=== PATIENT | male | born 1965 | race Two or more races ===

== ENCOUNTER 2024-04-15 21:01 | Inpatient (IN) | payer MEDICARE, MEDICAID ==
[~2024-04-15] VITALS: Ht 172.7 cm; Wt 85.5 kg
[2024-04-15 22:05] LABS: Basophils # (auto) 0 10 ^3/uL (0-0.2); Basophils % (auto) 0.5 % (0.0-2.0); Eosinophils # (auto) 0 10 ^3/uL (0-0.8); Eosinophils % (auto) 0.5 % (0.0-7.0); Hematocrit 28.9 % (41.0-53.0); Hemoglobin 9.9 g/dL (13.5-17.5); Lymphocytes # (auto) 1.1 10 ^3/uL (0.4-5.4); Lymphocytes % (auto) 12.4 % (10.0-50.0); Mean Corpuscular Hemoglobin 33.2 pg (28.0-32.0); Mean Corpuscular Hgb Conc. 34.2 g/dL (32.0-36.0); Monocytes # (auto) 0.6 10 ^3/uL (0-1.3); Monocytes % (auto) 7.1 % (0.0-12.0); Neutrophils # (auto) 7.2 10 ^3/uL (1.6-8.6); Neutrophils % (auto) 79.5 % (37.0-80.0); Platelet Count (auto) 222 10^3/uL (140-450); Red Blood Cells 2.98 10^6/uL (4.5-5.90)
[2024-04-15 22:23] LABS: Albumin 4.4 g/dL (3.2-4.8); Alkaline Phosphatase 84 U/L (46-116); Anion Gap 16 (5-15); Aspartate Aminotransferase 14 U/L (13-40); BUN/Creatinine Ratio 9.5 (10.0-20.0); Calcium 10.2 mg/dL (8.7-10.4); Carbon Dioxide 23 mmol/L (20-31); Lipase 32 U/L (12-53); Total Protein 8.2 g/dL (5.7-8.2)
[2024-04-15 22:24] LABS: Alanine Aminotransferase < 9 U/L (7-40); Bilirubin, Total 0.3 mg/dL (0.2-1.0); Chloride 93 mmol/L (98-107); Glucose 111 mg/dL (74-106); Sodium 132 mmol/L (136-145)
[2024-04-15 22:33] LABS: Blood Urea Nitrogen 95 mg/dL (9-23); Potassium 6.5 mmol/L (3.5-5.1)
[2024-04-15 22:34] LABS: Lactic Acid w/Reflex 2.9 mmol/L (0.4-2.0)
[2024-04-15] MEDS: ALBUTEROL SULF 2.5 MG/0.5ML(0.5%) NEB SOLN NEB ONE (22:59)
[2024-04-15 23:30] VITALS: PULSE 94; RESP 15; O2SAT 100
--- NOTE | 2024-04-15 23:42 | DVH ---
INDICATION: Rule out osteomyelitis COMPARISON: None TECHNIQUE: CT of the left foot was performed without contrast. Volume transverse images were obtain ed and reconstructed in multiple planes using bone and soft tissue algorithms. CONTRAST: None Radiation Dose Information: CT Dose: CTDI volume is 25 mGy. Dose-length product is 250 mGy*cm FINDINGS: Sequelae of prior postsurgical changes from amputation of the fourth and fifth digits with chronic appearing deformities in the remaining first through third digits as well as involving the mi dfoot and hindfoot. There is a wound/ulceration at the lateral plantar aspect of the midfoot extendin g up to 8.2 cm in greatest dimension. This ossific density, appears to be residual bony fragment from the fourth metatarsal base, extends into the soft tissue defect. The soft tissue defect also extends in close proximity to the cuboid and third metatarsal base. Cortical irregularity at the cuboid with adjacent sclerosis. Osteomyelitis not excluded. There is also some sclerosis and cortical indistinct ness in the third metatarsal base and in the adjacent bony fragments, for which osteomyelitis is not excluded. There is moderate subcutaneous edema adjacent to the wound and also seen throughout the mid foot and forefoot. IMPRESSION: Large wound/ulceration at the lateral plantar aspect of the midfoot as described above. O steomyelitis involving the cuboid, third metatarsal base, and adjacent osseous fragment, for which os teomyelitis cannot be excluded. Correlate with clinical findings. If clinically indicated, follow-up MRI could be obtained. All CT scans at this medical facility are performed using dose modulation techniques as appropriate t o a performed exam including the following: Automated exposure control was utilized; adjustment of th e MA and/or KV according to patient size; and use of iterative reconstruction technique.
[2024-04-16] MEDS: CALCIUM GLUC 1,000mg/50ml-NS 50 ML IV ONE ×2 (00:18→19:27)
[2024-04-16] MEDS: SODIUM ZIRCONIUM CYCL 10 GM PAK PO ONE ×2 (00:27→12:28)
[2024-04-16] MEDS: SODIUM CHLORIDE 0.9% 1,000 ML IV ONE ×2 (01:03→10:15)
[2024-04-16] MEDS ORDERED: VANCOMYCIN PER PHARMACY 0 MG IV SCH (01:15)
--- NOTE | 2024-04-16 01:26 | ED.PDOC ---
History of Present Illness(SKN HPI Comments This patient is a morbidly obese 58-year-old male who arrives the ED today for evaluation of bilateral foot wound concerns and general overall health issues for several weeks. Patient displays multiple eschars to bilateral feet with prior digit amputation noted throughout. Patient appears to be in poor overall health. Patient is an end-stage renal disease patient on dialysis. Patient receives dialysis Tuesday. Patient denies any fever nausea or vomiting. Patient mildly hypotensive on arrival. Chief Complaint: Wound Check Time Seen by MD: 21:29 Primary Care Provider: UNKNOWN History of Present Illness: Nurses Notes Allergies: Coded Allergies: NO KNOWN ALLERGIES (Unverified , 04/15/24) Information Source: Patient, Spouse Mode of Arrival: Ambulatory Severity: Moderate Timing: Weeks Duration: Since onset Prehospital treatment: Treatment Location: Foot Mechanism: Preceding Wound Object: None Condition of Object: None Wound Type: Other (Eschar to bilateral feet) History of: Diabetes Associated Signs and Symptoms: Redness, Swelling, Pus Past Medical History PAST MEDICAL HISTORY: DM, ESRD, HTN Past Medical History (Other): on dialysis Surgical History: Denies all surgeries Family History Family History: Reviewed,noncontributory to illness, No family hx of Cancer, No family hx of DM, No family hx of Heart nelda, No family hx of HTN, No family hx ofKidney nelda, No family hx of Liver nelda, No family hx of Lung nelda, No family hx of Stroke Social History Smoker: Non-Smoker Alcohol: Denies ETOH Use Drugs: Denies Drug Use Lives In: Home Constitutional: reports: fatigue; denies: chills, diaphoresis, fever, malaise, sweats, weakness, others EENTM: denies: blurred vision, double vision, ear bleeding, ear discharge, ear drainage, ear pain, ear ringing, eye pain, eye redness, hearing loss, mouth pain, mouth swelling, nasal discharge, nose bleeding, nose congestion, nose pain, photophobia, tearing, throat pain, throat swelling, voice changes, others Respiratory: denies: cough, hemoptysis, orthopnea, SOB at rest, shortness of breath, SOB with excertion, stridor, wheezing, others Cardiovascular: denies: chest pain, dizzy spells, diaphoresis, Dyspnea on exertion, edema, irregular heart beat, left arm pain, lightheadedness, palpitations, PND, syncope, others Gastrointestinal: denies: abdomen distended, abdominal pain, blood streaked bowels, constipated, diarrhea, dysphagia, difficulty swallowing, hematemesis, melena, nausea, poor appetite, poor fluid intake, rectal bleeding, rectal pain, vomiting, others Genitourinary: denies: burning, dysuria, flank pain, frequency, hematuria, incontinence, penile discharge, penile sore, pain, testicle pain, testicle swelling, urgency, others Neurological: denies: dizziness, fainting, headache, left sided numbness, left sided weakness, numbness, paresthesia, pre-existing deficit, right sided numbness, right sided weakness, seizure, speech problems, tingling, tremors, weakness, others Musculoskeletal: reports: others ( bilateral foot wounds); denies: back pain, gout, joint pain, joint swelling, muscle pain, muscle stiffness, neck pain Integumetry: denies: bruises, change in color, change in hair/nails, dryness, laceration, lesions, lumps, rash, wounds, others Allergic/Immunocompromised: denies: Difficulty Healing, Frequent Infections, Hives, Itching, others Hematologic/Lymphatic: denies: anemia, blood clots, easy bleeding, easy bruising, swollen glands, others Endocrine: denies: excessive hunger, excessive sweating, excessive thirst, excessive urination, flushing, intolerance to cold, intolerance to heat, unexplained weight gain, unexplained weight loss, others Psychiatric: denies: anxiety, bipolar disorder, depression, hopeless, panic disorder, schizophrenia, sleepless, suicidal, others Physical Exam General Appearance: Moderate Distress ( [id number] distress due to bilateral foot wound concerns.), Normal HEENT: Normal ENT Inspection, Pharynx Normal, TMs Normal Neck: Full Range of Motion, Non-Tender, Normal, Normal Inspection Respiratory: Chest Non-Tender, Lungs Clear, No Accessory Muscle Use, No Respiratory Distress, Normal Breath Sounds Cardiovascular: No Edema, No JVD, No Murmur, No Gallop, Normal Peripheral Pulses, Regular Rate/Rhythm Breast Exam: Deferred Gastrointestinal: No Organomegaly, Non Tender, No Pulsatile Mass, Normal Bowel Sounds, Soft Genitalia: Deferred Pelvic: Deferred Rectal: Deferred Extremities: Other ( Patient displays multiple large eschar to bilateral feet as well as prior amputations to aspects of both feet. Localized erythema and edema. Wounds are wet. Possible osteomyelitis.) Neurologic: Alert, No Motor Deficits, Normal Affect, Normal Mood, No Sensory Deficits Cerebellar Function: NOT DONE Reflexes: NOT DONE Skin: Dry, Normal Color, Warm Lymphatic: No Adenopathy Was a procedure done? Was a procedure done?: No Differential Diagnosis (INTG) Differential Diagnosis: Cellulitis, Fracture, Other ( Osteomyelitis, sepsis, electrolyte abnormality, end-stage renal disease) X-Ray, Labs, Meds, VS Vital Signs Date Time Temp Pulse Resp B/P (MAP) Pulse Ox O2 Delivery O2 Flow Rate FiO2 04/15/24 23:06 97.4 81 24 114/46 (68) 100 97.4 04/15/24 22:55 18 98 Room Air* 0 21 04/15/24 21:30 97.7 80 16 108/45 (66) 93 Lab Test 04/15/24 23:50 04/15/24 23:01 04/15/24 21:53 04/15/24 21:26 Range/Units Lactic Acid Level 3.0 *H 2.9 *H 0.4-2.0 mmol/L Troponin I High Sensitivity 41 41 </=54 ng/L White Blood Count 9.0 4.4-10.8 10^3/uL Red Blood Count 2.98 L 4.5-5.90 10^6/uL Hemoglobin 9.9 L 13.5-17.5 g/dL Hematocrit 28.9 L 41.0-53.0 % Mean Corpuscular Volume 97.0 80.0-100.0 fL Mean Corpuscular Hemoglobin 33.2 H 28.0-32.0 pg Mean Corpuscular Hemoglobin Concent 34.2 32.0-36.0 g/dL Red Cell Distribution Width 15.0 H 11.8-14.3 % Platelet Count 222 140-450 10^3/uL Mean Platelet Volume 7.2 6.9-10.8 fL Neutrophils (%) (Auto) 79.5 37.0-80.0 % Lymphocytes (%) (Auto) 12.4 10.0-50.0 % Monocytes (%) (Auto) 7.1 0.0-12.0 % Eosinophils (%) (Auto) 0.5 0.0-7.0 % Basophils (%) (Auto) 0.5 0.0-2.0 % Neutrophils # (Auto) 7.2 1.6-8.6 10 ^3/uL Lymphocytes # (Auto) 1.1 0.4-5.4 10 ^3/uL Monocytes # (Auto) 0.6 0-1.3 10 ^3/uL Eosinophils # (Auto) 0 0-0.8 10 ^3/uL Basophils # (Auto) 0 0-0.2 10 ^3/uL Nucleated Red Blood Cells 0.0 % Sodium Level 132 L 136-145 mmol/L Potassium Level 6.5 *H 3.5-5.1 mmol/L Chloride Level 93 L 98-107 mmol/L Carbon Dioxide Level 23 20-31 mmol/L Anion Gap 16 H 5-15 Blood Urea Nitrogen 95 *H 9-23 mg/dL Creatinine 10.04 *H 0.700-1.30 mg/dL Glomerular Filtration Rate Calc 5 >90 mL/min BUN/Creatinine Ratio 9.5 L 10.0-20.0 Serum Glucose 111 H 74-106 mg/dL Calcium Level 10.2 8.7-10.4 mg/dL Total Bilirubin 0.3 0.2-1.0 mg/dL Aspartate Amino Transferase (AST) 14 13-40 U/L Alanine Aminotransferase (ALT) < 9 7-40 U/L Alkaline Phosphatase 84 46-116 U/L B-Type Natriuretic Peptide 399.05 0-100 pg/mL Total Protein 8.2 5.7-8.2 g/dL Albumin 4.4 3.2-4.8 g/dL Lipase 32 12-53 U/L POC Glucose 122 H 70-106 mg/dl Current Medications Medications (Trade) Dose Ordered Sig/Samuel Route Start Time Stop Time Status Last Admin Zirconium Oxide (Lokelma) 10 gm ONCE ONCE PO 04/15/24 22:45 04/15/24 22:46 DC 04/16/24 00:27 Calcium Gluconate/ Sodium Chloride 50 ml @ 100 mls/hr ONCE ONCE IV 04/15/24 22:45 04/15/24 23:14 DC 04/16/24 00:18 Albuterol (Ventolin Medneb) 20 mg ONCE ONCE NEB 04/15/24 22:45 04/15/24 22:46 DC 04/15/24 22:59 Sodium Chloride 1,000 ml @ 200 mls/hr Q5H ONCE IV 04/15/24 22:45 04/16/24 03:44 04/16/24 01:03 X-Ray, Labs, Meds, VS Comment All studies performed the ED were evaluated by me personally. Laboratories revealed a mild anemia, hyponatremia, hyperkalemia, elevated lactic acid as well as evidence of end-stage renal disease. CT of right foot was pending at time of this note. CT of the left foot revealed a large ulceration of the lateral plantar aspect of the midfoot with osteomyelitis involving the cuboid 3rd metatarsal base and adjacent osseous fragments. Patient will be admitted for management of his multiple comorbidities as well as surgical evaluation of his bilateral foot concerns. Time of 1ST Reevaluation: :22 Reevaluation 1ST: Improved Consultation: PCP, Other ( podiatry) Patient Education/Counseling: Diagnosis, Treatment Family Education/Counseling: Diagnosis, Treatment Departure 1 Departure Time of Disposition: 01:24 Impression: Primary Impression: Osteomyelitis Additional Impressions: Anemia Hyponatremia Hyperkalemia End stage renal disease on dialysis Elevated lactic acid level Disposition: ADMITTED INPATIENT Condition: Fair Discharged With: Self Critical Care Note Critical Care Time?: Yes (45 min-critical care time only) Critical care comment: Due to the high probability of a clinically significant and possibly life- threatening deterioration, the patient required my highest level of preparedness to intervene emergently and therefore, I personally provider 45 minutes of critical care time exclusive of time spent on separate billable procedures. T his critical care time includes, but is not limited to, obtaining additional history, re-examination of the patient as well as re-examination of pulse oximetry, ordering and reviewing of new studies, arranging urgent treatment with the development of a management plan as well as evaluation of the patient's response to treatment and frequent reassessments with discussions with other providers and specialist. Stability Stability form required: No Heart Score Heart Score: Heart Score Response (Comments) Value History Slightly Suspicious 0 EKG Repolarization Disturb 1 Age 45-64 1 Risk Factors 1 or 2 risk factors 1 Troponin 1-2 x's Normal limit 1 Total [address] [facility] Apr 16, 2024 01:26
--- NOTE | 2024-04-16 01:27 | DVH ---
EXAMINATION: CT CT R FOOT WO CONTRAST INDICATION: Rule out osteomyelitis COMPARISON: CT CT L FOOT WO CONTRAST on DOS: 04/15/24 TECHNIQUE: CT of the right foot was performed without contrast. Volume transverse images were obtaine d reconstructed in multiple planes using bone and soft tissue algorithms. CONTRAST: None CTDI volume: 7.75 DLP: 266.66 FINDINGS: There is chronic displaced fracture deformity of the lateral malleolus. The patient has undergone br acket and screw fixation of the distal fibula which does not include the lateral malleolus which is d isplaced posteriorly. A surgical screw is noted within the sinus tarsi. The bones are generally osteo penic. There is notable arthritic change about the foot and ankle including at the level of the ankl e mortise which is deformed including medial displacement of the distal tibia with respect to the sandeep ar dome with small heterotopic ossification. There is also talonavicular arthritic change. Achilles c alcaneal enthesopathy is noted. There is mild soft tissue swelling about the ankle. IMPRESSION: 1. Postsurgical change with chronic posttraumatic deformity at the level of the ankle and foot.Underl paul 2. Osteopenia, calcaneal enthesopathy. 3. oft tissue swelling.
[2024-04-16] MEDS: PIPERACILLIN-TAZOB 3.375GM 100 ML IV ONE (02:36)
[2024-04-16] MEDS ORDERED: PIPERACILLIN-TAZOB 2.25GM 0.75 GM in D5W 5% 50 ML IV SCH (03:00)
[2024-04-16] MEDS ORDERED: DEXTROSE (50%) 50ML SYRG IV PRN (03:00)
--- NOTE | 2024-04-16 03:08 | DVHHP2 ---
History of Present Illness Reason for Visit: Foot wound History of Present Illness 58-year-old male presents for evaluation of bilateral foot wound. Patient reports worsening bilateral foot wounds with associated generalized weakness and occasional chills. Patient receives dialysis Tuesday, Tuesday and Tuesday. N oted to have high potassium level on arrival. Denies chest pain or palpitations. No other acute complaints. Past Medical History Hypertension, AFib, end-stage renal disease, diabetes mellitus Past Surgical History Dialysis access Family History Noncontributory Smoke: No ALCOHOL: none Drugs: None Lives: with Family Review of Systems Review of Systems Review of systems are currently negative otherwise addressed in HPI. Allergies: Coded Allergies: NO KNOWN ALLERGIES (Unverified , 04/15/24) Medications Current Medications Medications Dose Ordered Sig/Samuel Route Start Time Stop Time Status Last Admin Dose Admin Vancomycin HCl 0 ml @ 0 mls/hr UD IV 04/16/24 01:15 UNV Vancomycin HCl 250 ml @ 166.667 mls/hr Q2H IV 04/16/24 03:00 04/16/24 06:29 Exam Vital Signs Vital Signs Date Time Temp Pulse Resp B/P (MAP) Pulse Ox O2 Delivery O2 Flow Rate FiO2 04/16/24 01:31 101 04/15/24 23:06 97.4 24 114/46 (68) 100 97.4 04/15/24 22:55 Room Air* 0 21 Exam Gen: 58-year-old male in mild distress Skin: Warm, dry, normal color and texture, no rash. HEENT: Normocephalic atraumatic, mucous membranes moist and pink. Neck: Cervical and supraclavicular nodes normal without enlargement, trachea is midline, thyroid gland is normal without masses. Pulmonary: Clear to auscultation and percussion bilaterally. Cardiac: Regular rate and rhythm. No murmur Abdomen: Soft, nontender, nondistended, bowel sounds present all 4 quadrants, no guarding, no rigidity, no organomegaly. Extremities: No cyanosis, clubbing, left foot medial plantar ulcer, right foot medial ankle Neuro: Cranial nerves II through XII grossly intact, normal affect and speech, no focal motor deficits. Labs/Xrays ORDERING PHYSICIAN: SHARRI YOUNG PAC PROCEDURE(s): LFTCT - CT L FOOT WO CONTRAST REASON: Rule out osteomyelitis ORDER NUMBER(s): [id number], ACCESSION NUMBER(s): [id number] INDICATION: Rule out osteomyelitis COMPARISON: None TECHNIQUE: CT of the left foot was performed without contrast. Volume transverse images were obtained and reconstructed in multiple planes using bone and soft tissue algorithms. CONTRAST: None Radiation Dose Information: CT Dose: CTDI volume is 25 mGy. Dose-length product is 250 mGy*cm FINDINGS: Sequelae of prior postsurgical changes from amputation of the fourth and fifth digits with chronic appearing deformities in the remaining first through third digits as well as involving the midfoot and hindfoot. There is a wound/ulceration at the lateral plantar aspect of the midfoot extending up to 8.2 cm in greatest dimension. This ossific density, appears to be residual bony fragment from the fourth metatarsal base, extends into the soft tissue defect. The soft tissue defect also extends in close proximity to the cuboid and third metatarsal base. Cortical irregularity at the cuboid with adjacent sclerosis. Osteomyelitis not excluded. There is also some sclerosis and cortical indistinctness in the third metatarsal base and in the adjacent bony fragments, for which osteomyelitis is not excluded. There is moderate subcutaneous edema adjacent to the wound and also seen throughout the midfoot and forefoot. IMPRESSION: Large wound/ulceration at the lateral plantar aspect of the midfoot as described above. Osteomyelitis involving the cuboid, third metatarsal base, and adjacent osseous fragment, for which osteomyelitis cannot be excluded. Correlate with clinical findings. If clinically indicated, follow-up MRI could be obtained. All CT scans at this medical facility are performed using dose modulation techniques as appropriate to a performed exam including the following: Automated exposure control was utilized; adjustment of the MA and/or KV according to patient size; and use of iterative reconstruction technique. RING PHYSICIAN: SHARRI YOUNG [facility] PROCEDURE(s): RFTCT - CT R FOOT WO CONTRAST REASON: Rule out osteomyelitis ORDER NUMBER(s): [id number], ACCESSION NUMBER(s): [id number] EXAMINATION: CT CT R FOOT WO CONTRAST INDICATION: Rule out osteomyelitis COMPARISON: CT CT L FOOT WO CONTRAST on DOS: 04/15/24 TECHNIQUE: CT of the right foot was performed without contrast. Volume transverse images were obtained reconstructed in multiple planes using bone and soft tissue algorithms. CONTRAST: None CTDI volume: 7.75 DLP: 266.66 FINDINGS: There is chronic displaced fracture deformity of the lateral malleolus. The patient has undergone bracket and screw fixation of the distal fibula which does not include the lateral malleolus which is displaced posteriorly. A surgical screw is noted within the sinus tarsi. The bones are generally osteopenic. There is notable arthritic change about the foot and ankle including at the level of the ankle mortise which is deformed including medial displacement of the distal tibia with respect to the talar dome with small heterotopic ossification. There is also talonavicular arthritic change. Achilles calcaneal enthesopathy is noted. There is mild soft tissue swelling about the ankle. IMPRESSION: 1. Postsurgical change with chronic posttraumatic deformity at the level of the ankle and foot.Underlying 2. Osteopenia, calcaneal enthesopathy. 3. oft tissue swelling. Labs Test 04/16/24 01:42 04/15/24 23:50 04/15/24 21:53 04/15/24 21:26 Range/Units Troponin I High Sensitivity 34 </=54 ng/L Lactic Acid Level 3.0 *H 0.4-2.0 mmol/L White Blood Count 9.0 4.4-10.8 10^3/uL Red Blood Count 2.98 L 4.5-5.90 10^6/uL Hemoglobin 9.9 L 13.5-17.5 g/dL Hematocrit 28.9 L 41.0-53.0 % Mean Corpuscular Volume 97.0 80.0-100.0 fL Mean Corpuscular Hemoglobin 33.2 H 28.0-32.0 pg Mean Corpuscular Hemoglobin Concent 34.2 32.0-36.0 g/dL Red Cell Distribution Width 15.0 H 11.8-14.3 % Platelet Count 222 140-450 10^3/uL Mean Platelet Volume 7.2 6.9-10.8 fL Neutrophils (%) (Auto) 79.5 37.0-80.0 % Lymphocytes (%) (Auto) 12.4 10.0-50.0 % Monocytes (%) (Auto) 7.1 0.0-12.0 % Eosinophils (%) (Auto) 0.5 0.0-7.0 % Basophils (%) (Auto) 0.5 0.0-2.0 % Neutrophils # (Auto) 7.2 1.6-8.6 10 ^3/uL Lymphocytes # (Auto) 1.1 0.4-5.4 10 ^3/uL Monocytes # (Auto) 0.6 0-1.3 10 ^3/uL Eosinophils # (Auto) 0 0-0.8 10 ^3/uL Basophils # (Auto) 0 0-0.2 10 ^3/uL Nucleated Red Blood Cells 0.0 % Sodium Level 132 L 136-145 mmol/L Potassium Level 6.5 *H 3.5-5.1 mmol/L Chloride Level 93 L 98-107 mmol/L Carbon Dioxide Level 23 20-31 mmol/L Anion Gap 16 H 5-15 Blood Urea Nitrogen 95 *H 9-23 mg/dL Creatinine 10.04 *H 0.700-1.30 mg/dL Glomerular Filtration Rate Calc 5 >90 mL/min BUN/Creatinine Ratio 9.5 L 10.0-20.0 Serum Glucose 111 H 74-106 mg/dL Calcium Level 10.2 8.7-10.4 mg/dL Total Bilirubin 0.3 0.2-1.0 mg/dL Aspartate Amino Transferase (AST) 14 13-40 U/L Alanine Aminotransferase (ALT) < 9 7-40 U/L Alkaline Phosphatase 84 46-116 U/L B-Type Natriuretic Peptide 399.05 0-100 pg/mL Total Protein 8.2 5.7-8.2 g/dL Albumin 4.4 3.2-4.8 g/dL Lipase 32 12-53 U/L POC Glucose 122 H 70-106 mg/dl Assessment/Plan Assessment/Plan Assessment Bilateral foot wounds End-stage renal disease, dialysis dependent Chronic anemia Hypertension Diabetes mellitus Plan Admit the patient to [facility] to the hospitalist Podiatry consult Zosyn/vancomycin Wound culture pending Resume home medications Continue treatment per orders. Plan discussed with: Patient My Orders Orders - ZURI WORRELL AGACNP Procedure Category Date Status Time Potassium LAB 04/16/24 Verified 02:58 Zosyn Extended PHA 04/16/24 Verified Infusion 10:00 Zosyn Extended PHA 04/16/24 Verified Infusion 03:00 *[facility] CONS 04/16/24 Verified -[place] 02:58 Amlodipine Tablet PHA 04/16/24 Verified (Norvasc Tablet) 10:00 Furosemide Tablet PHA 04/16/24 Verified (Lasix Tablet) 10:00 Amiodarone Tablet PHA 04/16/24 Verified (Cordarone Tablet) 10:00 Atorvastatin (Lipitor) PHA 04/16/24 Verified 22:00 Podiatry Consult CONS 04/16/24 Verified 02:58 Basic Metabolic Panel LAB 04/17/24 Verified 04:00 Glucose Blood PHA 04/16/24 Verified (Accu-Chek Comfort 06:00 Mild Sliding Scale PHA 04/16/24 Verified Npo - Q6hr 06:00 Dextrose 50% Syringe PHA 04/16/24 Verified 03:00 Admit ADMIT 04/16/24 Verified 02:58 Renal DIET 04/16/24 Verified Standard(2gna,3gk,Lopho) Breakfast Hydrocodone-Acet PHA 04/16/24 Verified 5/325mg Tab ([place] 03:00 Ondansetron Hcl PHA 04/16/24 Verified (Zofran) 03:00 Complete Blood Count LAB 04/17/24 Verified 04:00 Condition: Stable FABRICIO 04/16/24 Verified 02:58 Acetaminophen Tablet PHA 04/16/24 Verified (Tylenol Tablet) 03:00 Bedrest With Bathroom FABRICIO 04/16/24 Verified Privileg 02:58 Heparin Sodium PHA 04/16/24 Verified (Porcine) 10:00 Date of Service: Apr 16, 2024 Billing Provider: ZURI WORRELL Common Visit Codes: [id number] INP/OBS CARE (MOD) ZRUI WORRELL Apr 16, 2024 03:08
[2024-04-16] MEDS: VANCOMYCIN 1GM/250ML KIT 250 ML IV SCH (04:11)
[2024-04-16] MEDS: ACCU-CHEK COMFORT CURVE STRIP VI SCH (06:15)
[2024-04-16] MEDS: InsuLIN REG 1unit/0.01ml Soln (100units/ml) SC SCH (06:19)
[2024-04-16] MEDS: ALBUTEROL SULF 2.5 MG/0.5ML(0.5%) NEB SOLN ONE (07:21)
[2024-04-16 07:35] VITALS: PULSE 80; RESP 18; O2SAT 98
[2024-04-16] MEDS: ALBUTEROL SULF 2.5 MG/0.5ML(0.5%) NEB SOLN NEB ONE ×2 (08:25→17:27)
[2024-04-16 09:14] LABS: Basophils # (auto) 0 10 ^3/uL (0-0.2); Basophils % (auto) 0.3 % (0.0-2.0); Eosinophils # (auto) 0 10 ^3/uL (0-0.8); Lymphocytes # (auto) 0.7 10 ^3/uL (0.4-5.4); Mean Corpuscular Hemoglobin 31.5 pg (28.0-32.0)
[2024-04-16 09:17] LABS: Hematocrit 24.9 % (41.0-53.0); Hemoglobin 7.9 g/dL (13.5-17.5); Mean Corpuscular Hgb Conc. 31.8 g/dL (32.0-36.0); Mean Corpuscular Volume 99.1 fL (80.0-100.0); Monocytes # (auto) 0.5 10 ^3/uL (0-1.3); Monocytes % (auto) 7.5 % (0.0-12.0); Neutrophils % (auto) 82.2 % (37.0-80.0); Platelet Count (auto) 195 10^3/uL (140-450); Red Blood Cells 2.51 10^6/uL (4.5-5.90); Red Cell Distribution Width 15.8 % (11.8-14.3); White Blood Cell 7.3 10^3/uL (4.4-10.8)
[2024-04-16] MEDS: DEXTROSE (50%) 50ML SYRG IV ONE ×2 (09:26→19:28)
[2024-04-16] MEDS: InsuLIN REG 1unit/0.01ml Soln (100units/ml) IV ONE ×2 (09:27→19:32)
[2024-04-16 09:37] LABS: Albumin 3.8 g/dL (3.2-4.8); Alkaline Phosphatase 77 U/L (46-116); Anion Gap 14 (5-15); BUN/Creatinine Ratio 9.3 (10.0-20.0); Calcium 9.2 mg/dL (8.7-10.4); Carbon Dioxide 22 mmol/L (20-31); Total Protein 6.9 g/dL (5.7-8.2)
[2024-04-16] MEDS: AMIODARONE HCL 200 MG TAB PO SCH (10:21)
--- NOTE | 2024-04-16 10:21 | DVH ---
CHEST RADIOGRAPH Indication: SOB Technique: Single frontal view of the chest was obtained Comparison: None FINDINGS: Lines and Tubes: None Lungs: No focal consolidation. Pleura: No effusion. No pneumothorax. Cardiomediastinal contours: Cardiomegaly. Bones: No acute osseous abnormality. IMPRESSION: Cardiomegaly with mild CHF.
[2024-04-16] MEDS: FUROSEMIDE 40 MG TAB PO SCH (10:24)
[2024-04-16] MEDS: amLODIPine BESYLATE 5 MG TAB PO SCH (10:25)
[2024-04-16] MEDS: HEPARIN SODIUM (PORCINE) 5000 UNITS/ML 1ML VIAL SC SCH (10:27)
[2024-04-16 10:29] LABS: Alanine Aminotransferase < 9 U/L (7-40); Aspartate Aminotransferase 9 U/L (13-40); Bilirubin, Total 0.3 mg/dL (0.2-1.0); Chloride 96 mmol/L (98-107); Glucose 259 mg/dL (74-106); Sodium 132 mmol/L (136-145)
[2024-04-16 10:31] LABS: Blood Urea Nitrogen 96 mg/dL (9-23); Potassium 5.7 mmol/L (3.5-5.1)
[2024-04-16] MEDS: CEFEPIME 1GM/ 50ML 50 ML IV ONE (12:22)
--- NOTE | 2024-04-16 12:25 | DVHINCON2 ---
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 On admission Nephrology is consulted to manage his hemodialysis Past Medical History Hypertension, AFib, end-stage renal disease, diabetes mellitus, peripheral arterial disease, bilateral foot cellulitis, Past Surgical History Right IJ tunneled hemodialysis catheter Amputation of left 4th and 5th toe Allergies: Coded Allergies: NO KNOWN ALLERGIES (Unverified , 04/15/24) Current Medications Current Medications Medications (Trade) Dose Ordered Sig/Samuel Route PRN Reason Start Time Stop Time Status Last Admin Vancomycin HCl 0 ml @ 0 mls/hr UD IV 04/16/24 01:15 Vancomycin HCl 250 ml @ 166.667 mls/hr Q2H IV 04/16/24 03:00 04/16/24 06:29 DC 04/16/24 06:00 Piperacillin Sod/ Tazobactam Sod 50 ml @ 12.5 mls/hr Q12HR IV 04/16/24 22:00 04/16/24 11:02 DC Piperacillin Sod/ Tazobactam Sod 0.75 gm/Dextrose 50 ml @ 12.5 mls/hr UD IV 04/16/24 03:00 04/16/24 03:18 DC Amlodipine Besylate (Norvasc Tablet) 10 mg DAILY PO 04/16/24 10:00 04/16/24 10:25 Furosemide (Lasix Tablet) 80 mg DAILY PO 04/16/24 10:00 04/16/24 10:24 Amiodarone HCl (Cordarone Tablet) 200 mg Q12HR PO 04/16/24 10:00 04/16/24 10:21 Atorvastatin Calcium (Lipitor) 40 mg HS PO 04/16/24 22:00 Diagnostic Test (Pha) (Accu-Chek Comfort Curve T) 1 strip Q6HR 04/16/24 06:00 04/16/24 06:15 Insulin Human Regular (InsuLIN R) Q6HR SC 04/16/24 06:00 04/16/24 06:19 Dextrose 50 ml UD PRN IV Blood Sugar LESS THAN 60 04/16/24 03:00 Acetaminophen/ Hydrocodone Bitart ([place] 5/325MG Tab) 1 tab Q4HP PRN PO MODERATE PAIN (4-6 PAIN SCALE) 04/16/24 03:00 Ondansetron HCl (Zofran) 4 mg Q4HP PRN IV NAUSEA / VOMITING 04/16/24 03:00 Acetaminophen (Tylenol Tablet) 650 mg Q6HP PRN PO PAIN SCALE 1-3 OR TEMP>100.4 04/16/24 03:00 Heparin Sodium (Porcine) 5,000 units Q12HR SC 04/16/24 10:00 04/16/24 10:27 Review of Systems Can not be obtained secondary to altered level of consciousness H&P Exam Vital Signs/I&O Vital Sign Date Time Temp Pulse Resp B/P (MAP) Pulse Ox O2 Delivery O2 Flow Rate FiO2 04/16/24 10:25 118/42 04/16/24 10:00 91 12 94 04/16/24 08:25 Nasal Cannula* 2 28 04/16/24 07:35 98.3 98.3 Intake and Output 04/15/24 04/16/24 19:00 07:00 Intake Total 1566.67 ml Balance 1566.67 ml Intake IV Total 1566.67 ml Physical Exam Obese male arousable but is confused Lungs clear to auscultation Cardiac exam regular rate and rhythm GI obese nontender was normal Extremity bilateral ischemic changes and ulcers Neuro patient is arousable but confused Labs/Diagnostic Data Labs/Diagnostic Data Laboratory Tests Test 04/16/24 08:56 04/16/24 08:30 04/16/24 06:13 04/16/24 03:24 Range/Units White Blood Count 7.3 4.4-10.8 10^3/uL Red Blood Count 2.51 L 4.5-5.90 10^6/uL Hemoglobin 7.9 #L 13.5-17.5 g/dL Hematocrit 24.9 #L 41.0-53.0 % Mean Corpuscular Volume 99.1 80.0-100.0 fL Mean Corpuscular Hemoglobin 31.5 28.0-32.0 pg Mean Corpuscular Hemoglobin Concent 31.8 L 32.0-36.0 g/dL Red Cell Distribution Width 15.8 H 11.8-14.3 % Platelet Count 195 140-450 10^3/uL Mean Platelet Volume 7.4 6.9-10.8 fL Neutrophils (%) (Auto) 82.2 H 37.0-80.0 % Lymphocytes (%) (Auto) 10.0 10.0-50.0 % Monocytes (%) (Auto) 7.5 0.0-12.0 % Eosinophils (%) (Auto) 0.0 0.0-7.0 % Basophils (%) (Auto) 0.3 0.0-2.0 % Neutrophils # (Auto) 6.0 1.6-8.6 10 ^3/uL Lymphocytes # (Auto) 0.7 0.4-5.4 10 ^3/uL Monocytes # (Auto) 0.5 0-1.3 10 ^3/uL Eosinophils # (Auto) 0 0-0.8 10 ^3/uL Basophils # (Auto) 0 0-0.2 10 ^3/uL Nucleated Red Blood Cells 0.0 % Sodium Level 132 L 136-145 mmol/L Potassium Level 5.7 *H 5.3 H 3.5-5.1 mmol/L Chloride Level 96 L 98-107 mmol/L Carbon Dioxide Level 22 20-31 mmol/L Anion Gap 14 5-15 Blood Urea Nitrogen 96 *H 9-23 mg/dL Creatinine 10.37 *H 0.700-1.30 mg/dL Glomerular Filtration Rate Calc 5 >90 mL/min BUN/Creatinine Ratio 9.3 L 10.0-20.0 Serum Glucose 259 #H 74-106 mg/dL Hemoglobin A1c 6.1 H <5.7 % A1C Lactic Acid Level 4.0 *H 0.4-2.0 mmol/L Calcium Level 9.2 8.7-10.4 mg/dL Total Bilirubin 0.3 0.2-1.0 mg/dL Aspartate Amino Transferase (AST) 9 L 13-40 U/L Alanine Aminotransferase (ALT) < 9 7-40 U/L Alkaline Phosphatase 77 46-116 U/L Total Protein 6.9 5.7-8.2 g/dL Albumin 3.8 3.2-4.8 g/dL Parathyroid Hormone (Intact) 221.4 H 18.4-80.1 pg/mL POC Glucose 199 H 70-106 mg/dl Test 04/16/24:42 04/15/24 23:50 04/15/24 23:01 04/15/24 21:53 Range/Units Troponin I High Sensitivity 34 41 41 </=54 ng/L Lactic Acid Level 3.0 *H 2.9 *H 0.4-2.0 mmol/L White Blood Count 9.0 4.4-10.8 10^3/uL Red Blood Count 2.98 L 4.5-5.90 10^6/uL Hemoglobin 9.9 L 13.5-17.5 g/dL Hematocrit 28.9 L 41.0-53.0 % Mean Corpuscular Volume 97.0 80.0-100.0 fL Mean Corpuscular Hemoglobin 33.2 H 28.0-32.0 pg Mean Corpuscular Hemoglobin Concent 34.2 32.0-36.0 g/dL Red Cell Distribution Width 15.0 H 11.8-14.3 % Platelet Count 222 140-450 10^3/uL Mean Platelet Volume 7.2 6.9-10.8 fL Neutrophils (%) (Auto) 79.5 37.0-80.0 % Lymphocytes (%) (Auto) 12.4 10.0-50.0 % Monocytes (%) (Auto) 7.1 0.0-12.0 % Eosinophils (%) (Auto) 0.5 0.0-7.0 % Basophils (%) (Auto) 0.5 0.0-2.0 % Neutrophils # (Auto) 7.2 1.6-8.6 10 ^3/uL Lymphocytes # (Auto) 1.1 0.4-5.4 10 ^3/uL Monocytes # (Auto) 0.6 0-1.3 10 ^3/uL Eosinophils # (Auto) 0 0-0.8 10 ^3/uL Basophils # (Auto) 0 0-0.2 10 ^3/uL Nucleated Red Blood Cells 0.0 % Sodium Level 132 L 136-145 mmol/L Potassium Level 6.5 *H 3.5-5.1 mmol/L Chloride Level 93 L 98-107 mmol/L Carbon Dioxide Level 23 20-31 mmol/L Anion Gap 16 H 5-15 Blood Urea Nitrogen 95 *H 9-23 mg/dL Creatinine 10.04 *H 0.700-1.30 mg/dL Glomerular Filtration Rate Calc 5 >90 mL/min BUN/Creatinine Ratio 9.5 L 10.0-20.0 Serum Glucose 111 H 74-106 mg/dL Calcium Level 10.2 8.7-10.4 mg/dL Total Bilirubin 0.3 0.2-1.0 mg/dL Aspartate Amino Transferase (AST) 14 13-40 U/L Alanine Aminotransferase (ALT) < 9 7-40 U/L Alkaline Phosphatase 84 46-116 U/L B-Type Natriuretic Peptide 399.05 0-100 pg/mL Total Protein 8.2 5.7-8.2 g/dL Albumin 4.4 3.2-4.8 g/dL Lipase 32 12-53 U/L Test 04/15/24 21:26 Range/Units POC Glucose 122 H 70-106 mg/dl Assessment End-stage renal disease on hemodialysis Septic shock Bilateral foot cellulitis Peripheral arterial disease Hyperkalemia Encephalopathy Chronic kidney disease Recommendations Resume hemodialysis 3 times weekly Emergent medical treatment for hyperkalemia Epogen 43174 IV 3 times weekly IV antibiotics IV pressors for blood pressure support Lokelma 10 g Renal diet Podiatry consult We will continue to follow Patient seen and examined by myself in the ER bed 17. I discussed my plan of care with the primary nurse at the bedside I would like to thank Alberto for the consult, will follow up Plan discussed with: Other (Nurse) EVANGELINA GRAY MD Apr 16, 2024 12:25
[2024-04-16 13:34] LABS: Magnesium 2.1 mg/dL (1.6-2.6)
--- NOTE | 2024-04-16 13:49 | DVHINCON2 ---
Date Seen: Apr 16, 2024 Reason for Consultation Bilateral foot and ankle wound History of Present Illness 58-year-old male presents for evaluation of bilateral foot wound. Patient reports worsening bilateral foot wounds with associated generalized weakness and occasional chills. Patient receives dialysis Tuesday, Tuesday and Tuesday. Noted to have high potassium level on arrival. Denies chest pain or palpitations. No other acute complaints. Past Medical History See H&P Past Surgical History See H&P Allergies: Coded Allergies: NO KNOWN ALLERGIES (Unverified , 04/15/24) Current Medications Current Medications Medications (Trade) Dose Ordered Sig/Samuel Route PRN Reason Start Time Stop Time Status Last Admin Vancomycin HCl 0 ml @ 0 mls/hr UD IV 04/16/24 01:15 Vancomycin HCl 250 ml @ 166.667 mls/hr Q2H IV 04/16/24 03:00 04/16/24 06:29 DC 04/16/24 06:00 Piperacillin Sod/ Tazobactam Sod 50 ml @ 12.5 mls/hr Q12HR IV 04/16/24 22:00 04/16/24 11:02 DC Piperacillin Sod/ Tazobactam Sod 0.75 gm/Dextrose 50 ml @ 12.5 mls/hr UD IV 04/16/24 03:00 04/16/24 03:18 DC Amlodipine Besylate (Norvasc Tablet) 10 mg DAILY PO 04/16/24 10:00 04/16/24 12:32 DC 04/16/24 10:25 Furosemide (Lasix Tablet) 80 mg DAILY PO 04/16/24 10:00 04/16/24 10:24 Amiodarone HCl (Cordarone Tablet) 200 mg Q12HR PO 04/16/24 10:00 04/16/24 10:21 Atorvastatin Calcium (Lipitor) 40 mg HS PO 04/16/24 22:00 Diagnostic Test (Pha) (Accu-Chek Comfort Curve T) 1 strip Q6HR 04/16/24 06:00 04/16/24 12:17 Insulin Human Regular (InsuLIN R) Q6HR SC 04/16/24 06:00 04/16/24 12:19 Dextrose 50 ml UD PRN IV Blood Sugar LESS THAN 60 04/16/24 03:00 Acetaminophen/ Hydrocodone Bitart ([place] 5/325MG Tab) 1 tab Q4HP PRN PO MODERATE PAIN (4-6 PAIN SCALE) 04/16/24 03:00 Ondansetron HCl (Zofran) 4 mg Q4HP PRN IV NAUSEA / VOMITING 04/16/24 03:00 Acetaminophen (Tylenol Tablet) 650 mg Q6HP PRN PO PAIN SCALE 1-3 OR TEMP>100.4 04/16/24 03:00 Heparin Sodium (Porcine) 5,000 units Q12HR SC 04/16/24 10:00 04/16/24 10:27 Vital Signs Vital Signs Date Time Temp Pulse Resp B/P (MAP) Pulse Ox O2 Delivery O2 Flow Rate FiO2 04/16/24 12:00 81 04/16/24 10:25 118/42 04/16/24 10:00 12 94 04/16/24 08:25 Nasal Cannula* 2 28 04/16/24 07:35 98.3 98.3 Physical Exam DERMATOLOGIC EXAM: - Skin is dry and cool to the touch dry bilaterally. - Nails 1-5 of the bilateral foot are thickened, discolored, dystrophic, and tender to palpate with subungual debris - Hair loss noted to bilateral feet - right ankle wound and left foot wound with purulent drainage and erythema VASCULAR EXAM: - DP and PT pulses are palpable bilaterally. - CONSULTANT is brisk to all digits. - Feet are cool to touch compared to lower legs bilaterally. NEUROLOGIC EXAM: - Normal light touch sensation to the superficial peroneal, deep peroneal, sural, saphenous, and tibial nerve branches. - Protective sensation is diminished as tested with a 5.07 10g Raymond-Charisse bilaterally. MUSCULOSKELETAL EXAM: - No gross deformities - Muscle strength is 5/5 and active motion is pain-free and symmetrical bilaterally - No pain or crepitation with passive range of motion bilaterally to all major pedal joints Labs/Diagnostic Data Labs Test 04/16/24 08:56 04/16/24 08:30 04/16/24 06:13 04/16/24 01:42 Range/Units White Blood Count 7.3 4.4-10.8 10^3/uL Red Blood Count 2.51 L 4.5-5.90 10^6/uL Hemoglobin 7.9 #L 13.5-17.5 g/dL Hematocrit 24.9 #L 41.0-53.0 % Mean Corpuscular Volume 99.1 80.0-100.0 fL Mean Corpuscular Hemoglobin 31.5 28.0-32.0 pg Mean Corpuscular Hemoglobin Concent 31.8 L 32.0-36.0 g/dL Red Cell Distribution Width 15.8 H 11.8-14.3 % Platelet Count 195 140-450 10^3/uL Mean Platelet Volume 7.4 6.9-10.8 fL Neutrophils (%) (Auto) 82.2 H 37.0-80.0 % Lymphocytes (%) (Auto) 10.0 10.0-50.0 % Monocytes (%) (Auto) 7.5 0.0-12.0 % Eosinophils (%) (Auto) 0.0 0.0-7.0 % Basophils (%) (Auto) 0.3 0.0-2.0 % Neutrophils # (Auto) 6.0 1.6-8.6 10 ^3/uL Lymphocytes # (Auto) 0.7 0.4-5.4 10 ^3/uL Monocytes # (Auto) 0.5 0-1.3 10 ^3/uL Eosinophils # (Auto) 0 0-0.8 10 ^3/uL Basophils # (Auto) 0 0-0.2 10 ^3/uL Nucleated Red Blood Cells 0.0 % Sodium Level 132 L 136-145 mmol/L Potassium Level 5.7 *H 3.5-5.1 mmol/L Chloride Level 96 L 98-107 mmol/L Carbon Dioxide Level 22 20-31 mmol/L Anion Gap 14 5-15 Blood Urea Nitrogen 96 *H 9-23 mg/dL Creatinine 10.37 *H 0.700-1.30 mg/dL Glomerular Filtration Rate Calc 5 >90 mL/min BUN/Creatinine Ratio 9.3 L 10.0-20.0 Serum Glucose 259 #H 74-106 mg/dL Hemoglobin A1c 6.1 H <5.7 % A1C Lactic Acid Level 4.0 *H 0.4-2.0 mmol/L Calcium Level 9.2 8.7-10.4 mg/dL Phosphorus Level 4.0 2.4-5.1 mg/dL Magnesium Level 2.1 1.6-2.6 mg/dL Total Bilirubin 0.3 0.2-1.0 mg/dL Aspartate Amino Transferase (AST) 9 L 13-40 U/L Alanine Aminotransferase (ALT) < 9 7-40 U/L Alkaline Phosphatase 77 46-116 U/L C-Reactive Protein High Sensitivity > 20.00 H <1.0 mg/dL Total Protein 6.9 5.7-8.2 g/dL Albumin 3.8 3.2-4.8 g/dL Parathyroid Hormone (Intact) 221.4 H 18.4-80.1 pg/mL POC Glucose 199 H 70-106 mg/dl Troponin I High Sensitivity 34 </=54 ng/L Test 04/15/24 21:53 Range/Units B-Type Natriuretic Peptide 399.05 0-100 pg/mL Lipase 32 12-53 U/L Problems(with codes): (1) Hyperkalemia (2) Anemia (3) Hyponatremia (4) Osteomyelitis (5) End stage renal disease on dialysis (6) Elevated lactic acid level Plan/Recommendation ASSESSMENT: Patient is a 58 year old seen on the floor for a worsening ulcer PLAN: - The patients chart was reviewed, clinical findings were discussed with the patient, the etiologies of the conditions were discussed in detail, and a treatment plan was agreed to at this time, with both oral and written instructions provided. - reviewed advanced imaging - discussed plan is to perform an incision and drainage right ankle and left foot - patient will be NPO at midnight - take him to the OR tomorrow - we will get cultures in the OR - can weightbear as tolerated in postoperative shoe All questions were answered and concerns addressed to the patient's satisfaction. The patient was given the phone number to the clinic and was told how to make contact with the clinic should any concerns or questions arise. Patient understands that if any questions or concerns arise prior to the next appointment, we should be contacted immediately. FOLLOW-UP: Continue to follow while inpatient Plan discussed with: Patient Date of Service: Apr 16, 2024 Billing Provider: BABAR CAMEJO DPM Common Visit Codes: CONSULT ONLY Consultation Codes: [id number] CONSULT <80MIN BABAR CAMEJO DPM Apr 16, 2024 13:49
[2024-04-16 14:47] LABS: Erythrocyte Sedimentation Rate 123 mm/hr (0-20)
--- NOTE | 2024-04-16 16:27 | DVHPNRES ---
Progress Note Date Seen: Apr 16, 2024 Resident Creating Document: MANAS CRAFT RESIDENT Medical Necessity Reason Pt with a Central, PICC or Fol: No Subjective Review of Systems Patient is a 58-year-old male with a past medical history of type 2 diabetes mellitus, hypertension, end-stage renal disease on dialysis, atrial fibrillation was brought to the ED for evaluation of bilateral foot wound. Patient reported that he fell last year and had a fracture in the right foot following which he developed ulcer on the medial malleolus of the right foot and he has had ulcer on the plantar surface of the left foot for a long time due to an injury from a nail. Patient's sister was called to get a better history and she reported that last year in July he fell following which he had right fracture and he developed ulcer, left foot ulcer has been there for the last many years which is not healing. Patient has started dialysis in 2023 at [facility] with schedule on Tuesday and Tuesday, has a left arm AV fistula. Patient reports worsening foot pain bilaterally associated with weakness, occasional chills. Patient denied chest pain, difficulty breathing, palpitations, abdominal pain, nausea, vomiting, diarrhea. Past medical history: Hypertension, type 2 diabetes mellitus, atrial fibrillation, end-stage renal disease Past surgical history: Right foot surgery, left 4th and 5th toe amputation Social history: Patient denies smoking, alcohol, drug use and lives with Home medications: Amiodarone 200 mg, amlodipine 10 mg, atorvastatin 40 mg, furosemide 80 mg Review of systems Patient reported pain in both the feet. Denied abdominal pain, nausea, vomiting, diarrhea, chest pain, shortness of breath, dizziness Objective vital signs Vital Sign Date Time Temp Pulse Resp B/P (MAP) Pulse Ox O2 Delivery O2 Flow Rate FiO2 04/16/24 14:00 78 12 117/46 (69) 98 04/16/24 08:25 Nasal Cannula* 2 28 04/16/24 07:35 98.3 98.3 Total Intake and Output 04/15/24 04/15/24 04/16/24 15:00 23:00 07:00 Intake Total 1566.67 ml Balance 1566.67 ml medications Current Medications Medications Dose Ordered Sig/Samuel Route Start Time Stop Time Status Last Admin Dose Admin Vancomycin HCl 0 ml @ 0 mls/hr UD IV 04/16/24 01:15 Furosemide 80 mg DAILY PO 04/16/24 10:00 04/16/24 10:24 80 MG Amiodarone HCl 200 mg Q12HR PO 04/16/24 10:00 04/16/24 10:21 200 MG Atorvastatin Calcium 40 mg HS PO 04/16/24 22:00 Diagnostic Test (Pha) 1 strip Q6HR 04/16/24 06:00 04/16/24 12:17 1 STRIP Insulin Human Regular Q6HR SC 04/16/24 06:00 04/16/24 12:19 8 UNITS Dextrose 50 ml UD PRN IV 04/16/24 03:00 Acetaminophen/ Hydrocodone Bitart 1 tab Q4HP PRN PO 04/16/24 03:00 Ondansetron HCl 4 mg Q4HP PRN IV 04/16/24 03:00 Acetaminophen 650 mg Q6HP PRN PO 04/16/24 03:00 Heparin Sodium (Porcine) 5,000 units Q12HR SC 04/16/24 10:00 04/16/24 10:27 5,000 UNITS Examination Constitutional: Patient was alert and oriented X 3 and does not appear to be in any acute distress Gen - no pallor, no icterus, no cyanosis, no clubbing, no LAD, no edema . Skin - Patients skin is warm and dry.. HEENT - normocephalic, atraumatic, dry mucous membranes. Neck - full ROM, no LAD, no JVD. Pulmonary - B/L equal air entry, minimal basilar rhonchi, no wheezing, no stridor. cardiovascular - normal S1,S2 heard. no murmurs heard. GI - soft abdomen without tenderness to palpation. no hepatospleenomegaly. Bowel sounds normoactive Neurological - Bilateral upper extremity strength 5/5, bilateral lower extremity strength 5/5, no facial droop, normal speech, no tremor, bilateral lower extremity sensation to crude touch absent up to the level of mid cole laboratory and microbiology Laboratory Tests 04/16/24 08:56 Test 04/16/24 15:31 Range/Units Serum Glucose Pending Problem List/Assessment/Plan Problem List/Assessment/Plan # bilateral foot wound # left foot osteomyelitis # right foot status post surgery with the osteopenia - empiric antibiotic coverage with vancomycin and cefepime - podiatry consulted, patient was taken for I and D tomorrow - ESR and CRP elevated - blood cultures pending - wound cultures pending # end-stage renal disease on dialysis # hyperkalemia - hemodialysis to be done tomorrow - Epogen - emergent medical treatment for hyperkalemia given # uncontrolled type 2 diabetes mellitus with hyperglycemia - on insulin sliding scale # paroxysmal atrial fibrillation - on amiodarone Goals Of Care discussed with the patient and his sister Milagros for over 25 minutes. Full code Plan discussed with Dr. Garrison Plan discussed with: Patient My Orders My Orders Orders - MANAS CRAFT Procedure Category Date Status Time Blood Culture TOM 04/16/24 Uncollected 08:54 Chest Xray 1 View XY 04/16/24 Resulted 08:54 Basic Metabolic Panel LAB 04/16/24 In Process 15:00 Lactic Acid W/ Reflex LAB 04/16/24 Verified Order 16:26 Date of Service: Apr 16, 2024 Billing Provider: ONUR GARRISON MD Common Visit Codes: [id number] INP/OBS CARE(HIGH) MANAS CRAFT RESIDENT Apr 16, 2024 16:27 ONUR GARRISON MD Apr 23, 2024 14:51
[2024-04-16 16:43] LABS: Anion Gap 14 (5-15)
[2024-04-16 16:44] LABS: Calcium 9.3 mg/dL (8.7-10.4)
[2024-04-16 16:49] LABS: Carbon Dioxide 19 mmol/L (20-31); Chloride 94 mmol/L (98-107); Potassium 5.7 mmol/L (3.5-5.1); Sodium 127 mmol/L (136-145)
[2024-04-16 16:55] LABS: Blood Urea Nitrogen 69 mg/dL (9-23)
[2024-04-16 17:07] LABS: BUN/Creatinine Ratio 6.6 (10.0-20.0); Glucose 209 mg/dL (74-106)
[2024-04-16 17:28] VITALS: PULSE 77; RESP 20; O2SAT 97
[2024-04-16 17:55] VITALS: RESP 16; O2SAT 96
[2024-04-16] MEDS ORDERED: AMIO200T13 (18:18)
[2024-04-16] MEDS ORDERED: ATOR40TA52 (18:18)
[2024-04-16] MEDS ORDERED: ZOLP5TAB5 (18:18)
[2024-04-16] MEDS ORDERED: INSLANTI SC (18:18)
[2024-04-16] MEDS ORDERED: FURO80TA3 (18:18)
[2024-04-16] MEDS ORDERED: GAB100C (18:18)
[2024-04-16] MEDS ORDERED: HYDR50TA47 (18:20)
[2024-04-16] MEDS ORDERED: SODI5PAK (18:20)
[2024-04-16] MEDS ORDERED: AMLO1TAB23 (18:20)
[2024-04-16] MEDS ORDERED: OMEP1CAP70 (18:20)
--- NOTE | 2024-04-16 18:27 | ECG ---
[facility] Test Date: 2024-04-16 Test Time: 01:31:32 Pat Name: PEGGY CHAVEZ Department: ED Room: 0239T Gender: M Ready To Wear Department Manager: EDEL : 1965 Requested By: BROCK WILDE Order Number: [id number] Reading MD: Cecilio Mendoza Measurements Intervals [place] Rate: 101 P: 67 [place]: 193 QRS: -5 QRSD: 146 T: 148 QT: 367 QTc: 476 Interpretive Statements Sinus tachycardia Left bundle branch block Electronically Signed On 04-20-2024 23:03:06 PDT by Cecilio Mendoza Please click the below link to view image of tracing.
[2024-04-16] MEDS: SODIUM BICARB 8.4% 50Meq/50ml SYR INJ IV ONE (19:28)
[2024-04-16 21:00] VITALS: BP 112/54; PULSE 84; RESP 18; TEMP 98.2; O2SAT 94
[2024-04-16] MEDS ORDERED: PIPERACILLIN-TAZOB 2.25GM 50 ML IV SCH (22:00)
[2024-04-16] MEDS: HYDROcodone-ACET 5/325MG TAB PO PRN (22:40)
[2024-04-16] MEDS: ATORVASTATIN 20 MG TAB PO SCH (22:40)
[2024-04-17] VITALS (11 sets, daily range): BP systolic 105–130; BP diastolic 43–59; PULSE 71–78; RESP 14–19; TEMP 97.3–98.7; O2SAT 90–100
[2024-04-17] MEDS: ALBUTEROL SULF 2.5 MG/0.5ML(0.5%) NEB SOLN NEB ONE (00:48)
--- NOTE | 2024-04-17 02:17 | ECG ---
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
[2024-04-17 04:19] LABS: Eosinophils # (auto) 0 10 ^3/uL (0-0.8); Lymphocytes # (auto) 0.5 10 ^3/uL (0.4-5.4); Red Blood Cells 2.27 10^6/uL (4.5-5.90)
[2024-04-17 04:20] LABS: Basophils # (auto) 0.1 10 ^3/uL (0-0.2); Basophils % (auto) 1.4 % (0.0-2.0); Eosinophils % (auto) 0.6 % (0.0-7.0); Hemoglobin 7.4 g/dL (13.5-17.5); Lymphocytes % (auto) 7.2 % (10.0-50.0); Mean Corpuscular Hemoglobin 32.4 pg (28.0-32.0); Mean Corpuscular Hgb Conc. 33.5 g/dL (32.0-36.0); Mean Corpuscular Volume 96.9 fL (80.0-100.0); Monocytes # (auto) 0.6 10 ^3/uL (0-1.3); Monocytes % (auto) 7.6 % (0.0-12.0); Neutrophils # (auto) 6.1 10 ^3/uL (1.6-8.6); Neutrophils % (auto) 83.2 % (37.0-80.0); Platelet Count (auto) 193 10^3/uL (140-450); White Blood Cell 7.3 10^3/uL (4.4-10.8)
[2024-04-17 04:31] LABS: Anion Gap 15 (5-15); Calcium 9.7 mg/dL (8.7-10.4); Carbon Dioxide 25 mmol/L (20-31)
[2024-04-17 04:32] LABS: INR 0.97 (0.9-1.15); Partial Thromboplastin Time 29.7 SEC (24.5-34.5); Prothrombin Time 10.3 sec (9.3-11.8)
[2024-04-17 04:36] LABS: BUN/Creatinine Ratio 9.4 (10.0-20.0); Glucose 102 mg/dL (74-106)
[2024-04-17 04:39] LABS: Blood Urea Nitrogen 101 mg/dL (9-23); Chloride 94 mmol/L (98-107); Sodium 134 mmol/L (136-145)
[2024-04-17 04:40] LABS: Potassium 5.4 mmol/L (3.5-5.1)
[2024-04-17] MEDS: CALCIUM GLUC 1,000mg/50ml-NS 50 ML IV ONE (04:51)
[2024-04-17] MEDS: FUROSEMIDE 40 MG/4 ML VIAL IV ONE (05:01)
[2024-04-17] MEDS: SODIUM ZIRCONIUM CYCL 10 GM PAK PO ONE (05:01)
[2024-04-17] MEDS: SODIUM BICARB 8.4% 50Meq/50ml SYR INJ IV ONE (05:06)
[2024-04-17] MEDS: DEXTROSE (50%) 50ML SYRG IV ONE (05:06)
[2024-04-17] MEDS: InsuLIN REG 1unit/0.01ml Soln (100units/ml) IV ONE (05:16)
[2024-04-17] MEDS: SODIUM CHL 0.9% 1000 ML BAG XX ONE (07:00)
--- NOTE | 2024-04-17 13:08 | DVHPN2 ---
Subjective 58-year-old male presents for evaluation of bilateral foot wound. Patient reports worsening bilateral foot wounds with associated generalized weakness and occasional chills. Patient receives dialysis Tuesday, Tuesday and Tuesday. Noted to have high potassium level on arrival. Denies chest pain or palpitations. No other acute complaints. Changes from previous H/P or p: No Changes Objective Vitals Vital Signs Date Time Temp Pulse Resp B/P (MAP) Pulse Ox O2 Delivery O2 Flow Rate FiO2 04/17/24 10:25 76 14 121/48 (72) 95 04/17/24 10:00 Room Air 0.0 04/17/24 10:00 21 04/17/24 05:00 97.3 97.3 Intake/Output Intake and Output 04/17/24 07:00 Intake Total 1090.0 ml Balance 1090.0 ml Intake Oral 240 ml IV Total 850.0 ml Exam DERMATOLOGIC EXAM: - Skin is dry and cool to the touch dry bilaterally. - Nails 1-5 of the bilateral foot are thickened, discolored, dystrophic, and tender to palpate with subungual debris - Hair loss noted to bilateral feet - right ankle wound and left foot wound with purulent drainage and erythema VASCULAR EXAM: - DP and PT pulses are palpable bilaterally. - MANAGEMENT AND BUDGET ANALYST is brisk to all digits. - Feet are cool to touch compared to lower legs bilaterally. NEUROLOGIC EXAM: - Normal light touch sensation to the superficial peroneal, deep peroneal, sural, saphenous, and tibial nerve branches. - Protective sensation is diminished as tested with a 5.07 10g [place] bilaterally. MUSCULOSKELETAL EXAM: - No gross deformities - Muscle strength is 5/5 and active motion is pain-free and symmetrical bilaterally - No pain or crepitation with passive range of motion bilaterally to all major pedal joints Medications Current Medications Medications Dose Ordered Sig/Samuel Route Start Time Stop Time Status Last Admin Dose Admin Vancomycin HCl 0 ml @ 0 mls/hr UD IV 04/16/24 01:15 Furosemide 80 mg DAILY PO 04/16/24 10:00 04/16/24 10:24 80 MG Amiodarone HCl 200 mg Q12HR PO 04/16/24 10:00 04/16/24 22:41 200 MG Atorvastatin Calcium 40 mg HS PO 04/16/24 22:00 04/16/24 22:40 40 MG Diagnostic Test (Pha) 1 strip Q6HR 04/16/24 06:00 04/17/24 12:21 1 STRIP Insulin Human Regular Q6HR SC 04/16/24 06:00 04/16/24 22:36 2 UNITS Dextrose 50 ml UD PRN IV 04/16/24 03:00 Acetaminophen/ Hydrocodone Bitart 1 tab Q4HP PRN PO 04/16/24 03:00 04/17/24 02:43 1 TAB Ondansetron HCl 4 mg Q4HP PRN IV 04/16/24 03:00 Acetaminophen 650 mg Q6HP PRN PO 04/16/24 03:00 Heparin Sodium (Porcine) 5,000 units Q12HR SC 04/16/24 10:00 04/16/24 22:37 5,000 UNITS Ergocalciferol 50,000 unit Q7D PO 04/17/24 09:00 Laboratory Results Laboratory Tests 04/17/24 04:05 Chemistry Test 04/16/24 15:31 04/17/24 04:05 Calcium Level 9.3 mg/dL (8.7-10.4) 9.7 mg/dL (8.7-10.4) Coagulation Test 04/17/24 04:05 Prothrombin Time 10.3 sec (9.3-11.8) Prothrombin Time INR 0.97 (0.9-1.15) Activated Partial Thromboplast Time 29.7 SEC (24.5-34.5) Microbiology Microbiology Date/Time Source Procedure Growth Status 04/16/24 07:20 Foot Right Gram Stain - Final Resulted 04/16/24 07:20 Foot Right Wound Culture - Preliminary Resulted Assessment/Plan Assessment/Plan ASSESSMENT: Patient is a 58 year old seen on the floor for a worsening ulcer PLAN: - The patients chart was reviewed, clinical findings were discussed with the patient, the etiologies of the conditions were discussed in detail, and a treatment plan was agreed to at this time, with both oral and written instructions provided. - reviewed advanced imaging - discussed plan is to perform an incision and drainage right ankle and left foot - patient will be NPO at midnight - take him to the OR tomorrow - we will get cultures in the OR - can weightbear as tolerated in postoperative shoe All questions were answered and concerns addressed to the patient's satisfaction. The patient was given the phone number to the clinic and was told how to make contact with the clinic should any concerns or questions arise. Patient understands that if any questions or concerns arise prior to the next appointment, we should be contacted immediately. FOLLOW-UP: Continue to follow while inpatient Plan discussed with: Patient Problem List: (1) Hyperkalemia (2) Anemia (3) Hyponatremia (4) Osteomyelitis (5) End stage renal disease on dialysis (6) Elevated lactic acid level Date of Service: Apr 17, 2024 Billing Provider: BABAR CAMEJO DPM Common Visit Codes: [id number] INP/OBS CARE(HIGH) BABAR CAMEJO DPM Apr 17, 2024 13:08
[2024-04-17] MEDS: ERGOCALCIFEROL 50,000 UNIT(1.25MG) CAP PO SCH (14:31)
--- NOTE | 2024-04-17 16:13 | DVHPNRES ---
Progress Note Date Seen: Apr 17, 2024 Resident Creating Document: HERI POON RESIDENT Medical Necessity Reason Pt with a Central, PICC or Fol: No Subjective Patient reports: Feels better Other Systems: Patient seen and examined by myself today in rounds with the medicine resident I agree with his assessment and plan, Objective vital signs Vital Sign Date Time Temp Pulse Resp B/P (MAP) Pulse Ox O2 Delivery O2 Flow Rate FiO2 04/17/24 13:00 98.3 73 16 130/59 (82) 96 98.3 04/17/24 10:00 Room Air 0.0 04/17/24 10:00 21 Total Intake and Output 04/16/24 04/16/24 04/17/24 15:00 23:00 07:00 Intake Total 825.0 ml 25.0 ml 240 ml Balance 825.0 ml 25.0 ml 240 ml medications Current Medications Medications Dose Ordered Sig/Samuel Route Start Time Stop Time Status Last Admin Dose Admin Vancomycin HCl 0 ml @ 0 mls/hr UD IV 04/16/24 01:15 Furosemide 80 mg DAILY PO 04/16/24 10:00 04/16/24 10:24 80 MG Amiodarone HCl 200 mg Q12HR PO 04/16/24 10:00 04/16/24 22:41 200 MG Atorvastatin Calcium 40 mg HS PO 04/16/24 22:00 04/16/24 22:40 40 MG Diagnostic Test (Pha) 1 strip Q6HR 04/16/24 06:00 04/17/24 12:21 1 STRIP Insulin Human Regular Q6HR SC 04/16/24 06:00 04/16/24 22:36 2 UNITS Dextrose 50 ml UD PRN IV 04/16/24 03:00 Acetaminophen/ Hydrocodone Bitart 1 tab Q4HP PRN PO 04/16/24 03:00 04/17/24 02:43 1 TAB Ondansetron HCl 4 mg Q4HP PRN IV 04/16/24 03:00 Acetaminophen 650 mg Q6HP PRN PO 04/16/24 03:00 Heparin Sodium (Porcine) 5,000 units Q12HR SC 04/16/24 10:00 04/16/24 22:37 5,000 UNITS Ergocalciferol 50,000 unit Q7D PO 04/17/24 09:00 04/17/24 14:31 50,000 UNIT Examination Examination: GENERAL:Normal, HEENT:Normal, NECK:Normal, LUNGS:Normal, CVS:Normal, ABDOMEN:Normal, MSK:Normal, SKIN:Normal, NEURO:Normal Evaluated the patient during HD today at bedside laboratory and microbiology Laboratory Tests 04/17/24 04:05 Test 04/17/24 04:05 Range/Units Serum Glucose 102 # 74-106 mg/dL Microbiology Date/Time Source Procedure Growth Status 04/16/24 07:20 Foot Right Gram Stain - Final Resulted 04/16/24 07:20 Foot Right Wound Culture - Preliminary Resulted Labs and/or images reviewed: Labs reviewed by me, Image(s) reviewed by me Problem List/Assessment/Plan Problem List/Assessment/Plan A 58-year-old male with a history of hypertension, atrial fibrillation, end- stage renal disease, and diabetes mellitus presents with worsening bilateral foot wounds, generalized weakness, and occasional chills. He undergoes dialysis three times a week and was noted to have a high potassium level upon arrival. He denies chest pain or palpitations and has no other acute complaints. His past surgical history includes dialysis access and patient is getting HD today. 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 next dialysis 04/19 #Close follow up of bmp and K. #Epogen post HD. #IV antibiotics #IV pressors for blood pressure support as needed to keep MAP > 65 #Lokelma 10 g #Renal diet #Podiatry consult pending definitive I&D tomorrow. #Rest of the treatment as per primary team. Thank you for the opportunity to follow up on your patient. In case of any question feel free to reach out to the Nephrology team. Discussed with Nephrology attending Dr. Gray. Plan discussed with: Patient, Other (RN) Dietary Evaluation Review Recommendations by RD: Protein Supplementation Comments: 1) Renal standard and CCHO 75gm diet 2) Nephro-Beverly 1 tab daily 3) Josafat 1 pk daily and Pro-Stat 1 pk daily 4) Continue current plan of care Expected Outcomes/Goals: Pt will meet >75% estimated needs Fu 3-5 days HERI POON Apr 17, 2024 16:13 EVANGELINA GRAY MD Apr 17, 2024 16:33
[2024-04-17] MEDS ORDERED: FURO40TA4 PO (16:33)
[2024-04-17] MEDS ORDERED: ALLO100T PO (16:33)
[2024-04-17] MEDS ORDERED: FERR325T20 PO (16:33)
[2024-04-17] MEDS ORDERED: GLIP10TA9 PO (16:33)
[2024-04-17] MEDS ORDERED: FERR1TAB17 PO (16:33)
[2024-04-17] MEDS ORDERED: SODI5PAK PO (16:33)
[2024-04-17] MEDS ORDERED: GABA-339 PO (16:33)
[2024-04-17] MEDS ORDERED: METF-372 PO (16:33)
[2024-04-17] MEDS ORDERED: AMLO1TAB22 PO (16:33)
[2024-04-17] MEDS ORDERED: INSLANTI SC (16:33)
--- NOTE | 2024-04-17 20:34 | DVHPNRES ---
Progress Note Date Seen: Apr 17, 2024 Resident Creating Document: JHAJRealMANAS RESIDENT Medical Necessity Reason Pt with a Central, PICC or Fol: No Subjective Review of Systems Patient reported pain in both the feet. Denied abdominal pain, nausea, vomiting, diarrhea, chest pain, shortness of breath, dizziness Objective vital signs Vital Sign Date Time Temp Pulse Resp B/P (MAP) Pulse Ox O2 Delivery O2 Flow Rate FiO2 04/17/24 17:02 98.7 75 16 123/43 (69) 92 98.7 04/17/24 10:00 Room Air 0.0 04/17/24 10:00 21 Total Intake and Output 04/16/24 04/16/24 04/17/24 15:00 23:00 07:00 Intake Total 825.0 ml 25.0 ml 240 ml Balance 825.0 ml 25.0 ml 240 ml medications Current Medications Medications Dose Ordered Sig/Samuel Route Start Time Stop Time Status Last Admin Dose Admin Vancomycin HCl 0 ml @ 0 mls/hr UD IV 04/16/24 01:15 Furosemide 80 mg DAILY PO 04/16/24 10:00 04/16/24 10:24 80 MG Amiodarone HCl 200 mg Q12HR PO 04/16/24 10:00 04/16/24 22:41 200 MG Atorvastatin Calcium 40 mg HS PO 04/16/24 22:00 04/16/24 22:40 40 MG Diagnostic Test (Pha) 1 strip Q6HR 04/16/24 06:00 04/17/24 18:01 1 STRIP Insulin Human Regular Q6HR SC 04/16/24 06:00 04/17/24 18:03 3 UNITS Dextrose 50 ml UD PRN IV 04/16/24 03:00 Acetaminophen/ Hydrocodone Bitart 1 tab Q4HP PRN PO 04/16/24 03:00 04/17/24 02:43 1 TAB Ondansetron HCl 4 mg Q4HP PRN IV 04/16/24 03:00 Acetaminophen 650 mg Q6HP PRN PO 04/16/24 03:00 Heparin Sodium (Porcine) 5,000 units Q12HR SC 04/16/24 10:00 04/16/24 22:37 5,000 UNITS Ergocalciferol 50,000 unit Q7D PO 04/17/24 09:00 04/17/24 14:31 50,000 UNIT Examination Constitutional: Patient was alert and oriented X 3 and does not appear to be in any acute distress Gen - no pallor, no icterus, no cyanosis, no clubbing, no LAD, no edema . Skin - Patients skin is warm and dry.. HEENT - normocephalic, atraumatic, dry mucous membranes. Neck - full ROM, no LAD, no JVD. Pulmonary - B/L equal air entry, minimal basilar rhonchi, no wheezing, no stridor. cardiovascular - normal S1,S2 heard. no murmurs heard. GI - soft abdomen without tenderness to palpation. no hepatospleenomegaly. Bowel sounds normoactive Neurological - Bilateral upper extremity strength 5/5, bilateral lower extremity strength 5/5, no facial droop, normal speech, no tremor, bilateral lower extremity sensation to crude touch absent up to the level of mid cole Extremities: Ulcer on the lateral part of the plantar surface of left foot, on the medial malleolus of the right foot laboratory and microbiology Laboratory Tests 04/17/24 04:05 Test 04/17/24 04:05 Range/Units Serum Glucose 102 # 74-106 mg/dL Microbiology Date/Time Source Procedure Growth Status 04/16/24 07:20 Foot Right Gram Stain - Final Resulted 04/16/24 07:20 Foot Right Wound Culture - Preliminary Resulted Problem List/Assessment/Plan Problem List/Assessment/Plan # bilateral foot wound # left foot osteomyelitis # right foot status post surgery with the osteopenia - empiric antibiotic coverage with vancomycin and cefepime - podiatry consulted, patient was taken for I and D tomorrow - ESR and CRP elevated - blood cultures pending - wound cultures pending # end-stage renal disease on dialysis # hyperkalemia - hemodialysis done with 2-3 L of HD UF - Epogen - monitor for hyperkalemia - renal diet # uncontrolled type 2 diabetes mellitus with hyperglycemia - on insulin sliding scale # paroxysmal atrial fibrillation - on amiodarone Goals Of Care discussed with the patient and his sister Milagros for over 25 minutes. Full code Plan discussed with Dr. Bladimir Sanchez discussed with: Patient, Other (Sister Milagros) My Orders My Orders Orders - MANAS CRAFT RESIDENT Procedure Category Date Status Time Ergocalciferol PHA 04/17/24 In Process (Vitamin D 50,000 09:00 Notify Provider NOTICE 04/17/24 Transmitted Malnutrition 13:33 Nutritional NOURISH 04/17/24 Transmitted Supplements 13:33 Dietary NOTICE 04/17/24 Transmitted Recommendations 13:33 Basic Metabolic Panel LAB 04/17/24 Logged 18:18 Dietary Evaluation Review Recommendations by RD: Protein Supplementation Comments: 1) Renal standard and CCHO 75gm diet 2) Nephro-Beverly 1 tab daily 3) Josafat 1 pk daily and Pro-Stat 1 pk daily 4) Continue current plan of care Expected Outcomes/Goals: Pt will meet >75% estimated needs Fu 3-5 days Date of Service: Apr 17, 2024 Billing Provider: ONUR FRANCISCO MD Common Visit Codes: [id number] INP/OBS CARE(HIGH) MANAS CRAFT RESIDENT Apr 17, 2024 20:34 ONUR FRANCISCO MD Apr 23, 2024 15:23
[2024-04-17] MEDS: EPOETIN ALFA-EPBX 10,000 UNIT/1ML VIAL SC ONE (21:37)
[2024-04-17] MEDS: ONDANSETRON HCL 4 MG/2 ML VIAL IV PRN (23:43)
[2024-04-18] VITALS (11 sets, daily range): BP systolic 15–154; BP diastolic 36–79; PULSE 68–91; RESP 16–19; TEMP 98–98.6; O2SAT 90–98
[2024-04-18 09:11] LABS: Basophils # (auto) 0 10 ^3/uL (0-0.2); Basophils % (auto) 0.9 % (0.0-2.0); Eosinophils # (auto) 0.2 10 ^3/uL (0-0.8); Hemoglobin 7.4 g/dL (13.5-17.5); Lymphocytes # (auto) 0.9 10 ^3/uL (0.4-5.4); Monocytes # (auto) 0.3 10 ^3/uL (0-1.3); Neutrophils # (auto) 3.8 10 ^3/uL (1.6-8.6)
[2024-04-18 09:13] LABS: Eosinophils % (auto) 4.5 % (0.0-7.0); Hematocrit 23.5 % (41.0-53.0); Lymphocytes % (auto) 17.2 % (10.0-50.0); Mean Corpuscular Hemoglobin 31.2 pg (28.0-32.0); Mean Corpuscular Hgb Conc. 31.5 g/dL (32.0-36.0); Mean Corpuscular Volume 98.9 fL (80.0-100.0); Monocytes % (auto) 5.7 % (0.0-12.0); Neutrophils % (auto) 71.7 % (37.0-80.0); Platelet Count (auto) 201 10^3/uL (140-450); Red Blood Cells 2.38 10^6/uL (4.5-5.90); Red Cell Distribution Width 14.7 % (11.8-14.3); White Blood Cell 5.3 10^3/uL (4.4-10.8)
[2024-04-18 09:17] LABS: Anion Gap 12 (5-15); Carbon Dioxide 27 mmol/L (20-31)
[2024-04-18 09:18] LABS: Calcium 9.1 mg/dL (8.7-10.4)
[2024-04-18 09:19] LABS: Chloride 94 mmol/L (98-107); Potassium 5.5 mmol/L (3.5-5.1); Sodium 133 mmol/L (136-145)
[2024-04-18 09:23] LABS: BUN/Creatinine Ratio 7.5 (10.0-20.0); Blood Urea Nitrogen 64 mg/dL (9-23); Glucose 131 mg/dL (74-106)
[2024-04-18 09:25] LABS: Phosphorus 4.6 mg/dL (2.4-5.1)
[2024-04-18] MEDS: Juven Fruit Punch Powder PACKET 28.8gm PO SCH (10:00)
[2024-04-18] MEDS ORDERED: PROPOFOL 10 MG/ML 20 ML IV ONE (10:06)
[2024-04-18] MEDS ORDERED: LIDOCAINE 1% INJ PF 5ML AMP ONE (10:06)
[2024-04-18] MEDS ORDERED: DexAMETHasone SOD PHOS 10MG/1ML VIAL INJ ONE (10:06)
[2024-04-18] MEDS ORDERED: ONDANSETRON HCL 4 MG/2 ML VIAL ONE (10:06)
[2024-04-18] MEDS ORDERED: GLYCOPYRROLATE 0.2 MG/ML 1ML VIAL ONE (10:06)
[2024-04-18] MEDS: ceFAZolin 2 GM/D5W100ml 100 ML IV ONE (10:57)
--- NOTE | 2024-04-18 11:01 | DVHPNRES ---
Progress Note Date Seen: Apr 18, 2024 Resident Creating Document: HERI POON RESIDENT Medical Necessity Reason Pt with a Central, PICC or Fol: No Subjective Other Systems: Patient seen and examined today by myself with the medicine resident rounds. I agree with his assessment and plan as documented in this note Objective vital signs Vital Sign Date Time Temp Pulse Resp B/P (MAP) Pulse Ox O2 Delivery O2 Flow Rate FiO2 04/18/24 09:00 98.0 69 18 112/38 (62) 93 98.0 04/17/24 20:00 Room Air* 0 21 Total Intake and Output 04/17/24 04/17/24 04/18/24 15:00 23:00 07:00 Intake Total 320 ml 250 ml Output Total 0 ml 300 ml Balance 320 ml -50 ml medications Current Medications Medications Dose Ordered Sig/Samuel Route Start Time Stop Time Status Last Admin Dose Admin Vancomycin HCl 0 ml @ 0 mls/hr UD IV 04/16/24 01:15 Furosemide 80 mg DAILY PO 04/16/24 10:00 04/16/24 10:24 80 MG Amiodarone HCl 200 mg Q12HR PO 04/16/24 10:00 04/17/24 21:38 200 MG Atorvastatin Calcium 40 mg HS PO 04/16/24 22:00 04/17/24 21:38 40 MG Diagnostic Test (Pha) 1 strip Q6HR 04/16/24 06:00 04/18/24 06:08 1 STRIP Insulin Human Regular Q6HR SC 04/16/24 06:00 04/18/24 06:08 2 UNITS Dextrose 50 ml UD PRN IV 04/16/24 03:00 Acetaminophen/ Hydrocodone Bitart 1 tab Q4HP PRN PO 04/16/24 03:00 04/17/24 23:44 1 TAB Ondansetron HCl 4 mg Q4HP PRN IV 04/16/24 03:00 04/17/24 23:43 4 MG Acetaminophen 650 mg Q6HP PRN PO 04/16/24 03:00 Heparin Sodium (Porcine) 5,000 units Q12HR SC 04/16/24 10:00 04/17/24 21:37 5,000 UNITS Ergocalciferol 50,000 unit Q7D PO 04/17/24 09:00 04/17/24 14:31 50,000 UNIT Enteral Nutritional Formula 28.8 gm DAILY PO 04/18/24 10:00 Amino Acid Protein 30 ml DAILY PO 04/19/24 10:00 UNV Multivit/Ca Carb/ B Cmplx/FA/Prenat 1 tab DAILY PO 04/19/24 10:00 UNV Examination GENERAL:Normal, HEENT:Normal, NECK:Normal, LUNGS:Normal, CVS:Normal, ABDOMEN:Normal, MSK:Normal, SKIN:Normal, NEURO:Normal laboratory and microbiology Laboratory Tests 04/18/24 08:25 Test 04/18/24 08:25 Range/Units Serum Glucose 131 H 74-106 mg/dL Microbiology Date/Time Source Procedure Growth Status 04/16/24 07:20 Foot Right Gram Stain - Final Resulted 04/16/24 07:20 Foot Right Wound Culture - Preliminary Resulted Labs and/or images reviewed: Labs reviewed by me, Image(s) reviewed by me Problem List/Assessment/Plan Problem List/Assessment/Plan A 58-year-old male with a history of hypertension, atrial fibrillation, end- stage renal disease, and diabetes mellitus presents with worsening bilateral foot wounds, generalized weakness, and occasional chills. He undergoes dialysis three times a week and was noted to have a high potassium level upon arrival. He denies chest pain or palpitations and has no other acute complaints. His past surgical history includes dialysis access and patient is got HD yesterday. Pending I&D by Dr. Henriquez this AM. Nephrology Consult/ Progress Note: Assessment: #Hyperkalemia #Encephalopathy #Chronic kidney disease #ESRD on hemodialysis Right IJ tunneled hemodialysis catheter #H/o Hypertension #Diabetes mellitus #Peripheral vascular disease #bilateral foot cellulitis s/p Amputation of left 4th and 5th toe #Septic shock #Pending I&D by podiatry today. Findings: #GFR: 5>7 #Creatinine: 10.04>10.37>10.47>10.76>8.58 #K 5.7>5.4>5.5 #BUN 69>101>64 #I&O: aneuric Plan: #Resume hemodialysis 3 times weekly, 04/17 HD UF 2 L. next dialysis 04/19 tomorrow. #Lokelma 10 g after the procedure and please follow strictly renal diet. #Close follow up of bmp and K. s/p IV insulin and dextrose. #Epogen post HD. #IV antibiotics to continue #IV pressors for blood pressure support as needed to keep MAP > 65 #Renal diet #Podiatry consult pending definitive I&D tomorrow. #Rest of the treatment as per primary team. Thank you for the opportunity to follow up on your patient. In case of any question feel free to reach out to the Nephrology team. Discussed with Nephrology attending Dr. Gray. Plan discussed with: Patient, Other (RN) My Orders My Orders Orders - HERI POON Procedure Category Date Status Time Potassium LAB 04/18/24 Logged 13:28 Dietary Evaluation Review Recommendations by RD: Protein Supplementation Comments: 1) Renal standard and CCHO 75gm diet 2) Nephro-Beverly 1 tab daily 3) Josafat 1 pk daily and Pro-Stat 1 pk daily 4) Continue current plan of care Expected Outcomes/Goals: Pt will meet >75% estimated needs Fu 3-5 days HERI POON Apr 18, 2024 11:01 EVANGELINA GRAY MD Apr 18, 2024 12:53
[2024-04-18] MEDS ORDERED: KETAMINE 50mg/ML 1ml syringe ONE (11:08)
[2024-04-18] MEDS ORDERED: ePHEDrine SULFATE 50 MG/ML AMP ONE (11:16)
[2024-04-18] MEDS ORDERED: SODIUM CHLORIDE LOCK 10 ML ONE (11:22)
[2024-04-18] MEDS ORDERED: EPINEPHrine HCL 1 MG/1 ML AMP ONE (11:22)
[2024-04-18] MEDS: DEXTROSE (50%) 50ML SYRG IV ONE ×2 (11:34→18:57)
[2024-04-18] MEDS: InsuLIN REG 1unit/0.01ml Soln (100units/ml) IV ONE ×2 (11:35→18:58)
[2024-04-18] MEDS: BUPIVACAINE 0.5% P/F INJ 10 ML VIAL ONE (12:12)
[2024-04-18] MEDS ORDERED: fentaNYL CITRATE 100 MCG/2 ML VL IV PRN (12:45)
[2024-04-18] MEDS ORDERED: NALOXONE HCL 0.4 MG/ML VIAL IV PRN (12:45)
[2024-04-18] MEDS ORDERED: hydrALAZINE HCL 20 MG/ML VL IV PRN (12:45)
[2024-04-18] MEDS ORDERED: FLUMAZENIL 0.1 MG/ML INJ 10ML MDV IV PRN (12:45)
[2024-04-18] MEDS ORDERED: ONDANSETRON HCL 4 MG/2 ML VIAL IV PRN (12:45)
[2024-04-18] MEDS ORDERED: HYDROmorphone HCL 2 MG/ML VL/or syr IV PRN (12:45)
[2024-04-18] MEDS ORDERED: ePHEDrine SULFATE 50 MG/ML AMP IV PRN (12:45)
[2024-04-18] MEDS: SODIUM ZIRCONIUM CYCL 10 GM PAK PO ONE ×2 (13:00→14:07)
--- NOTE | 2024-04-18 13:57 | DVHOP2 ---
Operative Report - 2 Report Details Date: 04/18/24 Preop Diagnosis: 1. Right ankle abscess 2. Right ankle osteomyelitis 3. Left foot wound 4. Left foot abscess Postop Diagnosis: Same as preop Surgeon: Babar Camejo MD Anesthesiologist: See anesthesia Anesthesia: General Consent: The patient was informed of the risks and benefits of the procedure. These include but are not limited to complications of anesthesia, postoperative infection, incomplete relief of symptoms, recurrence of symptoms, damage to blood vessels, nerves and tendons, deep venous thrombosis, pulmonary embolism and possible need for repeat surgery in the future. Complications: None Estimated Blood Loss: Minimal Fluids: See anesthesia Findings: Consistent with the diagnosis Indications for Surgery: Worsening right ankle and left foot infection Name of Procedure Performed 1. Right ankle I&D to bone (73014) 2. Right foot bone biopsy () 2. Left foot I&D to bone () Procedure Details Procedure Details: PRE-PROCEDURE INFORMATION: In the pre-op holding area, the extremity to be operated on was clearly marked and the patient verified correct laterality of the marking. The patient was transferred to the OR table and placed in a supine position. A timeout was performed in which identification of the correct patient, procedure, location, and materials was done. The bilateral foot and leg were prepped and draped in normal sterile fashion. DESCRIPTION OF PROCEDURE: Attention was directed to the right medial ankle where area of fluctuance was noted. An incision was made over this area and was deepened through blunt dissection. The incision was deepened to the level of abscess and bone. Care was taken to the dissection to avoid any neurovascular and tendinous structures. The incision was deepened to the bone, and the absces s appeared to be purulent fluid consistent with pus. The cortices of the bone was then removed with Vamsi an all necrotic tissue. After the abscess was drained, the area was irrigated with 3 L normal saline using cysto tubing. Deep cultures were then obtained from the wound. A bone biopsy was then taken of the the medial malleolus which was deepened to the muscle belly and tendons. The bone was then sent to pathology to determine the extent of osteomyelitis. The area was then inspected and any areas of tracking, especially along the tendons were also drained. The wound was packed with Betadine-soaked gauze and we will need to be closed at a later date. Attention was directed to the left foot where area of fluctuance was noted. An incision was made over this area and was deepened through blunt dissection. The incision was deepened to the level of abscess and bone. Care was taken to the dissection to avoid any neurovascular and tendinous structures. The incision was deepened to the bone, and the abscess appeared to be purulent fluid consistent with pus. The cortices of the bone was then removed with Vamsi an all necrotic tissue. After the abscess was drained, the area was irrigated with 3 L normal saline using cysto tubing. Deep cultures were then obtained from the wound. The area was then inspected and any areas of tracking, especially along the tendons were also drained. The wound was packed with Betadine-soaked gauze and we will need to be closed at a later date. POSTOPERATIVE INFORMATION: The patient tolerated the above noted procedure and anesthesia well and was transferred to the PACU with vital signs stable, and vascular status intact with capillary refill intact to all digits. Postoperative instructions reviewed in detail with the patient with written instructions provided. Patient will return to clinic in approximately 10-14 days for first postoperative visit. Patient has the number of the clinic and was instructed to call prior to that time should any problems, questions, or concerns arise. Specimen: Right medial malleolus Condition Good Disposition Still a Patient BABAR CAMEJO DPM Apr 18, 2024 13:57
[2024-04-18] MEDS: SODIUM ZIRCONIUM CYCL 10 GM PAK PO SCH (18:54)
[2024-04-18] MEDS: SODIUM BICARB 8.4% 50Meq/50ml SYR INJ IV ONE (18:56)
[2024-04-18] MEDS: ALBUTEROL SULF 2.5 MG/0.5ML(0.5%) NEB SOLN NEB ONE (19:32)
--- NOTE | 2024-04-18 19:48 | DVHPNRES ---
Progress Note Date Seen: Apr 18, 2024 Resident Creating Document: JHMANAS VELEZ RESIDENT Medical Necessity Reason Pt with a Central, PICC or Fol: No Subjective Review of Systems Patient seen and examined at the bedside status post I and D of bilateral feet No acute complaints Patient is due for dialysis tomorrow Objective vital signs Vital Sign Date Time Temp Pulse Resp B/P (MAP) Pulse Ox O2 Delivery O2 Flow Rate FiO2 04/18/24 19:33 80 18 90 04/18/24 19:33 Room Air* 0 21 04/18/24 17:00 98.0 128/45 (72) 98.0 Total Intake and Output 04/17/24 04/17/24 04/18/24 15:00 23:00 07:00 Intake Total 320 ml 250 ml Output Total 0 ml 300 ml Balance 320 ml -50 ml medications Current Medications Medications Dose Ordered Sig/Samuel Route Start Time Stop Time Status Last Admin Dose Admin Vancomycin HCl 0 ml @ 0 mls/hr UD IV 04/16/24 01:15 Furosemide 80 mg DAILY PO 04/16/24 10:00 04/16/24 10:24 80 MG Amiodarone HCl 200 mg Q12HR PO 04/16/24 10:00 04/17/24 21:38 200 MG Atorvastatin Calcium 40 mg HS PO 04/16/24 22:00 04/17/24 21:38 40 MG Diagnostic Test (Pha) 1 strip Q6HR 04/16/24 06:00 04/18/24 17:41 1 STRIP Insulin Human Regular Q6HR SC 04/16/24 06:00 04/18/24 17:41 4 UNITS Dextrose 50 ml UD PRN IV 04/16/24 03:00 Acetaminophen/ Hydrocodone Bitart 1 tab Q4HP PRN PO 04/16/24 03:00 04/17/24 23:44 1 TAB Ondansetron HCl 4 mg Q4HP PRN IV 04/16/24 03:00 04/17/24 23:43 4 MG Acetaminophen 650 mg Q6HP PRN PO 04/16/24 03:00 Heparin Sodium (Porcine) 5,000 units Q12HR SC 04/16/24 10:00 04/17/24 21:37 5,000 UNITS Ergocalciferol 50,000 unit Q7D PO 04/17/24 09:00 04/17/24 14:31 50,000 UNIT Enteral Nutritional Formula 28.8 gm DAILY PO 04/18/24 10:00 Amino Acid Protein 30 ml DAILY PO 04/19/24 10:00 Multivit/Ca Carb/ B Cmplx/FA/Prenat 1 tab DAILY PO 04/19/24 10:00 Meropenem 50 ml @ 17 mls/hr DAILY IV 04/19/24 10:00 Zirconium Oxide 10 gm Q8HR PO 04/18/24 22:00 04/20/24 14:01 04/18/24 18:54 10 GM Examination Constitutional: Patient was alert and oriented X 3 and does not appear to be in any acute distress Gen - no pallor, no icterus, no cyanosis, no clubbing, no LAD, no edema . Skin - Patients skin is warm and dry.. HEENT - normocephalic, atraumatic, dry mucous membranes. Neck - full ROM, no LAD, no JVD. Pulmonary - B/L equal air entry, minimal basilar rhonchi, no wheezing, no stridor. cardiovascular - normal S1,S2 heard. no murmurs heard. GI - soft abdomen without tenderness to palpation. no hepatospleenomegaly. Bowel sounds normoactive Neurological - Bilateral upper extremity strength 5/5, bilateral lower extremity strength 5/5, no facial droop, normal speech, no tremor, bilateral lower extremity sensation to crude touch absent up to the level of mid cole Extremities: Both the feet covered in sterile dressings laboratory and microbiology Laboratory Tests 04/18/24 17:11 04/18/24 08:25 Test 04/18/24 08:25 Range/Units Serum Glucose 131 H 74-106 mg/dL Microbiology Date/Time Source Procedure Growth Status 04/17/24 10:21 Nose MRSA Screen - Final Complete Problem List/Assessment/Plan Problem List/Assessment/Plan # bilateral foot wound # left foot osteomyelitis # right foot status post surgery with the osteopenia - podiatry consulted, patient was taken for I and D tomorrow - ESR and CRP elevated - blood cultures pending - wound cultures showing MRSA sensitive to vancomycin and Pseudomonas sensitive to meropenem - patient continued on vancomycin and started on meropenem dialysis dosing - left and right foot I and D done today with financial aid advisor - PICC line to be placed # end-stage renal disease on dialysis # hyperkalemia - hemodialysis done yesterday with 2-3 L of HD UF - patient due for hemodialysis tomorrow - Epogen - monitor for hyperkalemia - renal diet - potassium day in the evening 6.8, emergent hyperkalemia management given # uncontrolled type 2 diabetes mellitus with hyperglycemia - on insulin sliding scale # paroxysmal atrial fibrillation - on amiodarone Goals Of Care discussed with the patient and his sister Milagros for over 25 minutes. Full code Plan discussed with Dr. Garrison Plan discussed with: Patient My Orders My Orders Orders - MANAS CRAFT RESIDENT Procedure Category Date Status Time Nutritional PHA 04/18/24 In Process Supplements (Josafat 10:00 Meropenem 500mg Ivpb PHA 04/19/24 In Process (Merrem 500mg/Ns) 10:00 * Picc Line Consult CONS 04/18/24 Transmitted 15:10 Dietary Evaluation Review Recommendations by RD: Protein Supplementation Comments: 1) Renal standard and CCHO 75gm diet 2) Nephro-Beverly 1 tab daily 3) Josafat 1 pk daily and Pro-Stat 1 pk daily 4) Continue current plan of care Expected Outcomes/Goals: Pt will meet >75% estimated needs Fu 3-5 days Date of Service: Apr 18, 2024 Billing Provider: ONUR GARRISON MD Common Visit Codes: [id number] INP/OBS CARE(HIGH) MANAS CRAFT RESIDENT Apr 18, 2024 19:48 ONUR GARRISON MD Apr 23, 2024 15:40
--- NOTE | 2024-04-18 20:32 | DVHINCON2 ---
Date of service: Apr 18, [address] Sethi- transfer of care for Nephrology services Reason for Consultation End-stage renal disease and dialysis management. History of Present Illness Hai Arredondo is a 58-year-old obese M with a Past Medical History pertinent for Hypertension, AFib, ESRD on HD, Diabetes mellitus, Peripheral arterial disease and Amputation of left 5th and 4th toe amputation who was admitted for further evaluation of bilateral foot infection and altered level of consciousness. Patient was found to have high potassium while in ED and was treated with medications. Also received dialysis 04/17/24. Patient denies any other complaints at this time. Planned for I&D today. Past Medical History Hypertension, AFib, end-stage renal disease, diabetes mellitus, peripheral arterial disease, bilateral foot cellulitis Past Surgical History Right IJ tunneled hemodialysis catheter Amputation of left 4th and 5th toe Allergies: Coded Allergies: NO KNOWN ALLERGIES (Unverified , 04/15/24) Home Meds Reported Medications Sodium Zirconium Cyclosilicate (Lokelma) 5 Gm Curly, 5 GM PO TIDWM, PACK 04/17/24 Insulin Glargine (Lantus) 100 Unit/Ml Inj, 20 UNIT SC BID, INJ 04/17/24 Allopurinol (Allopurinol) 100 Mg Tab, 100 MG PO DAILY, TAB 04/17/24 Glipizide (Glipizide) 10 Mg Tab, 10 MG PO DAILY for 30 Days, MG 04/17/24 Furosemide (Furosemide) 40 Mg Tab, 80 MG PO DAILY for 30 Days 04/17/24 Ferric Citrate (Auryxia) 210 Mg Tab, 210 MG PO DAILY, TAB 04/17/24 Ferrous Sulfate (Ferosul) 325 Mg Tab, 325 MG PO DAILY, TAB 04/17/24 Gabapentin (Gabapentin) 600 Mg Tab, 600 MG PO TID, TAB 04/17/24 Amlodipine Besylate (Amlodipine Besylate) 5 Mg Tab, 5 MG PO DAILY for 30 Days, MG 04/17/24 Metformin Hydrochloride (Metformin Hcl) 1,000 Mg Tab, 1 TAB PO BID, #180 TAB 3 Refills 04/17/24 Atorvastatin Calcium (ATORVASTATIN CALCIUM) 40 Mg Tab, 1 DAILY 04/16/24 Discontinued Reported Medications Sodium Zirconium Cyclosilicate (Lokelma) 5 Gm Curly 04/16/24 Omeprazole (Omeprazole Dr) 20 Mg Cap, 1 DAILY 04/16/24 Hydralazine Hcl (Hydralazine Hcl) 50 Mg Tab, 1 04/16/24 Amlodipine Besylate (Amlodipine Besylate) 10 Mg Tab, 1 DAILY 04/16/24 Zolpidem Tartrate (Zolpidem Tartrate) 5 Mg Tab, 1 04/16/24 Gabapentin (Gabapentin) 100 Mg Cap 04/16/24 Amiodarone HCl (Amiodarone HCl) 200 Mg Tab, 1 04/16/24 Furosemide (Furosemide) 80 Mg Tab, 1 04/16/24 Insulin Glargine (Lantus) 100 Unit/Ml Inj, SC 04/16/24 Current Medications Current Medications Medications (Trade) Dose Ordered Sig/Samuel Route PRN Reason Start Time Stop Time Status Last Admin Enteral Nutritional Formula (Josafat Fruit Punch Powder PACKET) 28.8 gm DAILY PO 04/18/24 10:00 Amino Acid Protein (Pro-Stat Sugar Free) 30 ml DAILY PO 04/19/24 10:00 Multivit/Ca Carb/ B Cmplx/FA/Prenat (Nephro-Beverly Tablet) 1 tab DAILY PO 04/19/24 10:00 Ondansetron HCl (Zofran) 4 mg ONCE PRN IV NAUSEA / VOMITING 04/18/24 12:45 04/18/24 13:03 DC Naloxone HCl (Narcan) 0.4 mg Q10M PRN IV NARCOTIC REVERSAL 04/18/24 12:45 04/18/24 13:06 DC Flumazenil (Romazicon Injection) 0.2 mg ONCE PRN IV BENZODIAZEPINE REVERSAL 04/18/24 12:45 04/18/24 13:02 DC Hydralazine HCl (Apresoline Injection) 5 mg Q10M PRN IV SBP>160 04/18/24 12:45 04/18/24 13:36 DC Ephedrine Sulfate (ePHEDrine SULFATE) 10 mg Q10M PRN IV SBP LESS THAN 90 04/18/24 12:45 04/18/24 13:26 DC Fentanyl Citrate 25 mcg Q1HP PRN IV BREAKTHROUGH PAIN (7-10) 04/18/24 12:45 04/18/24 13:03 DC Hydromorphone HCl (Dilaudid Injection) 0.5 mg Q10M PRN IV SEVERE PAIN (7-10 PAIN SCALE) 04/18/24 12:45 04/18/24 13:26 DC Meropenem 50 ml @ 17 mls/hr DAILY IV 04/19/24 10:00 Zirconium Oxide (Lokelma) 10 gm Q8HR PO 04/18/24 22:00 04/20/24 14:01 04/18/24 18:54 Family History: Diabetes mellitus G8 MOTHER, FH: thyroid disease G8 FATHER, Review of Systems Review of systems are currently negative otherwise addressed in HPI. H&P Exam Vital Signs/I&O Vital Sign Date Time Temp Pulse Resp B/P (MAP) Pulse Ox O2 Delivery O2 Flow Rate FiO2 04/18/24 20:41 98.3 85 18 117/44 (68) 98 98.3 04/18/24 19:33 Room Air* 0 21 Intake and Output 04/17/24 04/18/24 19:00 07:00 Intake Total 320 ml 250 ml Output Total 0 ml 300 ml Balance 320 ml -50 ml Intake Oral 320 ml 250 ml Output Urine Total 0 ml 300 ml Physical Exam Vitals and nursing notes reviewed. Gen: In no acute distress. HEENT: Normocephalic atraumatic. Mucous membranes moist and pink. Neck: Supple and nontender. Pulmonary: Clear to auscultation and percussion bilaterally. Cardiac: Regular rate and rhythm. No murmur Abdomen: Soft, nontender, nondistended, bowel sounds present all 4 quadrants, no guarding, no rigidity, no organomegaly. Extremities: No cyanosis, clubbing, left foot medial plantar ulcer, right foot medial ankle Neuro: Cranial nerves II through XII grossly intact, normal affect and speech, no focal motor deficits. Skin: Warm, dry, normal color and texture, no rash. Labs/Diagnostic Data Labs/Diagnostic Data Laboratory Tests Test 04/18/24 18:52 04/18/24 17:29 04/18/24 17:11 04/18/24 10:44 Range/Units POC Glucose 243 H 240 H 109 H 70-106 mg/dl Potassium Level 6.8 *H 3.5-5.1 mmol/L Test 04/18/24 08:25 04/18/24 05:54 04/17/24 12:15 04/17/24 04:51 Range/Units White Blood Count 5.3 # 4.4-10.8 10^3/uL Red Blood Count 2.38 L 4.5-5.90 10^6/uL Hemoglobin 7.4 L 13.5-17.5 g/dL Hematocrit 23.5 L 41.0-53.0 % Mean Corpuscular Volume 98.9 80.0-100.0 fL Mean Corpuscular Hemoglobin 31.2 28.0-32.0 pg Mean Corpuscular Hemoglobin Concent 31.5 L 32.0-36.0 g/dL Red Cell Distribution Width 14.7 H 11.8-14.3 % Platelet Count 201 140-450 10^3/uL Mean Platelet Volume 7.7 6.9-10.8 fL Neutrophils (%) (Auto) 71.7 37.0-80.0 % Lymphocytes (%) (Auto) 17.2 10.0-50.0 % Monocytes (%) (Auto) 5.7 0.0-12.0 % Eosinophils (%) (Auto) 4.5 0.0-7.0 % Basophils (%) (Auto) 0.9 0.0-2.0 % Neutrophils # (Auto) 3.8 1.6-8.6 10 ^3/uL Lymphocytes # (Auto) 0.9 0.4-5.4 10 ^3/uL Monocytes # (Auto) 0.3 0-1.3 10 ^3/uL Eosinophils # (Auto) 0.2 0-0.8 10 ^3/uL Basophils # (Auto) 0 0-0.2 10 ^3/uL Nucleated Red Blood Cells 0.0 % Sodium Level 133 L 136-145 mmol/L Potassium Level 5.5 H 3.5-5.1 mmol/L Chloride Level 94 L 98-107 mmol/L Carbon Dioxide Level 27 20-31 mmol/L Anion Gap 12 5-15 Blood Urea Nitrogen 64 #H 9-23 mg/dL Creatinine 8.58 #H 0.700-1.30 mg/dL Glomerular Filtration Rate Calc 7 >90 mL/min BUN/Creatinine Ratio 7.5 L 10.0-20.0 Serum Glucose 131 H 74-106 mg/dL Calcium Level 9.1 8.7-10.4 mg/dL Phosphorus Level 4.6 2.4-5.1 mg/dL POC Glucose 158 H 176 H 102 70-106 mg/dl Test 04/17/24 04:05 04/17/24 03:00 04/17/24 02:39 04/16/24 23:34 Range/Units White Blood Count 7.3 4.4-10.8 10^3/uL Red Blood Count 2.27 L 4.5-5.90 10^6/uL Hemoglobin 7.4 L 13.5-17.5 g/dL Hematocrit 22.0 #L 41.0-53.0 % Mean Corpuscular Volume 96.9 80.0-100.0 fL Mean Corpuscular Hemoglobin 32.4 H 28.0-32.0 pg Mean Corpuscular Hemoglobin Concent 33.5 32.0-36.0 g/dL Red Cell Distribution Width 15.0 H 11.8-14.3 % Platelet Count 193 140-450 10^3/uL Mean Platelet Volume 7.8 6.9-10.8 fL Neutrophils (%) (Auto) 83.2 H 37.0-80.0 % Lymphocytes (%) (Auto) 7.2 L 10.0-50.0 % Monocytes (%) (Auto) 7.6 0.0-12.0 % Eosinophils (%) (Auto) 0.6 0.0-7.0 % Basophils (%) (Auto) 1.4 0.0-2.0 % Neutrophils # (Auto) 6.1 1.6-8.6 10 ^3/uL Lymphocytes # (Auto) 0.5 0.4-5.4 10 ^3/uL Monocytes # (Auto) 0.6 0-1.3 10 ^3/uL Eosinophils # (Auto) 0 0-0.8 10 ^3/uL Basophils # (Auto) 0.1 0-0.2 10 ^3/uL Nucleated Red Blood Cells 0.0 % Prothrombin Time 10.3 9.3-11.8 sec Prothrombin Time INR 0.97 0.9-1.15 Activated Partial Thromboplast Time 29.7 24.5-34.5 SEC Sodium Level 134 #L 136-145 mmol/L Potassium Level 5.4 H 5.7 *H 3.5-5.1 mmol/L Chloride Level 94 L 98-107 mmol/L Carbon Dioxide Level 25 20-31 mmol/L Anion Gap 15 5-15 Blood Urea Nitrogen 101 #*H 9-23 mg/dL Creatinine 10.76 *H 0.700-1.30 mg/dL Glomerular Filtration Rate Calc 5 >90 mL/min BUN/Creatinine Ratio 9.4 L 10.0-20.0 Serum Glucose 102 # 74-106 mg/dL Calcium Level 9.7 8.7-10.4 mg/dL Random Vancomycin Level 32.5 H 5-10 ug/mL POC Glucose 74 32 *L 70-106 mg/dl Lactic Acid Level 1.3 0.4-2.0 mmol/L Test 04/16/24 21:31 04/16/24 19:21 04/16/24 15:31 04/16/24 13:47 Range/Units POC Glucose 157 H 115 H 70-106 mg/dl Sodium Level 127 #L 136-145 mmol/L Potassium Level 5.7 *H 3.5-5.1 mmol/L Chloride Level 94 L 98-107 mmol/L Carbon Dioxide Level 19 L 20-31 mmol/L Anion Gap 14 5-15 Blood Urea Nitrogen 69 #H 9-23 mg/dL Creatinine 10.47 *H 0.700-1.30 mg/dL Glomerular Filtration Rate Calc 5 >90 mL/min BUN/Creatinine Ratio 6.6 L 10.0-20.0 Serum Glucose 209 H 74-106 mg/dL Calcium Level 9.3 8.7-10.4 mg/dL Erythrocyte Sedimentation Rate 123 H 0-20 mm/hr Test 04/16/24 08:56 04/16/24 08:30 04/16/24 06:13 04/16/24 03:24 Range/Units White Blood Count 7.3 4.4-10.8 10^3/uL Red Blood Count 2.51 L 4.5-5.90 10^6/uL Hemoglobin 7.9 #L 13.5-17.5 g/dL Hematocrit 24.9 #L 41.0-53.0 % Mean Corpuscular Volume 99.1 80.0-100.0 fL Mean Corpuscular Hemoglobin 31.5 28.0-32.0 pg Mean Corpuscular Hemoglobin Concent 31.8 L 32.0-36.0 g/dL Red Cell Distribution Width 15.8 H 11.8-14.3 % Platelet Count 195 140-450 10^3/uL Mean Platelet Volume 7.4 6.9-10.8 fL Neutrophils (%) (Auto) 82.2 H 37.0-80.0 % Lymphocytes (%) (Auto) 10.0 10.0-50.0 % Monocytes (%) (Auto) 7.5 0.0-12.0 % Eosinophils (%) (Auto) 0.0 0.0-7.0 % Basophils (%) (Auto) 0.3 0.0-2.0 % Neutrophils # (Auto) 6.0 1.6-8.6 10 ^3/uL Lymphocytes # (Auto) 0.7 0.4-5.4 10 ^3/uL Monocytes # (Auto) 0.5 0-1.3 10 ^3/uL Eosinophils # (Auto) 0 0-0.8 10 ^3/uL Basophils # (Auto) 0 0-0.2 10 ^3/uL Nucleated Red Blood Cells 0.0 % Sodium Level 132 L 136-145 mmol/L Potassium Level 5.7 *H 5.3 H 3.5-5.1 mmol/L Chloride Level 96 L 98-107 mmol/L Carbon Dioxide Level 22 20-31 mmol/L Anion Gap 14 5-15 Blood Urea Nitrogen 96 *H 9-23 mg/dL Creatinine 10.37 *H 0.700-1.30 mg/dL Glomerular Filtration Rate Calc 5 >90 mL/min BUN/Creatinine Ratio 9.3 L 10.0-20.0 Serum Glucose 259 #H 74-106 mg/dL Hemoglobin A1c 6.1 H <5.7 % A1C Lactic Acid Level 4.0 *H 0.4-2.0 mmol/L Calcium Level 9.2 8.7-10.4 mg/dL Phosphorus Level 4.0 2.4-5.1 mg/dL Magnesium Level 2.1 1.6-2.6 mg/dL Total Bilirubin 0.3 0.2-1.0 mg/dL Aspartate Amino Transferase (AST) 9 L 13-40 U/L Alanine Aminotransferase (ALT) < 9 7-40 U/L Alkaline Phosphatase 77 46-116 U/L C-Reactive Protein High Sensitivity > 20.00 H <1.0 mg/dL Total Protein 6.9 5.7-8.2 g/dL Albumin 3.8 3.2-4.8 g/dL Vitamin D 25-Hydroxy 12.3 L 30.0-100 ng/mL Hepatitis B Surface Antigen Negative Negative Parathyroid Hormone (Intact) 221.4 H 18.4-80.1 pg/mL POC Glucose 199 H 70-106 mg/dl Test 04/16/24 01:42 04/15/24 23:50 04/15/24 23:01 04/15/24 21:53 Range/Units Troponin I High Sensitivity 34 41 41 </=54 ng/L Lactic Acid Level 3.0 *H 2.9 *H 0.4-2.0 mmol/L White Blood Count 9.0 4.4-10.8 10^3/uL Red Blood Count 2.98 L 4.5-5.90 10^6/uL Hemoglobin 9.9 L 13.5-17.5 g/dL Hematocrit 28.9 L 41.0-53.0 % Mean Corpuscular Volume 97.0 80.0-100.0 fL Mean Corpuscular Hemoglobin 33.2 H 28.0-32.0 pg Mean Corpuscular Hemoglobin Concent 34.2 32.0-36.0 g/dL Red Cell Distribution Width 15.0 H 11.8-14.3 % Platelet Count 222 140-450 10^3/uL Mean Platelet Volume 7.2 6.9-10.8 fL Neutrophils (%) (Auto) 79.5 37.0-80.0 % Lymphocytes (%) (Auto) 12.4 10.0-50.0 % Monocytes (%) (Auto) 7.1 0.0-12.0 % Eosinophils (%) (Auto) 0.5 0.0-7.0 % Basophils (%) (Auto) 0.5 0.0-2.0 % Neutrophils # (Auto) 7.2 1.6-8.6 10 ^3/uL Lymphocytes # (Auto) 1.1 0.4-5.4 10 ^3/uL Monocytes # (Auto) 0.6 0-1.3 10 ^3/uL Eosinophils # (Auto) 0 0-0.8 10 ^3/uL Basophils # (Auto) 0 0-0.2 10 ^3/uL Nucleated Red Blood Cells 0.0 % Sodium Level 132 L 136-145 mmol/L Potassium Level 6.5 *H 3.5-5.1 mmol/L Chloride Level 93 L 98-107 mmol/L Carbon Dioxide Level 23 20-31 mmol/L Anion Gap 16 H 5-15 Blood Urea Nitrogen 95 *H 9-23 mg/dL Creatinine 10.04 *H 0.700-1.30 mg/dL Glomerular Filtration Rate Calc 5 >90 mL/min BUN/Creatinine Ratio 9.5 L 10.0-20.0 Serum Glucose 111 H 74-106 mg/dL Calcium Level 10.2 8.7-10.4 mg/dL Total Bilirubin 0.3 0.2-1.0 mg/dL Aspartate Amino Transferase (AST) 14 13-40 U/L Alanine Aminotransferase (ALT) < 9 7-40 U/L Alkaline Phosphatase 84 46-116 U/L B-Type Natriuretic Peptide 399.05 0-100 pg/mL Total Protein 8.2 5.7-8.2 g/dL Albumin 4.4 3.2-4.8 g/dL Lipase 32 12-53 U/L Test 04/15/24 21:26 Range/Units POC Glucose 122 H 70-106 mg/dl Microbiology Date/Time Source Procedure Growth Status 04/17/24 10:21 Nose MRSA Screen - Final Complete Assessment Hyperkalemia End-stage renal disease on hemodialysis Septic shock Bilateral foot cellulitis Peripheral arterial disease Encephalopathy Plan/Recommendation Agreement with your ongoing assessment and plan of care. Podiatry consulted. Planned for I&D today. Dialyzed 04/17 with UF 2L. Next dialysis 04/19. Epogen 10,000 IV 3x/week post HD. IV antibiotics. S/p insulin and dextrose. Lokelma 10 g after the procedure. Renal diet. Additional plan as per the hospital course. Plan discussed with: Patient, Other (RN) OLEGARIO SNELL DO Apr 18, 2024 20:32
[2024-04-18] MEDS: CALCIUM GLUC 1,000mg/50ml-NS 50 ML IV ONE (20:53)
[2024-04-19] VITALS (7 sets, daily range): BP systolic 121–130; BP diastolic 24–51; PULSE 73–79; RESP 16–20; TEMP 97–97.9; O2SAT 86–100
[2024-04-19] MEDS: SODIUM CHL 0.9% 1000 ML BAG XX ONE (07:00)
[2024-04-19 08:15] LABS: Basophils # (auto) 0 10 ^3/uL (0-0.2); Basophils % (auto) 0.1 % (0.0-2.0); Eosinophils # (auto) 0 10 ^3/uL (0-0.8); Hematocrit 21.7 % (41.0-53.0); Hemoglobin 7.1 g/dL (13.5-17.5); Lymphocytes # (auto) 0.3 10 ^3/uL (0.4-5.4); Lymphocytes % (auto) 8.2 % (10.0-50.0); Mean Corpuscular Hemoglobin 31.8 pg (28.0-32.0); Mean Corpuscular Hgb Conc. 32.6 g/dL (32.0-36.0); Mean Corpuscular Volume 97.6 fL (80.0-100.0); Monocytes # (auto) 0.1 10 ^3/uL (0-1.3); Monocytes % (auto) 1.5 % (0.0-12.0); Neutrophils # (auto) 3.5 10 ^3/uL (1.6-8.6); Neutrophils % (auto) 90.2 % (37.0-80.0); Nucleated Red Blood Cells % 0.1 %; Platelet Count (auto) 197 10^3/uL (140-450); Red Blood Cells 2.22 10^6/uL (4.5-5.90); Red Cell Distribution Width 14.7 % (11.8-14.3); White Blood Cell 3.8 10^3/uL (4.4-10.8)
[2024-04-19 08:26] LABS: Chloride 88 mmol/L (98-107); Potassium 4.8 mmol/L (3.5-5.1); Sodium 128 mmol/L (136-145)
[2024-04-19 08:27] LABS: Anion Gap 13 (5-15); Calcium 8.8 mg/dL (8.7-10.4); Carbon Dioxide 27 mmol/L (20-31)
[2024-04-19 08:32] LABS: BUN/Creatinine Ratio 8.8 (10.0-20.0); Blood Urea Nitrogen 77 mg/dL (9-23)
[2024-04-19 08:34] LABS: Glucose 447 mg/dL (74-106)
[2024-04-19] MEDS: INSULIN LANTUS (GLARGINE) 1 /0.01ml (100units/ml) SC ONE (09:13)
[2024-04-19] MEDS: MEROPENEM 500MG IVPB 50 ML IV SCH (10:00)
[2024-04-19] MEDS: B-COMPLEX W/ C & FOLIC ACID(NEPHROVITE TAB) PO SCH (10:00)
[2024-04-19] MEDS: Pro-Stat SF 30ml Vanilla PO SCH (10:00)
--- NOTE | 2024-04-19 12:05 | DVHPNRES ---
Progress Note Date Seen: Apr 19, 2024 Resident Creating Document: HERI POON RESIDENT Medical Necessity Reason Pt with a Central, PICC or Fol: No Objective vital signs Vital Sign Date Time Temp Pulse Resp B/P (MAP) Pulse Ox O2 Delivery O2 Flow Rate FiO2 04/19/24 09:00 97.0 77 18 123/51 (75) 100 97.0 04/18/24 20:00 Nasal Cannula* 2 28 Total Intake and Output 04/18/24 04/18/24 04/19/24 15:00 23:00 07:00 Intake Total 10 ml 200 ml 120 ml Balance 10 ml 200 ml 120 ml medications Current Medications Medications Dose Ordered Sig/Samuel Route Start Time Stop Time Status Last Admin Dose Admin Vancomycin HCl 0 ml @ 0 mls/hr UD IV 04/16/24 01:15 Furosemide 80 mg DAILY PO 04/16/24 10:00 04/16/24 10:24 80 MG Amiodarone HCl 200 mg Q12HR PO 04/16/24 10:00 04/19/24 09:10 200 MG Atorvastatin Calcium 40 mg HS PO 04/16/24 22:00 04/18/24 22:38 40 MG Diagnostic Test (Pha) 1 strip Q6HR 04/16/24 06:00 04/19/24 06:00 1 STRIP Insulin Human Regular Q6HR SC 04/16/24 06:00 04/19/24 06:36 10 UNITS Dextrose 50 ml UD PRN IV 04/16/24 03:00 Acetaminophen/ Hydrocodone Bitart 1 tab Q4HP PRN PO 04/16/24 03:00 04/17/24 23:44 1 TAB Ondansetron HCl 4 mg Q4HP PRN IV 04/16/24 03:00 04/17/24 23:43 4 MG Acetaminophen 650 mg Q6HP PRN PO 04/16/24 03:00 Heparin Sodium (Porcine) 5,000 units Q12HR SC 04/16/24 10:00 04/18/24 22:30 5,000 UNITS Ergocalciferol 50,000 unit Q7D PO 04/17/24 09:00 04/17/24 14:31 50,000 UNIT Enteral Nutritional Formula 28.8 gm DAILY PO 04/18/24 10:00 Amino Acid Protein 30 ml DAILY PO 04/19/24 10:00 Multivit/Ca Carb/ B Cmplx/FA/Prenat 1 tab DAILY PO 04/19/24 10:00 Meropenem 50 ml @ 17 mls/hr DAILY IV 04/19/24 10:00 Zirconium Oxide 10 gm Q8HR PO 04/18/24 22:00 04/20/24 14:01 04/19/24 06:27 10 GM laboratory and microbiology Laboratory Tests 04/19/24 08:00 Test 04/19/24 08:00 Range/Units Serum Glucose 447 #*H 74-106 mg/dL Microbiology Date/Time Source Procedure Growth Status 04/18/24 12:20 Foot Left Gram Stain Pending Resulted 04/18/24 12:20 Foot Left Anaerobic Culture - Preliminary Resulted 04/18/24 12:20 Foot Left Aerobic Culture Pending Resulted 04/18/24 08:25 Blood Blood Culture - Preliminary NO GROWTH AFTER 24 HOURS OF INCUBATION. Resulted Problem List/Assessment/Plan Problem List/Assessment/Plan A 58-year-old male with a history of hypertension, atrial fibrillation, end- stage renal disease, and diabetes mellitus presents with worsening bilateral foot wounds, generalized weakness, and occasional chills. He undergoes dialysis three times a week and was noted to have a high potassium level upon arrival. He denies chest pain or palpitations and has no other acute complaints. His past surgical history includes dialysis access and patient is got HD yesterday. Pending I&D by Dr. Henriquez this AM. Nephrology Consult/ Progress Note: Assessment: #Hyperkalemia #Encephalopathy #Chronic kidney disease #ESRD on hemodialysis Right IJ tunneled hemodialysis catheter #H/o Hypertension #Diabetes mellitus #Peripheral vascular disease #bilateral foot cellulitis s/p Amputation of left 4th and 5th toe #Septic shock #Pending I&D by podiatry today. Findings: #GFR: 5>7 #Creatinine: 10.04>10.37>10.47>10.76>8.58 #K 5.7>5.4>5.5 #BUN 69>101>64 #I&O: aneuric Plan: #Resume hemodialysis 3 times weekly, 04/17 HD UF 2 L. next dialysis 04/19 tomorrow. #Lokelma 10 g after the procedure and please follow strictly renal diet. #Close follow up of bmp and K. s/p IV insulin and dextrose. #Epogen post HD. #IV antibiotics to continue #IV pressors for blood pressure support as needed to keep MAP > 65 #Renal diet #Podiatry consult pending definitive I&D tomorrow. #Rest of the treatment as per primary team. Thank you for the opportunity to follow up on your patient. In case of any question feel free to reach out to the Nephrology team. Discussed with Nephrology attending Dr. House. Dietary Evaluation Review Recommendations by RD: Protein Supplementation Comments: 1) Renal standard and CCHO 75gm diet 2) Nephro-Beverly 1 tab daily 3) Josafat 1 pk daily and Pro-Stat 1 pk daily 4) Continue current plan of care Expected Outcomes/Goals: Pt will meet >75% estimated needs Fu 3-5 days HERI POON RESIDENT Apr 19, 2024 12:05
--- NOTE | 2024-04-19 15:44 | DVHPN2 ---
Subjective 58-year-old male presents for evaluation of bilateral foot wound. Patient reports worsening bilateral foot wounds with associated generalized weakness and occasional chills. Patient receives dialysis Tuesday, Tuesday and Tuesday. Noted to have high potassium level on arrival. Denies chest pain or palpitations. No other acute complaints. Changes from previous H/P or p: No Changes Objective Vitals Vital Signs Date Time Temp Pulse Resp B/P (MAP) Pulse Ox O2 Delivery O2 Flow Rate FiO2 04/19/24 09:00 97.0 77 18 123/51 (75) 100 97.0 04/19/24 08:00 Nasal Cannula* 2 28 Intake/Output Intake and Output 04/19/24 07:00 Intake Total 330 ml Balance 330 ml Intake Oral 320 ml IV Total 10 ml Exam DERMATOLOGIC EXAM: - Skin is dry and cool to the touch dry bilaterally. - Nails 1-5 of the bilateral foot are thickened, discolored, dystrophic, and tender to palpate with subungual debris - Hair loss noted to bilateral feet - right ankle wound and left foot wound with purulent drainage and erythema VASCULAR EXAM: - DP and PT pulses are palpable bilaterally. - SYNTHETIC GEM PRESS OPERATOR is brisk to all digits. - Feet are cool to touch compared to lower legs bilaterally. NEUROLOGIC EXAM: - Normal light touch sensation to the superficial peroneal, deep peroneal, sural, saphenous, and tibial nerve branches. - Protective sensation is diminished as tested with a 5.07 10g [place]-Charisse bilaterally. MUSCULOSKELETAL EXAM: - No gross deformities - Muscle strength is 5/5 and active motion is pain-free and symmetrical bilaterally - No pain or crepitation with passive range of motion bilaterally to all major pedal joints Medications Current Medications Medications Dose Ordered Sig/Samuel Route Start Time Stop Time Status Last Admin Dose Admin Vancomycin HCl 0 ml @ 0 mls/hr UD IV 04/16/24 01:15 Furosemide 80 mg DAILY PO 04/16/24 10:00 04/16/24 10:24 80 MG Amiodarone HCl 200 mg Q12HR PO 04/16/24 10:00 04/19/24 09:10 200 MG Atorvastatin Calcium 40 mg HS PO 04/16/24 22:00 04/18/24 22:38 40 MG Diagnostic Test (Pha) 1 strip Q6HR 04/16/24 06:00 04/19/24 12:00 1 STRIP Insulin Human Regular Q6HR SC 04/16/24 06:00 04/19/24 12:59 6 UNITS Dextrose 50 ml UD PRN IV 04/16/24 03:00 Acetaminophen/ Hydrocodone Bitart 1 tab Q4HP PRN PO 04/16/24 03:00 04/17/24 23:44 1 TAB Ondansetron HCl 4 mg Q4HP PRN IV 04/16/24 03:00 04/17/24 23:43 4 MG Acetaminophen 650 mg Q6HP PRN PO 04/16/24 03:00 Heparin Sodium (Porcine) 5,000 units Q12HR SC 04/16/24 10:00 04/18/24 22:30 5,000 UNITS Ergocalciferol 50,000 unit Q7D PO 04/17/24 09:00 04/17/24 14:31 50,000 UNIT Enteral Nutritional Formula 28.8 gm DAILY PO 04/18/24 10:00 Amino Acid Protein 30 ml DAILY PO 04/19/24 10:00 Multivit/Ca Carb/ B Cmplx/FA/Prenat 1 tab DAILY PO 04/19/24 10:00 Meropenem 50 ml @ 17 mls/hr DAILY IV 04/19/24 10:00 Zirconium Oxide 10 gm Q8HR PO 04/18/24 22:00 04/20/24 14:01 04/19/24 14:45 10 GM Laboratory Results Laboratory Tests 04/19/24 08:00 Chemistry Test 04/19/24 08:00 Calcium Level 8.8 mg/dL (8.7-10.4) Microbiology Microbiology Date/Time Source Procedure Growth Status 04/18/24 12:20 Foot Left Gram Stain Pending Resulted 04/18/24 12:20 Foot Left Anaerobic Culture - Preliminary Resulted 04/18/24 12:20 Foot Left Aerobic Culture Pending Resulted 04/18/24 08:25 Blood Blood Culture - Preliminary NO GROWTH AFTER 24 HOURS OF INCUBATION. Resulted Assessment/Plan Assessment/Plan ASSESSMENT: Patient is a 58 year old seen on the floor 1 day s/p from a right ankle I&D and left foot PLAN: - The patients chart was reviewed, clinical findings were discussed with the patient, the etiologies of the conditions were discussed in detail, and a treatment plan was agreed to at this time, with both oral and written instructions provided. - reviewed advanced imaging - discussed plan is to perform an incision and drainage and placement of graft - patient will be NPO at midnight - take him to the OR tomorrow - patient has been nonweightbearing on the right lower extremity All questions were answered and concerns addressed to the patient's satisfaction. The patient was given the phone number to the clinic and was told how to make contact with the clinic should any concerns or questions arise. Patient understands that if any questions or concerns arise prior to the next appointment, we should be contacted immediately. FOLLOW-UP: Continue to follow while inpatient Plan discussed with: Patient Problem List: (1) Hyperkalemia (2) Anemia (3) Hyponatremia (4) Osteomyelitis (5) End stage renal disease on dialysis (6) Elevated lactic acid level Date of Service: Apr 19, 2024 Billing Provider: BABAR CAMEJO DPM Common Visit Codes: [id number] INP/OBS CARE(HIGH) BABAR CAMEJO DPM Apr 19, 2024 15:44
--- NOTE | 2024-04-19 19:31 | DVHPNRES ---
Progress Note Date Seen: Apr 19, 2024 Resident Creating Document: JHMANAS VELEZ RESIDENT Medical Necessity Reason Pt with a Central, PICC or Fol: No Subjective Review of Systems Patient seen and examined at the bedside. Patient got dialysis today Post dialysis patient reported no acute complains of abdominal pain, headache, shortness of breath palpitations, chest pain. Objective vital signs Vital Sign Date Time Temp Pulse Resp B/P (MAP) Pulse Ox O2 Delivery O2 Flow Rate FiO2 04/19/24 17:30 97.6 75 18 129/24 (59) 86 97.6 04/19/24 10:00 Nasal Cannula* 2 28 Total Intake and Output 04/18/24 04/18/24 04/19/24 15:00 23:00 07:00 Intake Total 10 ml 200 ml 120 ml Balance 10 ml 200 ml 120 ml medications Current Medications Medications Dose Ordered Sig/Samuel Route Start Time Stop Time Status Last Admin Dose Admin Vancomycin HCl 0 ml @ 0 mls/hr UD IV 04/16/24 01:15 Furosemide 80 mg DAILY PO 04/16/24 10:00 04/16/24 10:24 80 MG Amiodarone HCl 200 mg Q12HR PO 04/16/24 10:00 04/19/24 09:10 200 MG Atorvastatin Calcium 40 mg HS PO 04/16/24 22:00 04/18/24 22:38 40 MG Diagnostic Test (Pha) 1 strip Q6HR 04/16/24 06:00 04/19/24 18:03 1 STRIP Insulin Human Regular Q6HR SC 04/16/24 06:00 04/19/24 18:07 8 UNITS Dextrose 50 ml UD PRN IV 04/16/24 03:00 Acetaminophen/ Hydrocodone Bitart 1 tab Q4HP PRN PO 04/16/24 03:00 04/17/24 23:44 1 TAB Ondansetron HCl 4 mg Q4HP PRN IV 04/16/24 03:00 04/17/24 23:43 4 MG Acetaminophen 650 mg Q6HP PRN PO 04/16/24 03:00 Heparin Sodium (Porcine) 5,000 units Q12HR SC 04/16/24 10:00 04/18/24 22:30 5,000 UNITS Ergocalciferol 50,000 unit Q7D PO 04/17/24 09:00 04/17/24 14:31 50,000 UNIT Enteral Nutritional Formula 28.8 gm DAILY PO 04/18/24 10:00 Amino Acid Protein 30 ml DAILY PO 04/19/24 10:00 Multivit/Ca Carb/ B Cmplx/FA/Prenat 1 tab DAILY PO 04/19/24 10:00 Meropenem 50 ml @ 17 mls/hr DAILY IV 04/19/24 10:00 Zirconium Oxide 10 gm Q8HR PO 04/18/24 22:00 04/20/24 14:01 04/19/24 14:45 10 GM Examination Constitutional: Patient was alert and oriented X 3 and does not appear to be in any acute distress Gen - no pallor, no icterus, no cyanosis, no clubbing, no LAD, no edema . Skin - Patients skin is warm and dry.. HEENT - normocephalic, atraumatic, dry mucous membranes. Neck - full ROM, no LAD, no JVD. Pulmonary - B/L equal air entry, minimal basilar rhonchi, no wheezing, no stridor. cardiovascular - normal S1,S2 heard. no murmurs heard. GI - soft abdomen without tenderness to palpation. no hepatospleenomegaly. Bowel sounds normoactive Neurological - Bilateral upper extremity strength 5/5, bilateral lower extremity strength 4/5, no facial droop, normal speech, no tremor, bilateral lower extremity sensation to crude touch absent up to the level of mid cole Extremities: Both the feet covered in sterile dressings laboratory and microbiology Laboratory Tests 04/19/24 08:00 Test 04/19/24 08:00 Range/Units Serum Glucose 447 #*H 74-106 mg/dL Microbiology Date/Time Source Procedure Growth Status 04/18/24 12:20 Foot Left Gram Stain Pending Resulted 04/18/24 12:20 Foot Left Anaerobic Culture - Preliminary Resulted 04/18/24 12:20 Foot Left Aerobic Culture Pending Resulted 04/18/24 08:25 Blood Blood Culture - Preliminary NO GROWTH AFTER 24 HOURS OF INCUBATION. Resulted Problem List/Assessment/Plan Problem List/Assessment/Plan # bilateral foot wound # left foot osteomyelitis # right foot status post surgery with the osteopenia - podiatry consulted, patient was taken for I and D tomorrow - ESR and CRP elevated - blood cultures pending - wound cultures showing MRSA sensitive to vancomycin and Pseudomonas sensitive to meropenem - patient continued on vancomycin and started on meropenem dialysis dosing - left and right foot I and D done today with flanging machine operator - PICC placed - patient to undergo I and D closure tomorrow # end-stage renal disease on dialysis # hyperkalemia - hemodialysis done today - Epogen - monitor for hyperkalemia - renal diet # uncontrolled type 2 diabetes mellitus with hyperglycemia - on insulin sliding scale - insulin Lantus # paroxysmal atrial fibrillation - on amiodarone Goals Of Care discussed with the patient and his sister Milagros for over 25 minutes. Full code Plan discussed with Dr. Garrison Plan discussed with: Patient Dietary Evaluation Review Recommendations by RD: Protein Supplementation Comments: 1) Renal standard and CCHO 75gm diet 2) Nephro-Beverly 1 tab daily 3) Josafat 1 pk daily and Pro-Stat 1 pk daily 4) Continue current plan of care Expected Outcomes/Goals: Pt will meet >75% estimated needs Fu 3-5 days Date of Service: Apr 19, 2024 Billing Provider: ONUR GARRISON MD Common Visit Codes: [id number] INP/OBS CARE(HIGH) MANAS CRATF RESIDENT Apr 19, 2024 19:30 ONUR GARRISON MD Apr 23, 2024 15:50
--- NOTE | 2024-04-19 21:11 | DVHPN2 ---
Progress Note - Dictate Date Seen: Apr 19, 2024 Has the PT tested + for MRSA If YES, has PT been informed?: No Medical Necessity Reason Pt with a Central, PICC or Fol: No Subjective Patient was seen and evaluated in follow up. No acute events overnight. Patient is s/p right ankle and left foot I&D with health and social care teacher. Denies any new complaints. Received dialysis today, tolerated well. vital signs Vital Sign Date Time Temp Pulse Resp B/P (MAP) Pulse Ox O2 Delivery O2 Flow Rate FiO2 04/19/24 19:40 Nasal Cannula* 2 28 04/19/24 17:30 97.6 75 18 129/24 (59) 86 97.6 Total Intake and Output 04/18/24 04/18/24 04/19/24 15:00 23:00 07:00 Intake Total 10 ml 200 ml 120 ml Balance 10 ml 200 ml 120 ml medications Current Medications Medications Dose Ordered Sig/Samuel Route Start Time Stop Time Status Last Admin Dose Admin Vancomycin HCl 0 ml @ 0 mls/hr UD IV 04/16/24 01:15 Furosemide 80 mg DAILY PO 04/16/24 10:00 04/16/24 10:24 80 MG Amiodarone HCl 200 mg Q12HR PO 04/16/24 10:00 04/19/24 09:10 200 MG Atorvastatin Calcium 40 mg HS PO 04/16/24 22:00 04/18/24 22:38 40 MG Diagnostic Test (Pha) 1 strip Q6HR 04/16/24 06:00 04/19/24 18:03 1 STRIP Dextrose 50 ml UD PRN IV 04/16/24 03:00 Acetaminophen/ Hydrocodone Bitart 1 tab Q4HP PRN PO 04/16/24 03:00 04/17/24 23:44 1 TAB Ondansetron HCl 4 mg Q4HP PRN IV 04/16/24 03:00 04/17/24 23:43 4 MG Acetaminophen 650 mg Q6HP PRN PO 04/16/24 03:00 Heparin Sodium (Porcine) 5,000 units Q12HR SC 04/16/24 10:00 04/18/24 22:30 5,000 UNITS Ergocalciferol 50,000 unit Q7D PO 04/17/24 09:00 04/17/24 14:31 50,000 UNIT Enteral Nutritional Formula 28.8 gm DAILY PO 04/18/24 10:00 Amino Acid Protein 30 ml DAILY PO 04/19/24 10:00 Multivit/Ca Carb/ B Cmplx/FA/Prenat 1 tab DAILY PO 04/19/24 10:00 Meropenem 50 ml @ 17 mls/hr DAILY IV 04/19/24 10:00 Zirconium Oxide 10 gm Q8HR PO 04/18/24 22:00 04/20/24 14:01 04/19/24 14:45 10 GM Insulin Glargine 10 units HS SC 04/19/24 22:00 Insulin Human Regular Q6HR SC 04/20/24 00:00 objective Vitals and nursing notes reviewed. Gen: In no acute distress. HEENT: Normocephalic atraumatic. Mucous membranes moist and pink. Neck: Supple and nontender. Pulmonary: Clear to auscultation and percussion bilaterally. Cardiac: Regular rate and rhythm. No murmur Abdomen: Soft, nontender, nondistended, bowel sounds present all 4 quadrants, no guarding, no rigidity, no organomegaly. Extremities: No cyanosis, clubbing, left foot medial plantar ulcer, right foot medial ankle Neuro: Cranial nerves II through XII grossly intact, normal affect and speech, no focal motor deficits. Skin: Warm, dry, normal color and texture, no rash. laboratory and microbiology Laboratory Tests 04/19/24 08:00 Test 04/19/24 08:00 Range/Units Serum Glucose 447 #*H 74-106 mg/dL Problem List Hyperkalemia End-stage renal disease on hemodialysis Septic shock Bilateral foot cellulitis Peripheral arterial disease Encephalopathy Assessment/Plan Agree with current supportive medical care. Planned for incision and drainage with placement of graft to right ankle and left foot. NPO at midnight. HD- 04/19. Epogen 10,000 IV 3x/week post HD. IV antibiotics. Additional plan as per the hospital course. Dietary Evaluation Review Recommendations by RD: Protein Supplementation Comments: 1) Renal standard and CCHO 75gm diet 2) Nephro-Beverly 1 tab daily 3) Josafat 1 pk daily and Pro-Stat 1 pk daily 4) Continue current plan of care Expected Outcomes/Goals: Pt will meet >75% estimated needs Fu 3-5 days Plan discussed with: Patient, Other (RN) OLEGARIO SNELL DO Apr 19, 2024 21:11
[2024-04-19] MEDS: EPOETIN ALFA-EPBX 10,000 UNIT/1ML VIAL SC ONE (21:39)
[2024-04-19] MEDS: InsuLIN REG 1unit/0.01ml Soln (100units/ml) SC SCH (23:44)
[2024-04-19] MEDS: INSULIN LANTUS (GLARGINE) 1 /0.01ml (100units/ml) SC SCH (23:45)
[2024-04-20] VITALS (11 sets, daily range): BP systolic 122–141; BP diastolic 32–89; PULSE 59–72; RESP 11–21; TEMP 97.4–98.6; O2SAT 92–100
[2024-04-20] MEDS ORDERED: InsuLIN REG 1unit/0.01ml Soln (100units/ml) SC SCH
[2024-04-20 07:30] LABS: Basophils # (auto) 0 10 ^3/uL (0-0.2); Eosinophils # (auto) 0 10 ^3/uL (0-0.8); Eosinophils % (auto) 0.3 % (0.0-7.0); Hematocrit 22.6 % (41.0-53.0); Lymphocytes # (auto) 0.8 10 ^3/uL (0.4-5.4); Monocytes # (auto) 0.3 10 ^3/uL (0-1.3); Platelet Count (auto) 234 10^3/uL (140-450); Red Cell Distribution Width 14.8 % (11.8-14.3)
[2024-04-20 07:31] LABS: Basophils % (auto) 0.2 % (0.0-2.0); Hemoglobin 7.4 g/dL (13.5-17.5); Lymphocytes % (auto) 13.2 % (10.0-50.0); Mean Corpuscular Hemoglobin 31.8 pg (28.0-32.0); Mean Corpuscular Hgb Conc. 32.8 g/dL (32.0-36.0); Mean Corpuscular Volume 96.8 fL (80.0-100.0); Monocytes % (auto) 5.2 % (0.0-12.0); Neutrophils # (auto) 4.8 10 ^3/uL (1.6-8.6); Neutrophils % (auto) 81.1 % (37.0-80.0); Nucleated Red Blood Cells % 0.1 %; Red Blood Cells 2.34 10^6/uL (4.5-5.90); White Blood Cell 5.9 10^3/uL (4.4-10.8)
[2024-04-20 07:38] LABS: Potassium 3.6 mmol/L (3.5-5.1); Sodium 137 mmol/L (136-145)
[2024-04-20 07:39] LABS: Anion Gap 12 (5-15); Calcium 8.8 mg/dL (8.7-10.4); Carbon Dioxide 31 mmol/L (20-31)
[2024-04-20 07:40] LABS: Chloride 94 mmol/L (98-107)
[2024-04-20 07:46] LABS: Phosphorus 3.9 mg/dL (2.4-5.1)
[2024-04-20 07:56] LABS: Blood Urea Nitrogen 49 mg/dL (9-23); Glucose 243 mg/dL (74-106)
[2024-04-20 08:31] LABS: Partial Thromboplastin Time 24.2 SEC (24.5-34.5); Prothrombin Time 10.6 sec (9.3-11.8)
[2024-04-20] MEDS: ACETAMINOPHEN 325 MG TAB PO PRN (09:33)
--- NOTE | 2024-04-20 10:38 | DVHSR ---
APPROVED REPORT EXAM: Two-dimensional and M-mode echocardiogram with Doppler and color Doppler. Blood Pressure: 105/49 mmHg INDICATION Heart Failure RISK FACTORS Height: 5'8", Weight: 207 DIMENSIONS LVDd4.7 (3.8-5.7cm)LA (2D)4.4 (1.9-4.0cm)Aortic Root3.1 (2.0-3.7cm) LVDs3.5 (2.5-4.0cm)LA (MM) (1.9-4.0cm)Aortic Cusp Exc1.9 (1.5-2.0cm) EF (%) 50.0 (55-70%)Rt. Atrium (1.9-4.0cm)Asc. Aorta cm IVSd0.8 (0.7-1.1cm)RV (D) (1.8-2.4cm) PWd0.6 (0.7-1.1cm) Mitral Valve MitralMitral Stenosis E wave1.09m/sMV Mean GR.mmHg A wave0.64m/sMV Peak GR.mmHg E/A ratio1.72D MVAcm2 DECEL [id number] 1/2 Timems Aortic Valve Aortic ValveAortic Stenosis V10.86m/Tenzin Mean GR.3mmHg V21.17m/Tenzin Peak GR.5mmHg LVOT Diameter2.0 (1.8-2.4cm)Doppler AVA2.31cm2 Pulmonic Valve V21.06m/s Tricuspid Valve TR Velocity2.53m/s [id number] Other Information Quality : Technically LimitedRhythm : Technically limited study due to body habitus. Conclusion Sinus rhythm. Left atrial enlargement. Mild dilation of the sinuses of Valsalva. Calcification of the superior aspect of the left atrium and non coronary cusp. Valves appear to be s tructurally normal. EF of 50%. Normal RV function. No significant Doppler anomalies. Mild TR. No pericardial effusion masses or vegetations.
[2024-04-20] MEDS ORDERED: fentaNYL CITRATE 100 MCG/2 ML VL ONE (12:51)
--- NOTE | 2024-04-20 13:04 | DVHPN2 ---
Subjective 58-year-old male presents for evaluation of bilateral foot wound. Patient reports worsening bilateral foot wounds with associated generalized weakness and occasional chills. Patient receives dialysis Tuesday, Tuesday and Tuesday. Noted to have high potassium level on arrival. Denies chest pain or palpitations. No other acute complaints. Changes from previous H/P or p: No Changes Objective Vitals Vital Signs Date Time Temp Pulse Resp B/P (MAP) Pulse Ox O2 Delivery O2 Flow Rate FiO2 04/20/24 10:00 130/55 04/20/24 09:33 97.5 04/20/24 09:00 65 18 100 04/19/24 19:40 Nasal Cannula* 2 28 Intake/Output Intake and Output 04/20/24 07:00 Intake Total 1100 ml Output Total 775 ml Balance 325 ml Intake Oral 1100 ml Output Urine Total 775 ml Exam DERMATOLOGIC EXAM: - Skin is dry and cool to the touch dry bilaterally. - Nails 1-5 of the bilateral foot are thickened, discolored, dystrophic, and tender to palpate with subungual debris - Hair loss noted to bilateral feet - right ankle wound and left foot wound with purulent drainage and erythema VASCULAR EXAM: - DP and PT pulses are palpable bilaterally. - MANAGER COUNTRY is brisk to all digits. - Feet are cool to touch compared to lower legs bilaterally. NEUROLOGIC EXAM: - Normal light touch sensation to the superficial peroneal, deep peroneal, sural, saphenous, and tibial nerve branches. - Protective sensation is diminished as tested with a 5.07 10g [place]-Charisse bilaterally. MUSCULOSKELETAL EXAM: - No gross deformities - Muscle strength is 5/5 and active motion is pain-free and symmetrical bilaterally - No pain or crepitation with passive range of motion bilaterally to all major pedal joints Medications Current Medications Medications Dose Ordered Sig/Samuel Route Start Time Stop Time Status Last Admin Dose Admin Vancomycin HCl 0 ml @ 0 mls/hr UD IV 04/16/24 01:15 Furosemide 80 mg DAILY PO 04/16/24 10:00 04/16/24 10:24 80 MG Amiodarone HCl 200 mg Q12HR PO 04/16/24 10:00 04/20/24 09:33 200 MG Atorvastatin Calcium 40 mg HS PO 04/16/24 22:00 04/19/24 21:32 40 MG Diagnostic Test (Pha) 1 strip Q6HR 04/16/24 06:00 04/20/24 12:00 1 STRIP Dextrose 50 ml UD PRN IV 04/16/24 03:00 Acetaminophen/ Hydrocodone Bitart 1 tab Q4HP PRN PO 04/16/24 03:00 04/17/24 23:44 1 TAB Ondansetron HCl 4 mg Q4HP PRN IV 04/16/24 03:00 04/17/24 23:43 4 MG Acetaminophen 650 mg Q6HP PRN PO 04/16/24 03:00 04/20/24 09:33 650 MG Heparin Sodium (Porcine) 5,000 units Q12HR SC 04/16/24 10:00 04/19/24 21:32 5,000 UNITS Ergocalciferol 50,000 unit Q7D PO 04/17/24 09:00 04/17/24 14:31 50,000 UNIT Enteral Nutritional Formula 28.8 gm DAILY PO 04/18/24 10:00 Amino Acid Protein 30 ml DAILY PO 04/19/24 10:00 Multivit/Ca Carb/ B Cmplx/FA/Prenat 1 tab DAILY PO 04/19/24 10:00 Meropenem 50 ml @ 17 mls/hr DAILY IV 04/19/24 10:00 04/20/24 11:14 17 MLS/HR Zirconium Oxide 10 gm Q8HR PO 04/18/24 22:00 04/20/24 14:01 04/19/24 21:32 10 GM Insulin Glargine 10 units HS SC 04/19/24 22:00 04/19/24 23:45 10 UNITS Insulin Human Regular Q6HR SC 04/20/24 00:00 04/20/24 12:48 9 UNITS Laboratory Results Laboratory Tests 04/20/24 07:20 Chemistry Test 04/20/24 07:20 Calcium Level 8.8 mg/dL (8.7-10.4) Phosphorus Level 3.9 mg/dL (2.4-5.1) Coagulation Test 04/20/24 07:20 Prothrombin Time 10.6 sec (9.3-11.8) Prothrombin Time INR 1.00 (0.9-1.15) Activated Partial Thromboplast Time 24.2 SEC (24.5-34.5) L Microbiology Microbiology Date/Time Source Procedure Growth Status 04/18/24 12:20 Foot Left Gram Stain Pending Resulted 04/18/24 12:20 Foot Left Anaerobic Culture - Preliminary Resulted 04/18/24 12:20 Foot Left Aerobic Culture Pending Resulted 04/18/24 08:25 Blood Blood Culture - Preliminary NO GROWTH AFTER 48 HOURS OF INCUBATION. Resulted Assessment/Plan Assessment/Plan ASSESSMENT: Patient is a 58 year old seen on the floor to day s/p from a right ankle I&D and left foot PLAN: - The patients chart was reviewed, clinical findings were discussed with the patient, the etiologies of the conditions were discussed in detail, and a treatment plan was agreed to at this time, with both oral and written instructions provided. - reviewed advanced imaging - discussed plan is to perform an incision and drainage and placement of graft - patient has been NPO since midnight - take him to the OR today - patient has been nonweightbearing on the right lower extremity All questions were answered and concerns addressed to the patient's satisfaction. The patient was given the phone number to the clinic and was told how to make contact with the clinic should any concerns or questions arise. Patient understands that if any questions or concerns arise prior to the next appointment, we should be contacted immediately. FOLLOW-UP: Continue to follow while inpatient Plan discussed with: Patient My Orders Orders - BABAR CAMEJO DPM Procedure Category Date Status Time Npo After Midnight ORDERS 04/19/24 Transmitted Npo (Nothing By DIET 04/20/24 Transmitted Mouth) Diet Breakfast Obtain Consent For: ORDERS 04/19/24 Transmitted 15:44 Problem List: (1) Hyperkalemia (2) Anemia (3) Hyponatremia (4) Osteomyelitis (5) End stage renal disease on dialysis (6) Elevated lactic acid level Date of Service: Apr 20, 2024 Billing Provider: BABAR CAMEJO DPM Common Visit Codes: [id number] INP/OBS CARE(HIGH) BABAR CAMEJO DPM Apr 20, 2024 13:04
--- NOTE | 2024-04-20 14:41 | DVHOP2 ---
Operative Report - 2 Report Details Date: 04/20/24 Preop Diagnosis: 1. Right ankle abscess 2. Right ankle osteomyelitis 3. Left foot wound 4. Left foot abscess Postop Diagnosis: Same as preop Surgeon: Babar Camejo MD Anesthesiologist: See anesthesia Anesthesia: General Implant: Integra 5 x 5 cm dermal graft x2 Consent: The patient was informed of the risks and benefits of the procedure. These include but are not limited to complications of anesthesia, postoperative infection, incomplete relief of symptoms, recurrence of symptoms, damage to blo od vessels, nerves and tendons, deep venous thrombosis, pulmonary embolism and possible need for repeat surgery in the future. Complications: None Estimated Blood Loss: Minimal Fluids: See anesthesia Findings: Consistent with the diagnosis Indications for Surgery: Worsening bilateral foot wounds Name of Procedure Performed 1. Right ankle I&D to bone (88709) 2. Left foot I&D to bone (91880) 3. Placement of dermal graft right ankle (40797) 4. Placement of dermal graft left foot (52589) Procedure Details Procedure Details: PRE-PROCEDURE INFORMATION: In the pre-op holding area, the extremity to be operated on was clearly marked and the patient verified correct laterality of the marking. The patient was transferred to the OR table and placed in a supine position. A timeout was performed in which identification of the correct patient, procedure, location, and materials was done. The bilateral foot and leg were prepped and draped in normal sterile fashion. DESCRIPTION OF PROCEDURE: Attention was directed to the right medial ankle where area of fluctuance was noted. An incision was made over this area and was deepened through blunt dissection. The incision was deepened to the level of abscess and bone. Care was taken to the dissection to avoid any neurovascular and tendinous structures. The incision was deepened to the bone, and the abscess appeared to be purulent fluid consistent with pus. The cortices of the bone was then removed with Vamsi an all necrotic tissue. After the abscess was drained, the area was irrigated with 3 L normal saline using cysto tubing. Deep cultures were then obtained from the wound. A bone biopsy was then taken of the the medial malleolus which was deepened to the muscle belly and tendons. The bone was then sent to pathology to determine the extent of osteomyelitis. The area was then inspected and any areas of tracking, especially along the tendons were also drained. A 5 x 5 cm graft was then placed over the wound and stapled to the wound edges. The wound was dressed with Xeroform and gauze. Attention was directed to the left foot where area of fluctuance was noted. An incision was made over this area and was deepened through blunt dissection. The incision was deepened to the level of abscess and bone. Care was taken to the dissection to avoid any neurovascular and tendinous structures. The incision was deepened to the bone, and the abscess appeared to be purulent fluid consistent with pus. The cortices of the bone was then removed with Vamsi an all necrotic tissue. After the abscess was drained, the area was irrigated with 3 L normal saline using cysto tubing. Deep cultures were then obtained from the wound. The area was then inspected and any areas of tracking, especially along the tendons were also drained. A 5 x 5 cm graft was then placed over the wound and stable to the wound edges. The wound was dressed with Xeroform and gauze. POSTOPERATIVE INFORMATION: The patient tolerated the above noted procedure and anesthesia well and was transferred to the PACU with vital signs stable, and vascular status intact with capillary refill intact to all digits. Patient was placed in a cast on the right lower extremity due to the instability of his ankle fracture. Patient should be nonweightbearing on the right lower extremity. Patient should follow up in 1-2 weeks to re-evaluate the graft. Patient should be on IV antibiotics for about 6 weeks. Specimen: Right medial malleolus Condition Good Disposition Still a Patient BABAR CAMEJOM Apr 20, 2024 14:41
--- NOTE | 2024-04-20 18:07 | DVHPNRES ---
Progress Note Date Seen: Apr 20, 2024 Resident Creating Document: MANAS CRAFT RESIDENT Has the PT tested + for MRSA If YES, has PT been informed?: No Medical Necessity Reason Pt with a Central, PICC or Fol: No Subjective Review of Systems Patient is seen and examined at the bedside No acute complaints Patient underwent I&D closure with podiatric surgeon today Objective vital signs Vital Sign Date Time Temp Pulse Resp B/P (MAP) Pulse Ox O2 Delivery O2 Flow Rate FiO2 04/20/24 17:57 97.9 63 18 134/52 (79) 100 97.9 04/20/24 14:56 Room Air 0 92 Total Intake and Output 04/19/24 04/19/24 04/20/24 15:00 23:00 07:00 Intake Total 850 ml 250 ml Output Total 600 ml 175 ml Balance 250 ml 75 ml medications Current Medications Medications Dose Ordered Sig/Samuel Route Start Time Stop Time Status Last Admin Dose Admin Vancomycin HCl 0 ml @ 0 mls/hr UD IV 04/16/24 01:15 Furosemide 80 mg DAILY PO 04/16/24 10:00 04/16/24 10:24 80 MG Amiodarone HCl 200 mg Q12HR PO 04/16/24 10:00 04/20/24 09:33 200 MG Atorvastatin Calcium 40 mg HS PO 04/16/24 22:00 04/19/24 21:32 40 MG Diagnostic Test (Pha) 1 strip Q6HR 04/16/24 06:00 04/20/24 17:46 1 STRIP Dextrose 50 ml UD PRN IV 04/16/24 03:00 Acetaminophen/ Hydrocodone Bitart 1 tab Q4HP PRN PO 04/16/24 03:00 04/17/24 23:44 1 TAB Ondansetron HCl 4 mg Q4HP PRN IV 04/16/24 03:00 04/17/24 23:43 4 MG Acetaminophen 650 mg Q6HP PRN PO 04/16/24 03:00 04/20/24 09:33 650 MG Heparin Sodium (Porcine) 5,000 units Q12HR SC 04/16/24 10:00 04/19/24 21:32 5,000 UNITS Ergocalciferol 50,000 unit Q7D PO 04/17/24 09:00 04/17/24 14:31 50,000 UNIT Enteral Nutritional Formula 28.8 gm DAILY PO 04/18/24 10:00 Amino Acid Protein 30 ml DAILY PO 04/19/24 10:00 Multivit/Ca Carb/ B Cmplx/FA/Prenat 1 tab DAILY PO 04/19/24 10:00 Meropenem 50 ml @ 17 mls/hr DAILY IV 04/19/24 10:00 04/20/24 11:14 17 MLS/HR Insulin Glargine 10 units HS SC 04/19/24 22:00 04/19/24 23:45 10 UNITS Insulin Human Regular Q6HR SC 04/20/24 00:00 04/20/24 17:45 2 UNITS Examination Constitutional: Patient was alert and oriented X 3 and does not appear to be in any acute distress Gen - no pallor, no icterus, no cyanosis, no clubbing, no LAD, no edema . Skin - Patients skin is warm and dry.. HEENT - normocephalic, atraumatic, dry mucous membranes. Neck - full ROM, no LAD, no JVD. Pulmonary - B/L equal air entry, minimal basilar rhonchi, no wheezing, no stridor. cardiovascular - normal S1,S2 heard. no murmurs heard. GI - soft abdomen without tenderness to palpation. no hepatospleenomegaly. Bowel sounds normoactive Neurological - Bilateral upper extremity strength 5/5, bilateral lower extremity strength 4/5, no facial droop, normal speech, no tremor, bilateral lower extremity sensation to crude touch absent up to the level of mid cole Extremities: Both the feet covered in sterile dressings laboratory and microbiology Laboratory Tests 04/20/24 07:20 Test 04/20/24 07:20 Range/Units Serum Glucose 243 #H 74-106 mg/dL Microbiology Date/Time Source Procedure Growth Status 04/18/24 12:20 Foot Left Gram Stain Pending Resulted 04/18/24 12:20 Foot Left Anaerobic Culture - Preliminary Resulted 04/18/24 12:20 Aerobic Culture - Final Methicillin Resistant S.aureus Resulted 04/18/24 08:25 Blood Blood Culture - Preliminary NO GROWTH AFTER 48 HOURS OF INCUBATION. Resulted Problem List/Assessment/Plan Problem List/Assessment/Plan # bilateral foot wound # left foot osteomyelitis # right foot status post surgery with the osteopenia - podiatry consulted, patient was taken for I and D tomorrow - ESR and CRP elevated - blood cultures pending - wound cultures showing MRSA sensitive to vancomycin and Pseudomonas sensitive to meropenem - patient continued on vancomycin and started on meropenem dialysis dosing - left and right foot I and D done today with sheet metal assembler and riveter - PICC placed - patient underwent I&D closure today - patient to be given meropenem today, tomorrow patient will be started on gentamicin after getting the hemodialysis. - confirmed with Dr. Mesfin Taylor, patient will be given IV antibiotics at the hemodialysis center. # cardiomegaly # suspected heart failure with preserved ejection fraction - echo shows LVEF 50%, left atrial enlargement - on furosemide - atorvastatin # end-stage renal disease on dialysis # hyperkalemia - hemodialysis done today - Epogen - monitor for hyperkalemia - renal diet # uncontrolled type 2 diabetes mellitus with hyperglycemia - on insulin sliding scale - insulin Lantus # paroxysmal atrial fibrillation - on amiodarone Goals Of Care discussed with the patient and his sister Milagros for over 25 minutes. Full code Plan discussed with Dr. Garrison Plan discussed with: Patient My Orders My Orders Orders - MANAS CRAFT Procedure Category Date Status Time Insulin Lantus PHA 04/19/24 In Process (Glargine) (Lantus) 22:00 Insulin R (Human) PHA 04/20/24 In Process (Insulin R) 00:00 Gentamicin Per PHA 04/21/24 Transmitted Pharmacy 14:00 * Instrumentation And Controls Technician CONS 04/20/24 Transmitted Consult Dietary Evaluation Review Recommendations by RD: Protein Supplementation Comments: 1) Renal standard and CCHO 75gm diet 2) Nephro-Beverly 1 tab daily 3) Josafat 1 pk daily and Pro-Stat 1 pk daily 4) Continue current plan of care Expected Outcomes/Goals: Pt will meet >75% estimated needs Fu 3-5 days Date of Service: Apr 20, 2024 Billing Provider: ONUR GARRISON MD Common Visit Codes: [id number] INP/OBS CARE(HIGH) MANAS CRAFT RESIDENT Apr 20, 2024 18:07 ONUR GARRISON MD Apr 23, 2024 16:03
--- NOTE | 2024-04-20 20:04 | DVHPN2 ---
Progress Note - Dictate Date Seen: Apr 20, 2024 Has the PT tested + for MRSA If YES, has PT been informed?: No Medical Necessity Reason Pt with a Central, PICC or Fol: No Subjective Patient was seen and evaluated in follow up. No acute events overnight. No new complaints. Patient is planned for incision and drainage and placement of graft today. NPO since midnight. vital signs Vital Sign Date Time Temp Pulse Resp B/P (MAP) Pulse Ox O2 Delivery O2 Flow Rate FiO2 04/20/24 17:57 97.9 63 18 134/52 (79) 100 97.9 04/20/24 14:56 Room Air 0 92 Total Intake and Output 04/19/24 04/19/24 04/20/24 15:00 23:00 07:00 Intake Total 850 ml 250 ml Output Total 600 ml 175 ml Balance 250 ml 75 ml medications Current Medications Medications Dose Ordered Sig/Samuel Route Start Time Stop Time Status Last Admin Dose Admin Vancomycin HCl 0 ml @ 0 mls/hr UD IV 04/16/24 01:15 Furosemide 80 mg DAILY PO 04/16/24 10:00 04/16/24 10:24 80 MG Amiodarone HCl 200 mg Q12HR PO 04/16/24 10:00 04/20/24 09:33 200 MG Atorvastatin Calcium 40 mg HS PO 04/16/24 22:00 04/19/24 21:32 40 MG Diagnostic Test (Pha) 1 strip Q6HR 04/16/24 06:00 04/20/24 17:46 1 STRIP Dextrose 50 ml UD PRN IV 04/16/24 03:00 Acetaminophen/ Hydrocodone Bitart 1 tab Q4HP PRN PO 04/16/24 03:00 04/17/24 23:44 1 TAB Ondansetron HCl 4 mg Q4HP PRN IV 04/16/24 03:00 04/17/24 23:43 4 MG Acetaminophen 650 mg Q6HP PRN PO 04/16/24 03:00 04/20/24 09:33 650 MG Heparin Sodium (Porcine) 5,000 units Q12HR SC 04/16/24 10:00 04/19/24 21:32 5,000 UNITS Ergocalciferol 50,000 unit Q7D PO 04/17/24 09:00 04/17/24 14:31 50,000 UNIT Enteral Nutritional Formula 28.8 gm DAILY PO 04/18/24 10:00 Amino Acid Protein 30 ml DAILY PO 04/19/24 10:00 Multivit/Ca Carb/ B Cmplx/FA/Prenat 1 tab DAILY PO 04/19/24 10:00 Meropenem 50 ml @ 17 mls/hr DAILY IV 04/19/24 10:00 04/21/24 12:00 04/20/24 11:14 17 MLS/HR Insulin Glargine 10 units HS SC 04/19/24 22:00 04/19/24 23:45 10 UNITS Insulin Human Regular Q6HR SC 04/20/24 00:00 04/20/24 17:45 2 UNITS Gentamicin Sulfate 0 ml @ 0 mls/hr PER PHARMACY IV 04/21/24 14:00 UNV objective Vitals and nursing notes reviewed. Gen: In no acute distress. HEENT: Normocephalic atraumatic. Mucous membranes moist and pink. Neck: Supple and nontender. Pulmonary: Clear to auscultation and percussion bilaterally. Cardiac: Regular rate and rhythm. No murmur Abdomen: Soft, nontender, nondistended, bowel sounds present all 4 quadrants, no guarding, no rigidity, no organomegaly. Extremities: No cyanosis, clubbing, left foot medial plantar ulcer, right foot medial ankle Neuro: Cranial nerves II through XII grossly intact, normal affect and speech, no focal motor deficits. Skin: Warm, dry, normal color and texture, no rash. laboratory and microbiology Laboratory Tests 04/20/24 07:20 Test 04/20/24 07:20 Range/Units Serum Glucose 243 #H 74-106 mg/dL Problem List Hyperkalemia End-stage renal disease on hemodialysis Septic shock Bilateral foot cellulitis Peripheral arterial disease Encephalopathy Assessment/Plan Agree with current supportive medical care. Pending incision and drainage with placement of graft to right ankle and left foot. NPO ongoing. Next dialysis 04/21. Epogen 10,000 IV 3x/week post HD. IV antibiotics will be continued at dialysis center. Additional plan as per the hospital course. Dietary Evaluation Review Recommendations by RD: Protein Supplementation Comments: 1) Renal standard and CCHO 75gm diet 2) Nephro-Beverly 1 tab daily 3) Josafat 1 pk daily and Pro-Stat 1 pk daily 4) Continue current plan of care Expected Outcomes/Goals: Pt will meet >75% estimated needs Fu 3-5 days Plan discussed with: Patient, Other (RN) OLEGARIO SNELL DO Apr 20, 2024 20:04
[2024-04-21] VITALS (9 sets, daily range): BP systolic 115–140; BP diastolic 38–54; PULSE 56–68; RESP 16–20; TEMP 96.4–98.6; O2SAT 96–100
[2024-04-21 08:07] LABS: Basophils # (auto) 0 10 ^3/uL (0-0.2); Basophils % (auto) 0.4 % (0.0-2.0); Eosinophils # (auto) 0.3 10 ^3/uL (0-0.8); Eosinophils % (auto) 3.6 % (0.0-7.0); Hematocrit 22.2 % (41.0-53.0); Hemoglobin 7.3 g/dL (13.5-17.5); Lymphocytes # (auto) 1.4 10 ^3/uL (0.4-5.4); Lymphocytes % (auto) 18.4 % (10.0-50.0); Mean Corpuscular Hemoglobin 32.2 pg (28.0-32.0); Mean Corpuscular Hgb Conc. 33.1 g/dL (32.0-36.0); Mean Corpuscular Volume 97.2 fL (80.0-100.0); Monocytes # (auto) 0.4 10 ^3/uL (0-1.3); Monocytes % (auto) 4.7 % (0.0-12.0); Neutrophils # (auto) 5.5 10 ^3/uL (1.6-8.6); Neutrophils % (auto) 72.9 % (37.0-80.0); Platelet Count (auto) 271 10^3/uL (140-450); Red Blood Cells 2.28 10^6/uL (4.5-5.90); Red Cell Distribution Width 14.5 % (11.8-14.3); White Blood Cell 7.6 10^3/uL (4.4-10.8)
[2024-04-21 08:32] LABS: Anion Gap 10 (5-15); Chloride 99 mmol/L (98-107); Sodium 141 mmol/L (136-145)
[2024-04-21 08:39] LABS: BUN/Creatinine Ratio 8.6 (10.0-20.0)
[2024-04-21 08:40] LABS: Blood Urea Nitrogen 57 mg/dL (9-23); Calcium 8.4 mg/dL (8.7-10.4); Carbon Dioxide 32 mmol/L (20-31); Glucose 149 mg/dL (74-106); Potassium 3.3 mmol/L (3.5-5.1)
[2024-04-21] MEDS: POTASSIUM EFFERVESENT TAB 25 MEQ PO ONE (10:47)
[2024-04-21] MEDS ORDERED: SEVOFLURANE 250 ML SOL IN ONE (12:49)
[2024-04-21] MEDS ORDERED: GENTAMICIN PER PHARMACY 0 ML IV SCH (14:00)
--- NOTE | 2024-04-21 16:33 | DVHPNRES ---
Progress Note Date Seen: Apr 21, 2024 Resident Creating Document: MOON BARRIOS RESIDENT Has the PT tested + for MRSA If YES, has PT been informed?: No Medical Necessity Reason Pt with a Central, PICC or Fol: No Subjective Review of Systems Patient was examined at bedside, patient's want to send the patient to a SNF ,I spoke with Lisbet (pharmacy) the information regarding gentamicin dose will be provided after the first administration during HD. SS consult for SNF will be placed after this. Patient reports: No new complaints Changes from previous H/P or p: No Changes Objective vital signs Vital Sign Date Time Temp Pulse Resp B/P (MAP) Pulse Ox O2 Delivery O2 Flow Rate FiO2 04/21/24 13:00 98.0 68 16 132/45 (74) 97 98.0 04/21/24 10:00 Nasal Cannula* 2 28 Total Intake and Output 04/20/24 04/20/24 04/21/24 15:00 23:00 07:00 Intake Total 60 ml 225 ml 1100 ml Output Total 300 ml 400 ml Balance 60 ml -75 ml 700 ml medications Current Medications Medications Dose Ordered Sig/Samuel Route Start Time Stop Time Status Last Admin Dose Admin Vancomycin HCl 0 ml @ 0 mls/hr UD IV 04/16/24 01:15 Furosemide 80 mg DAILY PO 04/16/24 10:00 04/16/24 10:24 80 MG Amiodarone HCl 200 mg Q12HR PO 04/16/24 10:00 04/21/24 10:48 200 MG Atorvastatin Calcium 40 mg HS PO 04/16/24 22:00 04/20/24 21:40 40 MG Diagnostic Test (Pha) 1 strip Q6HR 04/16/24 06:00 04/21/24 11:41 1 STRIP Dextrose 50 ml UD PRN IV 04/16/24 03:00 Acetaminophen/ Hydrocodone Bitart 1 tab Q4HP PRN PO 04/16/24 03:00 04/17/24 23:44 1 TAB Ondansetron HCl 4 mg Q4HP PRN IV 04/16/24 03:00 04/17/24 23:43 4 MG Acetaminophen 650 mg Q6HP PRN PO 04/16/24 03:00 04/20/24 09:33 650 MG Heparin Sodium (Porcine) 5,000 units Q12HR SC 04/16/24 10:00 04/21/24 10:58 5,000 UNITS Ergocalciferol 50,000 unit Q7D PO 04/17/24 09:00 04/17/24 14:31 50,000 UNIT Enteral Nutritional Formula 28.8 gm DAILY PO 04/18/24 10:00 04/21/24 10:00 28.8 GM Amino Acid Protein 30 ml DAILY PO 04/19/24 10:00 04/21/24 10:48 30 ML Multivit/Ca Carb/ B Cmplx/FA/Prenat 1 tab DAILY PO 04/19/24 10:00 04/21/24 10:48 1 TAB Insulin Glargine 10 units HS SC 04/19/24 22:00 04/20/24 22:18 10 UNITS Insulin Human Regular Q6HR SC 04/20/24 00:00 04/21/24 11:55 6 UNITS Gentamicin Sulfate 0 ml @ 0 mls/hr PER PHARMACY IV 04/21/24 14:00 Examination: GENERAL:Normal, HEENT:Normal, NECK:Normal, LUNGS:Normal, CVS:Normal, ABDOMEN:Normal, MSK:Normal, SKIN:Normal, NEURO:Normal, :Abnormal laboratory and microbiology Laboratory Tests 04/21/24 07:37 Test 04/21/24 07:37 Range/Units Serum Glucose 149 H 74-106 mg/dL Microbiology Date/Time Source Procedure Growth Status 04/18/24 12:20 Foot Left Gram Stain Pending Resulted 04/18/24 12:20 Foot Left Anaerobic Culture - Preliminary Resulted 04/18/24 12:20 Aerobic Culture - Final Methicillin Resistant S.aureus Resulted 04/18/24 08:25 Blood Blood Culture - Preliminary NO GROWTH AFTER 72 HOURS OF INCUBATION. Resulted Problem List/Assessment/Plan Problem List/Assessment/Plan # bilateral foot wound # left foot osteomyelitis # right foot status post surgery with the osteopenia - blood cultures pending - wound cultures showing MRSA sensitive to vancomycin and Pseudomonas, enterobacter cloacae - patient to be given gentamicin after getting the hemodialysis. # cardiomegaly # suspected heart failure with preserved ejection fraction - echo shows LVEF 50%, left atrial enlargement - on furosemide - atorvastatin # end-stage renal disease on dialysis # hyperkalemia - hemodialysis done today - Epogen - monitor for hyperkalemia - renal diet # uncontrolled type 2 diabetes mellitus with hyperglycemia - on insulin sliding scale - insulin Lantus # paroxysmal atrial fibrillation - on amiodarone case discussed with Goals of care discussed with the patient for 32 minutes. code status:full code Plan discussed with: Patient Dietary Evaluation Review Recommendations by RD: Protein Supplementation Comments: 1) Renal standard and CCHO 75gm diet 2) Nephro-Beverly 1 tab daily 3) Josafat 1 pk daily and Pro-Stat 1 pk daily 4) Continue current plan of care Expected Outcomes/Goals: Pt will meet >75% estimated needs Fu 3-5 days Date of Service: Apr 21, 2024 Billing Provider: DARNELL ABREU MD Common Visit Codes: [id number] INP/OBS CARE(HIGH) MOON BARRIOS RESIDENT Apr 21, 2024 16:33 DARNELL ABREU MD Apr 23, 2024 14:18
[2024-04-21] MEDS: SODIUM CHL 0.9% 1000 ML BAG XX ONE (17:10)
--- NOTE | 2024-04-21 19:37 | DVHPN2 ---
Progress Note - Dictate Date Seen: Apr 21, 2024 Has the PT tested + for MRSA If YES, has PT been informed?: No Medical Necessity Reason Pt with a Central, PICC or Fol: No Subjective Patient was seen and evaluated in follow up. No acute events overnight. No new complaints. Patient's is considering SNF placement for patient. vital signs Vital Sign Date Time Temp Pulse Resp B/P (MAP) Pulse Ox O2 Delivery O2 Flow Rate FiO2 04/21/24 17:00 97.8 65 17 140/54 (82) 100 97.8 04/21/24 10:00 Nasal Cannula* 2 28 Total Intake and Output 04/20/24 04/20/24 04/21/24 15:00 23:00 07:00 Intake Total 60 ml 225 ml 1100 ml Output Total 300 ml 400 ml Balance 60 ml -75 ml 700 ml medications Current Medications Medications Dose Ordered Sig/Samuel Route Start Time Stop Time Status Last Admin Dose Admin Vancomycin HCl 0 ml @ 0 mls/hr UD IV 04/16/24 01:15 Furosemide 80 mg DAILY PO 04/16/24 10:00 04/16/24 10:24 80 MG Amiodarone HCl 200 mg Q12HR PO 04/16/24 10:00 04/21/24 10:48 200 MG Atorvastatin Calcium 40 mg HS PO 04/16/24 22:00 04/20/24 21:40 40 MG Diagnostic Test (Pha) 1 strip Q6HR 04/16/24 06:00 04/21/24 17:25 1 STRIP Dextrose 50 ml UD PRN IV 04/16/24 03:00 Acetaminophen/ Hydrocodone Bitart 1 tab Q4HP PRN PO 04/16/24 03:00 04/17/24 23:44 1 TAB Ondansetron HCl 4 mg Q4HP PRN IV 04/16/24 03:00 04/17/24 23:43 4 MG Acetaminophen 650 mg Q6HP PRN PO 04/16/24 03:00 04/20/24 09:33 650 MG Heparin Sodium (Porcine) 5,000 units Q12HR SC 04/16/24 10:00 04/21/24 10:58 5,000 UNITS Ergocalciferol 50,000 unit Q7D PO 04/17/24 09:00 04/17/24 14:31 50,000 UNIT Enteral Nutritional Formula 28.8 gm DAILY PO 04/18/24 10:00 04/21/24 10:00 28.8 GM Amino Acid Protein 30 ml DAILY PO 04/19/24 10:00 04/21/24 10:48 30 ML Multivit/Ca Carb/ B Cmplx/FA/Prenat 1 tab DAILY PO 04/19/24 10:00 04/21/24 10:48 1 TAB Insulin Glargine 10 units HS SC 04/19/24 22:00 04/20/24 22:18 10 UNITS Insulin Human Regular Q6HR SC 04/20/24 00:00 04/21/24 11:55 6 UNITS Gentamicin Sulfate 0 ml @ 0 mls/hr PER PHARMACY IV 04/21/24 14:00 objective Vitals and nursing notes reviewed. Gen: In no acute distress. HEENT: Normocephalic atraumatic. Mucous membranes moist and pink. Neck: Supple and nontender. Pulmonary: Clear to auscultation and percussion bilaterally. Cardiac: Regular rate and rhythm. No murmur Abdomen: Soft, nontender, nondistended, bowel sounds present all 4 quadrants, no guarding, no rigidity, no organomegaly. Extremities: No cyanosis, clubbing, left foot medial plantar ulcer, right foot medial ankle Neuro: Cranial nerves II through XII grossly intact, normal affect and speech, no focal motor deficits. Skin: Warm, dry, normal color and texture, no rash. laboratory and microbiology Laboratory Tests 04/21/24 07:37 Test 04/21/24 07:37 Range/Units Serum Glucose 149 H 74-106 mg/dL Problem List Hyperkalemia End-stage renal disease on hemodialysis Septic shock Bilateral foot cellulitis Peripheral arterial disease Encephalopathy Assessment/Plan Agree with current supportive medical care. HD- 04/21. Epogen 20,000 IV post HD. Wound cultures showing MRSA sensitive to vancomycin and Pseudomonas, enterobacter cloacae. Receiving Vancomycin. Gentamicin given after completion of dialysis today. IV antibiotics will be continued at dialysis center. Monitor Input/Output. Home medications as continued. Pain management prn. DVT prophylaxis. Additional plan as per the hospital course. Dietary Evaluation Review Recommendations by RD: Protein Supplementation Comments: 1) Renal standard and CCHO 75gm diet 2) Nephro-Beverly 1 tab daily 3) Josafat 1 pk daily and Pro-Stat 1 pk daily 4) Continue current plan of care Expected Outcomes/Goals: Pt will meet >75% estimated needs Fu 3-5 days Plan discussed with: Patient, Other (RN) OLEGARIO SNELL DO Apr 21, 2024 19:37
[2024-04-21] MEDS: VANCOMYCIN 1GM/250ML KIT 250 ML IV ONE (20:10)
[2024-04-21] MEDS: GENTAMICIN SULFATE 160 MG in D5W 5% 100 ML IV ONE (20:10)
[2024-04-21] MEDS: EPOETIN ALFA-EPBX 10,000 UNIT/1ML VIAL SC ONE (22:14)
[2024-04-22] VITALS (8 sets, daily range): BP systolic 102–142; BP diastolic 32–81; PULSE 63–73; RESP 16–20; TEMP 96.3–98; O2SAT 99–100
[2024-04-22 07:29] LABS: Basophils # (auto) 0.1 10 ^3/uL (0-0.2); Eosinophils # (auto) 0.4 10 ^3/uL (0-0.8); Hemoglobin 7.7 g/dL (13.5-17.5); Lymphocytes # (auto) 1.1 10 ^3/uL (0.4-5.4); Lymphocytes % (auto) 17.4 % (10.0-50.0); Neutrophils % (auto) 69.9 % (37.0-80.0)
[2024-04-22 07:33] LABS: Basophils % (auto) 0.9 % (0.0-2.0); Eosinophils % (auto) 5.8 % (0.0-7.0); Hematocrit 23.1 % (41.0-53.0); Mean Corpuscular Hemoglobin 32.2 pg (28.0-32.0); Mean Corpuscular Hgb Conc. 33.4 g/dL (32.0-36.0); Mean Corpuscular Volume 96.2 fL (80.0-100.0); Monocytes # (auto) 0.4 10 ^3/uL (0-1.3); Neutrophils # (auto) 4.4 10 ^3/uL (1.6-8.6); Nucleated Red Blood Cells % 0.1 %; Platelet Count (auto) 272 10^3/uL (140-450); White Blood Cell 6.3 10^3/uL (4.4-10.8)
[2024-04-22 07:45] LABS: Calcium 8.8 mg/dL (8.7-10.4); Chloride 101 mmol/L (98-107); Potassium 3.8 mmol/L (3.5-5.1); Sodium 140 mmol/L (136-145)
[2024-04-22 07:46] LABS: Anion Gap 8 (5-15)
[2024-04-22 07:51] LABS: Carbon Dioxide 31 mmol/L (20-31); Glucose 80 mg/dL (74-106)
[2024-04-22 07:52] LABS: Blood Urea Nitrogen 28 mg/dL (9-23)
--- NOTE | 2024-04-22 17:22 | DVHPNRES ---
Progress Note Date Seen: Apr 22, 2024 Resident Creating Document: ASIM CRAFTMAYUR RESIDENT Has the PT tested + for MRSA If YES, has PT been informed?: No Medical Necessity Reason Pt with a Central, PICC or Fol: No Subjective Review of Systems Patient seen and examined at the bedside Does not report of any acute complaints. Reported 1 bowel movement today Objective vital signs Vital Sign Date Time Temp Pulse Resp B/P (MAP) Pulse Ox O2 Delivery O2 Flow Rate FiO2 04/22/24 09:45 125/80 04/22/24 09:00 97.4 68 18 100 97.4 04/21/24 20:00 Nasal Cannula* 2 28 Total Intake and Output 04/21/24 04/21/24 04/22/24 15:00 23:00 07:00 Intake Total 400 ml 100 ml Output Total 200 ml 350 ml Balance 200 ml -250 ml medications Current Medications Medications Dose Ordered Sig/Samuel Route Start Time Stop Time Status Last Admin Dose Admin Vancomycin HCl 0 ml @ 0 mls/hr UD IV 04/16/24 01:15 Furosemide 80 mg DAILY PO 04/16/24 10:00 04/22/24 09:45 80 MG Amiodarone HCl 200 mg Q12HR PO 04/16/24 10:00 04/22/24 09:45 200 MG Atorvastatin Calcium 40 mg HS PO 04/16/24 22:00 04/21/24 22:13 40 MG Diagnostic Test (Pha) 1 strip Q6HR 04/16/24 06:00 04/22/24 12:00 1 STRIP Dextrose 50 ml UD PRN IV 04/16/24 03:00 Acetaminophen/ Hydrocodone Bitart 1 tab Q4HP PRN PO 04/16/24 03:00 04/17/24 23:44 1 TAB Ondansetron HCl 4 mg Q4HP PRN IV 04/16/24 03:00 04/17/24 23:43 4 MG Acetaminophen 650 mg Q6HP PRN PO 04/16/24 03:00 04/20/24 09:33 650 MG Heparin Sodium (Porcine) 5,000 units Q12HR SC 04/16/24 10:00 04/22/24 10:04 5,000 UNITS Ergocalciferol 50,000 unit Q7D PO 04/17/24 09:00 04/17/24 14:31 50,000 UNIT Enteral Nutritional Formula 28.8 gm DAILY PO 04/18/24 10:00 04/22/24 09:46 28.8 GM Amino Acid Protein 30 ml DAILY PO 04/19/24 10:00 04/22/24 09:46 30 ML Multivit/Ca Carb/ B Cmplx/FA/Prenat 1 tab DAILY PO 04/19/24 10:00 04/22/24 09:45 1 TAB Insulin Glargine 10 units HS SC 04/19/24 22:00 04/21/24 23:12 10 UNITS Insulin Human Regular Q6HR SC 04/20/24 00:00 04/22/24 12:00 9 UNITS Gentamicin Sulfate 0 ml @ 0 mls/hr PER PHARMACY IV 04/21/24 14:00 Examination Constitutional: Patient was alert and oriented X 3 and does not appear to be in any acute distress Gen - no pallor, no icterus, no cyanosis, no clubbing, no LAD, no edema . Skin - Patients skin is warm and dry.. HEENT - normocephalic, atraumatic, dry mucous membranes. Neck - full ROM, no LAD, no JVD. Pulmonary - B/L equal air entry, minimal basilar rhonchi, no wheezing, no stridor. cardiovascular - normal S1,S2 heard. no murmurs heard. GI - soft abdomen without tenderness to palpation. no hepatospleenomegaly. Bowel sounds normoactive Neurological - Bilateral upper extremity strength 5/5, bilateral lower extremity strength 4/5, no facial droop, normal speech, no tremor, bilateral lower extremity sensation to crude touch absent up to the level of mid cole Extremities: Both the feet covered in sterile dressings laboratory and microbiology Laboratory Tests 04/22/24 07:17 Test 04/22/24 07:17 Range/Units Serum Glucose 80 74-106 mg/dL Microbiology Date/Time Source Procedure Growth Status 04/18/24 12:20 Foot Left Gram Stain Pending Resulted 04/18/24 12:20 Foot Left Anaerobic Culture - Preliminary Resulted 04/18/24 12:20 Aerobic Culture - Final Methicillin Resistant S.aureus Resulted 04/18/24 08:25 Blood Blood Culture - Preliminary NO GROWTH AFTER 72 HOURS OF INCUBATION. Resulted Problem List/Assessment/Plan Problem List/Assessment/Plan # bilateral foot wound # left foot osteomyelitis # right foot status post surgery with the osteopenia - podiatry consulted, patient was taken for I and D tomorrow - ESR and CRP elevated - blood cultures pending - wound cultures showing MRSA sensitive to vancomycin and Pseudomonas sensitive to meropenem - patient continued on vancomycin and started on meropenem dialysis dosing - left and right foot I and D done today with weighmaster lead - PICC placed - patient underwent I&D closure today - patient to be given meropenem today, tomorrow patient will be started on gentamicin after getting the hemodialysis. - confirmed with Dr. Mesfin Taylor, patient will be given IV antibiotics at the hemodialysis center. - as per the pharmacy dosing of the gentamicin will be confirmed with levels after 2 doses of gentamicin following which the patient can be sent home and continue to be given IV antibiotics Tuesday after dialysis # cardiomegaly # suspected heart failure with preserved ejection fraction - echo shows LVEF 50%, left atrial enlargement - on furosemide - atorvastatin # end-stage renal disease on dialysis # hyperkalemia - hemodialysis done today - Epogen - monitor for hyperkalemia - renal diet # uncontrolled type 2 diabetes mellitus with hyperglycemia - on insulin sliding scale - insulin Lantus # paroxysmal atrial fibrillation - on amiodarone Goals Of Care discussed with the patient and his sister Milagros for over 25 minutes. Full code Plan discussed with Dr. Abreu Plan discussed with: Patient, Spouse My Orders My Orders Orders - MANAS CRAFT RESIDENT Procedure Category Date Status Time Gentamicin Sulfate PHA 04/22/24 In Process (Garamycin) 16:30 Gentamycin, Random LAB 04/23/24 Verified 04:00 Gentamicin Per FABRICIO 04/22/24 In Process Pharmacy [facility] 15:45 Dietary Evaluation Review Recommendations by RD: Protein Supplementation Comments: 1) Renal standard and CCHO 75gm diet 2) Nephro-Beverly 1 tab daily 3) Josafat 1 pk daily and Pro-Stat 1 pk daily 4) Continue current plan of care Expected Outcomes/Goals: Pt will meet >75% estimated needs Fu 3-5 days Date of Service: Apr 22, 2024 Billing Provider: DARNELL ABREU MD Common Visit Codes: [id number] INP/OBS CARE(HIGH) MANAS CRAFT RESIDENT Apr 22, 2024 17:22 DARNELL ABREU MD Apr 23, 2024 14:18
--- NOTE | 2024-04-22 20:43 | DVHPN2 ---
Progress Note - Dictate Date Seen: Apr 22, 2024 Has the PT tested + for MRSA If YES, has PT been informed?: No Medical Necessity Reason Pt with a Central, PICC or Fol: No Subjective Patient was seen and evaluated in follow up. No acute events overnight. No new complaints. Awaiting PT eval. vital signs Vital Sign Date Time Temp Pulse Resp B/P (MAP) Pulse Ox O2 Delivery O2 Flow Rate FiO2 04/22/24 17:00 97.9 73 16 102/81 (88) 99 97.9 04/22/24 10:02 Nasal Cannula 2.0 04/22/24 10:02 28 Total Intake and Output 04/21/24 04/21/24 04/22/24 15:00 23:00 07:00 Intake Total 400 ml 100 ml Output Total 200 ml 350 ml Balance 200 ml -250 ml medications Current Medications Medications Dose Ordered Sig/Samuel Route Start Time Stop Time Status Last Admin Dose Admin Vancomycin HCl 0 ml @ 0 mls/hr UD IV 04/16/24 01:15 Furosemide 80 mg DAILY PO 04/16/24 10:00 04/22/24 09:45 80 MG Amiodarone HCl 200 mg Q12HR PO 04/16/24 10:00 04/22/24 09:45 200 MG Atorvastatin Calcium 40 mg HS PO 04/16/24 22:00 04/21/24 22:13 40 MG Diagnostic Test (Pha) 1 strip Q6HR 04/16/24 06:00 04/22/24 17:47 1 STRIP Dextrose 50 ml UD PRN IV 04/16/24 03:00 Acetaminophen/ Hydrocodone Bitart 1 tab Q4HP PRN PO 04/16/24 03:00 04/17/24 23:44 1 TAB Ondansetron HCl 4 mg Q4HP PRN IV 04/16/24 03:00 04/17/24 23:43 4 MG Acetaminophen 650 mg Q6HP PRN PO 04/16/24 03:00 04/20/24 09:33 650 MG Heparin Sodium (Porcine) 5,000 units Q12HR SC 04/16/24 10:00 04/22/24 10:04 5,000 UNITS Ergocalciferol 50,000 unit Q7D PO 04/17/24 09:00 04/17/24 14:31 50,000 UNIT Enteral Nutritional Formula 28.8 gm DAILY PO 04/18/24 10:00 04/22/24 09:46 28.8 GM Amino Acid Protein 30 ml DAILY PO 04/19/24 10:00 04/22/24 09:46 30 ML Multivit/Ca Carb/ B Cmplx/FA/Prenat 1 tab DAILY PO 04/19/24 10:00 04/22/24 09:45 1 TAB Insulin Glargine 10 units HS SC 04/19/24 22:00 04/21/24 23:12 10 UNITS Insulin Human Regular Q6HR SC 04/20/24 00:00 04/22/24 17:46 2 UNITS Gentamicin Sulfate 0 ml @ 0 mls/hr PER PHARMACY IV 04/21/24 14:00 objective Vitals and nursing notes reviewed. Gen: In no acute distress. HEENT: Normocephalic atraumatic. Mucous membranes moist and pink. Neck: Supple and nontender. Pulmonary: Clear to auscultation and percussion bilaterally. Cardiac: Regular rate and rhythm. No murmur Abdomen: Soft, nontender, nondistended, bowel sounds present all 4 quadrants, no guarding, no rigidity, no organomegaly. Extremities: No cyanosis, clubbing, left foot medial plantar ulcer, right foot medial ankle Neuro: Cranial nerves II through XII grossly intact, normal affect and speech, no focal motor deficits. Skin: Warm, dry, normal color and texture, no rash. laboratory and microbiology Laboratory Tests 04/22/24 07:17 Test 04/22/24 07:17 Range/Units Serum Glucose 80 74-106 mg/dL Problem List Hyperkalemia End-stage renal disease on hemodialysis Septic shock Bilateral foot cellulitis Peripheral arterial disease Encephalopathy Assessment/Plan Agree with current supportive medical care. DC planning in progress. PT eval and treat. Possible SNF placement. Dialyzed yesterday with 2L removed. Wound cultures showing MRSA sensitive to vancomycin and Pseudomonas, enterobacter cloacae. Vancomycin and Gentamicin as ordered. IV antibiotics will be continued at dialysis center. Monitor Input/Output. Home medications continued as ordered. Pain management prn. DVT prophylaxis. Additional plan as per the hospital course. Dietary Evaluation Review Recommendations by RD: Protein Supplementation Comments: 1) Renal standard and CCHO 75gm diet 2) Nephro-Beverly 1 tab daily 3) Josafat 1 pk daily and Pro-Stat 1 pk daily 4) Continue current plan of care Expected Outcomes/Goals: Pt will meet >75% estimated needs Fu 3-5 days Plan discussed with: Patient, Other (RN) OLEGARIO SNELL DO Apr 22, 2024 20:43
[2024-04-23] VITALS (9 sets, daily range): BP systolic 100–149; BP diastolic 35–56; PULSE 58–81; RESP 17–19; TEMP 96.8–98.2; O2SAT 97–100
--- NOTE | 2024-04-23 08:37 | DVHPN2 ---
Progress Note - Dictate Date Seen: Apr 23, 2024 Has the PT tested + for MRSA If YES, has PT been informed?: No Medical Necessity Reason Pt with a Central, PICC or Fol: No Subjective Patient was seen and evaluated in follow up. No acute events overnight. Patient denies any new complaints. Scheduled for dialysis today. vital signs Vital Sign Date Time Temp Pulse Resp B/P (MAP) Pulse Ox O2 Delivery O2 Flow Rate FiO2 04/23/24 05:00 98.2 81 18 149/56 (87) 99 98.2 04/22/24 20:00 Nasal Cannula* 2 28 Total Intake and Output 04/22/24 04/22/24 04/23/24 15:00 23:00 07:00 Intake Total 700 ml 236 ml Output Total 450 ml 125 ml Balance 250 ml 111 ml medications Current Medications Medications Dose Ordered Sig/Samuel Route Start Time Stop Time Status Last Admin Dose Admin Vancomycin HCl 0 ml @ 0 mls/hr UD IV 04/16/24 01:15 Furosemide 80 mg DAILY PO 04/16/24 10:00 04/22/24 09:45 80 MG Amiodarone HCl 200 mg Q12HR PO 04/16/24 10:00 04/22/24 21:32 200 MG Atorvastatin Calcium 40 mg HS PO 04/16/24 22:00 04/22/24 21:32 40 MG Diagnostic Test (Pha) 1 strip Q6HR 04/16/24 06:00 04/23/24 05:24 1 STRIP Dextrose 50 ml UD PRN IV 04/16/24 03:00 Acetaminophen/ Hydrocodone Bitart 1 tab Q4HP PRN PO 04/16/24 03:00 04/23/24 05:14 1 TAB Ondansetron HCl 4 mg Q4HP PRN IV 04/16/24 03:00 04/17/24 23:43 4 MG Acetaminophen 650 mg Q6HP PRN PO 04/16/24 03:00 04/20/24 09:33 650 MG Heparin Sodium (Porcine) 5,000 units Q12HR SC 04/16/24 10:00 04/22/24 21:39 5,000 UNITS Ergocalciferol 50,000 unit Q7D PO 04/17/24 09:00 04/17/24 14:31 50,000 UNIT Enteral Nutritional Formula 28.8 gm DAILY PO 04/18/24 10:00 04/22/24 09:46 28.8 GM Amino Acid Protein 30 ml DAILY PO 04/19/24 10:00 04/22/24 09:46 30 ML Multivit/Ca Carb/ B Cmplx/FA/Prenat 1 tab DAILY PO 04/19/24 10:00 04/22/24 09:45 1 TAB Insulin Glargine 10 units HS SC 04/19/24 22:00 04/22/24 23:29 10 UNITS Insulin Human Regular Q6HR SC 04/20/24 00:00 04/23/24 05:43 2 UNITS Gentamicin Sulfate 0 ml @ 0 mls/hr PER PHARMACY IV 04/21/24 14:00 Amlodipine Besylate 5 mg DAILY PO 04/23/24 10:00 objective Vitals and nursing notes reviewed. Gen: In no acute distress. HEENT: Normocephalic atraumatic. Mucous membranes moist and pink. Neck: Supple and nontender. Pulmonary: Clear to auscultation and percussion bilaterally. Cardiac: Regular rate and rhythm. No murmur Abdomen: Soft, nontender, nondistended, bowel sounds present all 4 quadrants, no guarding, no rigidity, no organomegaly. Musculoskeletal: Both feet covered in sterile dressings. Neuro: Cranial nerves II through XII grossly intact, normal affect and speech, no focal motor deficits. Skin: Warm, dry, normal color and texture, no rash. laboratory and microbiology Laboratory Tests 04/22/24 07:17 Test 04/22/24 07:17 Range/Units Serum Glucose 80 74-106 mg/dL Problem List Hyperkalemia End-stage renal disease on hemodialysis Septic shock Bilateral foot cellulitis Peripheral arterial disease Encephalopathy Assessment/Plan Agree with current supportive medical care. Awaiting arrangements for [facility] for PT and nursing. HD- 04/23- UF 2.5L as tolerated. Epogen [id number] u IV x once. Wound cultures showing MRSA sensitive to vancomycin and Pseudomonas, enterobacter cloacae. Vancomycin and Gentamicin as ordered. IV antibiotics will be continued at dialysis center. Monitor Input/Output. Home medications continued as ordered. Pain management prn. DVT prophylaxis. Additional plan as per the hospital course. Dietary Evaluation Review Recommendations by RD: Protein Supplementation Comments: 1) Renal standard and CCHO 75gm diet 2) Nephro-Beverly 1 tab daily 3) Josafat 1 pk daily and Pro-Stat 1 pk daily 4) Continue current plan of care Expected Outcomes/Goals: Pt will meet >75% estimated needs Fu 3-5 days Plan discussed with: Patient, Other (RN) OLEGARIO SNELL DO Apr 23, 2024 08:37
[2024-04-23] MEDS: amLODIPine BESYLATE 5 MG TAB PO SCH (09:54)
[2024-04-23 10:10] LABS: Basophils # (auto) 0 10 ^3/uL (0-0.2); Basophils % (auto) 0.8 % (0.0-2.0); Eosinophils # (auto) 0.3 10 ^3/uL (0-0.8); Eosinophils % (auto) 4.9 % (0.0-7.0); Hematocrit 25.6 % (41.0-53.0); Hemoglobin 8.3 g/dL (13.5-17.5); Lymphocytes # (auto) 0.8 10 ^3/uL (0.4-5.4); Lymphocytes % (auto) 13.8 % (10.0-50.0); Mean Corpuscular Hemoglobin 31.4 pg (28.0-32.0); Mean Corpuscular Hgb Conc. 32.2 g/dL (32.0-36.0); Mean Corpuscular Volume 97.4 fL (80.0-100.0); Monocytes # (auto) 0.3 10 ^3/uL (0-1.3); Monocytes % (auto) 5.3 % (0.0-12.0); Neutrophils # (auto) 4.4 10 ^3/uL (1.6-8.6); Neutrophils % (auto) 75.2 % (37.0-80.0); Nucleated Red Blood Cells % 0.1 %; Platelet Count (auto) 285 10^3/uL (140-450); Red Blood Cells 2.63 10^6/uL (4.5-5.90); Red Cell Distribution Width 14.4 % (11.8-14.3); White Blood Cell 5.8 10^3/uL (4.4-10.8)
[2024-04-23 10:31] LABS: Chloride 103 mmol/L (98-107); Potassium 3.9 mmol/L (3.5-5.1); Sodium 140 mmol/L (136-145)
[2024-04-23 10:32] LABS: Anion Gap 8 (5-15); Carbon Dioxide 29 mmol/L (20-31)
[2024-04-23 10:37] LABS: BUN/Creatinine Ratio 8.6 (10.0-20.0)
[2024-04-23 10:46] LABS: Blood Urea Nitrogen 38 mg/dL (9-23); Glucose 283 mg/dL (74-106)
--- NOTE | 2024-04-23 17:44 | DVHPNRES ---
Progress Note Date Seen: Apr 23, 2024 Resident Creating Document: AVA C[employer]FTMIL[employer] RESIDENT Has the PT tested + for MRSA If YES, has PT been informed?: No Medical Necessity Reason Pt with a Central, PICC or Fol: No Subjective Review of Systems Patient seen and examined at the bedside Patient denies any acute complaints Reports no shortness a breath, chest pain, dizziness, palpitations. To be dialyzed today and administered vancomycin and gentamicin post dialysis Objective vital signs Vital Sign Date Time Temp Pulse Resp B/P (MAP) Pulse Ox O2 Delivery O2 Flow Rate FiO2 04/23/24 16:30 96.8 58 18 100/36 (57) 100 96.8 04/23/24 10:00 Nasal Cannula* 2 28 Total Intake and Output 04/22/24 04/22/24 04/23/24 15:00 23:00 07:00 Intake Total 700 ml 236 ml Output Total 450 ml 125 ml Balance 250 ml 111 ml medications Current Medications Medications Dose Ordered Sig/Samuel Route Start Time Stop Time Status Last Admin Dose Admin Vancomycin HCl 0 ml @ 0 mls/hr UD IV 04/16/24 01:15 Furosemide 80 mg DAILY PO 04/16/24 10:00 04/23/24 09:52 80 MG Amiodarone HCl 200 mg Q12HR PO 04/16/24 10:00 04/23/24 09:53 200 MG Atorvastatin Calcium 40 mg HS PO 04/16/24 22:00 04/22/24 21:32 40 MG Diagnostic Test (Pha) 1 strip Q6HR 04/16/24 06:00 04/23/24 17:36 1 STRIP Dextrose 50 ml UD PRN IV 04/16/24 03:00 Acetaminophen/ Hydrocodone Bitart 1 tab Q4HP PRN PO 04/16/24 03:00 04/23/24 05:14 1 TAB Ondansetron HCl 4 mg Q4HP PRN IV 04/16/24 03:00 04/17/24 23:43 4 MG Acetaminophen 650 mg Q6HP PRN PO 04/16/24 03:00 04/20/24 09:33 650 MG Heparin Sodium (Porcine) 5,000 units Q12HR SC 04/16/24 10:00 04/23/24 10:04 5,000 UNITS Ergocalciferol 50,000 unit Q7D PO 04/17/24 09:00 04/17/24 14:31 50,000 UNIT Enteral Nutritional Formula 28.8 gm DAILY PO 04/18/24 10:00 04/23/24 10:04 28.8 GM Amino Acid Protein 30 ml DAILY PO 04/19/24 10:00 04/23/24 09:54 30 ML Multivit/Ca Carb/ B Cmplx/FA/Prenat 1 tab DAILY PO 04/19/24 10:00 04/23/24 09:52 1 TAB Insulin Glargine 10 units HS SC 04/19/24 22:00 04/22/24 23:29 10 UNITS Insulin Human Regular Q6HR SC 04/20/24 00:00 04/23/24 17:37 2 UNITS Gentamicin Sulfate 0 ml @ 0 mls/hr PER PHARMACY IV 04/21/24 14:00 Amlodipine Besylate 5 mg DAILY PO 04/23/24 10:00 04/23/24 09:54 5 MG Examination Constitutional: Patient was alert and oriented X 3 and does not appear to be in any acute distress Gen - no pallor, no icterus, no cyanosis, no clubbing, no LAD, no edema . Skin - Patients skin is warm and dry.. HEENT - normocephalic, atraumatic, dry mucous membranes. Neck - full ROM, no LAD, no JVD. Pulmonary - B/L equal air entry, minimal basilar rhonchi, no wheezing, no stridor. cardiovascular - normal S1,S2 heard. no murmurs heard. GI - soft abdomen without tenderness to palpation. no hepatospleenomegaly. Bowel sounds normoactive Neurological - Bilateral upper extremity strength 5/5, bilateral lower extremity strength 4/5, no facial droop, normal speech, no tremor, bilateral lower extremity sensation to crude touch absent up to the level of mid cole Extremities: Both the feet covered in sterile dressings laboratory and microbiology Laboratory Tests 04/23/24 09:30 Test 04/23/24 09:30 Range/Units Serum Glucose 283 #H 74-106 mg/dL Microbiology Date/Time Source Procedure Growth Status 04/18/24 12:20 Foot Left Gram Stain Pending Resulted 04/18/24 12:20 Foot Left Anaerobic Culture - Preliminary Resulted 04/18/24 12:20 Aerobic Culture - Final Methicillin Resistant S.aureus Resulted 04/18/24 08:25 Blood Blood Culture - Final NO GROWTH AFTER 5 DAYS OF INCUBATION. Complete Problem List/Assessment/Plan Problem List/Assessment/Plan # bilateral foot wound # left foot osteomyelitis # right foot status post surgery with the osteopenia - podiatry consulted, patient was taken for I and D tomorrow - ESR and CRP elevated - blood cultures pending - wound cultures showing MRSA sensitive to vancomycin and Pseudomonas sensitive to meropenem - patient continued on vancomycin and started on meropenem dialysis dosing - left and right foot I and D done today with continuous conveyor screen drier - PICC placed - patient underwent I&D closure today - patient to be given meropenem today, tomorrow patient will be started on gentamicin after getting the hemodialysis. - confirmed with Dr. Mesfin Taylor, patient will be given IV antibiotics at the hemodialysis center. - as per the pharmacy dosing of the gentamicin will be 110 mg and vancomycin 750 mg after dialysis on Tuesday and vancomycin levels to be followed every Tuesday before dialysis # cardiomegaly # suspected heart failure with preserved ejection fraction - echo shows LVEF 50%, left atrial enlargement - on furosemide - atorvastatin # end-stage renal disease on dialysis # hyperkalemia - hemodialysis done today - Epogen - monitor for hyperkalemia - renal diet # uncontrolled type 2 diabetes mellitus with hyperglycemia - on insulin sliding scale - insulin Lantus # paroxysmal atrial fibrillation - on amiodarone As of 04/23/24, patient is 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 Patient to be likely discharged tomorrow Goals Of Care discussed with the patient and his sister Milagros for over 25 minutes. Full code Plan discussed with Dr. Garrison Plan discussed with: Patient My Orders My Orders Orders - MANAS CRAFT RESIDENT Procedure Category Date Status Time Pt Request For Service PT 04/22/24 Logged 19:32 Amlodipine Tablet PHA 04/23/24 In Process (Norvasc Tablet) 10:00 * Lean Process Deployment Consultant CONS 04/23/24 Transmitted Consult 14:31 Gentamicin Sulfate PHA 04/23/24 In Process (Garamycin) 21:00 Gentamycin, Random LAB 04/24/24 Verified 04:00 Complete Blood Count LAB 04/24/24 Verified 04:00 Creatinine LAB 04/24/24 Verified 04:00 * Lean Process Deployment Consultant CONS 04/23/24 Transmitted Consult 15:39 Dietary Evaluation Review Recommendations by RD: Protein Supplementation Comments: 1) Renal standard and CCHO 75gm diet 2) Nephro-Beverly 1 tab daily 3) Josafat 1 pk daily and Pro-Stat 1 pk daily 4) Continue current plan of care Expected Outcomes/Goals: Pt will meet >75% estimated needs Fu 3-5 days Date of Service: Apr 23, 2024 Billing Provider: ONUR GARRISON MD Common Visit Codes: [id number] INP/OBS CARE(HIGH) MANAS CRAFT RESIDENT Apr 23, 2024 17:44 ONUR GARRISON MD Apr 24, 2024 14:55
[2024-04-23] MEDS: VANCOMYCIN 750mg/150ml 150 ML IV ONE (19:30)
[2024-04-23] MEDS: EPOETIN ALFA-EPBX 10,000 UNIT/1ML VIAL SC ONE (21:32)
[2024-04-24] VITALS (10 sets, daily range): BP systolic 123–144; BP diastolic 26–38; PULSE 57–74; RESP 16–18; TEMP 96–97.7; O2SAT 94–97
[2024-04-24 05:28] LABS: Chloride 103 mmol/L (98-107); Potassium 3.7 mmol/L (3.5-5.1); Sodium 142 mmol/L (136-145)
[2024-04-24 05:29] LABS: Anion Gap 8 (5-15); Carbon Dioxide 31 mmol/L (20-31)
[2024-04-24 05:30] LABS: Calcium 8.9 mg/dL (8.7-10.4)
[2024-04-24 05:35] LABS: BUN/Creatinine Ratio 9.1 (10.0-20.0)
[2024-04-24 05:37] LABS: Blood Urea Nitrogen 32 mg/dL (9-23); Glucose 135 mg/dL (74-106)
[2024-04-24 12:18] LABS: Basophils # (auto) 0 10 ^3/uL (0-0.2); Basophils % (auto) 0.7 % (0.0-2.0); Eosinophils # (auto) 0.4 10 ^3/uL (0-0.8); Eosinophils % (auto) 5.4 % (0.0-7.0); Hematocrit 26.2 % (41.0-53.0); Hemoglobin 8.5 g/dL (13.5-17.5); Lymphocytes # (auto) 1.2 10 ^3/uL (0.4-5.4); Lymphocytes % (auto) 17.7 % (10.0-50.0); Mean Corpuscular Hemoglobin 31.5 pg (28.0-32.0); Mean Corpuscular Hgb Conc. 32.5 g/dL (32.0-36.0); Mean Corpuscular Volume 96.9 fL (80.0-100.0); Monocytes # (auto) 0.4 10 ^3/uL (0-1.3); Monocytes % (auto) 6.4 % (0.0-12.0); Neutrophils # (auto) 4.6 10 ^3/uL (1.6-8.6); Neutrophils % (auto) 69.8 % (37.0-80.0); Nucleated Red Blood Cells % 0.2 %; Platelet Count (auto) 245 10^3/uL (140-450); Red Cell Distribution Width 14.6 % (11.8-14.3); White Blood Cell 6.6 10^3/uL (4.4-10.8)
--- NOTE | 2024-04-24 16:49 | DVHPN2 ---
Progress Note - Dictate Date Seen: Apr 24, 2024 Has the PT tested + for MRSA If YES, has PT been informed?: No Medical Necessity Reason Pt with a Central, PICC or Fol: No Subjective Patient was seen and evaluated in follow up. No acute events overnight. No new complaints. Dialyzed yesterday with 2L removed. vital signs Vital Sign Date Time Temp Pulse Resp B/P (MAP) Pulse Ox O2 Delivery O2 Flow Rate FiO2 04/24/24 12:30 96.3 67 16 127/26 (59) 95 96.3 04/24/24 10:00 Room Air* 0 21 Total Intake and Output 04/23/24 04/23/24 04/24/24 15:00 23:00 07:00 Intake Total 600 ml 300 ml Output Total 350 ml 150 ml Balance 250 ml 150 ml medications Current Medications Medications Dose Ordered Sig/Samuel Route Start Time Stop Time Status Last Admin Dose Admin Vancomycin HCl 0 ml @ 0 mls/hr UD IV 04/16/24 01:15 Furosemide 80 mg DAILY PO 04/16/24 10:00 04/24/24 09:53 80 MG Amiodarone HCl 200 mg Q12HR PO 04/16/24 10:00 04/24/24 09:52 200 MG Atorvastatin Calcium 40 mg HS PO 04/16/24 22:00 04/23/24 21:41 40 MG Diagnostic Test (Pha) 1 strip Q6HR 04/16/24 06:00 04/24/24 12:09 1 STRIP Dextrose 50 ml UD PRN IV 04/16/24 03:00 Acetaminophen/ Hydrocodone Bitart 1 tab Q4HP PRN PO 04/16/24 03:00 04/24/24 00:54 1 TAB Ondansetron HCl 4 mg Q4HP PRN IV 04/16/24 03:00 04/17/24 23:43 4 MG Acetaminophen 650 mg Q6HP PRN PO 04/16/24 03:00 04/20/24 09:33 650 MG Heparin Sodium (Porcine) 5,000 units Q12HR SC 04/16/24 10:00 04/24/24 10:28 5,000 UNITS Ergocalciferol 50,000 unit Q7D PO 04/17/24 09:00 04/24/24 09:00 50,000 UNIT Enteral Nutritional Formula 28.8 gm DAILY PO 04/18/24 10:00 04/24/24 09:53 28.8 GM Amino Acid Protein 30 ml DAILY PO 04/19/24 10:00 04/24/24 09:53 30 ML Multivit/Ca Carb/ B Cmplx/FA/Prenat 1 tab DAILY PO 04/19/24 10:00 04/24/24 09:52 1 TAB Insulin Glargine 10 units HS SC 04/19/24 22:00 04/23/24 23:33 10 UNITS Insulin Human Regular Q6HR SC 04/20/24 00:00 04/24/24 12:11 6 UNITS Gentamicin Sulfate 0 ml @ 0 mls/hr PER PHARMACY IV 04/21/24 14:00 Amlodipine Besylate 5 mg DAILY PO 04/23/24 10:00 04/24/24 09:52 5 MG objective Vitals and nursing notes reviewed. Gen: In no acute distress. HEENT: Normocephalic atraumatic. Mucous membranes moist and pink. Neck: Supple and nontender. Pulmonary: Clear to auscultation and percussion bilaterally. Cardiac: Regular rate and rhythm. No murmur Abdomen: Soft, nontender, nondistended, bowel sounds present all 4 quadrants, no guarding, no rigidity, no organomegaly. Musculoskeletal: Both feet covered in sterile dressings. Neuro: Cranial nerves II through XII grossly intact, normal affect and speech, no focal motor deficits. Skin: Warm, dry, normal color and texture, no rash. laboratory and microbiology Laboratory Tests 04/24/24 12:00 04/24/24 05:09 Test 04/24/24 05:09 Range/Units Serum Glucose 135 #H 74-106 mg/dL Problem List Hyperkalemia End-stage renal disease on hemodialysis Septic shock Bilateral foot cellulitis Peripheral arterial disease Encephalopathy Assessment/Plan Agree with current supportive medical care. Discharge planning in progress for Home with [facility] for PT and nursing. Next dialysis due 04/25. [place] [facility] Vancomycin and Gentamicin as ordered. IV antibiotics will be continued at dialysis center. Monitor Input/Output. continue home medications. Pain management prn. DVT prophylaxis. Additional plan as per the hospital course. Dietary Evaluation Review Recommendations by RD: Protein Supplementation Comments: 1) Renal standard and [facility] 75gm diet 2) Nephro-Beverly 1 tab daily 3) Josafat 1 pk daily and Pro-Stat 1 pk daily 4) Continue current plan of care Expected Outcomes/Goals: Pt will meet >75% estimated needs Fu 3-5 days Plan discussed with: Patient, Other (RN) OLEGARIO SNELL DO Apr 24, 2024 16:49
[2024-04-24] MEDS ORDERED: NUTR-396 OR (18:50)
[2024-04-24] MEDS ORDERED: AMIO200T13 PO (18:50)
[2024-04-24] MEDS ORDERED: APIX2.5T PO (18:50)
--- NOTE | 2024-04-24 19:05 | DVHDSRES ---
Discharge Summary Date of Admission Resident Creating Document: MANAS CRAFT RESIDENT Apr 16, 2024 at 02:58 Date of Discharge: Apr 24, 2024 Admitting Diagnosis Bilateral foot wounds End-stage renal disease, dialysis dependent Chronic anemia Hypertension Diabetes mellitus Wounds: Bilateral foot wounds s/p I & D, covered in sterile dressing Labs/Diagnostic Data: Laboratory Results Test 04/24/24 17:22 04/24/24 12:00 04/24/24 05:09 04/20/24 07:20 POC Glucose 233 mg/dl (70-106) White Blood Count 6.6 10^3/uL (4.4-10.8) Red Blood Count 2.70 10^6/uL (4.5-5.90) Hemoglobin 8.5 g/dL (13.5-17.5) Hematocrit 26.2 % (41.0-53.0) Mean Corpuscular Volume 96.9 fL (80.0-100.0) Mean Corpuscular Hemoglobin 31.5 pg (28.0-32.0) Mean Corpuscular Hemoglobin Concent 32.5 g/dL (32.0-36.0) Red Cell Distribution Width 14.6 % (11.8-14.3) Platelet Count 245 10^3/uL (140-450) Mean Platelet Volume 6.8 fL (6.9-10.8) Neutrophils (%) (Auto) 69.8 % (37.0-80.0) Lymphocytes (%) (Auto) 17.7 % (10.0-50.0) Monocytes (%) (Auto) 6.4 % (0.0-12.0) Eosinophils (%) (Auto) 5.4 % (0.0-7.0) Basophils (%) (Auto) 0.7 % (0.0-2.0) Neutrophils # (Auto) 4.6 10 ^3/uL (1.6-8.6) Lymphocytes # (Auto) 1.2 10 ^3/uL (0.4-5.4) Monocytes # (Auto) 0.4 10 ^3/uL (0-1.3) Eosinophils # (Auto) 0.4 10 ^3/uL (0-0.8) Basophils # (Auto) 0 10 ^3/uL (0-0.2) Nucleated Red Blood Cells 0.2 % Sodium Level 142 mmol/L (136-145) Potassium Level 3.7 mmol/L (3.5-5.1) Chloride Level 103 mmol/L (98-107) Carbon Dioxide Level 31 mmol/L (20-31) Anion Gap 8 (5-15) Blood Urea Nitrogen 32 mg/dL (9-23) Creatinine 3.53 mg/dL (0.700-1.30) Glomerular Filtration Rate Calc 19 mL/min (>90) BUN/Creatinine Ratio 9.1 (10.0-20.0) Serum Glucose 135 mg/dL (74-106) Calcium Level 8.9 mg/dL (8.7-10.4) Random Gentamicin Level 4.8 ug/mL (0-5) Random Vancomycin Level 28.8 ug/mL (5-10) Prothrombin Time 10.6 sec (9.3-11.8) Prothrombin Time INR 1.00 (0.9-1.15) Activated Partial Thromboplast Time 24.2 SEC (24.5-34.5) Phosphorus Level 3.9 mg/dL (2.4-5.1) Test 04/16/24 23:34 04/16/24 13:47 04/16/24 08:56 04/16/24 08:30 Lactic Acid Level 1.3 mmol/L (0.4-2.0) Erythrocyte Sedimentation Rate 123 mm/hr (0-20) Hemoglobin A1c 6.1 % A1C (<5.7) Magnesium Level 2.1 mg/dL (1.6-2.6) Total Bilirubin 0.3 mg/dL (0.2-1.0) Aspartate Amino Transferase (AST) 9 U/L (13-40) Alanine Aminotransferase (ALT) < 9 U/L (7-40) Alkaline Phosphatase 77 U/L (46-116) C-Reactive Protein High Sensitivity > 20.00 mg/dL (<1.0) Total Protein 6.9 g/dL (5.7-8.2) Albumin 3.8 g/dL (3.2-4.8) Vitamin D 25-Hydroxy 12.3 ng/mL (30.0-100) Hepatitis B Surface Antigen Negative (Negative) Parathyroid Hormone (Intact) 221.4 pg/mL (18.4-80.1) Test 04/16/24 01:42 04/15/24 21:53 Troponin I High Sensitivity 34 ng/L (</=54) B-Type Natriuretic Peptide 399.05 pg/mL (0-100) Lipase 32 U/L (12-53) Other Laboratory Tests 04/24/24 12:00 04/24/24 05:09 Brief Hx & Hospital Course: HPI Patient is a 58-year-old male with a past medical history of type 2 diabetes mellitus, hypertension, end-stage renal disease on dialysis, atrial fibrillation was brought to the ED for evaluation of bilateral foot wound. Patient reported that he fell last year and had a fracture in the right foot following which he developed ulcer on the medial malleolus of the right foot and he has had ulcer on the plantar surface of the left foot for a long time due to an injury from a nail. Patient's sister was called to get a better history and she reported that last year in July he fell following which he had right fracture and he developed ulcer, left foot ulcer has been there for the last many years which is not healing. Patient has started dialysis in 2023 at [facility] with schedule on Tuesday and Tuesday, has a left arm AV fistula. Patient reports worsening foot pain bilaterally associated with weakness, occasional chills. Patient denied chest pain, difficulty breathing, palpitations, abdominal pain, nausea, vomiting, diarrhea. Past medical history: Hypertension, type 2 diabetes mellitus, atrial fibrillation, end-stage renal disease Past surgical history: Right foot surgery, left 4th and 5th toe amputation Social history: Patient denies smoking, alcohol, drug use and lives with Home medications: Amiodarone 200 mg, amlodipine 10 mg, atorvastatin 40 mg, furosemide 80 mg Brief hospital course Patient came to the hospital with a chief complaint of bilateral lower extremity wounds. There was a large ulcer on the lateral part of plantar surface of the left foot and an ulcer on the medial malleolus of the right foot. CT of the left foot showed Large wound/ulceration at the lateral plantar aspect of the midfoot as described above. Osteomyelitis involving the cuboid, third metatarsal base, and adjacent osseous fragment, for which osteomyelitis cannot be excluded. CT of the right foot showed Postsurgical change with chronic posttraumatic deformity at the level of the ankle and foot. Underlying Osteopenia, calcaneal enthesopathy. Podiatry was consulted who recommended the patient getting an I&D done. Nephrology were consulted as the patient had end-stage renal disease and had been getting dialysis Tuesday at [facility]. Dialysis was resumed. Patient was started on empiric antibiotics with the vancomycin and Zosyn. Patient underwent I and D of left foot and right ankle to the bone with bone biopsy. Cultures grew MRSA, Pseudomonas aeruginosa, Enterobacter cloacae which was sensitive to MRSA and gentamicin. These antibiotics were started in the hospital with dosing after dialysis. Patient was being discharged in stable condition to home with health services for physical therapy and nurse aide and will be given antibiotics at the dialysis center. Discharge plan Antibiotics to be given at the dialysis center Tuesday for 6 weeks. Random vancomycin levels to be checked before dialysis every Tuesday. Follow up with the PCP in 1 week Continue home medications Eliquis 2.5 mg b.i.d. given for 14 days for DVT prophylaxis. Further to be followed by PCP Consults/Reason for consult Podiatry consulted for left foot osteomyelitis and right foot wound Nephrology consultation for end-stage renal disease with dialysis Operations or Procedures Echocardiogram shows Sinus rhythm. Left atrial enlargement. Mild dilation of the sinuses of Valsalva. Calcification of the superior aspect of the left atrium and non coronary cusp. Valves appear to be structurally normal. EF of 50%. Normal RV function. No significant Doppler anomalies. Mild TR. No pericardial effusion masses or vegetations. Operative Report - 2 Report Details Date: 04/18/24 Preop Diagnosis: 1. Right ankle abscess 2. Right ankle osteomyelitis 3. Left foot wound 4. Left foot abscess Postop Diagnosis: Same as preop Surgeon: Pérez Henriquez MD Anesthesiologist: See anesthesia Anesthesia: General Consent: The patient was informed of the risks and benefits of the procedure. These include but are not limited to complications of anesthesia, postoperative infection, incomplete relief of symptoms, recurrence of symptoms, damage to blood vessels, nerves and tendons, deep venous thrombosis, pulmonary embolism and possible need for repeat surgery in the future. Complications: None Estimated Blood Loss: Minimal Fluids: See anesthesia Findings: Consistent with the diagnosis Indications for Surgery: Worsening right ankle and left foot infection Name of Procedure Performed 1. Right ankle I&D to bone () 2. Right foot bone biopsy () 2. Left foot I&D to bone () Procedure Details Procedure Details: PRE-PROCEDURE INFORMATION: In the pre-op holding area, the extremity to be operated on was clearly marked and the patient verified correct laterality of the marking. The patient was transferred to the OR table and placed in a supine position. A timeout was performed in which identification of the correct patient, procedure, location, and materials was done. The bilateral foot and leg were prepped and draped in normal sterile fashion. DESCRIPTION OF PROCEDURE: Attention was directed to the right medial ankle where area of fluctuance was noted. An incision was made over this area and was deepened through blunt dissection. The incision was deepened to the level of abscess and bone. Care was taken to the dissection to avoid any neurovascular and tendinous structures. The incision was deepened to the bone, and the abscess appeared to be purulent fluid consistent with pus. The cortices of the bone was then removed with Vamsi an all necrotic tissue. After the abscess was drained, the area was irrigated with 3 L normal saline using cysto tubing. Deep cultures were then obtained from the wound. A bone biopsy was then taken of the the medial malleolus which was deepened to the muscle belly and tendons. The bone was then sent to pathology to determine the extent of osteomyelitis. The area was then inspected and any areas of tracking, especially along the tendons were also drained. The wound was packed with Betadine-soaked gauze and we will need to be closed at a later date. Attention was directed to the left foot where area of fluctuance was noted. An incision was made over this area and was deepened through blunt dissection. The incision was deepened to the level of abscess and bone. Care was taken to the dissection to avoid any neurovascular and tendinous structures. The incision was deepened to the bone, and the abscess appeared to be purulent fluid consistent with pus. The cortices of the bone was then removed with Vamsi an all necrotic tissue. After the abscess was drained, the area was irrigated with 3 L normal saline using cysto tubing. Deep cultures were then obtained from the wound. The area was then inspected and any areas of tracking, especially along the tendons were also drained. The wound was packed with Betadine-soaked gauze and we will need to be closed at a later date. POSTOPERATIVE INFORMATION: The patient tolerated the above noted procedure and anesthesia well and was transferred to the PACU with vital signs stable, and vascular status intact with capillary refill intact to all digits. Postoperative instructions reviewed in detail with the patient with written instructions provided. Patient will return to clinic in approximately 10-14 days for first postoperative visit. Patient has the number of the clinic and was instructed to call prior to that time should any problems, questions, or concerns arise. Specimen: Right medial malleolus Condition PÉREZ Becerra DPM Apr 18, 2024 13:57 Operative Report - 2 Report Details Date: 04/20/24 Preop Diagnosis: 1. Right ankle abscess 2. Right ankle osteomyelitis 3. Left foot wound 4. Left foot abscess Postop Diagnosis: Same as preop Surgeon: Pérez Henriquez MD Anesthesiologist: See anesthesia Anesthesia: General Implant: Integra 5 x 5 cm dermal graft x2 Consent: The patient was informed of the risks and benefits of the procedure. These include but are not limited to complications of anesthesia, postoperative infection, incomplete relief of symptoms, recurrence of symptoms, damage to blood vessels, nerves and tendons, deep venous thrombosis, pulmonary embolism and possible need for repeat surgery in the future. Complications: None Estimated Blood Loss: Minimal Fluids: See anesthesia Findings: Consistent with the diagnosis Indications for Surgery: Worsening bilateral foot wounds Name of Procedure Performed 1. Right ankle I&D to bone (68799) 2. Left foot I&D to bone (44808) 3. Placement of dermal graft right ankle (32224) 4. Placement of dermal graft left foot (71025) Procedure Details Procedure Details: PRE-PROCEDURE INFORMATION: In the pre-op holding area, the extremity to be operated on was clearly marked and the patient verified correct laterality of the marking. The patient was transferred to the OR table and placed in a supine position. A timeout was performed in which identification of the correct patient, procedure, location, and materials was done. The bilateral foot and leg were prepped and draped in normal sterile fashion. DESCRIPTION OF PROCEDURE: Attention was directed to the right medial ankle where area of fluctuance was noted. An incision was made over this area and was deepened through blunt dissection. The incision was deepened to the level of abscess and bone. Care was taken to the dissection to avoid any neurovascular and tendinous structures. The incision was deepened to the bone, and the abscess appeared to be purulent fluid consistent with pus. The cortices of the bone was then removed with Vamsi an all necrotic tissue. After the abscess was drained, the area was irrigated with 3 L normal saline using cysto tubing. Deep cultures were then obtained from the wound. A bone biopsy was then taken of the the medial malleolus which was deepened to the muscle belly and tendons. The bone was then sent to pathology to determine the extent of osteomyelitis. The area was then inspected and any areas of tracking, especially along the tendons were also drained. A 5 x 5 cm graft was then placed over the wound and stapled to the wound edges. The wound was dressed with Xeroform and gauze. Attention was directed to the left foot where area of fluctuance was noted. An incision was made over this area and was deepened through blunt dissection. The incision was deepened to the level of abscess and bone. Care was taken to the dissection to avoid any neurovascular and tendinous structures. The incision was deepened to the bone, and the abscess appeared to be purulent fluid consistent with pus. The cortices of the bone was then removed with Vamsi an all necrotic tissue. After the abscess was drained, the area was irrigated with 3 L normal saline using cysto tubing. Deep cultures were then obtained from the wound. The area was then inspected and any areas of tracking, especially along the tendons were also drained. A 5 x 5 cm graft was then placed over the wound and stable to the wound edges. The wound was dressed with Xeroform and gauze. POSTOPERATIVE INFORMATION: The patient tolerated the above noted procedure and anesthesia well and was transferred to the PACU with vital signs stable, and vascular status intact with capillary refill intact to all digits. Patient was placed in a cast on the right lower extremity due to the instability of his ankle fracture. Patient should be nonweightbearing on the right lower extremity. Patient should follow up in 1-2 weeks to re-evaluate the graft. Patient should be on IV antibiotics for about 6 weeks. Specimen: Right medial malleolus Condition Good PÉREZ HENRIQUEZ DPM Apr 20, 2024 14:41 Condition at Discharge: Good Final Diagnosis/Problems List # bilateral foot wound # left foot osteomyelitis # right foot status post surgery with the osteopenia # cardiomegaly # suspected heart failure with preserved ejection fraction # end-stage renal disease on dialysis # hyperkalemia # uncontrolled type 2 diabetes mellitus with hyperglycemia # paroxysmal atrial fibrillation Discharge Disposition: Home with Health Services Discharge Instruct/Medications Diet: Renal Activity: See Comment Activity comment: Left foot WBAT in post-op shoe Right foot NWB X 2 weeks Follow Up/Referral: Follow up with the PCP in one week Dialysis at [facility] on MWF and the patient to get ABx there after dialyisis Medications: Vancomycin 750mg MWF X 6 weeks after dialysis at dialysis center Gentamicin 110mg MWF X 6 weeks after dialysis at dialysis center continue home medications Discharge Statement: "Patient was advised to return to the ER or call 911 if any headaches, dizziness, shortness of breath, chest pain, abdominal pain, bleeding, fevers, or worsening of medical condition. Patient was counseled about treatment plan, medications, possible side effects, patientverbalized understanding. All questions were answered to the best of my ability. This discharge took greater then 30 minutes in planning, reviewing documentation, counseling the patient, and discussing with other team members." ASSESSMENT ASSESSMENT Assessment # bilateral foot wound # left foot osteomyelitis # right foot status post surgery with the osteopenia # cardiomegaly # suspected heart failure with preserved ejection fraction # end-stage renal disease on dialysis # hyperkalemia # uncontrolled type 2 diabetes mellitus with hyperglycemia # paroxysmal atrial fibrillation Date of Service: Apr 24, 2024 Billing Provider: ONUR FRANCISCO MD Common Visit Codes: 14979-QXY/OBS DISCH DAY >30min MANAS CRAFT RESIDENT Apr 24, 2024 19:05 ONUR FRANCISCO MD Apr 26, 2024 08:36
== END 2024-04-24 22:35 | disposition home health service (06) | DRG 573 ==
LOC: ER 21:01 → OVERFLOW 04-16 02:58 → WEST WING 04-16 17:10 → TELE-WESTW 04-18 20:14 → TELE-EAST 04-18 21:30
PROVIDERS: ADMIT Student in an Organized Health Care Education/Training Program; ATTEND Internal Medicine
PROC: 5A1D70Z Performance of Urinary Filtration, Intermittent, Less than 6 Hours Per Day (ICD-10-PCS; 2024-04-17)
PROC: 0Y9N0ZZ Drainage of Left Foot, Open Approach (ICD-10-PCS; 2024-04-18)
PROC: 0Y9K0ZZ Drainage of Right Ankle Region, Open Approach (ICD-10-PCS; 2024-04-18)
PROC: 0QBN0ZX Excision of Right Metatarsal, Open Approach, Diagnostic (ICD-10-PCS; principal; 2024-04-18 12:07)
PROC: 5A1D70Z Performance of Urinary Filtration, Intermittent, Less than 6 Hours Per Day (ICD-10-PCS; 2024-04-19)
PROC: 0HRMXJZ Replacement of Right Foot Skin with Synthetic Substitute, External Approach (ICD-10-PCS; 2024-04-20)
PROC: 0HRNXJZ Replacement of Left Foot Skin with Synthetic Substitute, External Approach (ICD-10-PCS; 2024-04-20)
PROC: 0Y9K0ZZ Drainage of Right Ankle Region, Open Approach (ICD-10-PCS; 2024-04-20)
PROC: 0Y9N0ZZ Drainage of Left Foot, Open Approach (ICD-10-PCS; 2024-04-20)
PROC: 5A1D70Z Performance of Urinary Filtration, Intermittent, Less than 6 Hours Per Day (ICD-10-PCS; 2024-04-21)
PROC: 5A1D70Z Performance of Urinary Filtration, Intermittent, Less than 6 Hours Per Day (ICD-10-PCS; 2024-04-23)
DX: L03.116 Cellulitis of left lower limb (principal); N18.6 End stage renal disease; G93.40 Encephalopathy, unspecified; I50.30 Unspecified diastolic (congestive) heart failure; L02.612 Cutaneous abscess of left foot; I13.2 Hypertensive heart and chronic kidney disease with heart failure and with stage 5 chronic kidney disease, or end stage renal disease; M86.8X7 Other osteomyelitis, ankle and foot; E87.1 Hypo-osmolality and hyponatremia; E87.5 Hyperkalemia; L02.415 Cutaneous abscess of right lower limb; L03.115 Cellulitis of right lower limb; D64.9 Anemia, unspecified; E11.22 Type 2 diabetes mellitus with diabetic chronic kidney disease; E11.51 Type 2 diabetes mellitus with diabetic peripheral angiopathy without gangrene; E66.01 Morbid (severe) obesity due to excess calories; S91.302A Unspecified open wound, left foot, initial encounter; I48.0 Paroxysmal atrial fibrillation; S91.301A Unspecified open wound, right foot, initial encounter; X58.XXXA Exposure to other specified factors, initial encounter; B95.62 Methicillin resistant Staphylococcus aureus infection as the cause of diseases classified elsewhere; E11.69 Type 2 diabetes mellitus with other specified complication; E11.65 Type 2 diabetes mellitus with hyperglycemia; Z99.2 Dependence on renal dialysis; Z68.31 Body mass index [BMI] 31.0-31.9, adult; Y93.89 Activity, other specified; Y92.89 Other specified places as the place of occurrence of the external cause; Y99.8 Other external cause status; Z79.1 Long term (current) use of non-steroidal anti-inflammatories (NSAID); Z83.3 Family history of diabetes mellitus; Z79.899 Other long term (current) drug therapy; Z79.4 Long term (current) use of insulin; Z79.84 Long term (current) use of oral hypoglycemic drugs
CPT/HCPCS: 36415; 71045; 73700; 80048; 80053; 80170; 80202; 82306; 82962; 83036; 83605; 83690; 83735; 83880; 83970; 84100; 84132; 84484; 85025; 85610; 85652; 85730; 86141; 86850; 86900; 86901; 87040; 87070; 87075; 87077; 87081; 87186; 87205; 87340; 90935; 93005; 93306; 94640; 94644; 96361; 96365; 96367; 97110; 97163; 99291; G0378; J0171; J1100; J1815; J2185; J2405; J2543; J2704; J3490; J7060

== ENCOUNTER 2024-05-21 13:04 | Inpatient (IN) | payer MEDICARE, MEDICAID ==
[~2024-05-21] VITALS: Ht 167.6 cm; Wt 95.6 kg
[~2024-05-21 13:04] MED LIST: ALLO100T PO; AMIO200T13 PO; AMLO1TAB22 PO; APIX2.5T PO; ATOR40TA52; FERR1TAB17 PO; FERR325T20 PO; FURO40TA4 PO; GABA-339 PO; GLIP10TA9 PO; INSLANTI SC; METF-372 PO; NUTR-396 OR; SODI5PAK PO
--- NOTE | 2024-05-21 13:22 | ED.PDOC ---
History of Present Illness HPI Comments 58 y/o morbidly obese M, with a history of ESRD w/HD (M/W/F), DM w/neuropathy, HLD, and HTN, presents with c/o nonradiating, epigastric abdominal pain, nausea, vomiting, diarrhea, and dizziness for the past 3x days, today. Patient is a poor historian and reports on progressively worsening symptoms following initial onset. He rates pain a 10/10 in severity and having a remote history of symptoms in the past. Patient denies any hematemesis, constipation, urinary symptoms, fever, chills, or other associated symptoms or modifiers at this time. Time Seen by MD: 13:15 Primary Care Provider: UNKNOWN Reviewed Notes: Nurses Notes, Medications, Allergies Allergies: Coded Allergies: NO KNOWN ALLERGIES (Unverified , 04/15/24) Home Meds Active Scripts Apixaban Base (ELIQUIS) 2.5 Mg Tab, 2.5 MG PO BID for 14 Days, #28 TAB 0 Refills Prov:MANAS CRAFT RESIDENT 04/24/24 Nutritional Supplements (Josafat) [place] Pow, 1 PACK OR BID for 30 Days, #60 POW 0 Refills Prov:MANAS CRAFT RESIDENT 04/24/24 Amiodarone HCl (Amiodarone HCl) 200 Mg Tab, 200 MG PO Q12HR for 30 Days, #60 TAB Prov:MANAS CRAFT RESIDENT 04/24/24 Reported Medications Sodium Zirconium Cyclosilicate (Lokelma) 5 Gm Curly, 5 GM PO TIDWM, PACK 04/17/24 Insulin Glargine (Lantus) 100 Unit/Ml Inj, 20 UNIT SC BID, INJ 04/17/24 Allopurinol (Allopurinol) 100 Mg Tab, 100 MG PO DAILY, TAB 04/17/24 Glipizide (Glipizide) 10 Mg Tab, 10 MG PO DAILY for 30 Days, MG 04/17/24 Furosemide (Furosemide) 40 Mg Tab, 80 MG PO DAILY for 30 Days 04/17/24 Ferric Citrate (Auryxia) 210 Mg Tab, 210 MG PO DAILY, TAB 04/17/24 Ferrous Sulfate (Ferosul) 325 Mg Tab, 325 MG PO DAILY, TAB 04/17/24 Gabapentin (Gabapentin) 600 Mg Tab, 600 MG PO TID, TAB 04/17/24 Amlodipine Besylate (Amlodipine Besylate) 5 Mg Tab, 5 MG PO DAILY for 30 Days, MG 04/17/24 Metformin Hydrochloride (Metformin Hcl) 1,000 Mg Tab, 1 TAB PO BID, #180 TAB 3 Refills 04/17/24 Atorvastatin Calcium (ATORVASTATIN CALCIUM) 40 Mg Tab, 1 DAILY 04/16/24 Information Source: Patient Mode of Arrival: Wheelchair Severity: Moderate Timing: Days Duration: Since onset Prehospital treatment: None Past Medical History PAST MEDICAL HISTORY: DM (w/neuropathy), ESRD (w/HD (M/W/F)), High Lipids, HTN Past Medical History (Other): morbid obesity Surgical History (Other): bilateral toe ampuation Family History Family History: Reviewed,noncontributory to illness, No family hx of Cancer, No family hx of DM, No family hx of Heart nelda, No family hx of HTN, No family hx ofKidney nelda, No family hx of Liver nelda, No family hx of Lung nelda, No family hx of Stroke Social History Smoker: Non-Smoker Alcohol: Denies ETOH Use Drugs: Denies Drug Use Lives In: Home Constitutional: denies: chills, diaphoresis, fatigue, fever, malaise, sweats, weakness, others EENTM: denies: blurred vision, double vision, ear bleeding, ear discharge, ear drainage, ear pain, ear ringing, eye pain, eye redness, hearing loss, mouth pain, mouth swelling, nasal discharge, nose bleeding, nose congestion, nose p ain, photophobia, tearing, throat pain, throat swelling, voice changes, others Respiratory: denies: cough, hemoptysis, orthopnea, SOB at rest, shortness of breath, SOB with excertion, stridor, wheezing, others Cardiovascular: denies: chest pain, dizzy spells, diaphoresis, Dyspnea on exertion, edema, irregular heart beat, left arm pain, lightheadedness, palpitations, PND, syncope, others Gastrointestinal: reports: abdominal pain, diarrhea, nausea, vomiting; denies: abdomen distended, blood streaked bowels, constipated, dysphagia, difficulty swallowing, hematemesis, melena, poor appetite, poor fluid intake, rectal bleeding, rectal pain, others Genitourinary: denies: burning, dysuria, flank pain, frequency, hematuria, incontinence, penile discharge, penile sore, pain, testicle pain, testicle swelling, urgency, others Neurological: reports: dizziness; denies: fainting, headache, left sided numbness, left sided weakness, numbness, paresthesia, pre-existing deficit, right sided numbness, right sided weakness, seizure, speech problems, tingling, tremors, weakness, others Musculoskeletal: denies: back pain, gout, joint pain, joint swelling, muscle pain, muscle stiffness, neck pain, others Integumetry: denies: bruises, change in color, change in hair/nails, dryness, laceration, lesions, lumps, rash, wounds, others Allergic/Immunocompromised: denies: Difficulty Healing, Frequent Infections, Hives, Itching, others Hematologic/Lymphatic: denies: anemia, blood clots, easy bleeding, easy bruising, swollen glands, others Endocrine: denies: excessive hunger, excessive sweating, excessive thirst, excessive urination, flushing, intolerance to cold, intolerance to heat, unexplained weight gain, unexplained weight loss, others Psychiatric: denies: anxiety, bipolar disorder, depression, hopeless, panic disorder, schizophrenia, sleepless, suicidal, others All Other Systems: Reviewed and Negative Physical Exam General Appearance: Moderate Distress HEENT: Normal ENT Inspection, Pale Conjuntivae (L), Pharynx Normal, TMs Normal Neck: Full Range of Motion, Non-Tender, Normal, Normal Inspection Respiratory: Chest Non-Tender, Lungs Clear, No Accessory Muscle Use, No Respiratory Distress, Normal Breath Sounds Cardiovascular: No Edema, No JVD, No Murmur, No Gallop, Normal Peripheral Pulses, Regular Rate/Rhythm Breast Exam: Deferred Gastrointestinal: Epigastric, No Organomegaly, No Pulsatile Mass, Normal Bowel Sounds, Soft, Tenderness Genitalia: Deferred Pelvic: Deferred Rectal: Deferred Extremities: No calf tenderness, Normal capillary refill, No pedal edema Musculoskeletal : Apperance: Normal Neurologic: Alert, pharmacovigilance safety expert II-XII nml as Tested, Motor Weakness, Normal Affect, Normal Mood, No Sensory Deficits Cerebellar Function: Normal Reflexes: Normal Skin: Dry, Normal Color, Warm Lymphatic: No Adenopathy Was a procedure done? Was a procedure done?: No EKG EKG : Pulse Rate (adult): 59 [place]: Normal Cardiac Rhythm: NSR Block: None Hypertrophy: None ST: Normal Differential Dx Considerations may include: gastritis, gastroenteritis, GERD, PUD, cholelithiasis, cholecystitis, spoiled food, viral syndrome, UTI, among others X-Ray, Labs, Meds, VS Vital Signs Date Time Temp Pulse Resp B/P (MAP) Pulse Ox O2 Delivery O2 Flow Rate FiO2 05/21/24 13:22 59 05/21/24 13:19 98.5 62 20 135/61 (85) 95 98.5 05/21/24 13:17 59 Lab Test 05/21/24 13:38 Range/Units White Blood Count 6.7 4.4-10.8 10^3/uL Red Blood Count 2.60 L 4.5-5.90 10^6/uL Hemoglobin 8.1 L 13.5-17.5 g/dL Hematocrit 25.2 L 41.0-53.0 % Mean Corpuscular Volume 97.0 80.0-100.0 fL Mean Corpuscular Hemoglobin 31.1 28.0-32.0 pg Mean Corpuscular Hemoglobin Concent 32.0 32.0-36.0 g/dL Red Cell Distribution Width 15.6 H 11.8-14.3 % Platelet Count 227 140-450 10^3/uL Mean Platelet Volume 7.1 6.9-10.8 fL Neutrophils (%) (Auto) 75.9 37.0-80.0 % Lymphocytes (%) (Auto) 15.8 10.0-50.0 % Monocytes (%) (Auto) 4.3 0.0-12.0 % Eosinophils (%) (Auto) 2.8 0.0-7.0 % Basophils (%) (Auto) 1.2 0.0-2.0 % Neutrophils # (Auto) 5.1 1.6-8.6 10 ^3/uL Lymphocytes # (Auto) 1.1 0.4-5.4 10 ^3/uL Monocytes # (Auto) 0.3 0-1.3 10 ^3/uL Eosinophils # (Auto) 0.2 0-0.8 10 ^3/uL Basophils # (Auto) 0.1 0-0.2 10 ^3/uL Nucleated Red Blood Cells 0.1 % Sodium Level 125 L 136-145 mmol/L Potassium Level 5.6 *H 3.5-5.1 mmol/L Chloride Level 88 L 98-107 mmol/L Carbon Dioxide Level 22 20-31 mmol/L Anion Gap 15 5-15 Blood Urea Nitrogen 40 H 9-23 mg/dL Creatinine 8.01 H 0.700-1.30 mg/dL Glomerular Filtration Rate Calc 7 >90 mL/min BUN/Creatinine Ratio 5.0 L 10.0-20.0 Serum Glucose 93 74-106 mg/dL Calcium Level 8.4 L 8.7-10.4 mg/dL Total Bilirubin < 0.2 L 0.2-1.0 mg/dL Aspartate Amino Transferase (AST) < 8 L 13-40 U/L Alanine Aminotransferase (ALT) < 9 7-40 U/L Alkaline Phosphatase 77 46-116 U/L Total Protein 7.2 5.7-8.2 g/dL Albumin 4.0 3.2-4.8 g/dL Lipase 31 12-53 U/L PROCEDURE(s): GBUS - GALLBLADDER IMPRESSION: No sonographic evidence of gallstones or acute cholecystitis. Evaluation is limited due to body habitus. The CBC shows anemia with a hemoglobin of 8.1 hematocrit of 25.2 The chemistry panel is within normal limits The patient was hyponatremic as well as having a BUN of 40 and a creatinine of 8.01 The patient's potassium is 5.6 The patient was given calcium, sodium bicarbonate, dextrose and insulin for the hyperkalemia The patient was being admitted at this time Images Reviewed?: Images reviewed and evaluated by me Time of 1ST Reevaluation: 13:45 Reevaluation 1ST: Unchanged Patient Education/Counseling: Diagnosis, Treatment, Prognosis Family Education/Counseling: No Family Present Departure 1 Departure Time of Disposition: 16:53 Impression: Primary Impression: ESRD needing dialysis Additional Impressions: Acute hyperkalemia Electrolyte imbalance Intractable abdominal pain Disposition: 09 ADMITTED INPATIENT Admit to: Tele Condition: Fair Critical Care Note Critical Care Time?: Yes (45 min-critical care time only) Stability Stability form required: Yes Unstable for transfer: Telemetry monitoring (Telemetry monitoring required), ED Physician Assesment (Clinical assesment) Heart Score Heart Score: Heart Score Response (Comments) Value History N/A 0 EKG N/A 0 Age N/A 0 Risk Factors N/A 0 Troponin N/A 0 Total 0 I personally scribed for CARY RAMIREZ MD ([email or web address]) on 05/21/24 at 13:22. Electronically submitted by Cecilio Castrejon ([email or web address]). I personally scribed for CARY RAMIREZ MD ([email or web address]) on 05/21/24 at 16:21. Electronically submitted by Cecilio Castrejon ([email or web address]). CARY RAMIREZ MD May 21, 2024 13:22
[2024-05-21] MEDS: ONDANSETRON HCL 4 MG/2 ML VIAL IV ONE (13:30)
[2024-05-21] MEDS: PANTOPRAZOLE 40 MG/10 ML VIAL INJ IV ONE (13:30)
[2024-05-21] MEDS: MORPHINE SULFATE 4 MG/ML SYR/VIAL IV ONE (13:30)
[2024-05-21 13:54] LABS: Basophils # (auto) 0.1 10 ^3/uL (0-0.2); Basophils % (auto) 1.2 % (0.0-2.0); Eosinophils # (auto) 0.2 10 ^3/uL (0-0.8); Eosinophils % (auto) 2.8 % (0.0-7.0); Hematocrit 25.2 % (41.0-53.0); Hemoglobin 8.1 g/dL (13.5-17.5); Lymphocytes # (auto) 1.1 10 ^3/uL (0.4-5.4); Lymphocytes % (auto) 15.8 % (10.0-50.0); Mean Corpuscular Hemoglobin 31.1 pg (28.0-32.0); Monocytes # (auto) 0.3 10 ^3/uL (0-1.3); Monocytes % (auto) 4.3 % (0.0-12.0); Neutrophils # (auto) 5.1 10 ^3/uL (1.6-8.6); Neutrophils % (auto) 75.9 % (37.0-80.0); Nucleated Red Blood Cells % 0.1 %; Platelet Count (auto) 227 10^3/uL (140-450); Red Cell Distribution Width 15.6 % (11.8-14.3); White Blood Cell 6.7 10^3/uL (4.4-10.8)
[2024-05-21 14:10] LABS: Alanine Aminotransferase < 9 U/L (7-40); Alkaline Phosphatase 77 U/L (46-116); Anion Gap 15 (5-15); Aspartate Aminotransferase < 8 U/L (13-40); Blood Urea Nitrogen 40 mg/dL (9-23); Calcium 8.4 mg/dL (8.7-10.4); Carbon Dioxide 22 mmol/L (20-31); Chloride 88 mmol/L (98-107); Glucose 93 mg/dL (74-106); Lipase 31 U/L (12-53); Sodium 125 mmol/L (136-145); Total Protein 7.2 g/dL (5.7-8.2)
[2024-05-21 14:15] LABS: Bilirubin, Total < 0.2 mg/dL (0.2-1.0); Potassium 5.6 mmol/L (3.5-5.1)
--- NOTE | 2024-05-21 14:32 | DVH ---
INDICATION: pain TECHNIQUE: Multiple real-time sonographic images were obtained of the right upper quadrant. COMPARISON: None FINDINGS: The liver demonstrates homogenous echotexture without focal mass lesions. The liver measure s 15 cm. There is no intrahepatic or extrahepatic ductal dilatation. The common duct measures 5 mm. The gallbladder is without evidence of stone or sludge. The gallbladder wall measures 3 mm and is wi thin normal limits. The right kidney measures 9.2 cm. The right kidney is normal in contour, size, and shape. The echoge nicity is normal. There is no hydronephrosis. The pancreas is not well visualized due to overlying bowel gas. IMPRESSION: No sonographic evidence of gallstones or acute cholecystitis. Evaluation is limited due to body habit us.
--- NOTE | 2024-05-21 14:37 | ECG ---
[facility] Test Date: 2024-05-21 Test Time: 13:17:18 Pat Name: PEGGY CHAVEZ Department: ER Room: 0220 Gender: M [employer]: GP : 1965 Requested By: CARY RAMIREZ Order Number: [id number] Reading MD: Cecilio Mendoza Measurements Intervals [place] Rate: 59 P: 0 CO: 0 QRS: 104 QRSD: 158 T: -47 QT: 499 QTc: 495 Interpretive Statements Junctional rhythm Nonspecific intraventricular conduction delay Repol abnrm suggests ischemia, diffuse leads Baseline wander in lead(s) I,III,aVL,V1,V2,V4,V5,V6 Electronically Signed On 05-23-2024 21:00:59 PDT by Cecilio Mendoza Please click the below link to view image of tracing.
[2024-05-21] MEDS: SODIUM BICARB 8.4% 50Meq/50ml SYR Vial IV ONE (17:00)
[2024-05-21] MEDS: InsuLIN REG 1unit/0.01ml Soln (100units/ml) IV ONE (17:00)
[2024-05-21] MEDS: CALCIUM GLUC 1,000mg/50ml-NS 50 ML IV ONE (17:00)
[2024-05-21] MEDS ORDERED: DOCUSATE SOD 100 MG CAP PO PRN (18:30)
[2024-05-21] MEDS ORDERED: ACETAMINOPHEN 325 MG TAB PO PRN (18:30)
[2024-05-21] MEDS ORDERED: HYDROcodone-ACET 5/325MG TAB PO PRN (18:30)
--- NOTE | 2024-05-21 18:38 | DVHHP2 ---
Admitting Diagnosis: Abdominal pain History of Present Illness 58 y/o morbidly obese M, with a history of ESRD w/HD (M/W/F), DM w/neuropathy, HLD, and HTN, presents with c/o nonradiating, epigastric abdominal pain, nausea, vomiting, diarrhea, and dizziness for the past 3x days, today. Patient is a poor historian and reports on progressively worsening symptoms following initial onset. He rates pain a 10/10 in severity and having a remote history of symptoms in the past. Patient denies any hematemesis, constipation, urinary symptoms, fever, chills, or other associated symptoms or modifiers at this time. PAST MEDICAL HISTORY: DM (w/neuropathy), ESRD (w/HD (M/W/F)), High Lipids, HTN Past Medical History (Other): morbid obesity Surgical History (Other): bilateral toe ampuation Family History Family History: Reviewed,noncontributory to illness, No family hx of Cancer, No family hx of DM, No family hx of Heart nelda, No family hx of HTN, No family hx ofKidney nelda, No family hx of Liver nelda, No family hx of Lung nelda, No family hx of Stroke Social History Smoker: Non-Smoker Alcohol: Denies ETOH Use Drugs: Denies Drug Use Lives In: Home Patient Family History: Diabetes mellitus G8 MOTHER, FH: thyroid disease G8 FATHER, Allergies: Coded Allergies: NO KNOWN ALLERGIES (Unverified , 04/15/24) Home Meds Active Scripts Apixaban Base (ELIQUIS) 2.5 Mg Tab, 2.5 MG PO BID for 14 Days, #28 TAB 0 Refills Prov:MANAS CRAFT RESIDENT 04/24/24 Nutritional Supplements (Josafat) [place] Pow, 1 PACK OR BID for 30 Days, #60 POW 0 Refills Prov:MANAS CRAFT RESIDENT 04/24/24 Amiodarone HCl (Amiodarone HCl) 200 Mg Tab, 200 MG PO Q12HR for 30 Days, #60 TAB Prov:MANAS CRAFT RESIDENT 04/24/24 Reported Medications Sodium Zirconium Cyclosilicate (Lokelma) 5 Gm Curly, 5 GM PO TIDWM, PACK 04/17/24 Insulin Glargine (Lantus) 100 Unit/Ml Inj, 20 UNIT SC BID, INJ 04/17/24 Allopurinol (Allopurinol) 100 Mg Tab, 100 MG PO DAILY, TAB 04/17/24 Glipizide (Glipizide) 10 Mg Tab, 10 MG PO DAILY for 30 Days, MG 04/17/24 Furosemide (Furosemide) 40 Mg Tab, 80 MG PO DAILY for 30 Days 04/17/24 Ferric Citrate (Auryxia) 210 Mg Tab, 210 MG PO DAILY, TAB 04/17/24 Ferrous Sulfate (Ferosul) 325 Mg Tab, 325 MG PO DAILY, TAB 04/17/24 Gabapentin (Gabapentin) 600 Mg Tab, 600 MG PO TID, TAB 04/17/24 Amlodipine Besylate (Amlodipine Besylate) 5 Mg Tab, 5 MG PO DAILY for 30 Days, MG 04/17/24 Metformin Hydrochloride (Metformin Hcl) 1,000 Mg Tab, 1 TAB PO BID, #180 TAB 3 Refills 04/17/24 Atorvastatin Calcium (ATORVASTATIN CALCIUM) 40 Mg Tab, 1 DAILY 04/16/24 Vital Signs Vital Signs Date Time Temp Pulse Resp B/P (MAP) Pulse Ox O2 Delivery O2 Flow Rate FiO2 05/21/24 13:22 59 05/21/24 13:19 98.5 20 135/61 (85) 95 98.5 Physical Exam Generally-58 years old male, overweight, sitting on chair. Mild distress HEENT-atraumatic normocephalic Heart-regular rate and rhythm Lungs clear to auscultate bilaterally Abdomen soft, tender epigastrium, nondistended Musculoskeletal-right ankle wrapped him bandage. Tender to palpate, left leg plus one pedal edema Neuro-AO x3, no focal deficit Results Labs Test 05/21/24 13:38 Range/Units White Blood Count 6.7 4.4-10.8 10^3/uL Red Blood Count 2.60 L 4.5-5.90 10^6/uL Hemoglobin 8.1 L 13.5-17.5 g/dL Hematocrit 25.2 L 41.0-53.0 % Mean Corpuscular Volume 97.0 80.0-100.0 fL Mean Corpuscular Hemoglobin 31.1 28.0-32.0 pg Mean Corpuscular Hemoglobin Concent 32.0 32.0-36.0 g/dL Red Cell Distribution Width 15.6 H 11.8-14.3 % Platelet Count 227 140-450 10^3/uL Mean Platelet Volume 7.1 6.9-10.8 fL Neutrophils (%) (Auto) 75.9 37.0-80.0 % Lymphocytes (%) (Auto) 15.8 10.0-50.0 % Monocytes (%) (Auto) 4.3 0.0-12.0 % Eosinophils (%) (Auto) 2.8 0.0-7.0 % Basophils (%) (Auto) 1.2 0.0-2.0 % Neutrophils # (Auto) 5.1 1.6-8.6 10 ^3/uL Lymphocytes # (Auto) 1.1 0.4-5.4 10 ^3/uL Monocytes # (Auto) 0.3 0-1.3 10 ^3/uL Eosinophils # (Auto) 0.2 0-0.8 10 ^3/uL Basophils # (Auto) 0.1 0-0.2 10 ^3/uL Nucleated Red Blood Cells 0.1 % Sodium Level 125 L 136-145 mmol/L Potassium Level 5.6 *H 3.5-5.1 mmol/L Chloride Level 88 L 98-107 mmol/L Carbon Dioxide Level 22 20-31 mmol/L Anion Gap 15 5-15 Blood Urea Nitrogen 40 H 9-23 mg/dL Creatinine 8.01 H 0.700-1.30 mg/dL Glomerular Filtration Rate Calc 7 >90 mL/min BUN/Creatinine Ratio 5.0 L 10.0-20.0 Serum Glucose 93 74-106 mg/dL Calcium Level 8.4 L 8.7-10.4 mg/dL Total Bilirubin < 0.2 L 0.2-1.0 mg/dL Aspartate Amino Transferase (AST) < 8 L 13-40 U/L Alanine Aminotransferase (ALT) < 9 7-40 U/L Alkaline Phosphatase 77 46-116 U/L Total Protein 7.2 5.7-8.2 g/dL Albumin 4.0 3.2-4.8 g/dL Lipase 31 12-53 U/L Primary Diagnosis Intractable abdominal pain rule out infection End-stage renal disease on hemodialysis hyponatrmeia Plan Patient has +dialysis today. Dr. Sethi consulted. General-no acute infection CT abdomen and pelvis to assess for possible infection Ceftriaxone, Flagyl for possible intra-abdominal infection. Check CRP. If negative discontinue antibiotics Pain control Antiemetic Bowel regimen Renal diet Full code PPI for GI prophylaxis heparin for DVT prophylaxis Plan discussed with: Patient Problems List: (1) End stage renal disease on dialysis Status: Acute (2) Intractable abdominal pain Status: Acute Date of Service: May 21, 2024 Billing Provider: ANDREE SHELLEY MD Common Visit Codes: [id number] INP/OBS CARE (MOD) ANDREE SHELLEY MD May 21, 2024 18:38
[2024-05-21] MEDS: SODIUM ZIRCONIUM CYCL 10 GM PAK PO SCH (19:39)
--- NOTE | 2024-05-21 19:47 | DVH ---
Exam: CT CT AB PEL WO CON-NO ORAL OR IV History: abdominal pain r/o infection Comparison Study: None available at time of dictation. TECHNIQUE: Multidetector CT of the abdomen was performed from lung bases to pubic symphysis. Imaging was performed without IV contrast. Axial, coronal and sagittal multiplanar reformats were obtained fr om the axial data set by the technologist. Radiation Dose Information: CT Dose: CTDI volume is 18.92 mGy. Dose-length product is 1061.88 mGy*cm FINDINGS: Evaluation of solid organs is limited due to lack of intravenous contrast use. Findings: Lung Bases: Ground-glass infiltrates bibasilar.. Normal heart size. No pleural or pericardial effusi on. Liver: The liver is normal in size. No focal lesions. Gallbladder and Biliary Tree: Unremarkable Spleen: Unremarkable Pancreas: The pancreas is grossly normal in appearance. Adrenal Glands: Unremarkable Kidneys: Kidneys are grossly normal without calculi or hydronephrosis. Bladder: Grossly unremarkable for degree of distention. Bowel: The stomach is grossly normal in appearance. Small bowel and colon are normal in caliber and d istribution. The appendix is not visualized; however, no secondary findings of acute appendicitis id entified. Ascites: Absent Lymphadenopathy: No mesenteric, retroperitoneal or periportal lymphadenopathy. Abdominal Wall and Mesentery: Unremarkable. Vasculature: The visualized abdominal aorta is normal in size and caliber. Evaluation of abdominal a nd pelvic vessels is limited due to lack of intravenous contrast. Pelvic Organs: Unremarkable Musculoskeletal: No aggressive focal bony lesions, acute fractures or dislocation. Soft tissues: Unremarkable IMPRESSION: 1. No calcified gallstones 2. Pancreas appears normal 3. No nephrolithiasis or hydronephrosis. 4. No CT findings to suggest bowel obstruction. Stool throughout the colon. Radiation optimization: All CT scans at this facility use at least one of these dose optimization te chniques: automated exposure control mA and/or kV adjustment per patient size (includes targeted exa ms where dose is matched to clinical indication) or iterative reconstruction.
[2024-05-21 19:55] VITALS: PULSE 63; RESP 16; O2SAT 97
[2024-05-21] MEDS: ACCU-CHEK COMFORT CURVE STRIP VI SCH (22:00)
[2024-05-21] MEDS ORDERED: GABAPENTIN 300 MG CAP PO SCH (22:00)
[2024-05-21] MEDS: APIXABAN 2.5 MG TAB PO SCH (23:38)
[2024-05-21] MEDS: AMIODARONE HCL 200 MG TAB PO SCH (23:39)
[2024-05-21] MEDS: GABAPENTIN 300 MG CAP PO SCH (23:40)
[2024-05-21] MEDS: InsuLIN REG 1unit/0.01ml Soln (100units/ml) SC SCH (23:41)
[2024-05-21] MEDS: INSULIN LANTUS (GLARGINE) 1 /0.01ml (100units/ml) SC SCH (23:42)
[2024-05-22] VITALS (7 sets, daily range): BP systolic 100–146; BP diastolic 46–57; PULSE 54–61; RESP 17–18; TEMP 96.2–98; O2SAT 100
[2024-05-22] MEDS: cefTRIAXone 1GM/50ML D5W 50 ML IV SCH (00:56)
[2024-05-22] MEDS: metroNIDAZOLE 500MG/100ML 100 ML IV SCH (01:01)
[2024-05-22] MEDS: SODIUM CHLOR 0.9% PF (SALINE LOCK) 10ML VIAL/SYR IV SCH (01:01)
[2024-05-22 09:16] LABS: Albumin 3.7 g/dL (3.2-4.8); Alkaline Phosphatase 73 U/L (46-116); Anion Gap 12 (5-15); BUN/Creatinine Ratio 6.3 (10.0-20.0); Carbon Dioxide 26 mmol/L (20-31); Glucose 81 mg/dL (74-106); Total Protein 6.5 g/dL (5.7-8.2)
[2024-05-22 09:19] LABS: Basophils # (auto) 0 10 ^3/uL (0-0.2); Basophils % (auto) 0.9 % (0.0-2.0); Eosinophils # (auto) 0.3 10 ^3/uL (0-0.8); Eosinophils % (auto) 4.6 % (0.0-7.0); Hematocrit 23.8 % (41.0-53.0); Hemoglobin 7.7 g/dL (13.5-17.5); Lymphocytes # (auto) 0.7 10 ^3/uL (0.4-5.4); Lymphocytes % (auto) 11.6 % (10.0-50.0); Mean Corpuscular Hemoglobin 30.9 pg (28.0-32.0); Mean Corpuscular Hgb Conc. 32.6 g/dL (32.0-36.0); Monocytes # (auto) 0.3 10 ^3/uL (0-1.3); Monocytes % (auto) 4.4 % (0.0-12.0); Neutrophils # (auto) 4.5 10 ^3/uL (1.6-8.6); Neutrophils % (auto) 78.5 % (37.0-80.0); Nucleated Red Blood Cells % 0.1 %; Platelet Count (auto) 183 10^3/uL (140-450); Red Cell Distribution Width 15.2 % (11.8-14.3); White Blood Cell 5.7 10^3/uL (4.4-10.8)
[2024-05-22 09:30] LABS: Alanine Aminotransferase < 9 U/L (7-40); Aspartate Aminotransferase < 8 U/L (13-40); Bilirubin, Total < 0.2 mg/dL (0.2-1.0); Blood Urea Nitrogen 56 mg/dL (9-23); Calcium 7.9 mg/dL (8.7-10.4); Chloride 89 mmol/L (98-107); Sodium 127 mmol/L (136-145)
[2024-05-22 09:31] LABS: Potassium 5.7 mmol/L (3.5-5.1)
[2024-05-22] MEDS: amLODIPine BESYLATE 5 MG TAB PO SCH (09:32)
[2024-05-22] MEDS: FUROSEMIDE 40 MG TAB PO SCH (09:32)
[2024-05-22] MEDS: FERROUS SULFATE 325mg EC TAB PO SCH (09:32)
[2024-05-22] MEDS: ATORVASTATIN 20 MG TAB PO SCH (09:37)
--- NOTE | 2024-05-22 11:15 | DVHPN2 ---
Progress Note Date Seen: May 22, 2024 Medical Necessity Reason Pt with a Central, PICC or Fol: No Subjective Patient reports: No new complaints Review of Systems: HEENT:Normal, CVS:Normal, RESPIRATORY:Normal, GI:Normal, :Normal, MSK:Normal, NEURO:Normal Objective vital signs Vital Sign Date Time Temp Pulse Resp B/P (MAP) Pulse Ox O2 Delivery O2 Flow Rate FiO2 05/22/24 09:32 138/57 05/22/24 09:09 97.2 56 18 100 97.2 05/22/24 00:36 Nasal Cannula* 2 28 Total Intake and Output 05/21/24 05/21/24 05/22/24 15:00 23:00 07:00 Intake Total 250 ml Balance 250 ml medications Current Medications Medications Dose Ordered Sig/Samuel Route Start Time Stop Time Status Last Admin Dose Admin Amiodarone HCl 200 mg Q12HR PO 05/21/24 22:00 05/22/24 09:32 200 MG Amlodipine Besylate 5 mg DAILY PO 05/22/24 10:00 05/22/24 09:32 5 MG Apixaban 2.5 mg BID PO 05/21/24 22:00 05/22/24 09:32 2.5 MG Furosemide 80 mg DAILY PO 05/22/24 10:00 05/22/24 09:32 80 MG Insulin Glargine 20 units BID SC 05/21/24 22:00 05/22/24 09:30 20 UNITS Zirconium Oxide 5 gm TIDWM PO 05/21/24 19:39 05/22/24 09:30 5 GM Ferrous Sulfate 325 mg DAILY PO 05/22/24 10:00 05/22/24 09:32 325 MG Diagnostic Test (Pha) 1 strip ACHS 05/21/24 22:00 05/22/24 05:26 1 STRIP Insulin Human Regular ACHS SC 05/21/24 22:00 05/21/24 23:41 2 UNITS Dextrose 50 ml UD PRN IV 05/21/24 18:30 Ceftriaxone Sodium 50 ml @ 100 mls/hr DAILY IV 05/21/24 18:30 05/22/24 09:30 100 MLS/HR Metronidazole 100 ml @ 100 mls/hr Q8HR IV 05/21/24 21:00 05/22/24 05:29 100 MLS/HR Sodium Chloride 10 ml Q8HR IV 05/21/24 22:00 05/22/24 05:26 10 ML Docusate Sodium 100 mg BIDPRN PRN PO 05/21/24 18:30 Acetaminophen 650 mg Q6HP PRN PO 05/21/24 18:30 Acetaminophen/ Hydrocodone Bitart 1 tab Q4HP PRN PO 05/21/24 18:30 Ondansetron HCl 4 mg Q4HP PRN IV 05/21/24 18:30 Atorvastatin Calcium 40 mg HS PO 05/22/24 10:00 05/22/24 09:37 40 MG Gabapentin 600 mg HS PO 05/21/24 22:00 05/21/24 23:40 600 MG Examination: GENERAL:Normal, HEENT:Normal, NECK:Normal, LUNGS:Normal, CVS:Normal, ABDOMEN:Normal, MSK:Normal, MSK:Abnormal (BILATERAL FOOT DRESSINGS), SKIN:Normal, NEURO:Normal, :Normal laboratory and microbiology Laboratory Tests 05/22/24 08:24 Test 05/22/24 08:24 Range/Units Serum Glucose 81 74-106 mg/dL Problem List/Assessment/Plan Problem List/Assessment/Plan #1 abd pain ?fecal impaction: bowel regimen #2 dm: ssi #3 esrd: on dialysis #4 htn #5 bilateral foot ulcers s/p surg: podiatry eval #6 hyperkalemia #7 hyponatremia #8 obesity #9 a fib: cont meds, stool occult blood #10 anemia advance care planning- full code- time spent 19 mins Plan discussed with: Patient My Orders My Orders Orders - ZURI PRESLEY MD Procedure Category Date Status Time *Dr. Sethi Group CONS 05/22/24 Transmitted -[place] 11:04 *Podiatry Consult CONS 05/22/24 Transmitted [facility]([facility]) 11:04 Polyethylene Glycol PHA 05/22/24 Logged 17g Powder (Miralax 11:15 Pantoprazole PHA 05/22/24 Transmitted (Protonix) 11:15 Pantoprazole PHA 05/23/24 Transmitted (Protonix) 10:00 Lactulose Oral PHA 05/22/24 Transmitted 11:15 Tape Recording Machine Operator ORDERS 05/22/24 Transmitted 11:04 Sodium Zirconium PHA 05/22/24 Transmitted Cyclosilicate 14:00 Basic Metabolic Panel LAB 05/23/24 Verified 06:00 Complete Blood Count LAB 05/23/24 Verified 06:00 Chest Portable XY 05/22/24 Transmitted 11:04 Date of Service: May 22, 2024 Billing Provider: ZURI PRESLEY MD Common Visit Codes: [id number] INP/OBS CARE(HIGH) Secondary Visit Codes: [id number] CARE PLAN 30 MINUTES ZURI PRESLEY MD May 22, 2024 11:15
--- NOTE | 2024-05-22 13:13 | DVHINCON2 ---
Date Seen: May 22, 2024 Reason for Consultation Left foot wound History of Present Illness 58 y/o morbidly obese M, with a history of ESRD w/HD (M/W/F), DM w/neuropathy, HLD, and HTN, presents with c/o nonradiating, epigastric abdominal pain, nausea, vomiting, diarrhea, and dizziness for the past 3x days, today. Patient is a poor historian and reports on progressively worsening symptoms following initial onset. He rates pain a 10/10 in severity and having a remote history of symptoms in the past. Patient denies any hematemesis, constipation, urinary symptoms, fever, chills, or other associated symptoms or modifiers at this time. Past Medical History See H&P Past Surgical History See H&P Family History: Diabetes mellitus G8 MOTHER, FH: thyroid disease G8 FATHER, Allergies: Coded Allergies: NO KNOWN ALLERGIES (Unverified , 04/15/24) Home Meds Active Scripts Apixaban Base (ELIQUIS) 2.5 Mg Tab, 2.5 MG PO BID for 14 Days, #28 TAB 0 Refills Prov:MANAS CRAFT RESIDENT 04/24/24 Nutritional Supplements (Josafat) [place] Pow, 1 PACK OR BID for 30 Days, #60 POW 0 Refills Prov:MANAS CRAFT RESIDENT 04/24/24 Amiodarone HCl (Amiodarone HCl) 200 Mg Tab, 200 MG PO Q12HR for 30 Days, #60 TAB Prov:MANAS CRAFT RESIDENT 04/24/24 Reported Medications Sodium Zirconium Cyclosilicate (Lokelma) 5 Gm Curly, 5 GM PO TIDWM, PACK 04/17/24 Insulin Glargine (Lantus) 100 Unit/Ml Inj, 20 UNIT SC BID, INJ 04/17/24 Allopurinol (Allopurinol) 100 Mg Tab, 100 MG PO DAILY, TAB 04/17/24 Glipizide (Glipizide) 10 Mg Tab, 10 MG PO DAILY for 30 Days, MG 04/17/24 Furosemide (Furosemide) 40 Mg Tab, 80 MG PO DAILY for 30 Days 04/17/24 Ferric Citrate (Auryxia) 210 Mg Tab, 210 MG PO DAILY, TAB 04/17/24 Ferrous Sulfate (Ferosul) 325 Mg Tab, 325 MG PO DAILY, TAB 04/17/24 Gabapentin (Gabapentin) 600 Mg Tab, 600 MG PO TID, TAB 04/17/24 Amlodipine Besylate (Amlodipine Besylate) 5 Mg Tab, 5 MG PO DAILY for 30 Days, MG 04/17/24 Metformin Hydrochloride (Metformin Hcl) 1,000 Mg Tab, 1 TAB PO BID, #180 TAB 3 Refills 04/17/24 Atorvastatin Calcium (ATORVASTATIN CALCIUM) 40 Mg Tab, 1 DAILY 04/16/24 Current Medications Current Medications Medications (Trade) Dose Ordered Sig/Samuel Route PRN Reason Start Time Stop Time Status Last Admin Amiodarone HCl (Cordarone Tablet) 200 mg Q12HR PO 05/21/24 22:00 05/22/24 09:32 Amlodipine Besylate (Norvasc Tablet) 5 mg DAILY PO 05/22/24 10:00 05/22/24 09:32 Apixaban (Eliquis) 2.5 mg BID PO 05/21/24 22:00 05/22/24 09:32 Furosemide (Lasix Tablet) 80 mg DAILY PO 05/22/24 10:00 05/22/24 09:32 Insulin Glargine (Lantus) 20 units BID SC 05/21/24 22:00 05/22/24 11:12 DC 05/22/24 09:30 Zirconium Oxide (Lokelma) 5 gm TIDWM PO 05/21/24 19:39 05/22/24 11:30 DC 05/22/24 09:30 Ferrous Sulfate 325 mg DAILY PO 05/22/24 10:00 05/22/24 09:32 Gabapentin (Neurontin Capsule) 600 mg TID PO 05/21/24 22:00 05/21/24 19:57 DC Diagnostic Test (Pha) (Accu-Chek Comfort Curve T) 1 strip ACHS 05/21/24 22:00 05/22/24 05:26 Insulin Human Regular (InsuLIN R) ACHS SC 05/21/24 22:00 05/21/24 23:41 Dextrose 50 ml UD PRN IV Blood Sugar LESS THAN 60 05/21/24 18:30 Ceftriaxone Sodium 50 ml @ 100 mls/hr DAILY IV 05/21/24 18:30 05/22/24 09:30 Metronidazole 100 ml @ 100 mls/hr Q8HR IV 05/21/24 21:00 05/22/24 05:29 Sodium Chloride (Saline Lock Ns) 10 ml Q8HR IV 05/21/24 22:00 05/22/24 05:26 Docusate Sodium (Colace Capsule) 100 mg BIDPRN PRN PO FOR CONSTIPATION 05/21/24 18:30 Acetaminophen (Tylenol Tablet) 650 mg Q6HP PRN PO PAIN SCALE 1-3 OR TEMP>100.4 05/21/24 18:30 Acetaminophen/ Hydrocodone Bitart ([place] 5/325MG Tab) 1 tab Q4HP PRN PO MODERATE PAIN (4-6 PAIN SCALE) 05/21/24 18:30 Ondansetron HCl (Zofran) 4 mg Q4HP PRN IV NAUSEA / VOMITING 05/21/24 18:30 Atorvastatin Calcium (Lipitor) 40 mg HS PO 05/22/24 10:00 05/22/24 09:37 Gabapentin (Neurontin Capsule) 600 mg HS PO 05/21/24 22:00 05/21/24 23:40 Pantoprazole Sodium (Protonix) 40 mg DAILY IV 05/23/24 10:00 Zirconium Oxide (Lokelma) 10 gm TID PO 05/22/24 14:00 Vital Signs Vital Signs Date Time Temp Pulse Resp B/P (MAP) Pulse Ox O2 Delivery O2 Flow Rate FiO2 05/22/24 09:32 138/57 05/22/24 09:09 97.2 56 18 100 97.2 05/22/24 00:36 Nasal Cannula* 2 28 Physical Exam Dermatological: Skin is dry with mild erythema and some maceration around the wound site No gross deformities noted Mild non-pitting edema present bilaterally Wound: Location: Left plantar foot Measures: 2 cm in length, 1.5 cm in width, and 0.5 cm in depth. Depth: Full thickness Base: Slough Drainage: None Odor: None Periwound: Intact Vascular: Dorsalis pedis and posterior tibial pulses are 1+ bilaterally Capillary refill is under 2 seconds Skin temperature is warm bilaterally Neurologic: Protective sensation is absent on the plantar forefoot bilaterally Monofilament testing reveals decreased sensation in multiple plantar sites Musculoskeletal: Range of motion at the ankle and MTP joints is within normal limits. Strength is 5/5 in all tested muscle groups. Gait is antalgic due to offloading of the affected limb. Labs/Diagnostic Data Labs Test 05/22/24 08:24 05/22/24 05:32 05/21/24 13:38 Range/Units White Blood Count 5.7 4.4-10.8 10^3/uL Red Blood Count 2.50 L 4.5-5.90 10^6/uL Hemoglobin 7.7 L 13.5-17.5 g/dL Hematocrit 23.8 L 41.0-53.0 % Mean Corpuscular Volume 95.0 80.0-100.0 fL Mean Corpuscular Hemoglobin 30.9 28.0-32.0 pg Mean Corpuscular Hemoglobin Concent 32.6 32.0-36.0 g/dL Red Cell Distribution Width 15.2 H 11.8-14.3 % Platelet Count 183 140-450 10^3/uL Mean Platelet Volume 7.7 6.9-10.8 fL Neutrophils (%) (Auto) 78.5 37.0-80.0 % Lymphocytes (%) (Auto) 11.6 10.0-50.0 % Monocytes (%) (Auto) 4.4 0.0-12.0 % Eosinophils (%) (Auto) 4.6 0.0-7.0 % Basophils (%) (Auto) 0.9 0.0-2.0 % Neutrophils # (Auto) 4.5 1.6-8.6 10 ^3/uL Lymphocytes # (Auto) 0.7 0.4-5.4 10 ^3/uL Monocytes # (Auto) 0.3 0-1.3 10 ^3/uL Eosinophils # (Auto) 0.3 0-0.8 10 ^3/uL Basophils # (Auto) 0 0-0.2 10 ^3/uL Nucleated Red Blood Cells 0.1 % Sodium Level 127 L 136-145 mmol/L Potassium Level 5.7 *H 3.5-5.1 mmol/L Chloride Level 89 L 98-107 mmol/L Carbon Dioxide Level 26 20-31 mmol/L Anion Gap 12 5-15 Blood Urea Nitrogen 56 #H 9-23 mg/dL Creatinine 8.88 H 0.700-1.30 mg/dL Glomerular Filtration Rate Calc 6 >90 mL/min BUN/Creatinine Ratio 6.3 L 10.0-20.0 Serum Glucose 81 74-106 mg/dL Calcium Level 7.9 L 8.7-10.4 mg/dL Total Bilirubin < 0.2 L 0.2-1.0 mg/dL Aspartate Amino Transferase (AST) < 8 L 13-40 U/L Alanine Aminotransferase (ALT) < 9 7-40 U/L Alkaline Phosphatase 73 46-116 U/L Total Protein 6.5 5.7-8.2 g/dL Albumin 3.7 3.2-4.8 g/dL POC Glucose 78 70-106 mg/dl C-Reactive Protein High Sensitivity 0.70 <1.0 mg/dL Lipase 31 12-53 U/L Problems(with codes): (1) Hyperkalemia (2) Anemia (3) Hyponatremia (4) Osteomyelitis (5) Elevated lactic acid level (6) ESRD needing dialysis (7) Intractable abdominal pain (8) Acute hyperkalemia (9) Electrolyte imbalance (10) End stage renal disease on dialysis Plan/Recommendation ASSESSMENT: Patient is a 58 year old seen on the floor for a worsening ulcer with annita from a graft PLAN: - The patients chart was reviewed, clinical findings were discussed with the patient, the etiologies of the conditions were discussed in detail, and a treatment plan was agreed to at this time, with both oral and written instructions provided. - reviewed advanced imaging - discussed plan is to perform an incision and drainage and removal of graft - patient will be NPO at midnight - take him to the OR tomorrow - we will get cultures in the OR - can weightbear as tolerated in postoperative shoe All questions were answered and concerns addressed to the patient's satisfaction. The patient was given the phone number to the clinic and was told how to make contact with the clinic should any concerns or questions arise. Patient understands that if any questions or concerns arise prior to the next appointment, we should be contacted immediately. FOLLOW-UP: Continue to follow while inpatient Plan discussed with: Patient Date of Service: May 22, 2024 Billing Provider: BABAR CAMEJO DPM Common Visit Codes: CONSULT ONLY Consultation Codes: [id number] CONSULT <80MIN BABAR CAMEJO DPM May 22, 2024 13:13
[2024-05-22] MEDS: PANTOPRAZOLE 40 MG/10 ML VIAL INJ IV ONE (14:25)
[2024-05-22] MEDS: POLYETHYLENE GLYCOL 17 GM PWDR PO ONE (14:25)
[2024-05-22] MEDS: LACTULOSE 20Gm/30ML SOLN PO ONE (14:25)
[2024-05-22] MEDS: SODIUM ZIRCONIUM CYCL 10 GM PAK PO SCH (14:25)
--- NOTE | 2024-05-22 15:16 | DVH ---
EXAM: XY CHEST PORTABLE Indication: HTN Technique: Single frontal view of the chest was obtained Comparison: XY CHEST XRAY 1 VIEW on DOS: 04/16/24 FINDINGS: Lines and Tubes: None Lungs: No focal consolidation. Pleura: No effusion. No pneumothorax. Cardiomediastinal contours: Mild cardiomegaly. Bones: No acute osseous abnormality. IMPRESSION: No acute cardiopulmonary disease.
[2024-05-22] MEDS ORDERED: SODIUM CHL 0.9% 1000 ML BAG XX ONE (17:15)
--- NOTE | 2024-05-22 19:55 | DVHINCON2 ---
Date of service: May 22, [address] Blue Reason for Consultation ESRD and dialysis management History of Present Illness Hai Arredondo is a 58 y/o morbidly obese M with a Past Medical History pertinent for ESRD w/HD (M/W/F), DM w/neuropathy, Hyperlipidemia and Hypertension who presented to the hospital with complaint of nonradiating, epigastric abdominal pain, nausea, vomiting, diarrhea, and dizziness for the past 3x days. Denies any hematemesis, constipation, urinary symptoms, fever or chills. While in ED, CT Abdomen Pelvis reported no calcified gallstones; pancreas appears normal; no nephrolithiasis or hydronephrosis; no CT findings to suggest bowel obstruction; stool throughout the colon. Labs this morning are remarkable for elevated K 5.7. Na 127. Creatinine 8.88 with BUN of 56. Podiatry has also consulted for worsening ulcer with annita from a graft. Allergies: Coded Allergies: NO KNOWN ALLERGIES (Unverified , 04/15/24) Home Meds Active Scripts Apixaban Base (ELIQUIS) 2.5 Mg Tab, 2.5 MG PO BID for 14 Days, #28 TAB 0 Refills Prov:MANAS CRAFT RESIDENT 04/24/24 Nutritional Supplements (Josafat) [place] Pow, 1 PACK OR BID for 30 Days, #60 POW 0 Refills Prov:MANAS CRAFT RESIDENT 04/24/24 Amiodarone HCl (Amiodarone HCl) 200 Mg Tab, 200 MG PO Q12HR for 30 Days, #60 TAB Prov:MANAS CRAFT RESIDENT 04/24/24 Reported Medications Sodium Zirconium Cyclosilicate (Lokelma) 5 Gm Curly, 5 GM PO TIDWM, PACK 04/17/24 Insulin Glargine (Lantus) 100 Unit/Ml Inj, 20 UNIT SC BID, INJ 04/17/24 Allopurinol (Allopurinol) 100 Mg Tab, 100 MG PO DAILY, TAB 04/17/24 Glipizide (Glipizide) 10 Mg Tab, 10 MG PO DAILY for 30 Days, MG 04/17/24 Furosemide (Furosemide) 40 Mg Tab, 80 MG PO DAILY for 30 Days 04/17/24 Ferric Citrate (Auryxia) 210 Mg Tab, 210 MG PO DAILY, TAB 04/17/24 Ferrous Sulfate (Ferosul) 325 Mg Tab, 325 MG PO DAILY, TAB 04/17/24 Gabapentin (Gabapentin) 600 Mg Tab, 600 MG PO TID, TAB 04/17/24 Amlodipine Besylate (Amlodipine Besylate) 5 Mg Tab, 5 MG PO DAILY for 30 Days, MG 04/17/24 Metformin Hydrochloride (Metformin Hcl) 1,000 Mg Tab, 1 TAB PO BID, #180 TAB 3 Refills 04/17/24 Atorvastatin Calcium (ATORVASTATIN CALCIUM) 40 Mg Tab, 1 DAILY 04/16/24 Current Medications Current Medications Medications (Trade) Dose Ordered Sig/Samuel Route PRN Reason Start Time Stop Time Status Last Admin Amiodarone HCl (Cordarone Tablet) 200 mg Q12HR PO 05/21/24 22:00 05/22/24 09:32 Amlodipine Besylate (Norvasc Tablet) 5 mg DAILY PO 05/22/24 10:00 05/22/24 09:32 Apixaban (Eliquis) 2.5 mg BID PO 05/21/24 22:00 05/22/24 09:32 Furosemide (Lasix Tablet) 80 mg DAILY PO 05/22/24 10:00 05/22/24 09:32 Insulin Glargine (Lantus) 20 units BID SC 05/21/24 22:00 05/22/24 11:12 DC 05/22/24 09:30 Ferrous Sulfate 325 mg DAILY PO 05/22/24 10:00 05/22/24 09:32 Gabapentin (Neurontin Capsule) 600 mg TID PO 05/21/24 22:00 05/21/24 19:57 DC Diagnostic Test (Pha) (Accu-Chek Comfort Curve T) 1 strip ACHS 05/21/24 22:00 05/22/24 17:00 Insulin Human Regular (InsuLIN R) ACHS SC 05/21/24 22:00 05/21/24 23:41 Metronidazole 100 ml @ 100 mls/hr Q8HR IV 05/21/24 21:00 05/22/24 14:26 Sodium Chloride (Saline Lock Ns) 10 ml Q8HR IV 05/21/24 22:00 05/22/24 14:26 Atorvastatin Calcium (Lipitor) 40 mg HS PO 05/22/24 10:00 05/22/24 09:37 Gabapentin (Neurontin Capsule) 600 mg HS PO 05/21/24 22:00 05/21/24 23:40 Pantoprazole Sodium (Protonix) 40 mg DAILY IV 05/23/24 10:00 Zirconium Oxide (Lokelma) 10 gm TID PO 05/22/24 14:00 05/22/24 14:25 Family History: Diabetes mellitus G8 MOTHER, FH: thyroid disease G8 FATHER, Review of Systems 10 point review of systems reviewed and negative unless otherwise noted in HPI. H&P Exam Vital Signs/I&O Vital Sign Date Time Temp Pulse Resp B/P (MAP) Pulse Ox O2 Delivery O2 Flow Rate FiO2 05/22/24 16:44 97.3 54 18 131/54 (79) 100 97.3 05/22/24 08:00 Nasal Cannula* 2 28 Intake and Output 05/21/24 05/22/24 19:00 07:00 Intake Total 250 ml Balance 250 ml Intake Oral 0 ml IV Total 250 ml Physical Exam Vitals and nursing notes reviewed. Generally- In no acute distress. HEENT- Atraumatic, normocephalic Heart- RRR. S1/S2 Lungs- Clear to auscultate bilaterally Abdomen- Soft, tender epigastrium, nondistended Musculoskeletal- Right ankle wrapped in bandage. No gross deformities noted. Mild non-pitting edema present bilaterally Neuro- AOx3, no focal deficit Skin- Dry with mild erythema and some maceration around the wound site. Labs/Diagnostic Data Labs/Diagnostic Data Laboratory Tests Test 05/22/24 18:14 05/22/24 15:00 05/22/24 14:12 05/22/24 09:28 Range/Units POC Glucose 64 L 122 H 197 H 70-106 mg/dl Test 05/22/24 08:24 05/22/24 05:32 05/21/24 22:51 05/21/24 18:41 Range/Units White Blood Count 5.7 4.4-10.8 10^3/uL Red Blood Count 2.50 L 4.5-5.90 10^6/uL Hemoglobin 7.7 L 13.5-17.5 g/dL Hematocrit 23.8 L 41.0-53.0 % Mean Corpuscular Volume 95.0 80.0-100.0 fL Mean Corpuscular Hemoglobin 30.9 28.0-32.0 pg Mean Corpuscular Hemoglobin Concent 32.6 32.0-36.0 g/dL Red Cell Distribution Width 15.2 H 11.8-14.3 % Platelet Count 183 140-450 10^3/uL Mean Platelet Volume 7.7 6.9-10.8 fL Neutrophils (%) (Auto) 78.5 37.0-80.0 % Lymphocytes (%) (Auto) 11.6 10.0-50.0 % Monocytes (%) (Auto) 4.4 0.0-12.0 % Eosinophils (%) (Auto) 4.6 0.0-7.0 % Basophils (%) (Auto) 0.9 0.0-2.0 % Neutrophils # (Auto) 4.5 1.6-8.6 10 ^3/uL Lymphocytes # (Auto) 0.7 0.4-5.4 10 ^3/uL Monocytes # (Auto) 0.3 0-1.3 10 ^3/uL Eosinophils # (Auto) 0.3 0-0.8 10 ^3/uL Basophils # (Auto) 0 0-0.2 10 ^3/uL Nucleated Red Blood Cells 0.1 % Sodium Level 127 L 136-145 mmol/L Potassium Level 5.7 *H 3.5-5.1 mmol/L Chloride Level 89 L 98-107 mmol/L Carbon Dioxide Level 26 20-31 mmol/L Anion Gap 12 5-15 Blood Urea Nitrogen 56 #H 9-23 mg/dL Creatinine 8.88 H 0.700-1.30 mg/dL Glomerular Filtration Rate Calc 6 >90 mL/min BUN/Creatinine Ratio 6.3 L 10.0-20.0 Serum Glucose 81 74-106 mg/dL Calcium Level 7.9 L 8.7-10.4 mg/dL Total Bilirubin < 0.2 L 0.2-1.0 mg/dL Aspartate Amino Transferase (AST) < 8 L 13-40 U/L Alanine Aminotransferase (ALT) < 9 7-40 U/L Alkaline Phosphatase 73 46-116 U/L Total Protein 6.5 5.7-8.2 g/dL Albumin 3.7 3.2-4.8 g/dL POC Glucose 78 149 H 118 H 70-106 mg/dl Test 05/21/24 13:38 Range/Units White Blood Count 6.7 4.4-10.8 10^3/uL Red Blood Count 2.60 L 4.5-5.90 10^6/uL Hemoglobin 8.1 L 13.5-17.5 g/dL Hematocrit 25.2 L 41.0-53.0 % Mean Corpuscular Volume 97.0 80.0-100.0 fL Mean Corpuscular Hemoglobin 31.1 28.0-32.0 pg Mean Corpuscular Hemoglobin Concent 32.0 32.0-36.0 g/dL Red Cell Distribution Width 15.6 H 11.8-14.3 % Platelet Count 227 140-450 10^3/uL Mean Platelet Volume 7.1 6.9-10.8 fL Neutrophils (%) (Auto) 75.9 37.0-80.0 % Lymphocytes (%) (Auto) 15.8 10.0-50.0 % Monocytes (%) (Auto) 4.3 0.0-12.0 % Eosinophils (%) (Auto) 2.8 0.0-7.0 % Basophils (%) (Auto) 1.2 0.0-2.0 % Neutrophils # (Auto) 5.1 1.6-8.6 10 ^3/uL Lymphocytes # (Auto) 1.1 0.4-5.4 10 ^3/uL Monocytes # (Auto) 0.3 0-1.3 10 ^3/uL Eosinophils # (Auto) 0.2 0-0.8 10 ^3/uL Basophils # (Auto) 0.1 0-0.2 10 ^3/uL Nucleated Red Blood Cells 0.1 % Sodium Level 125 L 136-145 mmol/L Potassium Level 5.6 *H 3.5-5.1 mmol/L Chloride Level 88 L 98-107 mmol/L Carbon Dioxide Level 22 20-31 mmol/L Anion Gap 15 5-15 Blood Urea Nitrogen 40 H 9-23 mg/dL Creatinine 8.01 H 0.700-1.30 mg/dL Glomerular Filtration Rate Calc 7 >90 mL/min BUN/Creatinine Ratio 5.0 L 10.0-20.0 Serum Glucose 93 74-106 mg/dL Calcium Level 8.4 L 8.7-10.4 mg/dL Total Bilirubin < 0.2 L 0.2-1.0 mg/dL Aspartate Amino Transferase (AST) < 8 L 13-40 U/L Alanine Aminotransferase (ALT) < 9 7-40 U/L Alkaline Phosphatase 77 46-116 U/L C-Reactive Protein High Sensitivity 0.70 <1.0 mg/dL Total Protein 7.2 5.7-8.2 g/dL Albumin 4.0 3.2-4.8 g/dL Lipase 31 12-53 U/L Assessment Abdominal pain Bilateral foot ulcers s/p surgery ESRD on HD Hyperkalemia Hyponatremia Obesity A-Fib Anemia History Diabetes Plan/Recommendation Agreement with your ongoing assessment and plan of care. Podiatry consulted. Planned for OR tomorrow for incision and drainage and re moval of graft. NPO at midnight. Scheduled for dialysis today. UF 2-3L as tolerated. Epogen 20,000 u SC post dialysis. Lokelma 10 g PO TID. IV antibiotics with Gentamicin and Vancomycin. SSI. Pain management prn. DVT/GI prophylaxis. Additional plan as per the hospital course. Plan discussed with: Patient, Other (RN) OLEGARIO NSELL DO May 22, 2024 19:55
[2024-05-22] MEDS: GENTAMICIN SULFATE 80 MG in D5W 5% 100 ML IV ONE (20:59)
[2024-05-22] MEDS: VANCOMYCIN 1GM/200ML PM 200 ML IV ONE (20:59)
[2024-05-22] MEDS: EPOETIN ALFA-EPBX 10,000 UNIT/1ML VIAL SC ONE (21:00)
[2024-05-23] VITALS (7 sets, daily range): BP systolic 100–134; BP diastolic 33–68; PULSE 45–65; RESP 7–18; TEMP 97.6–98.2; O2SAT 92–97
[2024-05-23 07:11] LABS: Basophils # (auto) 0 10 ^3/uL (0-0.2); Basophils % (auto) 0.5 % (0.0-2.0); Eosinophils # (auto) 0.2 10 ^3/uL (0-0.8); Eosinophils % (auto) 4.7 % (0.0-7.0); Hematocrit 26.4 % (41.0-53.0); Hemoglobin 8.6 g/dL (13.5-17.5); Lymphocytes % (auto) 18.7 % (10.0-50.0); Mean Corpuscular Hemoglobin 30.4 pg (28.0-32.0); Mean Corpuscular Hgb Conc. 32.4 g/dL (32.0-36.0); Monocytes # (auto) 0.3 10 ^3/uL (0-1.3); Neutrophils # (auto) 3.6 10 ^3/uL (1.6-8.6); Neutrophils % (auto) 70.1 % (37.0-80.0); Nucleated Red Blood Cells % 0.2 %; Platelet Count (auto) 189 10^3/uL (140-450); Red Blood Cells 2.81 10^6/uL (4.5-5.90); Red Cell Distribution Width 15.9 % (11.8-14.3); White Blood Cell 5.1 10^3/uL (4.4-10.8)
[2024-05-23 07:20] LABS: INR 1.09 (0.9-1.15); Partial Thromboplastin Time 31.6 SEC (24.5-34.5); Prothrombin Time 11.5 sec (9.3-11.8)
[2024-05-23 07:28] LABS: Anion Gap 12 (5-15); Calcium 8.9 mg/dL (8.7-10.4); Carbon Dioxide 30 mmol/L (20-31); Potassium 3.8 mmol/L (3.5-5.1)
[2024-05-23 07:34] LABS: BUN/Creatinine Ratio 4.8 (10.0-20.0)
[2024-05-23 07:42] LABS: Blood Urea Nitrogen 27 mg/dL (9-23); Chloride 93 mmol/L (98-107); Sodium 135 mmol/L (136-145)
[2024-05-23 07:44] LABS: Glucose 36 mg/dL (74-106)
[2024-05-23] MEDS: DEXTROSE (50%) 50ML SYRG IV PRN (09:51)
--- NOTE | 2024-05-23 10:24 | DVHPN2 ---
Progress Note Date Seen: May 23, 2024 Medical Necessity Reason Pt with a Central, PICC or Fol: No Subjective Patient reports: No new complaints Review of Systems: HEENT:Normal, CVS:Normal, RESPIRATORY:Normal, GI:Normal, :Normal, MSK:Normal, NEURO:Normal Objective vital signs Vital Sign Date Time Temp Pulse Resp B/P (MAP) Pulse Ox O2 Delivery O2 Flow Rate FiO2 05/23/24 08:46 98.0 55 16 127/61 (83) 97 98.0 05/23/24 08:00 Nasal Cannula* 2 28 Total Intake and Output 05/22/24 05/22/24 05/23/24 15:00 23:00 07:00 Intake Total 50 ml 700 ml 600 ml Output Total 300 ml Balance 50 ml 400 ml 600 ml medications Current Medications Medications Dose Ordered Sig/Samuel Route Start Time Stop Time Status Last Admin Dose Admin Amiodarone HCl 200 mg Q12HR PO 05/21/24 22:00 05/22/24 20:59 200 MG Amlodipine Besylate 5 mg DAILY PO 05/22/24 10:00 05/22/24 09:32 5 MG Apixaban 2.5 mg BID PO 05/21/24 22:00 05/22/24 20:58 2.5 MG Furosemide 80 mg DAILY PO 05/22/24 10:00 05/22/24 09:32 80 MG Ferrous Sulfate 325 mg DAILY PO 05/22/24 10:00 05/22/24 09:32 325 MG Diagnostic Test (Pha) 1 strip ACHS 05/21/24 22:00 05/23/24 05:42 1 STRIP Insulin Human Regular ACHS SC 05/21/24 22:00 05/22/24 21:35 3 UNITS Dextrose 50 ml UD PRN IV 05/21/24 18:30 05/23/24 09:51 50 ML Ceftriaxone Sodium 50 ml @ 100 mls/hr DAILY IV 05/21/24 18:30 05/22/24 09:30 100 MLS/HR Metronidazole 100 ml @ 100 mls/hr Q8HR IV 05/21/24 21:00 05/23/24 05:25 100 MLS/HR Sodium Chloride 10 ml Q8HR IV 05/21/24 22:00 05/23/24 05:25 10 ML Docusate Sodium 100 mg BIDPRN PRN PO 05/21/24 18:30 Acetaminophen 650 mg Q6HP PRN PO 05/21/24 18:30 Acetaminophen/ Hydrocodone Bitart 1 tab Q4HP PRN PO 05/21/24 18:30 Ondansetron HCl 4 mg Q4HP PRN IV 05/21/24 18:30 Atorvastatin Calcium 40 mg HS PO 05/22/24 10:00 05/22/24 20:59 40 MG Gabapentin 600 mg HS PO 05/21/24 22:00 05/22/24 21:01 600 MG Pantoprazole Sodium 40 mg DAILY IV 05/23/24 10:00 Zirconium Oxide 10 gm TID PO 05/22/24 14:00 05/22/24 21:01 10 GM Examination: GENERAL:Normal, HEENT:Normal, NECK:Normal, LUNGS:Normal, CVS:Normal, ABDOMEN:Normal, MSK:Normal, MSK:Abnormal (bilateral foot ulcers), SKIN:Normal, NEURO:Normal, :Normal laboratory and microbiology Laboratory Tests 05/23/24 05:05 Test 05/23/24 05:05 Range/Units Serum Glucose 36 *L 74-106 mg/dL Microbiology Date/Time Source Procedure Growth Status 05/22/24 01:05 Nose MRSA Screen - Final Complete Problem List/Assessment/Plan Problem List/Assessment/Plan #1 abd pain ?fecal impaction: bowel regimen #2 dm: ssi #3 esrd: on dialysis #4 htn #5 bilateral foot ulcers s/p surg: repeat surgery today #6 hyperkalemia #7 hyponatremia #8 obesity #9 a fib: cont meds, stool occult blood- neg #10 anemia advance care planning- full code- time spent 19 mins Plan discussed with: Patient My Orders My Orders Orders - ZURI PRESLEY MD Procedure Category Date Status Time *Podiatry Consult CONS 05/22/24 Transmitted Musson(Dvmg) 11:04 Pantoprazole PHA 05/23/24 In Process (Protonix) 10:00 Weatherization Technician ORDERS 05/22/24 Transmitted 11:04 Sodium Zirconium PHA 05/22/24 In Process Cyclosilicate 14:00 Chest Portable XY 05/22/24 Resulted 11:04 Date of Service: May 23, 2024 Billing Provider: ZURI PRESLEY MD Common Visit Codes: [id number] INP/OBS CARE(HIGH) ZURI PRESLEY MD May 23, 2024 10:24
[2024-05-23] MEDS: PANTOPRAZOLE 40 MG/10 ML VIAL INJ IV SCH (10:46)
--- NOTE | 2024-05-23 11:04 | DVHPN2 ---
Subjective 58 y/o morbidly obese M, with a history of ESRD w/HD (M/W/F), DM w/neuropathy, HLD, and HTN, presents with c/o nonradiating, epigastric abdominal pain, nausea, vomiting, diarrhea, and dizziness for the past 3x days, today. Patient is a poor historian and reports on progressively worsening symptoms following initial onset. He rates pain a 10/10 in severity and having a remote history of symptoms in the past. Patient denies any hematemesis, constipation, urinary symptoms, fever, chills, or other associated symptoms or modifiers at this time. Changes from previous H/P or p: No Changes Objective Vitals Vital Signs Date Time Temp Pulse Resp B/P (MAP) Pulse Ox O2 Delivery O2 Flow Rate FiO2 05/23/24 10:45 127/61 05/23/24 08:46 98.0 55 16 97 98.0 05/23/24 08:00 Nasal Cannula* 2 28 Intake/Output Intake and Output 05/23/24 07:00 Intake Total 1350 ml Output Total 300 ml Balance 1050 ml Intake Oral 900 ml IV Total 450 ml Output Urine Total 300 ml # Bowel Movements 3 Exam Dermatological: Skin is dry with mild erythema and some maceration around the wound site No gross deformities noted Mild non-pitting edema present bilaterally Wound: Location: Left plantar foot Measures: 2 cm in length, 1.5 cm in width, and 0.5 cm in depth. Depth: Full thickness Base: Slough Drainage: None Odor: None Periwound: Intact Vascular: Dorsalis pedis and posterior tibial pulses are 1+ bilaterally Capillary refill is under 2 seconds Skin temperature is warm bilaterally Neurologic: Protective sensation is absent on the plantar forefoot bilaterally Monofilament testing reveals decreased sensation in multiple plantar sites Musculoskeletal: Range of motion at the ankle and MTP joints is within normal limits. Strength is 5/5 in all tested muscle groups. Gait is antalgic due to offloading of the affected limb. Medications Current Medications Medications Dose Ordered Sig/Samuel Route Start Time Stop Time Status Last Admin Dose Admin Amiodarone HCl 200 mg Q12HR PO 05/21/24 22:00 05/23/24 10:45 200 MG Amlodipine Besylate 5 mg DAILY PO 05/22/24 10:00 05/23/24 10:45 5 MG Apixaban 2.5 mg BID PO 05/21/24 22:00 05/22/24 20:58 2.5 MG Furosemide 80 mg DAILY PO 05/22/24 10:00 05/23/24 10:45 80 MG Ferrous Sulfate 325 mg DAILY PO 05/22/24 10:00 05/23/24 10:45 325 MG Diagnostic Test (Pha) 1 strip ACHS 05/21/24 22:00 05/23/24 05:42 1 STRIP Insulin Human Regular ACHS SC 05/21/24 22:00 05/22/24 21:35 3 UNITS Dextrose 50 ml UD PRN IV 05/21/24 18:30 05/23/24 09:51 50 ML Ceftriaxone Sodium 50 ml @ 100 mls/hr DAILY IV 05/21/24 18:30 05/23/24 10:46 100 MLS/HR Metronidazole 100 ml @ 100 mls/hr Q8HR IV 05/21/24 21:00 05/23/24 05:25 100 MLS/HR Sodium Chloride 10 ml Q8HR IV 05/21/24 22:00 05/23/24 05:25 10 ML Docusate Sodium 100 mg BIDPRN PRN PO 05/21/24 18:30 Acetaminophen 650 mg Q6HP PRN PO 05/21/24 18:30 Acetaminophen/ Hydrocodone Bitart 1 tab Q4HP PRN PO 05/21/24 18:30 Ondansetron HCl 4 mg Q4HP PRN IV 05/21/24 18:30 Atorvastatin Calcium 40 mg HS PO 05/22/24 10:00 05/22/24 20:59 40 MG Gabapentin 600 mg HS PO 05/21/24 22:00 05/22/24 21:01 600 MG Pantoprazole Sodium 40 mg DAILY IV 05/23/24 10:00 05/23/24 10:46 40 MG Zirconium Oxide 10 gm TID PO 05/22/24 14:00 05/22/24 21:01 10 GM Laboratory Results Laboratory Tests 05/23/24 05:05 Chemistry Test 05/23/24 05:05 Calcium Level 8.9 mg/dL (8.7-10.4) Coagulation Test 05/23/24 05:05 Prothrombin Time 11.5 sec (9.3-11.8) Prothrombin Time INR 1.09 (0.9-1.15) Activated Partial Thromboplast Time 31.6 SEC (24.5-34.5) Microbiology Microbiology Date/Time Source Procedure Growth Status 05/22/24 01:05 Nose MRSA Screen - Final Complete Assessment/Plan Assessment/Plan ASSESSMENT: Patient is a 58 year old seen on the floor for a worsening ulcer with annita from a graft PLAN: - The patients chart was reviewed, clinical findings were discussed with the patient, the etiologies of the conditions were discussed in detail, and a treatment plan was agreed to at this time, with both oral and written instructions provided. - reviewed advanced imaging - discussed plan is to perform an incision and drainage and removal of graft - patient has been NPO since midnight - take him to the OR today - we will get deep cultures today - can weightbear as tolerated in postoperative shoe All questions were answered and concerns addressed to the patient's satisfaction. The patient was given the phone number to the clinic and was told how to make contact with the clinic should any concerns or questions arise. Patient understands that if any questions or concerns arise prior to the next appointment, we should be contacted immediately. FOLLOW-UP: Continue to follow while inpatient Plan discussed with: Patient My Orders Orders - BABAR CAMEJO DPM Procedure Category Date Status Time Npo After Midnight ORDERS 05/22/24 Transmitted Npo (Nothing By DIET 05/23/24 Transmitted Mouth) Diet Breakfast Obtain Consent For: ORDERS 05/22/24 Transmitted 13:13 Problem List: (1) ESRD needing dialysis (2) Intractable abdominal pain (3) Acute hyperkalemia (4) Electrolyte imbalance (5) End stage renal disease on dialysis (6) Hyperkalemia (7) Anemia (8) Hyponatremia (9) Osteomyelitis (10) Elevated lactic acid level Date of Service: May 23, 2024 Billing Provider: BABAR CAMEJO DPM Common Visit Codes: [id number] INP/OBS CARE(HIGH) BABAR CAMEJO DPM May 23, 2024 11:04
--- NOTE | 2024-05-23 11:36 | DVHOP2 ---
Operative Report - 2 Report Details Date: 05/23/24 Preop Diagnosis: 1. Left foot abscess 2. Left foot cellulitis 3. Left foot diabetic foot ulcer Postop Diagnosis: Same as preop Surgeon: Babar Camejo MD Anesthesiologist: See anesthesia Anesthesia: Mac Consent: The patient was informed of the risks and benefits of the procedure. These include but are not limited to complications of anesthesia, postoperative infection, incomplete relief of symptoms, recurrence of symptoms, damage to blood vessels, nerves and tendons, deep venous thrombosis, pulmonary embolism and possible need for repeat surgery in the future. Complications: None Estimated Blood Loss: Minimal Fluids: See anesthesia Findings: Consistent with the diagnosis Indications for Surgery: Worsening left foot wound Name of Procedure Performed 1. Left foot I&D to bone (45350) Procedure Details Procedure Details: PRE-PROCEDURE INFORMATION: In the pre-op holding area, the extremity to be operated on was clearly marked and the patient verified correct laterality of the marking. The patient was transferred to the OR table and placed in a supine position. A timeout was performed in which identification of the correct patient, procedure, location, and materials was done. The left foot and leg were prepped and draped in normal sterile fashion. DESCRIPTION OF PROCEDURE: Attention was directed to the left where area of fluctuance was noted. An incision was made over this area and was deepened through blunt dissection. The incision was deepened to the level of abscess and bone. Care was taken to the dissection to avoid any neurovascular and tendinous structures. The incision was deepened to the bone, and the abscess appeared to be purulent fluid consistent with pus. The cortices of the bone was then removed with rongeur an all necrotic tissue. After the abscess was drained, the area was irrigated with 3 L normal saline using cysto tubing. Deep cultures were then obtained from the wound. The area was then inspected and any areas of tracking, especially along the tendons were also drained. The wound was dressed with a Betadine Betadine-soaked gauze. POSTOPERATIVE INFORMATION: The patient tolerated the above noted procedure and anesthesia well and was transferred to the PACU with vital signs stable, and vascular status intact with capillary refill intact to all digits. Patient can return to the floor and continue antibiotics. Deep cultures were taken. Patient will need local wound care and can be discharged once deemed medically stable. Patient can follow up me in 1 week. Condition Good Disposition Still a Patient BABAR CAMEJO DPM May 23, 2024 11:35
[2024-05-23] MEDS ORDERED: DexAMETHasone SOD PHOS 10MG/1ML VIAL INJ ONE (12:27)
[2024-05-23] MEDS ORDERED: ONDANSETRON HCL 4 MG/2 ML VIAL ONE (12:27)
[2024-05-23] MEDS ORDERED: GLYCOPYRROLATE 0.2 MG/ML 1ML VIAL ONE (12:27)
[2024-05-23] MEDS ORDERED: PROPOFOL 10 MG/ML 20 ML IV ONE (12:27)
[2024-05-23] MEDS ORDERED: LIDOCAINE 2% (LOCAL ANESTH.) PF 5ml SDV ONE (12:27)
[2024-05-23] MEDS: BUPIVACAINE 0.5% MPF INJ 30ML SDV IJ ONE (12:41)
[2024-05-23] MEDS ORDERED: LIDOCAINE HCL 2% TOP JELLY 5ML TOP ONE (12:41)
[2024-05-23] MEDS ORDERED: HYDROmorphone HCL 2 MG/ML VL/or syr IV PRN (13:00)
[2024-05-23] MEDS ORDERED: NALOXONE HCL 0.4 MG/ML VIAL IV PRN (13:00)
[2024-05-23] MEDS ORDERED: FLUMAZENIL 0.1 MG/ML INJ 10ML MDV IV PRN (13:00)
[2024-05-23] MEDS ORDERED: hydrALAZINE HCL 20 MG/ML VL IV PRN (13:00)
[2024-05-23] MEDS ORDERED: fentaNYL CITRATE 100 MCG/2 ML VL IV PRN (13:00)
[2024-05-23] MEDS ORDERED: ONDANSETRON HCL 4 MG/2 ML VIAL IV PRN (13:00)
[2024-05-23] MEDS ORDERED: ePHEDrine SULFATE 50 MG/ML AMP IV PRN (13:00)
--- NOTE | 2024-05-23 20:05 | DVHPN2 ---
Progress Note - Dictate Date Seen: May 23, 2024 Medical Necessity Reason Pt with a Central, PICC or Fol: No Subjective Patient was seen and evaluated in follow up. No acute events overnight. Patient denies any new complaints. Planned for incision and drainage and removal of graft today. Remains NPO. vital signs Vital Sign Date Time Temp Pulse Resp B/P (MAP) Pulse Ox O2 Delivery O2 Flow Rate FiO2 05/23/24 16:44 98.2 55 16 126/51 (76) 94 98.2 05/23/24 12:48 Mask 8.0 05/23/24 08:00 28 Total Intake and Output 05/22/24 05/22/24 05/23/24 15:00 23:00 07:00 Intake Total 50 ml 700 ml 600 ml Output Total 300 ml Balance 50 ml 400 ml 600 ml medications Current Medications Medications Dose Ordered Sig/Samuel Route Start Time Stop Time Status Last Admin Dose Admin Amiodarone HCl 200 mg Q12HR PO 05/21/24 22:00 05/23/24 10:45 200 MG Amlodipine Besylate 5 mg DAILY PO 05/22/24 10:00 05/23/24 10:45 5 MG Apixaban 2.5 mg BID PO 05/21/24 22:00 05/22/24 20:58 2.5 MG Furosemide 80 mg DAILY PO 05/22/24 10:00 05/23/24 10:45 80 MG Ferrous Sulfate 325 mg DAILY PO 05/22/24 10:00 05/23/24 10:45 325 MG Diagnostic Test (Pha) 1 strip ACHS 05/21/24 22:00 05/23/24 16:46 1 STRIP Insulin Human Regular ACHS SC 05/21/24 22:00 05/22/24 21:35 3 UNITS Dextrose 50 ml UD PRN IV 05/21/24 18:30 05/23/24 09:51 50 ML Ceftriaxone Sodium 50 ml @ 100 mls/hr DAILY IV 05/21/24 18:30 05/23/24 10:46 100 MLS/HR Metronidazole 100 ml @ 100 mls/hr Q8HR IV 05/21/24 21:00 05/23/24 15:04 100 MLS/HR Sodium Chloride 10 ml Q8HR IV 05/21/24 22:00 05/23/24 14:00 10 ML Docusate Sodium 100 mg BIDPRN PRN PO 05/21/24 18:30 Acetaminophen 650 mg Q6HP PRN PO 05/21/24 18:30 Acetaminophen/ Hydrocodone Bitart 1 tab Q4HP PRN PO 05/21/24 18:30 Ondansetron HCl 4 mg Q4HP PRN IV 05/21/24 18:30 Atorvastatin Calcium 40 mg HS PO 05/22/24 10:00 05/22/24 20:59 40 MG Gabapentin 600 mg HS PO 05/21/24 22:00 05/22/24 21:01 600 MG Pantoprazole Sodium 40 mg DAILY IV 05/23/24 10:00 05/23/24 10:46 40 MG Zirconium Oxide 10 gm TID PO 05/22/24 14:00 05/23/24 15:04 10 GM objective Vitals and nursing notes reviewed. Generally- In no acute distress. HEENT- Atraumatic, normocephalic Heart- RRR. S1/S2 Lungs- Clear to auscultate bilaterally Abdomen- Soft, tender epigastrium, nondistended Musculoskeletal- Right ankle wrapped in bandage. No gross deformities noted. Mild non-pitting edema present bilaterally Neuro- AOx3, no focal deficit Skin- Dry with mild erythema and some maceration around the wound site. laboratory and microbiology Laboratory Tests 05/23/24 05:05 Test 05/23/24 05:05 Range/Units Serum Glucose 36 *L 74-106 mg/dL Problem List Abdominal pain Bilateral foot ulcers s/p surgery ESRD on HD Hyperkalemia Hyponatremia Obesity A-Fib Anemia History Diabetes Assessment/Plan Agree with current supportive medical care. OR today. Next dialysis 05/24. Lokelma 10 g PO TID. IV antibiotics with Gentamicin and Vancomycin. SSI. Pain management prn. Additional plan as per the hospital course. Plan discussed with: Patient, Other (RN) OLEGARIO SNELL DO May 23, 2024 20:05
[2024-05-23] MEDS: ONDANSETRON HCL 4 MG/2 ML VIAL IV PRN (21:26)
[2024-05-24] VITALS (9 sets, daily range): BP systolic 102–155; BP diastolic 50–66; PULSE 58–104; RESP 16–19; TEMP 37.2; O2SAT 90–100
[2024-05-24 08:04] LABS: Basophils # (auto) 0 10 ^3/uL (0-0.2); Basophils % (auto) 0.1 % (0.0-2.0); Eosinophils # (auto) 0 10 ^3/uL (0-0.8); Hemoglobin 8.3 g/dL (13.5-17.5); Lymphocytes # (auto) 0.4 10 ^3/uL (0.4-5.4); Mean Corpuscular Hemoglobin 31.1 pg (28.0-32.0); Monocytes # (auto) 0.1 10 ^3/uL (0-1.3); Monocytes % (auto) 1.7 % (0.0-12.0); Nucleated Red Blood Cells % 0.1 %; Red Blood Cells 2.67 10^6/uL (4.5-5.90); Red Cell Distribution Width 16.1 % (11.8-14.3); White Blood Cell 4.2 10^3/uL (4.4-10.8)
[2024-05-24 08:07] LABS: Mean Corpuscular Hgb Conc. 31.9 g/dL (32.0-36.0); Mean Corpuscular Volume 97.5 fL (80.0-100.0); Neutrophils # (auto) 3.8 10 ^3/uL (1.6-8.6); Neutrophils % (auto) 89.2 % (37.0-80.0); Platelet Count (auto) 157 10^3/uL (140-450)
[2024-05-24 08:17] LABS: Anion Gap 14 (5-15); Calcium 8.8 mg/dL (8.7-10.4); Carbon Dioxide 26 mmol/L (20-31); Potassium 5.1 mmol/L (3.5-5.1)
[2024-05-24 08:20] LABS: Chloride 91 mmol/L (98-107); Sodium 131 mmol/L (136-145)
[2024-05-24 08:23] LABS: BUN/Creatinine Ratio 5.7 (10.0-20.0)
[2024-05-24 08:25] LABS: Blood Urea Nitrogen 39 mg/dL (9-23); Glucose 257 mg/dL (74-106)
--- NOTE | 2024-05-24 13:35 | DVHDS2 ---
Discharge Summary Date of Admission May 21, 2024 at 18:25 Date of Discharge: May 24, 2024 Labs/Diagnostic Data: Laboratory Results Test 05/24/24 11:11 05/24/24 06:30 05/23/24 05:05 05/22/24 15:00 POC Glucose 246 mg/dl (70-106) White Blood Count 4.2 10^3/uL (4.4-10.8) Red Blood Count 2.67 10^6/uL (4.5-5.90) Hemoglobin 8.3 g/dL (13.5-17.5) Hematocrit 26.0 % (41.0-53.0) Mean Corpuscular Volume 97.5 fL (80.0-100.0) Mean Corpuscular Hemoglobin 31.1 pg (28.0-32.0) Mean Corpuscular Hemoglobin Concent 31.9 g/dL (32.0-36.0) Red Cell Distribution Width 16.1 % (11.8-14.3) Platelet Count 157 10^3/uL (140-450) Mean Platelet Volume 7.4 fL (6.9-10.8) Neutrophils (%) (Auto) 89.2 % (37.0-80.0) Lymphocytes (%) (Auto) 9.0 % (10.0-50.0) Monocytes (%) (Auto) 1.7 % (0.0-12.0) Eosinophils (%) (Auto) 0.0 % (0.0-7.0) Basophils (%) (Auto) 0.1 % (0.0-2.0) Neutrophils # (Auto) 3.8 10 ^3/uL (1.6-8.6) Lymphocytes # (Auto) 0.4 10 ^3/uL (0.4-5.4) Monocytes # (Auto) 0.1 10 ^3/uL (0-1.3) Eosinophils # (Auto) 0 10 ^3/uL (0-0.8) Basophils # (Auto) 0 10 ^3/uL (0-0.2) Nucleated Red Blood Cells 0.1 % Sodium Level 131 mmol/L (136-145) Potassium Level 5.1 mmol/L (3.5-5.1) Chloride Level 91 mmol/L (98-107) Carbon Dioxide Level 26 mmol/L (20-31) Anion Gap 14 (5-15) Blood Urea Nitrogen 39 mg/dL (9-23) Creatinine 6.88 mg/dL (0.700-1.30) Glomerular Filtration Rate Calc 9 mL/min (>90) BUN/Creatinine Ratio 5.7 (10.0-20.0) Serum Glucose 257 mg/dL (74-106) Calcium Level 8.8 mg/dL (8.7-10.4) Prothrombin Time 11.5 sec (9.3-11.8) Prothrombin Time INR 1.09 (0.9-1.15) Activated Partial Thromboplast Time 31.6 SEC (24.5-34.5) Stool Occult Blood Negative (Negative) Stool Occult Blood Sample #3 (Negative) Test 05/22/24 08:24 05/21/24 13:38 Total Bilirubin < 0.2 mg/dL (0.2-1.0) Aspartate Amino Transferase (AST) < 8 U/L (13-40) Alanine Aminotransferase (ALT) < 9 U/L (7-40) Alkaline Phosphatase 73 U/L (46-116) Total Protein 6.5 g/dL (5.7-8.2) Albumin 3.7 g/dL (3.2-4.8) Hepatitis B Surface Antigen Negative (Negative) C-Reactive Protein High Sensitivity 0.70 mg/dL (<1.0) Lipase 31 U/L (12-53) Other Laboratory Tests 05/24/24 06:30 Brief Hx & Hospital Course: see dictated note Condition at Discharge: Fair Final Diagnosis/Problems List abd pain Discharge Disposition: Home with Health Services Discharge Instruct/Medications Diet: Renal Activity: No Restrictions, As Tolerated Follow Up/Referral: fu with pcp/dialysis clinic/podiatry Medications: resume home meds script to pharmacy dc home after dialysis Discharge Statement: "Patient was advised to return to the ER or call 911 if any headaches, dizziness, shortness of breath, chest pain, abdominal pain, bleeding, fevers, or worsening of medical condition. Patient was counseled about treatment plan, medications, possible side effects, patientverbalized understanding. All questions were answered to the best of my ability. This discharge took greater then 30 minutes in planning, reviewing documentation, counseling the patient, and discussing with other team members." ASSESSMENT ASSESSMENT Assessment abd pain Date of Service: May 24, 2024 Billing Provider: ZURI PRESLEY MD Common Visit Codes: [id number] DISCH DAY >30min ZURI PRESLEY MD May 24, 2024 13:35
[2024-05-24] MEDS ORDERED: CEPH500T PO (13:40)
[2024-05-24] MEDS ORDERED: PANT40TA2 PO (13:40)
[2024-05-24] MEDS ORDERED: LACT10SO3 PO (13:40)
--- NOTE | 2024-05-24 14:01 | DVHDS ---
DATE OF DISCHARGE: 05/24/2024 HISTORY OF PRESENT ILLNESS: The patient is a 58-year-old gentleman who is admitted with complaints of abdominal pain, nausea, vomiting, and dizziness. He has a history of end-stage renal disease on hemodialysis, diabetes, hypertension, hyperlipidemia and bilateral lower extremity ulcers. HOSPITAL COURSE: The patient had a gallbladder ultrasound that was negative for acute cholecystitis. The patient had a CT of abdomen and pelvis that showed evidence of stool throughout the colon. The patient was seen in Nephrology consult by Dr. Daniel Taylor. He was seen in Podiatry consult by Dr. Henriquez and underwent drainage of left lower extremity abscess. The patient will now be discharged home after dialysis to resume his home medications as well as to be on Keflex 500 mg t.i.d. for 10 days along with Protonix 40 mg daily and lactulose p.r.n. for constipation. He will follow up with his primary podiatry and the Dialysis Clinic. The patient had a stool for occult blood that was negative for blood. FINAL DIAGNOSES: * Abdominal pain with likely fecal impaction. * Diabetes mellitus. * End-stage renal disease, on hemodialysis. * Hypertension. * Left foot abscess, status post drainage. * Hypokalemia. * Hyponatremia. * Obesity. * Atrial fibrillation with secondary hypercoagulable state. * Anemia. Time spent in discharge planning and review of plan with the patient and nursing was 39 minutes. MD CHING Carter/BOBBY/SUZANNE TID: [id number] RECEIPT: [id number]
[2024-05-24] MEDS ORDERED: SODIUM CHL 0.9% 1000 ML BAG XX ONE (14:30)
--- NOTE | 2024-05-24 20:11 | DVHPN2 ---
Progress Note - Dictate Date Seen: May 24, 2024 Medical Necessity Reason Pt with a Central, PICC or Fol: No Subjective Patient was seen and evaluated in follow up. No acute events overnight. Patient underwent left foot I&D to bone, tolerated well. No complaints. Scheduled for dialysis today with planned discharge afterwards. vital signs Vital Sign Date Time Temp Pulse Resp B/P (MAP) Pulse Ox O2 Delivery O2 Flow Rate FiO2 05/24/24 17:50 37.2 05/24/24 17:23 104 19 102/63 (76) 99 05/24/24 08:00 Nasal Cannula* 2 28 Total Intake and Output 05/23/24 05/23/24 05/24/24 15:00 23:00 07:00 Intake Total 100 ml 1100 ml 580 ml Balance 100 ml 1100 ml 580 ml medications Current Medications Medications Dose Ordered Sig/Samuel Route Start Time Stop Time Status Last Admin Dose Admin Amiodarone HCl 200 mg Q12HR PO 05/21/24 22:00 05/24/24 10:52 200 MG Amlodipine Besylate 5 mg DAILY PO 05/22/24 10:00 05/24/24 10:51 5 MG Apixaban 2.5 mg BID PO 05/21/24 22:00 05/24/24 10:52 2.5 MG Ferrous Sulfate 325 mg DAILY PO 05/22/24 10:00 05/24/24 10:51 325 MG Diagnostic Test (Pha) 1 strip ACHS 05/21/24 22:00 05/24/24 18:21 1 STRIP Insulin Human Regular ACHS SC 05/21/24 22:00 05/24/24 18:22 2 UNITS Dextrose 50 ml UD PRN IV 05/21/24 18:30 05/23/24 09:51 50 ML Sodium Chloride 10 ml Q8HR IV 05/21/24 22:00 05/24/24 05:44 10 ML Docusate Sodium 100 mg BIDPRN PRN PO 05/21/24 18:30 Acetaminophen 650 mg Q6HP PRN PO 05/21/24 18:30 Acetaminophen/ Hydrocodone Bitart 1 tab Q4HP PRN PO 05/21/24 18:30 Ondansetron HCl 4 mg Q4HP PRN IV 05/21/24 18:30 05/23/24 21:26 4 MG Atorvastatin Calcium 40 mg HS PO 05/22/24 10:00 05/23/24 21:22 40 MG Gabapentin 600 mg HS PO 05/21/24 22:00 05/23/24 21:22 600 MG Pantoprazole Sodium 40 mg DAILY IV 05/23/24 10:00 05/24/24 10:48 40 MG Zirconium Oxide 10 gm TID PO 05/22/24 14:00 05/24/24 05:44 10 GM objective Vitals and nursing notes reviewed. Generally- In no acute distress. HEENT- Atraumatic, normocephalic Heart- RRR. S1/S2 Lungs- Clear to auscultate bilaterally Abdomen- Soft, tender epigastrium, nondistended Musculoskeletal- Right ankle wrapped in bandage. No gross deformities noted. Neuro- AOx3, no focal deficit Skin- Warm and dry. laboratory and microbiology Laboratory Tests 05/24/24 06:30 Test 05/24/24 06:30 Range/Units Serum Glucose 257 #H 74-106 mg/dL Problem List Abdominal pain Bilateral foot ulcers s/p surgery ESRD on HD Hyperkalemia Hyponatremia Obesity A-Fib Anemia History Diabetes Assessment/Plan DC planning in progress. HD today- UF 2-3L as tolerated. Resume outpatient dialysis with [facility]. Cleared for discharge from Nephrology standpoint. Plan discussed with: Patient, Other (RN) OLEGARIO SNELL DO May 24, 2024 20:11
[2024-05-24] MEDS: EPOETIN ALFA-EPBX 10,000 UNIT/1ML VIAL SC ONE (21:53)
[2024-05-25 01:00] VITALS: BP 126/40; PULSE 67; RESP 19; TEMP 97.6; O2SAT 91
[2024-05-25 05:00] VITALS: BP 126/50; PULSE 59; RESP 18; TEMP 98; O2SAT 92
[2024-05-25 08:41] VITALS: BP 96/51; PULSE 60; RESP 20; TEMP 98.1; O2SAT 95
--- NOTE | 2024-05-25 12:41 | DVHPN2 ---
Changes from previous H/P or p: No Changes Objective Vitals Vital Signs Date Time Temp Pulse Resp B/P (MAP) Pulse Ox O2 Delivery O2 Flow Rate FiO2 05/25/24 09:33 96/51 05/25/24 08:41 98.1 60 20 95 98.1 05/25/24 08:00 Room Air* 0 21 Intake/Output Intake and Output 05/25/24 07:00 Intake Total 1300 ml Output Total 400 ml Balance 900 ml Intake Oral 1300 ml Output Urine Total 400 ml # Voids 2 Medications Current Medications Medications Dose Ordered Sig/Samuel Route Start Time Stop Time Status Last Admin Dose Admin Amiodarone HCl 200 mg Q12HR PO 05/21/24 22:00 05/25/24 09:33 200 MG Amlodipine Besylate 5 mg DAILY PO 05/22/24 10:00 05/25/24 09:33 5 MG Apixaban 2.5 mg BID PO 05/21/24 22:00 05/25/24 09:33 2.5 MG Ferrous Sulfate 325 mg DAILY PO 05/22/24 10:00 05/25/24 09:32 325 MG Diagnostic Test (Pha) 1 strip ACHS 05/21/24 22:00 05/25/24 06:13 1 STRIP Insulin Human Regular ACHS SC 05/21/24 22:00 05/25/24 06:16 2 UNITS Dextrose 50 ml UD PRN IV 05/21/24 18:30 05/23/24 09:51 50 ML Sodium Chloride 10 ml Q8HR IV 05/21/24 22:00 05/25/24 06:13 10 ML Docusate Sodium 100 mg BIDPRN PRN PO 05/21/24 18:30 Acetaminophen 650 mg Q6HP PRN PO 05/21/24 18:30 Acetaminophen/ Hydrocodone Bitart 1 tab Q4HP PRN PO 05/21/24 18:30 Ondansetron HCl 4 mg Q4HP PRN IV 05/21/24 18:30 05/23/24 21:26 4 MG Atorvastatin Calcium 40 mg HS PO 05/22/24 10:00 05/24/24 21:39 40 MG Gabapentin 600 mg HS PO 05/21/24 22:00 05/24/24 21:39 600 MG Pantoprazole Sodium 40 mg DAILY IV 05/23/24 10:00 05/24/24 10:48 40 MG Zirconium Oxide 10 gm TID PO 05/22/24 14:00 05/25/24 06:08 10 GM Laboratory Results Laboratory Tests 05/24/24 06:30 Microbiology Microbiology Date/Time Source Procedure Growth Status 05/23/24 12:42 Foot Left Gram Stain - Final Resulted 05/23/24 12:42 Foot Left Anaerobic Culture - Preliminary Resulted 05/23/24 12:42 Foot Left Aerobic Culture - Preliminary Resulted Labs and/or images reviewed: Labs reviewed by me, Image(s) reviewed by me Assessment/Plan Assessment/Plan Covering For Dr. Hammer #1 abd pain ?fecal impaction: bowel regimen #2 dm: ssi #3 esrd: on dialysis Dr.S Taylor follow up #4 htn #5 bilateral foot ulcers s/p surg: Status post I&D to the bone by oil house attendant #6 hyperkalemia #7 hyponatremia #8 obesity #9 a fib: cont meds, stool occult blood- neg #10 anemia Continue current meds / management Plan discussed with: Patient Date of Service: May 25, 2024 Billing Provider: ZOIE ESCOBEDO MD Common Visit Codes: [id number] INP/OBS CARE(HIGH) ZOIE ESCOBEDO MD May 25, 2024 12:41
== END 2024-05-25 09:50 | disposition home health service (06) | DRG 388 ==
LOC: ER 13:06 → OVERFLOW 18:25 → CENTRAL 23:55
PROVIDERS: ADMIT Family Medicine; ATTEND Family Medicine
PROC: 5A1D70Z Performance of Urinary Filtration, Intermittent, Less than 6 Hours Per Day (ICD-10-PCS; 2024-05-22)
PROC: 0Y9N0ZZ Drainage of Left Foot, Open Approach (ICD-10-PCS; principal; 2024-05-23 12:29)
PROC: 5A1D70Z Performance of Urinary Filtration, Intermittent, Less than 6 Hours Per Day (ICD-10-PCS; 2024-05-24)
DX: K56.41 Fecal impaction (principal); N18.6 End stage renal disease; E87.1 Hypo-osmolality and hyponatremia; I12.0 Hypertensive chronic kidney disease with stage 5 chronic kidney disease or end stage renal disease; L02.416 Cutaneous abscess of left lower limb; L02.612 Cutaneous abscess of left foot; D68.69 Other thrombophilia; L03.116 Cellulitis of left lower limb; E87.5 Hyperkalemia; E11.621 Type 2 diabetes mellitus with foot ulcer; L97.529 Non-pressure chronic ulcer of other part of left foot with unspecified severity; L97.519 Non-pressure chronic ulcer of other part of right foot with unspecified severity; I48.91 Unspecified atrial fibrillation; E78.5 Hyperlipidemia, unspecified; D64.9 Anemia, unspecified; E11.22 Type 2 diabetes mellitus with diabetic chronic kidney disease; E66.01 Morbid (severe) obesity due to excess calories; E87.6 Hypokalemia; Z99.2 Dependence on renal dialysis; Z79.01 Long term (current) use of anticoagulants; Z79.4 Long term (current) use of insulin; Z79.899 Other long term (current) drug therapy; Z83.3 Family history of diabetes mellitus; Z79.84 Long term (current) use of oral hypoglycemic drugs; Z68.34 Body mass index [BMI] 34.0-34.9, adult
CPT/HCPCS: 36415; 71045; 74176; 76705; 80048; 80053; 82270; 82962; 83690; 85025; 85610; 85730; 86141; 86850; 86900; 86901; 87070; 87075; 87077; 87081; 87186; 87205; 87340; 90935; 93005; 99291; G0378; J1100; J1815; J2003; J2405; J2470; J2704; J3490; J7060

== ENCOUNTER 2024-06-19 13:59 | Inpatient (IN) | payer MEDICARE, MEDICAID ==
[~2024-06-19] VITALS: Ht 152.4 cm; Wt 84.0 kg
[~2024-06-19 13:59] MED LIST changes: +CEPH500T PO; +LACT10SO3 PO; +PANT40TA2 PO
--- NOTE | 2024-06-19 14:19 | ED.PDOC ---
History of Present Illness HPI Comments 58-year-old male with PMHx DM, HTN, ESRD with Tuesday/Tuesday/Tuesday presents with a chief complaint of abdominal pain x 1 week with associated diarrhea, nausea, vomiting. Patient states that his abdominal pain is localized to his periumbilical region, nonradiating, and rates his pain a 7/10. Patient mentions that whenever he attempts to eat or drink anything it comes right back up. Patient is not actively vomiting in triage. No other symptoms or modifying factors present at this time. Time Seen by MD: 14:09 Primary Care Provider: STEPHEN Reviewed Notes: Medications, Allergies Allergies: Coded Allergies: NO KNOWN ALLERGIES (Unverified , 04/15/24) Home Meds Active Scripts Lactulose (Lactulose) 10 Gm/15 Ml [place], 10 GM PO BIDPRN PRN for 30 Days, #120 ML 1 Refill Prov:ZURI PRESLEY MD 05/24/24 Pantoprazole Sodium Sesquihydr (Protonix) 40 Mg Tab, 40 MG PO DAILY for 30 Days, #30 TAB 2 Refills Prov:ZURI PRESLEY MD 05/24/24 Cephalexin Monohydrate (Cephalexin) 500 Mg Tab, 1 TAB PO TID for 10 Days, #30 TAB Prov:ZURI PRESLEY MD 05/24/24 Apixaban Base (ELIQUIS) 2.5 Mg Tab, 2.5 MG PO BID for 14 Days, #28 TAB 0 Refills Prov:MANAS CRAFT RESIDENT 04/24/24 Nutritional Supplements (Josafat) [place] Pow, 1 PACK OR BID for 30 Days, #60 POW 0 Refills Prov:MANAS CRAFT RESIDENT 04/24/24 Amiodarone HCl (Amiodarone HCl) 200 Mg Tab, 200 MG PO Q12HR for 30 Days, #60 TAB Prov:MANAS CRAFT RESIDENT 04/24/24 Reported Medications Sodium Zirconium Cyclosilicate (Lokelma) 5 Gm Curly, 5 GM PO TIDWM, PACK 04/17/24 Insulin Glargine (Lantus) 100 Unit/Ml Inj, 20 UNIT SC BID, INJ 04/17/24 Allopurinol (Allopurinol) 100 Mg Tab, 100 MG PO DAILY, TAB 04/17/24 Glipizide (Glipizide) 10 Mg Tab, 10 MG PO DAILY for 30 Days, MG 04/17/24 Furosemide (Furosemide) 40 Mg Tab, 80 MG PO DAILY for 30 Days 04/17/24 Ferric Citrate (Auryxia) 210 Mg Tab, 210 MG PO DAILY, TAB 04/17/24 Ferrous Sulfate (Ferosul) 325 Mg Tab, 325 MG PO DAILY, TAB 04/17/24 Gabapentin (Gabapentin) 600 Mg Tab, 600 MG PO TID, TAB 04/17/24 Amlodipine Besylate (Amlodipine Besylate) 5 Mg Tab, 5 MG PO DAILY for 30 Days, MG 04/17/24 Metformin Hydrochloride (Metformin Hcl) 1,000 Mg Tab, 1 TAB PO BID, #180 TAB 3 Refills 04/17/24 Atorvastatin Calcium (ATORVASTATIN CALCIUM) 40 Mg Tab, 1 DAILY 04/16/24 Information Source: Patient Mode of Arrival: Ambulatory Severity: Moderate Timing: Days Duration: Since onset Prehospital treatment: None Past Medical History PAST MEDICAL HISTORY: DM, ESRD, High Lipids, HTN Family History Family History: Reviewed,noncontributory to illness, No family hx of Cancer, No family hx of DM, No family hx of Heart nelda, No family hx of HTN, No family hx ofKidney nelda, No family hx of Liver nelda, No family hx of Lung nelda, No family hx of Stroke Social History Smoker: Non-Smoker Alcohol: Denies ETOH Use Drugs: Denies Drug Use Lives In: Home Constitutional: denies: chills, diaphoresis, fatigue, fever, malaise, sweats, weakness, others EENTM: denies: blurred vision, double vision, ear bleeding, ear discharge, ear drainage, ear pain, ear ringing, eye pain, eye redness, hearing loss, mouth pain, mouth swelling, nasal discharge, nose bleeding, nose congestion, nose pain, photophobia, tearing, throat pain, throat swelling, voice changes, others Respiratory: denies: cough, hemoptysis, orthopnea, SOB at rest, shortness of breath, SOB with excertion, stridor, wheezing, others Cardiovascular: denies: chest pain, dizzy spells, diaphoresis, Dyspnea on exertion, edema, irregular heart beat, left arm pain, lightheadedness, palpitations, PND, syncope, others Gastrointestinal: reports: abdominal pain, diarrhea, nausea, vomiting; denies: abdomen distended, blood streaked bowels, constipated, dysphagia, difficulty swallowing, hematemesis, melena, poor appetite, poor fluid intake, rectal bleeding, rectal pain, others Genitourinary: denies: burning, dysuria, flank pain, frequency, hematuria, incontinence, penile discharge, penile sore, pain, testicle pain, testicle swelling, urgency, others Neurological: denies: dizziness, fainting, headache, left sided numbness, left sided weakness, numbness, paresthesia, pre-existing deficit, right sided numbness, right sided weakness, seizure, speech problems, tingling, tremors, weakness, others Musculoskeletal: denies: back pain, gout, joint pain, joint swelling, muscle pain, muscle stiffness, neck pain, others Integumetry: denies: bruises, change in color, change in hair/nails, dryness, laceration, lesions, lumps, rash, wounds, others Allergic/Immunocompromised: denies: Difficulty Healing, Frequent Infections, Hives, Itching, others Hematologic/Lymphatic: denies: anemia, blood clots, easy bleeding, easy bruising, swollen glands, others Endocrine: denies: excessive hunger, excessive sweating, excessive thirst, excessive urination, flushing, intolerance to cold, intolerance to heat, unexplained weight gain, unexplained weight loss, others Psychiatric: denies: anxiety, bipolar disorder, depression, hopeless, panic disorder, schizophrenia, sleepless, suicidal, others All Other Systems: Reviewed and Negative Physical Exam General Appearance: Moderate Distress, Normal HEENT: Normal ENT Inspection, Pharynx Normal, TMs Normal Neck: Full Range of Motion, Non-Tender, Normal, Normal Inspection Respiratory: Chest Non-Tender, Lungs Clear, No Accessory Muscle Use, No Respi ratory Distress, Normal Breath Sounds Cardiovascular: No Edema, No JVD, No Murmur, No Gallop, Normal Peripheral Pulses, Regular Rate/Rhythm Breast Exam: Deferred Gastrointestinal: No Organomegaly, Non Tender, No Pulsatile Mass, Normal Bowel Sounds, Soft Genitalia: Deferred Pelvic: Deferred Rectal: Deferred Extremities: No calf tenderness, Normal capillary refill, Normal inspection, Normal range of motion, Non-tender, No pedal edema Musculoskeletal : Apperance: Normal Neurologic: Alert, montessori teacher II-XII nml as Tested, No Motor Deficits, Normal Affect, Normal Mood, No Sensory Deficits Cerebellar Function: NOT DONE Reflexes: NOT DONE Skin: Dry, Normal Color, Warm, Wounds (Bilateral feet) Peripheral Pulses: 3+ Radial (R), 3+ Radial (L) Lymphatic: No Adenopathy Was a procedure done? Was a procedure done?: No Differential Dx Considerations may include: Colitis Electrolyte imbalance X-Ray, Labs, Meds, VS Vital Signs Date Time Temp Pulse Resp B/P (MAP) Pulse Ox O2 Delivery O2 Flow Rate FiO2 06/19/24 14:14 97.6 67 19 152/55 (87) 95 97.6 Lab Test 06/19/24 16:08 06/19/24 15:04 06/19/24 14:18 06/19/24 14:11 Range/Units Troponin I High Sensitivity Pending 17 </=54 ng/L White Blood Count 4.1 L 4.4-10.8 10^3/uL Red Blood Count 3.18 L 4.5-5.90 10^6/uL Hemoglobin 9.7 L 13.5-17.5 g/dL Hematocrit 29.6 L 41.0-53.0 % Mean Corpuscular Volume 93.0 80.0-100.0 fL Mean Corpuscular Hemoglobin 30.6 28.0-32.0 pg Mean Corpuscular Hemoglobin Concent 32.9 32.0-36.0 g/dL Red Cell Distribution Width 17.1 H 11.8-14.3 % Platelet Count 306 140-450 10^3/uL Mean Platelet Volume 7.4 6.9-10.8 fL Neutrophils (%) (Auto) 66.6 37.0-80.0 % Lymphocytes (%) (Auto) 21.3 10.0-50.0 % Monocytes (%) (Auto) 10.1 0.0-12.0 % Eosinophils (%) (Auto) 1.4 0.0-7.0 % Basophils (%) (Auto) 0.6 0.0-2.0 % Neutrophils # (Auto) 2.7 1.6-8.6 10 ^3/uL Lymphocytes # (Auto) 0.9 0.4-5.4 10 ^3/uL Monocytes # (Auto) 0.4 0-1.3 10 ^3/uL Eosinophils # (Auto) 0.1 0-0.8 10 ^3/uL Basophils # (Auto) 0 0-0.2 10 ^3/uL Nucleated Red Blood Cells 0.1 % Sodium Level 135 L 136-145 mmol/L Potassium Level 4.0 3.5-5.1 mmol/L Chloride Level 95 L 98-107 mmol/L Carbon Dioxide Level 34 H 20-31 mmol/L Anion Gap 6 5-15 Blood Urea Nitrogen 13 9-23 mg/dL Creatinine 3.19 H 0.700-1.30 mg/dL Glomerular Filtration Rate Calc 22 >90 mL/min BUN/Creatinine Ratio 4.1 L 10.0-20.0 Serum Glucose 159 H 74-106 mg/dL Calcium Level 9.5 8.7-10.4 mg/dL Total Bilirubin 0.4 0.2-1.0 mg/dL Aspartate Amino Transferase (AST) 18 13-40 U/L Alanine Aminotransferase (ALT) 15 7-40 U/L Alkaline Phosphatase 105 46-116 U/L Total Protein 7.5 5.7-8.2 g/dL Albumin 4.3 3.2-4.8 g/dL Urine Color Light-yellow Yellow Urine Clarity Clear Clear Urine pH 8.0 5.0-9.0 Urine Specific [place] 1.004 1.001-1.035 Urine Protein 1+ H Negative Urine Ketones Negative Negative Urine Blood Trace H Negative /uL Urine Nitrite Negative Negative Urine Bilirubin Negative Negative Urine Urobilinogen Normal Negative mg/dL Urine Leukocyte Esterase Negative Negative /uL Urine RBC 3 0 - 3 /hpf Urine Microscopic WBC 1 0-3 /HPF Urine Squamous Epithelial Cells Few <5 /hpf Urine Bacteria None seen None Seen /hpf Urine Glucose Normal Normal mg/dL POC Glucose 135 H 70-106 mg/dl Patient alert. Complaining of abdominal pain. Has foot wound. Vitals stable. Has amputation of bilateral feet. Blood sugar elevated. He has a anemia. Explained to the patient the results. Establish intravenous access. Was given Zosyn. Was given Flagyl. CT scan of the abdomen reviewed does show colitis. Continue monitoring. Time of 1ST Reevaluation: 14:09 (EXPLAINED TO THE PATIENT THAT THEY MAY BE STAYING WITH US IN THE HOSPITAL, BUT IF STABLE FOR DISCHARGE, THEY WILL BE NOTIFIED AND SENT HOME. ) Reevaluation 1ST: Unchanged Time of 2ND Reevaluation: 14:39 Reevaluation 2ND: Unchanged Patient Education/Counseling: Diagnosis, Treatment Family Education/Counseling: No Family Present Departure 1 Departure Time of Disposition: 16:29 Impression: Primary Impression: Acute abdominal pain Additional Impressions: Non-specific colitis End stage renal disease on dialysis Disposition: ADMITTED INPATIENT Admit to: Med Surg Condition: Guarded Critical Care Note Critical Care Time?: No Stability Stability form required: No Heart Score Heart Score: Heart Score Response (Comments) Value History N/A 0 EKG N/A 0 Age N/A 0 Risk Factors N/A 0 Troponin N/A 0 Total 0 I personally scribed for CARMEN GARCIA MD ([email or web address]) on 06/19/24 at 14:19. Electronically submitted by Dinh Avila ([email or web address]). CARMEN GARCIA MD June 19, 2024 14:19
[2024-06-19 14:24] LABS: Urine Bacteria None Seen /hpf (None Seen)
[2024-06-19 14:30] LABS: Urine Blood TRACE /uL (Negative); Urine Clarity Clear (Clear); Urine Color Light-Yellow (Yellow); Urine Protein, UAD 1+ (Negative); Urine Specific Gravity 1.004 (1.001-1.035); Urine Squamous Epithelial Cell FEW /hpf (<5); Urine Urobilinogen Normal (Negative); Urine WBC 1 /HPF (0-3)
[2024-06-19 15:12] LABS: Basophils # (auto) 0 10 ^3/uL (0-0.2); Basophils % (auto) 0.6 % (0.0-2.0); Eosinophils # (auto) 0.1 10 ^3/uL (0-0.8); Eosinophils % (auto) 1.4 % (0.0-7.0); Hematocrit 29.6 % (41.0-53.0); Hemoglobin 9.7 g/dL (13.5-17.5); Lymphocytes # (auto) 0.9 10 ^3/uL (0.4-5.4); Lymphocytes % (auto) 21.3 % (10.0-50.0); Mean Corpuscular Hemoglobin 30.6 pg (28.0-32.0); Mean Corpuscular Hgb Conc. 32.9 g/dL (32.0-36.0); Monocytes # (auto) 0.4 10 ^3/uL (0-1.3); Monocytes % (auto) 10.1 % (0.0-12.0); Neutrophils # (auto) 2.7 10 ^3/uL (1.6-8.6); Neutrophils % (auto) 66.6 % (37.0-80.0); Nucleated Red Blood Cells % 0.1 %; Platelet Count (auto) 306 10^3/uL (140-450); Red Blood Cells 3.18 10^6/uL (4.5-5.90); Red Cell Distribution Width 17.1 % (11.8-14.3); White Blood Cell 4.1 10^3/uL (4.4-10.8)
[2024-06-19 15:29] LABS: Alanine Aminotransferase 15 U/L (7-40); Albumin 4.3 g/dL (3.2-4.8); Alkaline Phosphatase 105 U/L (46-116); Anion Gap 6 (5-15); Aspartate Aminotransferase 18 U/L (13-40); BUN/Creatinine Ratio 4.1 (10.0-20.0); Blood Urea Nitrogen 13 mg/dL (9-23); Calcium 9.5 mg/dL (8.7-10.4); Total Protein 7.5 g/dL (5.7-8.2)
[2024-06-19 15:30] LABS: Bilirubin, Total 0.4 mg/dL (0.2-1.0)
--- NOTE | 2024-06-19 15:43 | DVH ---
Exam: CT CT AB PEL WO CON-NO ORAL OR IV History: colitis Comparison Study: CT CT AB PEL WO CON-NO ORAL OR IV on DOS: 05/21/24 Technique: Multidetector spiral CT of the abdomen and pelvis was performed from lung bases to pubic symphysis. Imaging was performed without IV contrast. Axial, coronal and sagittal multiplanar reform ats were obtained from the axial data set by the technologist. Radiation dose : Abdomen/Pelvis: CTDIvol 19 mGy, DLP 1154 mGy*cm. Findings: Evaluation of solid organs is limited due to lack of intravenous contrast use. Lung Bases: Patchy ground-glass opacities in the lung bases. Liver: The liver is normal in size. No focal lesions. Gallbladder and biliary Tree: Unremarkable Spleen: Unremarkable Pancreas: The pancreas is grossly normal in appearance. Adrenal Glands: Unremarkable Kidneys: Kidneys are grossly normal without calculi or hydronephrosis. Bladder: Grossly unremarkable for degree of distention. Bowel: The stomach is grossly normal in appearance. Small bowel and colon are normal in caliber and d istribution. Normal appendix is visualized in the right lower quadrant without findings of appendicit is. Wall thickening in the rectosigmoid colon is nonspecific. Ascites: Absent Lymphadenopathy: Mildly prominent retroperitoneal and iliac chain lymph nodes measuring up to 11 mm i n short axis. Abdominal wall and Mesentery: Unremarkable. Vasculature: Diffuse calcified atherosclerotic disease. Pelvic Organs: Unremarkable Musculoskeletal: No aggressive focal bony lesions, acute fractures or dislocation. IMPRESSION: 1. No acute abdominal or pelvic findings. Wall thickening in the rectosigmoid colon is nonspecific. C ould represent colitis. Clinical correlation and continued follow-up is recommended. Retroperitoneal and iliac lymphadenopathy could be reactive. Clinical correlation and continued follow-up is recommen ded. Patchy ground-glass opacities in the lung bases could represent subsegmental atelectasis. Consi oj dedicated chest CT. Radiation optimization: All CT scans at this facility use at least one of these dose optimization kanika hniques: Automated exposure control mA and/or kV adjustment per patient size (includes targeted exams where dose is matched to clinical indication) or iterative reconstruction. HS:Y
[2024-06-19 15:47] LABS: Carbon Dioxide 34 mmol/L (20-31); Chloride 95 mmol/L (98-107); Glucose 159 mg/dL (74-106); Sodium 135 mmol/L (136-145)
[2024-06-19] MEDS ORDERED: DOCUSATE SOD 100 MG CAP PO PRN (17:00)
[2024-06-19] MEDS ORDERED: DEXTROSE (50%) 50ML SYRG IV PRN (17:00)
[2024-06-19] MEDS ORDERED: ONDANSETRON HCL 4 MG/2 ML VIAL IV PRN (17:00)
--- NOTE | 2024-06-19 17:51 | DVHHP2 ---
History of Present Illness Reason for Visit: Acute abdominal pain History of Present Illness The patient is a 58-year-old male with past medical history of DM, hypertension, hyperlipidemia, and end-stage renal disease on hemodialysis presented to [facility] with complaint of abdominal pain for the past 1 week. Patient reports symptoms progressively get worse with localized periumbilical pain, nonradiating, rating 7/10 numeric scale, associated nausea, vomiting, diarrhea, getting worse that prompted this visit. Patient was seen and evaluated in the ED, laboratory data shows WBC 4.1, hemoglobin 9.7, hematocrit 29.6, platelets 306, sodium 135, potassium 4.0, BUN 13, creatinine 3.19, glucose 159, AST 18, ALT 15, troponin 17, blood pressure 152/55, heart rate 68, temperature 97.6 F, O2 saturation 95% on room air. Abdomen/pelvis CT revealing wall thickening in the rectosigmoid colon is nonspecific, could represent colitis. Patient was started on IV antibiotic regimen Flagyl, please see medication orders section in the computer. On my assessment, patient denied chest pain, no headache, no dizziness, no shortness of breath, no nausea, vomiting, or diarrhea at this moment, no fever, no chills. Patient was admitted for further evaluation and medical management. Past Medical History DM, ESRD, High Lipids, HTN Past Surgical History Left AV graft for dialysis Family History Reviewed, noncontributory to the management of this case. Past Social History The patient lives at home, denies smoking, alcohol or illicit drugs abuse. Review of Systems Constitutional: No: Fever, Chills, Sweats, Weakness, Malaise, Other Eyes: No: Pain, Vision change, Conjunctivae inflammation, Eyelid inflammation, Other, Redness ENT: No: Ear pain, Ear discharge, Nose pain, Nose discharge, Nose congestion, Mouth pain, Mouth swelling, Throat pain, Throat swelling, Other Respiratory: No: Cough, Dry, Shortness of breath, SOB with excertion, Wheezing, Hemoptysis, Pleuritic Pain, Sputum, Wheezing, Other Cardiovascular: No: Chest Pain, Palpitations, Orthopnea, Paroxysmal Noc. Dyspnea, Edema, Lt Headedness, Other Gastrointestinal: Nausea, Vomiting, Abdominal Pain, Diarrhea; No: Constipation, Melena, Hematochezia, Other Genitourinary: No Dysuria, No Frequency, No Incontinence, No Hematuria, No Retention; Other (On hemodialysis) Musculoskeletal: other (AV graft left upper extremity with positive bruit and thrill); No: neck pain, shoulder pain, arm pain, back pain, hand pain, leg pain, foot pain Skin: Other (Left AV graft); No: Rash, Lesions, Jaundice, Bruising Neurological: No: Weakness, Numbness, Incoordination, Change in speech, Confusion, Seizures, Other Allergies: Coded Allergies: NO KNOWN ALLERGIES (Unverified , 04/15/24) Medications Current Medications Medications Dose Ordered Sig/Samuel Route Start Time Stop Time Status Last Admin Dose Admin Metronidazole 100 ml @ 100 mls/hr Q8HR IV 06/19/24 22:00 Ceftriaxone Sodium 50 ml @ 100 mls/hr DAILY@09 IV 06/20/24 09:00 Atorvastatin Calcium 20 mg HS PO 06/19/24 22:00 Aspirin 81 mg DAILY PO 06/20/24 10:00 Diagnostic Test (Pha) 1 strip ACHS 06/19/24 17:00 Insulin Human Regular ACHS SC 06/19/24 17:00 Dextrose 50 ml UD PRN IV 06/19/24 17:00 Sodium Chloride 10 ml Q8HR IV 06/19/24 22:00 Acetaminophen/ Hydrocodone Bitart 1 tab Q4HP PRN PO 06/19/24 17:00 Ondansetron HCl 4 mg Q4HP PRN IV 06/19/24 17:00 Docusate Sodium 100 mg BIDPRN PRN PO 06/19/24 17:00 Acetaminophen 650 mg Q6HP PRN PO 06/19/24 17:00 Amlodipine Besylate 5 mg DAILY PO 06/20/24 10:00 Hydralazine HCl 10 mg Q6HP PRN IV 06/19/24 17:00 Exam Vital Signs Vital Signs Date Time Temp Pulse Resp B/P (MAP) Pulse Ox O2 Delivery O2 Flow Rate FiO2 06/19/24 14:14 97.6 67 19 152/55 (87) 95 97.6 General Appearance: Alert, Oriented X3, Cooperative, No acute distress HEENT: Atraumatic, PERRLA, EOMI, Mucous membr. moist/pink Respiratory: Clear to auscultation, Normal air movement Cardiovascular: Regular rate, Normal S1, Normal S2, No murmurs Abdominal: Normal bowel sounds, Soft, No hepatospenomegaly, No masses, Other (Reports tenderness) Extremities: No clubbing, No cyanosis, No edema, Normal pulses, No tenderness/swelling, Other Skin: No rashes, No breakdown, No significant lesion Neuro: Normal gait, Normal speech, Strength at 5/5 X4 ext, Normal tone, Sensation intact, Cranial nerves 3-12 NL, Reflexes 2+ Psych/Mental Status: Mental status NL, Mood NL Labs/Xrays Labs Test 06/19/24 16:08 06/19/24 15:04 06/19/24 14:18 06/19/24 14:11 Range/Units Troponin I High Sensitivity 17 </=54 ng/L White Blood Count 4.1 L 4.4-10.8 10^3/uL Red Blood Count 3.18 L 4.5-5.90 10^6/uL Hemoglobin 9.7 L 13.5-17.5 g/dL Hematocrit 29.6 L 41.0-53.0 % Mean Corpuscular Volume 93.0 80.0-100.0 fL Mean Corpuscular Hemoglobin 30.6 28.0-32.0 pg Mean Corpuscular Hemoglobin Concent 32.9 32.0-36.0 g/dL Red Cell Distribution Width 17.1 H 11.8-14.3 % Platelet Count 306 140-450 10^3/uL Mean Platelet Volume 7.4 6.9-10.8 fL Neutrophils (%) (Auto) 66.6 37.0-80.0 % Lymphocytes (%) (Auto) 21.3 10.0-50.0 % Monocytes (%) (Auto) 10.1 0.0-12.0 % Eosinophils (%) (Auto) 1.4 0.0-7.0 % Basophils (%) (Auto) 0.6 0.0-2.0 % Neutrophils # (Auto) 2.7 1.6-8.6 10 ^3/uL Lymphocytes # (Auto) 0.9 0.4-5.4 10 ^3/uL Monocytes # (Auto) 0.4 0-1.3 10 ^3/uL Eosinophils # (Auto) 0.1 0-0.8 10 ^3/uL Basophils # (Auto) 0 0-0.2 10 ^3/uL Nucleated Red Blood Cells 0.1 % Sodium Level 135 L 136-145 mmol/L Potassium Level 4.0 3.5-5.1 mmol/L Chloride Level 95 L 98-107 mmol/L Carbon Dioxide Level 34 H 20-31 mmol/L Anion Gap 6 5-15 Blood Urea Nitrogen 13 9-23 mg/dL Creatinine 3.19 H 0.700-1.30 mg/dL Glomerular Filtration Rate Calc 22 >90 mL/min BUN/Creatinine Ratio 4.1 L 10.0-20.0 Serum Glucose 159 H 74-106 mg/dL Calcium Level 9.5 8.7-10.4 mg/dL Total Bilirubin 0.4 0.2-1.0 mg/dL Aspartate Amino Transferase (AST) 18 13-40 U/L Alanine Aminotransferase (ALT) 15 7-40 U/L Alkaline Phosphatase 105 46-116 U/L Total Protein 7.5 5.7-8.2 g/dL Albumin 4.3 3.2-4.8 g/dL Urine Color Light-yellow Yellow Urine Clarity Clear Clear Urine pH 8.0 5.0-9.0 Urine Specific [place] 1.004 1.001-1.035 Urine Protein 1+ H Negative Urine Ketones Negative Negative Urine Blood Trace H Negative /uL Urine Nitrite Negative Negative Urine Bilirubin Negative Negative Urine Urobilinogen Normal Negative mg/dL Urine Leukocyte Esterase Negative Negative /uL Urine RBC 3 0 - 3 /hpf Urine Microscopic WBC 1 0-3 /HPF Urine Squamous Epithelial Cells Few <5 /hpf Urine Bacteria None seen None Seen /hpf Urine Glucose Normal Normal mg/dL POC Glucose 135 H 70-106 mg/dl PATIENT: PEGGY CHAVEZ ACCT: [id number] UNIT: [id number] : 1965 LOC: ER ROOM / BED: / AGE / SEX: 58 / M ADM STATUS: REG ER SERVICE 1415 ORDERING PHYSICIAN: CARMEN GARCIA MD PROCEDURE(s): ABPL - CT AB PEL WO CON-NO ORAL OR IV REASON: colitis ORDER NUMBER(s): [id number], ACCESSION NUMBER(s): [id number] Exam: CT CT AB PEL WO CON-NO ORAL OR IV History: colitis Comparison Study: CT CT AB PEL WO CON-NO ORAL OR IV on DOS: 05/21/24 Technique: Multidetector spiral CT of the abdomen and pelvis was performed from lung bases to pubic symphysis. Imaging was performed without IV contrast. Axial, coronal and sagittal multiplanar reformats were obtained from the axial data set by the technologist. Radiation dose: Abdomen/Pelvis: CTDIvol 19 mGy, DLP 1154 mGy*cm. Findings: Evaluation of solid organs is limited due to lack of intravenous contrast use. Lung Bases: Patchy ground-glass opacities in the lung bases. Liver: The liver is normal in size. No focal lesions. Gallbladder and biliary Tree: Unremarkable Spleen: Unremarkable Pancreas: The pancreas is grossly normal in appearance. Adrenal Glands: Unremarkable Kidneys: Kidneys are grossly normal without calculi or hydronephrosis. Bladder: Grossly unremarkable for degree of distention. Bowel: The stomach is grossly normal in appearance. Small bowel and colon are normal in caliber and distribution. Normal appendix is visualized in the right lower quadrant without findings of appendicitis. Wall thickening in the rectosigmoid colon is nonspecific. Ascites: Absent Lymphadenopathy: Mildly prominent retroperitoneal and iliac chain lymph nodes measuring up to 11 mm in short axis. Abdominal wall and Mesentery: Unremarkable. Vasculature: Diffuse calcified atherosclerotic disease. Pelvic Organs: Unremarkable Musculoskeletal: No aggressive focal bony lesions, acute fractures or dislocation. IMPRESSION: 1. No acute abdominal or pelvic findings. Wall thickening in the rectosigmoid colon is nonspecific. Could represent colitis. Clinical correlation and continued follow-up is recommended. Retroperitoneal and iliac lymphadenopathy could be reactive. Clinical correlation and continued follow-up is recommended. Patchy ground-glass opacities in the lung bases could represent subsegmental atelectasis. Consider dedicated chest CT. Assessment/Plan Assessment/Plan Acute abdominal pain Non-specific colitis Anemia, unspecified End stage renal disease on dialysis Plan 1. Admit to telemetry unit 2. Breathing treatment 3. Pain control management 4. IV antibiotic management 5. Management of fluids and electrolytes 6. Consultation for Nephrology 7. Diagnostic test abdomen/pelvis CT 8. DVT prophylaxis-on SCDs 9. Repeat labs CBC, CMP in a.m. 10. Home medication reviewed and reconciled 11. Continue with current medical management 12. Treatment plan discussed with patient and RN. Patient verbalized understanding. Plan discussed with: Patient, Other (RN) My Orders Orders - VENANCIO RAJAN DNP Procedure Category Date Status Time Metronidazole PHA 06/19/24 In Process 500mg/100ml (Flagyl 22:00 Ceftriaxone 1gm/50ml PHA 06/20/24 In Process D5w (Rocephin) 09:00 Atorvastatin (Lipitor) PHA 06/19/24 In Process 22:00 Aspirin Tablet PHA 06/20/24 In Process 10:00 *Dr. [facility] CONS 06/19/24 Transmitted -[place] 16:54 Glucose Blood PHA 06/19/24 In Process (Accu-Chek [place] 17:00 Insulin R (Human) PHA 06/19/24 In Process (Insulin R) 17:00 Dextrose 50% Syringe PHA 06/19/24 In Process 17:00 Allergies FABRICIO 06/19/24 In Process 16:54 Code Status CODE 06/19/24 Transmitted 16:54 Renal DIET 06/19/24 Transmitted Standard(2gna,3gk,Lopho) Dinner Sodium Chloride Lock PHA 06/19/24 In Process (Saline Lock Ns) 22:00 Oxygen Per Hour RT 06/19/24 Transmitted 16:54 Hydrocodone-Acet PHA 06/19/24 In Process 5/325mg Tab ([place] 17:00 Ondansetron Hcl PHA 06/19/24 In Process (Zofran) 17:00 Docusate Sodium PHA 06/19/24 In Process Capsule (Colace 17:00 Complete Blood Count LAB 06/20/24 Verified 04:00 Comprehensive LAB 06/20/24 Verified Metabolic Panel 04:00 Condition: Serious FABRICIO 06/19/24 In Process 16:54 Acetaminophen Tablet PHA 06/19/24 In Process (Tylenol Tablet) 17:00 Bedrest With Bathroom FABRICIO 06/19/24 In Process Privileg 16:54 Sequential FABRICIO 06/19/24 In Process Compression Device Amlodipine Tablet PHA 06/20/24 In Process (Norvasc Tablet) 10:00 Hydralazine Injection PHA 06/19/24 In Process (Apresoline Inject 17:00 Problem List: (1) Acute abdominal pain (2) Non-specific colitis (3) Anemia, unspecified (4) End stage renal disease on dialysis Date of Service: June 19, 2024 Billing Provider: VENANCIO RAJAN DNP Common Visit Codes: [id number] INP/OBS CARE (HIGH) VENANCIO RAJAN DNP June 19, 2024 17:51
[2024-06-19] MEDS ORDERED: NITROGLYCERIN 0.4 MG SL TAB SL PRN (18:00)
[2024-06-19] MEDS ORDERED: MORPHINE SULFATE INJ 2 MG/ml SYRG IV PRN (18:00)
[2024-06-20] MEDS: ACCU-CHEK COMFORT CURVE STRIP VI SCH (02:29)
[2024-06-20] MEDS: metroNIDAZOLE 500MG/100ML 100 ML IV ONE (02:30)
[2024-06-20] MEDS: InsuLIN REG 1unit/0.01ml Soln (100units/ml) SC SCH (02:30)
[2024-06-20 02:58] VITALS: O2SAT 98
[2024-06-20] MEDS: SODIUM CHLOR 0.9% PF (SALINE LOCK) 10ML VIAL/SYR IV SCH (03:01)
[2024-06-20] MEDS: ATORVASTATIN 20 MG TAB PO SCH (03:38)
[2024-06-20] MEDS: PIPERACILLIN-TAZOB 3.375GM 100 ML IV ONE (03:39)
[2024-06-20] MEDS: metroNIDAZOLE 500MG/100ML 100 ML IV SCH (03:39)
[2024-06-20 06:57] LABS: Basophils # (auto) 0 10 ^3/uL (0-0.2); Basophils % (auto) 0.5 % (0.0-2.0); Eosinophils # (auto) 0.1 10 ^3/uL (0-0.8); Eosinophils % (auto) 1.6 % (0.0-7.0); Hematocrit 29.3 % (41.0-53.0); Hemoglobin 9.7 g/dL (13.5-17.5); Lymphocytes # (auto) 0.9 10 ^3/uL (0.4-5.4); Lymphocytes % (auto) 15.8 % (10.0-50.0); Mean Corpuscular Hemoglobin 30.5 pg (28.0-32.0); Mean Corpuscular Hgb Conc. 33.3 g/dL (32.0-36.0); Mean Corpuscular Volume 91.7 fL (80.0-100.0); Monocytes # (auto) 0.5 10 ^3/uL (0-1.3); Monocytes % (auto) 9.3 % (0.0-12.0); Neutrophils # (auto) 4.1 10 ^3/uL (1.6-8.6); Neutrophils % (auto) 72.8 % (37.0-80.0); Platelet Count (auto) 344 10^3/uL (140-450); Red Blood Cells 3.19 10^6/uL (4.5-5.90); White Blood Cell 5.6 10^3/uL (4.4-10.8)
[2024-06-20 07:08] LABS: Alanine Aminotransferase 13 U/L (7-40); Albumin 4.3 g/dL (3.2-4.8); Alkaline Phosphatase 103 U/L (46-116); Anion Gap 10 (5-15); BUN/Creatinine Ratio 4.7 (10.0-20.0); Bilirubin, Total 0.5 mg/dL (0.2-1.0); Blood Urea Nitrogen 17 mg/dL (9-23); Calcium 9.8 mg/dL (8.7-10.4); Glucose 104 mg/dL (74-106); Potassium 3.8 mmol/L (3.5-5.1); Sodium 137 mmol/L (136-145); Total Protein 7.5 g/dL (5.7-8.2)
[2024-06-20 07:09] LABS: Aspartate Aminotransferase 11 U/L (13-40); Carbon Dioxide 32 mmol/L (20-31); Chloride 95 mmol/L (98-107)
[2024-06-20] MEDS: cefTRIAXone 1GM/50ML D5W 50 ML IV SCH (10:12)
[2024-06-20] MEDS: amLODIPine BESYLATE 5 MG TAB PO SCH (10:15)
[2024-06-20] MEDS: ASPirin 81 mg TAB PO SCH (10:15)
[2024-06-20 10:25] VITALS: PULSE 69; RESP 16; O2SAT 95
--- NOTE | 2024-06-20 14:36 | DVHPN2 ---
Subjective 58-year-old male with a history of end-stage renal disease and hypertension diabetes comes with chief complaint of abdominal pain for 5 days He describes the pain in the epigastric and periumbilical area and the left flank He also describes some nausea and vomiting associated with the pain His last dialysis was on 06/18/2024 Changes from previous H/P or p: Changes Eyes: No Pain, No Vision change, No Conjunctivae inflammation, No Eyelid inflammation, No Other, No Redness ENT: No Ear pain, No Ear discharge, No Nose pain, No Nose discharge, No Nose congestion, No Mouth pain, No Mouth swelling, No Throat pain, No Throat swelling, No Other Cardiovascular: No Chest Pain, No Palpitations, No Orthopnea, No Paroxysmal Noc. Dyspnea, No Edema, No Lt Headedness, No Other Respiratory: No Cough, No Dry, No Shortness of breath, No SOB with excertion, No Wheezing, No Hemoptysis, No Pleuritic Pain, No Sputum, No Other Gastrointestinal: Nausea, Vomiting, Abdominal Pain, Diarrhea; No Constipation, No Melena, No Hematochezia, No Other Genitourinary: No Dysuria, No Frequency, No Incontinence, No Hematuria, No Retention; Other (On hemodialysis) Musculoskeletal: other (AV graft left upper extremity with positive bruit and thrill); No neck pain, No shoulder pain, No arm pain, No back pain, No hand pain, No leg pain, No foot pain Skin: No Rash, No Lesions, No Jaundice, No Bruising; Other (Left AV graft) Objective Vitals Vital Signs Date Time Temp Pulse Resp B/P (MAP) Pulse Ox O2 Delivery O2 Flow Rate FiO2 06/20/24 10:25 98.3 69 16 173/54 (93) 98 98.3 06/20/24 10:25 Room Air* 0 21 Intake/Output Intake and Output 06/20/24 07:00 Intake Total 200 ml Balance 200 ml Intake IV Total 200 ml General Appearance: Alert, Oriented X3, Cooperative, No acute distress Lungs: Other Extremities: Other (1+ edema bilaterally) Medications Current Medications Medications Dose Ordered Sig/Samuel Route Start Time Stop Time Status Last Admin Dose Admin Metronidazole 100 ml @ 100 mls/hr Q8HR IV 06/19/24 22:00 06/20/24 03:39 100 MLS/HR Ceftriaxone Sodium 50 ml @ 100 mls/hr DAILY@09 IV 06/20/24 09:00 06/20/24 10:12 100 MLS/HR Atorvastatin Calcium 20 mg HS PO 06/19/24 22:00 06/20/24 03:38 20 MG Aspirin 81 mg DAILY PO 06/20/24 10:00 06/20/24 10:15 81 MG Diagnostic Test (Pha) 1 strip ACHS 06/19/24 17:00 06/20/24 07:00 1 STRIP Insulin Human Regular ACHS SC 06/19/24 17:00 06/20/24 13:14 3 UNITS Dextrose 50 ml UD PRN IV 06/19/24 17:00 Sodium Chloride 10 ml Q8HR IV 06/19/24 22:00 06/20/24 14:28 10 ML Acetaminophen/ Hydrocodone Bitart 1 tab Q4HP PRN PO 06/19/24 17:00 Ondansetron HCl 4 mg Q4HP PRN IV 06/19/24 17:00 Docusate Sodium 100 mg BIDPRN PRN PO 06/19/24 17:00 Acetaminophen 650 mg Q6HP PRN PO 06/19/24 17:00 Amlodipine Besylate 5 mg DAILY PO 06/20/24 10:00 06/20/24 10:15 5 MG Hydralazine HCl 10 mg Q6HP PRN IV 06/19/24 17:00 Nitroglycerin 0.4 mg Q5MINP PRN SL 06/19/24 18:00 Morphine Sulfate 2 mg Q30M PRN IV 06/19/24 18:00 Laboratory Results Laboratory Tests 06/20/24 06:26 Chemistry Test 06/19/24 15:04 06/20/24 06:26 Albumin 4.3 g/dL (3.2-4.8) 4.3 g/dL (3.2-4.8) Calcium Level 9.5 mg/dL (8.7-10.4) 9.8 mg/dL (8.7-10.4) Total Protein 7.5 g/dL (5.7-8.2) 7.5 g/dL (5.7-8.2) LFT Test 06/19/24 15:04 06/20/24 06:26 Alanine Aminotransferase (ALT) 15 U/L (7-40) 13 U/L (7-40) Alkaline Phosphatase 105 U/L (46-116) 103 U/L (46-116) Aspartate Amino Transferase (AST) 18 U/L (13-40) 11 U/L (13-40) L Total Bilirubin 0.4 mg/dL (0.2-1.0) 0.5 mg/dL (0.2-1.0) Urinalysis Test 06/19/24 14:18 Urine Color Light-yellow (Yellow) Urine Clarity Clear (Clear) Urine pH 8.0 (5.0-9.0) Urine Specific [place] 1.004 (1.001-1.035) Urine Protein 1+ (Negative) H Urine Ketones Negative (Negative) Urine Blood Trace /uL (Negative) H Urine Nitrite Negative (Negative) Urine Bilirubin Negative (Negative) Urine Urobilinogen Normal mg/dL (Negative) Urine Leukocyte Esterase Negative /uL (Negative) Urine RBC 3 /hpf (0 - 3) Urine Microscopic WBC 1 /HPF (0-3) Urine Squamous Epithelial Cells Few /hpf (<5) Urine Bacteria None seen /hpf (None Seen) Urine Glucose Normal mg/dL (Normal) Assessment/Plan Assessment/Plan Abdominal pain most likely due to acute colitis End-stage renal disease on hemodialysis Type 2 diabetes Hypertension Mixed hyperlipidemia Morbid obesity History of atrial fibrillation on amiodarone and Eliquis Plan IV antibiotics ceftriaxone and metronidazole Hemodialysis per nephrology Resume the home medications Monitor his diabetes with a sliding scale regular insulin Restart the home medications amiodarone 200 mg daily and Eliquis 2.5 mg twice a day Lantus 10 units twice a day Monitor closely Full code Advance directives discussed for 18 minute Plan discussed with: Patient Date of Service: June 20, 2024 Billing Provider: NAEEM QUESADA MD Common Visit Codes: [id number] INP/OBS CARE(HIGH) Secondary Visit Codes: [id number] CARE PLAN 30 MINUTES NAEEM QUESADA MD June 20, 2024 14:36
[2024-06-20] MEDS: AMIODARONE HCL 200 MG TAB PO ONE (18:27)
[2024-06-20 19:25] VITALS: PULSE 69; RESP 20; O2SAT 96
[2024-06-20] MEDS: hydrALAZINE HCL 20 MG/ML VL IV PRN (20:50)
[2024-06-20 21:20] VITALS: BP 155/68; PULSE 79; RESP 16; TEMP 98.3; O2SAT 96
[2024-06-20] MEDS: INSULIN LANTUS (GLARGINE) 1 /0.01ml (100units/ml) SC SCH (22:00)
[2024-06-20] MEDS: APIXABAN 2.5 MG TAB PO SCH (23:05)
[2024-06-20 23:22] VITALS: BP 155/68; PULSE 79; RESP 16; TEMP 98.3; O2SAT 96
[2024-06-21] VITALS (8 sets, daily range): BP systolic 122–157; BP diastolic 47–87; PULSE 64–83; RESP 16–18; TEMP 97.3–98.3; O2SAT 91–97
[2024-06-21] MEDS: ZOLPIDEM TARTRATE 5 MG TAB PO PRN (00:48)
[2024-06-21] MEDS: PANTOPRAZOLE 40 MG TAB PO SCH (06:32)
[2024-06-21] MEDS: AMIODARONE HCL 200 MG TAB PO SCH (08:39)
[2024-06-21] MEDS: ACETAMINOPHEN 325 MG TAB PO PRN (13:07)
--- NOTE | 2024-06-21 15:16 | DVHPN2 ---
Subjective He is still reporting abdominal pain after meals Changes from previous H/P or p: Changes Eyes: No Pain, No Vision change, No Conjunctivae inflammation, No Eyelid inflammation, No Other, No Redness ENT: No Ear pain, No Ear discharge, No Nose pain, No Nose discharge, No Nose congestion, No Mouth pain, No Mouth swelling, No Throat pain, No Throat swelling, No Other Cardiovascular: No Chest Pain, No Palpitations, No Orthopnea, No Paroxysmal Noc. Dyspnea, No Edema, No Lt Headedness, No Other Respiratory: No Cough, No Dry, No Shortness of breath, No SOB with excertion, No Wheezing, No Hemoptysis, No Pleuritic Pain, No Sputum, No Other Gastrointestinal: Nausea, Vomiting, Abdominal Pain, Diarrhea; No Constipation, No Melena, No Hematochezia, No Other Genitourinary: No Dysuria, No Frequency, No Incontinence, No Hematuria, No Retention; Other (On hemodialysis) Musculoskeletal: other (AV graft left upper extremity with positive bruit and thrill); No neck pain, No shoulder pain, No arm pain, No back pain, No hand pain, No leg pain, No foot pain Skin: No Rash, No Lesions, No Jaundice, No Bruising; Other (Left AV graft) Objective Vitals Vital Signs Date Time Temp Pulse Resp B/P (MAP) Pulse Ox O2 Delivery O2 Flow Rate FiO2 06/21/24 09:00 97.3 77 18 157/47 (83) 95 97.3 06/21/24 07:30 Room Air* 0 21 Intake/Output Intake and Output 06/21/24 07:00 Intake Total 500 ml Output Total 600 ml Balance -100 ml Intake Oral 300 ml IV Total 200 ml Output Urine Total 600 ml General Appearance: Alert, Oriented X3, Cooperative, No acute distress Lungs: Other Extremities: Other (1+ edema bilaterally) Medications Current Medications Medications Dose Ordered Sig/Samuel Route Start Time Stop Time Status Last Admin Dose Admin Metronidazole 100 ml @ 100 mls/hr Q8HR IV 06/19/24 22:00 06/21/24 13:06 100 MLS/HR Ceftriaxone Sodium 50 ml @ 100 mls/hr DAILY@09 IV 06/20/24 09:00 06/21/24 08:38 100 MLS/HR Atorvastatin Calcium 20 mg HS PO 06/19/24 22:00 06/20/24 23:04 20 MG Aspirin 81 mg DAILY PO 06/20/24 10:00 06/21/24 08:38 81 MG Diagnostic Test (Pha) 1 strip ACHS 06/19/24 17:00 06/21/24 11:48 1 STRIP Insulin Human Regular ACHS SC 06/19/24 17:00 06/20/24 13:14 3 UNITS Dextrose 50 ml UD PRN IV 06/19/24 17:00 Sodium Chloride 10 ml Q8HR IV 06/19/24 22:00 06/21/24 13:07 10 ML Acetaminophen/ Hydrocodone Bitart 1 tab Q4HP PRN PO 06/19/24 17:00 Ondansetron HCl 4 mg Q4HP PRN IV 06/19/24 17:00 Docusate Sodium 100 mg BIDPRN PRN PO 06/19/24 17:00 Acetaminophen 650 mg Q6HP PRN PO 06/19/24 17:00 06/21/24 13:07 650 MG Amlodipine Besylate 5 mg DAILY PO 06/20/24 10:00 06/21/24 08:39 5 MG Hydralazine HCl 10 mg Q6HP PRN IV 06/19/24 17:00 06/20/24 20:50 10 MG Nitroglycerin 0.4 mg Q5MINP PRN SL 06/19/24 18:00 Morphine Sulfate 2 mg Q30M PRN IV 06/19/24 18:00 Pantoprazole Sodium 40 mg DAILY@0600 PO 06/21/24 06:00 06/21/24 06:32 40 MG Insulin Glargine 10 units BID@0700,2200 GA 06/20/24 22:00 Amiodarone HCl 200 mg DAILY PO 06/21/24 10:00 06/21/24 08:39 200 MG Apixaban 2.5 mg BID PO 06/20/24 22:00 06/21/24 08:39 2.5 MG Zolpidem Tartrate 5 mg HSPRN PRN PO 06/20/24 18:15 06/21/24 00:48 5 MG Diphenhydramine HCl 25 mg Q6HP PRN IV 06/21/24 12:30 Laboratory Results Laboratory Tests 06/20/24 06:26 Urinalysis Test 06/19/24 14:18 Urine Color Light-yellow (Yellow) Urine Clarity Clear (Clear) Urine pH 8.0 (5.0-9.0) Urine Specific [place] 1.004 (1.001-1.035) Urine Protein 1+ (Negative) H Urine Ketones Negative (Negative) Urine Blood Trace /uL (Negative) H Urine Nitrite Negative (Negative) Urine Bilirubin Negative (Negative) Urine Urobilinogen Normal mg/dL (Negative) Urine Leukocyte Esterase Negative /uL (Negative) Urine RBC 3 /hpf (0 - 3) Urine Microscopic WBC 1 /HPF (0-3) Urine Squamous Epithelial Cells Few /hpf (<5) Urine Bacteria None seen /hpf (None Seen) Urine Glucose Normal mg/dL (Normal) Microbiology Microbiology Date/Time Source Procedure Growth Status 06/21/24 00:40 Nose MRSA Screen - Final Complete Assessment/Plan Assessment/Plan Abdominal pain most likely due to acute colitis End-stage renal disease on hemodialysis Type 2 diabetes Hypertension Mixed hyperlipidemia Morbid obesity History of atrial fibrillation on amiodarone and Eliquis Plan IV antibiotics ceftriaxone and metronidazole Hemodialysis per nephrology Resume the home medications Monitor his diabetes with a sliding scale regular insulin Restart the home medications amiodarone 200 mg daily and Eliquis 2.5 mg twice a day Lantus 10 units twice a day Monitor closely Full code Advance directives discussed for 18 minute 06/21/2024: Change diet to clear liquids Consult GI Continue IV antibiotics Consult Nephrology for hemodialysis Monitor the patient closely Plan discussed with: Patient My Orders Orders - NAEEM QUESADA MD Procedure Category Date Status Time Zolpidem Tartrate PHA 06/20/24 In Process (Ambien) 18:15 * Dietary Consult CONS 06/21/24 Transmitted 00:09 * Franchise Manager CONS 06/21/24 Transmitted Consult * Wound Consult CONS 06/21/24 Transmitted Diphenhdramine PHA 06/21/24 In Process Injection (Benadryl 12:30 Clear Liq Diet DIET 06/21/24 Transmitted Lunch * [facility] [employer] Cashier CONS 06/21/24 Transmitted 12:20 Date of Service: June 21, 2024 Billing Provider: NAEEM QUESADA MD Common Visit Codes: [id number] INP/OBS CARE(HIGH) NAEEM QUESADA MD June 21, 2024 15:16
[2024-06-21] MEDS: diphenhdrAMINE HCL 50 MG/1 ML VL IV PRN (16:01)
--- NOTE | 2024-06-21 17:21 | DVHINCON2 ---
Date of service: June 21, [address] Clark Reason for Consultation Abdominal pain nausea History of Present Illness This 58-year-old male presented to the emergency room with complaints of abdominal pain with nausea anorexia. Patient has history of chronic renal disease with diabetes hypertension hyperlipidemia he is on diarrhea hemodialysis Abdominal pain has been going on for about a week and progressively getting worse No hematemesis or melena CT scan showed some minimal nonspecific thickening of the rectosigmoid colon we re otherwise unremarkable GI bleeding has complaints of some constipation Past Medical History Diabetes end-stage renal disease hypertension Past Surgical History AV graft Family History: Diabetes mellitus G8 MOTHER, FH: thyroid disease G8 FATHER, Family History Non contributory Social History Denies smoking or drinking Allergies: Coded Allergies: NO KNOWN ALLERGIES (Unverified , 04/15/24) Home Meds Active Scripts Lactulose (Lactulose) 10 Gm/15 Ml [place], 10 GM PO BIDPRN PRN for 30 Days, #120 ML 1 Refill Prov:ZURI PRESLEY MD 05/24/24 Pantoprazole Sodium Sesquihydr (Protonix) 40 Mg Tab, 40 MG PO DAILY for 30 Days, #30 TAB 2 Refills Prov:ZURI PRESLEY MD 05/24/24 Cephalexin Monohydrate (Cephalexin) 500 Mg Tab, 1 TAB PO TID for 10 Days, #30 TAB Prov:ZURI PRESLEY MD 05/24/24 Apixaban Base (ELIQUIS) 2.5 Mg Tab, 2.5 MG PO BID for 14 Days, #28 TAB 0 Refills Prov:MANAS CRAFT 04/24/24 Nutritional Supplements (Josafat) [place] Pow, 1 PACK OR BID for 30 Days, #60 POW 0 Refills Prov:MANAS CRAFT 04/24/24 Amiodarone HCl (Amiodarone HCl) 200 Mg Tab, 200 MG PO Q12HR for 30 Days, #60 TAB Prov:MANAS CRAFT 04/24/24 Reported Medications Sodium Zirconium Cyclosilicate (Lokelma) 5 Gm Curly, 5 GM PO TIDWM, PACK 04/17/24 Insulin Glargine (Lantus) 100 Unit/Ml Inj, 20 UNIT SC BID, INJ 04/17/24 Allopurinol (Allopurinol) 100 Mg Tab, 100 MG PO DAILY, TAB 04/17/24 Glipizide (Glipizide) 10 Mg Tab, 10 MG PO DAILY for 30 Days, MG 04/17/24 Furosemide (Furosemide) 40 Mg Tab, 80 MG PO DAILY for 30 Days 04/17/24 Ferric Citrate (Auryxia) 210 Mg Tab, 210 MG PO DAILY, TAB 04/17/24 Ferrous Sulfate (Ferosul) 325 Mg Tab, 325 MG PO DAILY, TAB 04/17/24 Gabapentin (Gabapentin) 600 Mg Tab, 600 MG PO TID, TAB 04/17/24 Amlodipine Besylate (Amlodipine Besylate) 5 Mg Tab, 5 MG PO DAILY for 30 Days, MG 04/17/24 Metformin Hydrochloride (Metformin Hcl) 1,000 Mg Tab, 1 TAB PO BID, #180 TAB 3 Refills 04/17/24 Atorvastatin Calcium (ATORVASTATIN CALCIUM) 40 Mg Tab, 1 DAILY 04/16/24 Current Medications Current Medications Medications (Trade) Dose Ordered Sig/Samuel Route PRN Reason Start Time Stop Time Status Last Admin Pantoprazole Sodium (Protonix Tablet) 40 mg DAILY@0600 PO 06/21/24 06:00 06/21/24 06:32 Insulin Glargine (Lantus) 10 units BID@0700,2200 SC 06/20/24 22:00 Amiodarone HCl (Cordarone Tablet) 200 mg DAILY PO 06/21/24 10:00 06/21/24 08:39 Apixaban (Eliquis) 2.5 mg BID PO 06/20/24 22:00 06/21/24 08:39 Zolpidem Tartrate (Ambien) 5 mg HSPRN PRN PO FOR INSOMNIA 06/20/24 18:15 06/21/24 00:48 Diphenhydramine HCl (Benadryl Injection) 25 mg Q6HP PRN IV FOR ITCHING 06/21/24 12:30 06/21/24 16:01 Review of Systems Noncontributory Vital Signs Vital Signs Date Time Temp Pulse Resp B/P (MAP) Pulse Ox O2 Delivery O2 Flow Rate FiO2 06/21/24 13:00 97.7 70 16 130/49 (76) 91 97.7 06/21/24 07:30 Room Air* 0 21 Physical Exam Moderately built and nourished male in no acute distress vital signs stable HEENT examination no pallor no icterus Lungs are clear cardiovascular unremarkable Abdomen is soft no tenderness no rigidity no guarding except minimally in the epigastrium Bowel sounds normal No masses Extremities no edema Neuro grossly intact Labs had shown that the hemoglobin was 9.7 electrolytes are normal BUN is 13 creatinine was 3.19 liver enzymes are normal clinical impression is abdominal pain nausea anorexia patient had a colonoscopy in the reason ER O2 he does not remember which was unremarkable no history of any ulcers or other pathology in the past. Clinical impression abdominal pain possible gastroparesis possible constipation Ulcer disease or mild pancreatitis can not be excluded though less likely Labs/Diagnostic Data Labs Test 06/21/24 14:46 06/21/24 07:07 06/20/24 06:26 06/20/24 00:24 Range/Units POC Glucose 167 H 70-106 mg/dl White Blood Count 5.6 # 4.4-10.8 10^3/uL Red Blood Count 3.19 L 4.5-5.90 10^6/uL Hemoglobin 9.7 L 13.5-17.5 g/dL Hematocrit 29.3 L 41.0-53.0 % Mean Corpuscular Volume 91.7 80.0-100.0 fL Mean Corpuscular Hemoglobin 30.5 28.0-32.0 pg Mean Corpuscular Hemoglobin Concent 33.3 32.0-36.0 g/dL Red Cell Distribution Width 17.0 H 11.8-14.3 % Platelet Count 344 140-450 10^3/uL Mean Platelet Volume 7.4 6.9-10.8 fL Neutrophils (%) (Auto) 72.8 37.0-80.0 % Lymphocytes (%) (Auto) 15.8 10.0-50.0 % Monocytes (%) (Auto) 9.3 0.0-12.0 % Eosinophils (%) (Auto) 1.6 0.0-7.0 % Basophils (%) (Auto) 0.5 0.0-2.0 % Neutrophils # (Auto) 4.1 1.6-8.6 10 ^3/uL Lymphocytes # (Auto) 0.9 0.4-5.4 10 ^3/uL Monocytes # (Auto) 0.5 0-1.3 10 ^3/uL Eosinophils # (Auto) 0.1 0-0.8 10 ^3/uL Basophils # (Auto) 0 0-0.2 10 ^3/uL Nucleated Red Blood Cells 0.0 % Sodium Level 137 136-145 mmol/L Potassium Level 3.8 3.5-5.1 mmol/L Chloride Level 95 L 98-107 mmol/L Carbon Dioxide Level 32 H 20-31 mmol/L Anion Gap 10 5-15 Blood Urea Nitrogen 17 9-23 mg/dL Creatinine 3.63 H 0.700-1.30 mg/dL Glomerular Filtration Rate Calc 19 >90 mL/min BUN/Creatinine Ratio 4.7 L 10.0-20.0 Serum Glucose 104 74-106 mg/dL Calcium Level 9.8 8.7-10.4 mg/dL Total Bilirubin 0.5 0.2-1.0 mg/dL Aspartate Amino Transferase (AST) 11 L 13-40 U/L Alanine Aminotransferase (ALT) 13 7-40 U/L Alkaline Phosphatase 103 46-116 U/L Total Protein 7.5 5.7-8.2 g/dL Albumin 4.3 3.2-4.8 g/dL Troponin I High Sensitivity 19 </=54 ng/L Test 06/19/24 14:18 Range/Units Urine Color Light-yellow Yellow Urine Clarity Clear Clear Urine pH 8.0 5.0-9.0 Urine Specific [place] 1.004 1.001-1.035 Urine Protein 1+ H Negative Urine Ketones Negative Negative Urine Blood Trace H Negative /uL Urine Nitrite Negative Negative Urine Bilirubin Negative Negative Urine Urobilinogen Normal Negative mg/dL Urine Leukocyte Esterase Negative Negative /uL Urine RBC 3 0 - 3 /hpf Urine Microscopic WBC 1 0-3 /HPF Urine Squamous Epithelial Cells Few <5 /hpf Urine Bacteria None seen None Seen /hpf Urine Glucose Normal Normal mg/dL Microbiology Date/Time Source Procedure Growth Status 06/21/24 00:40 Nose MRSA Screen - Final Complete Assessment 58-year-old male with a history of diabetes hypertension abdominal pain nausea anorexia CT scan showed some nonspecific colitis with thickening of the rectosigmoid area patient has complaints of constipation nausea diarrhea or bleeding A colon evaluation few years ago which was unremarkable No history of any ulcer disease pancreatitis etc. Clinical impression possible abdominal pain possible gastritis or gastroparesis possibility of mild pancreatitis also can not be excluded Patient is feeling slightly better there was mild pain still persists Plan/Recommendation We will recommend to follow the symptoms Treated with PPIs Add stool softeners Lipase level Patient's symptoms persist may need further evaluations including EGD evaluation as necessary Thank you Dr. Romo Plan discussed with: Patient KIRSTEN ROMO MD June 21, 2024 17:21
[2024-06-22] VITALS (7 sets, daily range): BP systolic 127–148; BP diastolic 50–60; PULSE 64–73; RESP 17–18; TEMP 97.9–98.4; O2SAT 91–99
[2024-06-22 07:51] LABS: Albumin 3.7 g/dL (3.2-4.8); Alkaline Phosphatase 85 U/L (46-116); Anion Gap 10 (5-15); Aspartate Aminotransferase 14 U/L (13-40); BUN/Creatinine Ratio 5.1 (10.0-20.0); Blood Urea Nitrogen 22 mg/dL (9-23); Calcium 9.3 mg/dL (8.7-10.4); Carbon Dioxide 28 mmol/L (20-31); Chloride 102 mmol/L (98-107); Glucose 81 mg/dL (74-106); Magnesium 1.8 mg/dL (1.6-2.6); Potassium 3.7 mmol/L (3.5-5.1); Sodium 140 mmol/L (136-145); Total Protein 6.6 g/dL (5.7-8.2)
[2024-06-22 07:52] LABS: Bilirubin, Total 0.4 mg/dL (0.2-1.0)
[2024-06-22 07:54] LABS: Alanine Aminotransferase < 9 U/L (7-40)
[2024-06-22] MEDS: HYDROcodone-ACET 5/325MG TAB PO PRN (10:23)
[2024-06-22 10:25] LABS: Hepatitis B Surface Antigen Negative (Negative)
[2024-06-22 10:29] LABS: Hepatitis C Antibody Negative (Negative)
--- NOTE | 2024-06-22 19:06 | DVHINCON2 ---
Date of service: June 21, [address] Boyce Reason for Consultation ESRD and dialysis management History of Present Illness Hai Arredondo is a 58-year-old male with a Past Medical History pertinent for Diabetes, Hypertension, Hyperlipidemia and ESRD on hemodialysis who presented to the hospital with complaint of abdominal pain for 1 week. While in ED, labs were remarkable for WBC 4.1, Hgb 9.7, HCT 29.6, Platelets 306, Na 135, K 4.0, BUN 13, Creatinine 3.19, Glucose 159, AST 18, ALT 15, Troponin 17. CT Abdomen/pelvis reported wall thickening in the rectosigmoid colon is nonspecific, could represent colitis. Patient currently reports feeling slightly better but endorses persistent mild abdominal pain. No hematemesis or melena. Patient states he had a colon exam a few years ago that was negative. Patient is under my care outpatient for hemodialysis and Nephrology standpoint. I was asked to consult. Allergies: Coded Allergies: NO KNOWN ALLERGIES (Unverified , 04/15/24) Home Meds Active Scripts Lactulose (Lactulose) 10 Gm/15 Ml Yamileth, 10 GM PO BIDPRN PRN for 30 Days, #120 ML 1 Refill Prov:ZURI PRESLEY MD 05/24/24 Pantoprazole Sodium Sesquihydr (Protonix) 40 Mg Tab, 40 MG PO DAILY for 30 Days, #30 TAB 2 Refills Prov:ZURI PRESLEY MD 05/24/24 Cephalexin Monohydrate (Cephalexin) 500 Mg Tab, 1 TAB PO TID for 10 Days, #30 TAB Prov:ZURI PRESLEY MD 05/24/24 Apixaban Base (ELIQUIS) 2.5 Mg Tab, 2.5 MG PO BID for 14 Days, #28 TAB 0 Refills Prov:MANAS CRAFT 04/24/24 Nutritional Supplements (Josafat) Crouse Pow, 1 PACK OR BID for 30 Days, #60 POW 0 Refills Prov:MANAS CRAFT 04/24/24 Amiodarone HCl (Amiodarone HCl) 200 Mg Tab, 200 MG PO Q12HR for 30 Days, #60 TAB Prov:MANAS CRAFT 04/24/24 Reported Medications Sodium Zirconium Cyclosilicate (Lokelma) 5 Gm Curly, 5 GM PO TIDWM, PACK 04/17/24 Insulin Glargine (Lantus) 100 Unit/Ml Inj, 20 UNIT SC BID, INJ 04/17/24 Allopurinol (Allopurinol) 100 Mg Tab, 100 MG PO DAILY, TAB 04/17/24 Glipizide (Glipizide) 10 Mg Tab, 10 MG PO DAILY for 30 Days, MG 04/17/24 Furosemide (Furosemide) 40 Mg Tab, 80 MG PO DAILY for 30 Days 04/17/24 Ferric Citrate (Auryxia) 210 Mg Tab, 210 MG PO DAILY, TAB 04/17/24 Ferrous Sulfate (Ferosul) 325 Mg Tab, 325 MG PO DAILY, TAB 04/17/24 Gabapentin (Gabapentin) 600 Mg Tab, 600 MG PO TID, TAB 04/17/24 Amlodipine Besylate (Amlodipine Besylate) 5 Mg Tab, 5 MG PO DAILY for 30 Days, MG 04/17/24 Metformin Hydrochloride (Metformin Hcl) 1,000 Mg Tab, 1 TAB PO BID, #180 TAB 3 Refills 04/17/24 Atorvastatin Calcium (ATORVASTATIN CALCIUM) 40 Mg Tab, 1 DAILY 04/16/24 Family History: Diabetes mellitus G8 MOTHER, FH: thyroid disease G8 FATHER, Review of Systems Gastrointestinal: Nausea, Vomiting, Abdominal Pain, Diarrhea; No: Constipation, Melena, Hematochezia, Other 10 point ROS reviewed and negative unless otherwise noted in HPI. H&P Exam Vital Signs/I&O Vital Sign Date Time Temp Pulse Resp B/P (MAP) Pulse Ox O2 Delivery O2 Flow Rate FiO2 06/22/24 16:39 98.3 68 18 142/50 (80) 99 98.3 06/22/24 08:15 Room Air* 0 21 Intake and Output 06/21/24 06/22/24 19:00 07:00 Intake Total 1350 ml 200 ml Output Total 0 ml 625 ml Balance 1350 ml -425 ml Intake Oral 1200 ml 0 ml IV Total 150 ml 200 ml Output Urine Total 0 ml 625 ml Physical Exam Vitals and nursing notes reviewed. General Appearance: In no acute distress HEENT: Atraumatic, PERRLA, EOMI, Mucous membr. moist/pink Respiratory: Clear to auscultation, Normal air movement Cardiovascular: Regular rate, Normal S1, Normal S2, No murmurs Abdominal: Normal bowel sounds, Soft, No hepatospenomegaly, No masses, Other (Reports tenderness) Extremities: No clubbing, No cyanosis, No edema, Normal pulses, No tenderness/swelling, Other Skin: No rashes, No breakdown, No significant lesion Neuro: A&Ox4. Normal speech, Strength at 5/5 X4 ext. Psych/Mental Status: Mental status NL, Mood NL Labs/Diagnostic Data Labs/Diagnostic Data Laboratory Tests Test 06/22/24 10:42 06/22/24 07:07 06/21/24 14:46 06/21/24 11:03 Range/Units POC Glucose 148 H 167 H 147 H 70-106 mg/dl Sodium Level 140 136-145 mmol/L Potassium Level 3.7 3.5-5.1 mmol/L Chloride Level 102 98-107 mmol/L Carbon Dioxide Level 28 20-31 mmol/L Anion Gap 10 5-15 Blood Urea Nitrogen 22 9-23 mg/dL Creatinine 4.35 H 0.700-1.30 mg/dL Glomerular Filtration Rate Calc 15 >90 mL/min BUN/Creatinine Ratio 5.1 L 10.0-20.0 Serum Glucose 81 74-106 mg/dL Calcium Level 9.3 8.7-10.4 mg/dL Magnesium Level 1.8 1.6-2.6 mg/dL Total Bilirubin 0.4 0.2-1.0 mg/dL Aspartate Amino Transferase (AST) 14 13-40 U/L Alanine Aminotransferase (ALT) < 9 7-40 U/L Alkaline Phosphatase 85 46-116 U/L Total Protein 6.6 5.7-8.2 g/dL Albumin 3.7 3.2-4.8 g/dL Test 06/21/24 07:07 06/21/24 05:59 06/20/24 23:03 06/20/24 17:39 Range/Units Hepatitis B Surface Antigen Negative Negative Hepatitis C Antibody Negative Negative POC Glucose 112 H 123 H 112 H 70-106 mg/dl Test 06/20/24 12:26 06/20/24 08:14 06/20/24 06:26 06/20/24 00:24 Range/Units POC Glucose 171 H 105 70-106 mg/dl White Blood Count 5.6 # 4.4-10.8 10^3/uL Red Blood Count 3.19 L 4.5-5.90 10^6/uL Hemoglobin 9.7 L 13.5-17.5 g/dL Hematocrit 29.3 L 41.0-53.0 % Mean Corpuscular Volume 91.7 80.0-100.0 fL Mean Corpuscular Hemoglobin 30.5 28.0-32.0 pg Mean Corpuscular Hemoglobin Concent 33.3 32.0-36.0 g/dL Red Cell Distribution Width 17.0 H 11.8-14.3 % Platelet Count 344 140-450 10^3/uL Mean Platelet Volume 7.4 6.9-10.8 fL Neutrophils (%) (Auto) 72.8 37.0-80.0 % Lymphocytes (%) (Auto) 15.8 10.0-50.0 % Monocytes (%) (Auto) 9.3 0.0-12.0 % Eosinophils (%) (Auto) 1.6 0.0-7.0 % Basophils (%) (Auto) 0.5 0.0-2.0 % Neutrophils # (Auto) 4.1 1.6-8.6 10 ^3/uL Lymphocytes # (Auto) 0.9 0.4-5.4 10 ^3/uL Monocytes # (Auto) 0.5 0-1.3 10 ^3/uL Eosinophils # (Auto) 0.1 0-0.8 10 ^3/uL Basophils # (Auto) 0 0-0.2 10 ^3/uL Nucleated Red Blood Cells 0.0 % Sodium Level 137 136-145 mmol/L Potassium Level 3.8 3.5-5.1 mmol/L Chloride Level 95 L 98-107 mmol/L Carbon Dioxide Level 32 H 20-31 mmol/L Anion Gap 10 5-15 Blood Urea Nitrogen 17 9-23 mg/dL Creatinine 3.63 H 0.700-1.30 mg/dL Glomerular Filtration Rate Calc 19 >90 mL/min BUN/Creatinine Ratio 4.7 L 10.0-20.0 Serum Glucose 104 74-106 mg/dL Calcium Level 9.8 8.7-10.4 mg/dL Total Bilirubin 0.5 0.2-1.0 mg/dL Aspartate Amino Transferase (AST) 11 L 13-40 U/L Alanine Aminotransferase (ALT) 13 7-40 U/L Alkaline Phosphatase 103 46-116 U/L Total Protein 7.5 5.7-8.2 g/dL Albumin 4.3 3.2-4.8 g/dL Troponin I High Sensitivity 19 </=54 ng/L Test 06/19/24 16:08 06/19/24 15:04 06/19/24 14:18 06/19/24 14:11 Range/Units Troponin I High Sensitivity 17 17 </=54 ng/L White Blood Count 4.1 L 4.4-10.8 10^3/uL Red Blood Count 3.18 L 4.5-5.90 10^6/uL Hemoglobin 9.7 L 13.5-17.5 g/dL Hematocrit 29.6 L 41.0-53.0 % Mean Corpuscular Volume 93.0 80.0-100.0 fL Mean Corpuscular Hemoglobin 30.6 28.0-32.0 pg Mean Corpuscular Hemoglobin Concent 32.9 32.0-36.0 g/dL Red Cell Distribution Width 17.1 H 11.8-14.3 % Platelet Count 306 140-450 10^3/uL Mean Platelet Volume 7.4 6.9-10.8 fL Neutrophils (%) (Auto) 66.6 37.0-80.0 % Lymphocytes (%) (Auto) 21.3 10.0-50.0 % Monocytes (%) (Auto) 10.1 0.0-12.0 % Eosinophils (%) (Auto) 1.4 0.0-7.0 % Basophils (%) (Auto) 0.6 0.0-2.0 % Neutrophils # (Auto) 2.7 1.6-8.6 10 ^3/uL Lymphocytes # (Auto) 0.9 0.4-5.4 10 ^3/uL Monocytes # (Auto) 0.4 0-1.3 10 ^3/uL Eosinophils # (Auto) 0.1 0-0.8 10 ^3/uL Basophils # (Auto) 0 0-0.2 10 ^3/uL Nucleated Red Blood Cells 0.1 % Sodium Level 135 L 136-145 mmol/L Potassium Level 4.0 3.5-5.1 mmol/L Chloride Level 95 L 98-107 mmol/L Carbon Dioxide Level 34 H 20-31 mmol/L Anion Gap 6 5-15 Blood Urea Nitrogen 13 9-23 mg/dL Creatinine 3.19 H 0.700-1.30 mg/dL Glomerular Filtration Rate Calc 22 >90 mL/min BUN/Creatinine Ratio 4.1 L 10.0-20.0 Serum Glucose 159 H 74-106 mg/dL Calcium Level 9.5 8.7-10.4 mg/dL Total Bilirubin 0.4 0.2-1.0 mg/dL Aspartate Amino Transferase (AST) 18 13-40 U/L Alanine Aminotransferase (ALT) 15 7-40 U/L Alkaline Phosphatase 105 46-116 U/L Total Protein 7.5 5.7-8.2 g/dL Albumin 4.3 3.2-4.8 g/dL Urine Color Light-yellow Yellow Urine Clarity Clear Clear Urine pH 8.0 5.0-9.0 Urine Specific [place] 1.004 1.001-1.035 Urine Protein 1+ H Negative Urine Ketones Negative Negative Urine Blood Trace H Negative /uL Urine Nitrite Negative Negative Urine Bilirubin Negative Negative Urine Urobilinogen Normal Negative mg/dL Urine Leukocyte Esterase Negative Negative /uL Urine RBC 3 0 - 3 /hpf Urine Microscopic WBC 1 0-3 /HPF Urine Squamous Epithelial Cells Few <5 /hpf Urine Bacteria None seen None Seen /hpf Urine Glucose Normal Normal mg/dL POC Glucose 135 H 70-106 mg/dl Microbiology Date/Time Source Procedure Growth Status 06/21/24 00:40 Nose MRSA Screen - Final Complete Assessment Acute abdominal pain Non-specific colitis Anemia, unspecified End stage renal disease on hemodialysis Plan/Recommendation Agreement with your ongoing assessment and plan of care. GI consulted. Schedule dialysis 06/22. Daily lab monitoring. Electrolyte replacement prn. Continue home medications. PPIs. Bowel care regimen. DVT prophylaxis: SCDs. Pain management as needed. Additional plan as per the hospital course. Plan discussed with: Patient, Other (RN) OLEGARIO SNELL DO June 22, 2024 19:06
--- NOTE | 2024-06-22 19:07 | DVHPN2 ---
Progress Note - Dictate Date Seen: June 22, 2024 Has the PT tested + for MRSA If YES, has PT been informed?: No Medical Necessity Reason Pt with a Central, PICC or Fol: No Subjective Patient is seen and evaluated in follow up. No acute events overnight. Patient denies any new complaints. Abdominal pain is controlled. Continues on clear liquid diet. Patient is scheduled for hemodialysis. vital signs Vital Sign Date Time Temp Pulse Resp B/P (MAP) Pulse Ox O2 Delivery O2 Flow Rate FiO2 06/22/24 16:39 98.3 68 18 142/50 (80) 99 98.3 06/22/24 08:15 Room Air* 0 21 Total Intake and Output 06/21/24 06/21/24 06/22/24 15:00 23:00 07:00 Intake Total 990 ml 460 ml 100 ml Output Total 0 ml 625 ml Balance 990 ml 460 ml -525 ml medications Current Medications Medications Dose Ordered Sig/Samuel Route Start Time Stop Time Status Last Admin Dose Admin Metronidazole 100 ml @ 100 mls/hr Q8HR IV 06/19/24 22:00 06/22/24 15:14 Ceftriaxone Sodium 50 ml @ 100 mls/hr DAILY@09 IV 06/20/24 09:00 06/22/24 09:13 Atorvastatin Calcium 20 mg HS PO 06/19/24 22:00 06/21/24 21:45 Aspirin 81 mg DAILY PO 06/20/24 10:00 06/21/24 08:38 Diagnostic Test (Pha) 1 strip ACHS 06/19/24 17:00 06/22/24 17:00 Insulin Human Regular ACHS SC 06/19/24 17:00 06/22/24 17:33 Dextrose 50 ml UD PRN IV 06/19/24 17:00 Sodium Chloride 10 ml Q8HR IV 06/19/24 22:00 06/22/24 14:00 Acetaminophen/ Hydrocodone Bitart 1 tab Q4HP PRN PO 06/19/24 17:00 06/22/24 10:23 Ondansetron HCl 4 mg Q4HP PRN IV 06/19/24 17:00 Docusate Sodium 100 mg BIDPRN PRN PO 06/19/24 17:00 Acetaminophen 650 mg Q6HP PRN PO 06/19/24 17:00 06/21/24 13:07 Amlodipine Besylate 5 mg DAILY PO 06/20/24 10:00 06/22/24 09:12 Hydralazine HCl 10 mg Q6HP PRN IV 06/19/24 17:00 06/20/24 20:50 Nitroglycerin 0.4 mg Q5MINP PRN SL 06/19/24 18:00 Morphine Sulfate 2 mg Q30M PRN IV 06/19/24 18:00 Pantoprazole Sodium 40 mg DAILY@0600 PO 06/21/24 06:00 06/22/24 06:02 Insulin Glargine 10 units BID@0700,2200 SC 06/20/24 22:00 06/21/24 21:47 Amiodarone HCl 200 mg DAILY PO 06/21/24 10:00 06/22/24 09:13 Apixaban 2.5 mg BID PO 06/20/24 22:00 06/22/24 09:13 Zolpidem Tartrate 5 mg HSPRN PRN PO 06/20/24 18:15 06/21/24 21:45 Diphenhydramine HCl 25 mg Q6HP PRN IV 06/21/24 12:30 06/21/24 16:01 objective Vitals and nursing notes reviewed. General Appearance: In no acute distress HEENT: Atraumatic, PERRLA, EOMI, Mucous membr. moist/pink Respiratory: Clear to auscultation, Normal air movement Cardiovascular: Regular rate, Normal S1, Normal S2, No murmurs Abdominal: Normal bowel sounds, Soft, No hepatospenomegaly, No masses Extremities: No clubbing, No cyanosis, No edema, Normal pulses, No tenderness/swelling, Other Skin: No rashes, No breakdown, No significant lesion Neuro: A&Ox4. Normal speech, Strength at 5/5 X4 ext. Psych/Mental Status: Mental status NL, Mood NL laboratory and microbiology Laboratory Tests 06/22/24 07:07 06/20/24 06:26 Test 06/22/24 07:07 Range/Units Serum Glucose 81 74-106 mg/dL Problem List Acute abdominal pain Non-specific colitis Anemia, unspecified End stage renal disease on hemodialysis Assessment/Plan Agree with current supportive medical care. GI following. HD- 06/22- 2L as tolerated. Daily lab monitoring; electrolyte replacement prn. Continue home medications. PPIs. DVT prophylaxis: SCDs. Pain management as needed. Wound care to L foot wound. Additional plan as per the hospital course. Dietary Evaluation Review Comments: 1. Advance diet to CCHO 60 + renal standard as medically feasible 2. Josafat 1 pk daily & Nephro-july 1 tab daily 3. Continue current in POC Expected Outcomes/Goals: To meet >75% estimated needs Fu 2-3 days Plan discussed with: Patient, Other (RN) OLEGARIO SNELL DO June 22, 2024 19:07
--- NOTE | 2024-06-22 20:09 | DVHPN2 ---
Subjective Better Changes from previous H/P or p: Changes Eyes: No Pain, No Vision change, No Conjunctivae inflammation, No Eyelid inflammation, No Other, No Redness ENT: No Ear pain, No Ear discharge, No Nose pain, No Nose discharge, No Nose congestion, No Mouth pain, No Mouth swelling, No Throat pain, No Throat swelling, No Other Cardiovascular: No Chest Pain, No Palpitations, No Orthopnea, No Paroxysmal Noc. Dyspnea, No Edema, No Lt Headedness, No Other Respiratory: No Cough, No Dry, No Shortness of breath, No SOB with excertion, No Wheezing, No Hemoptysis, No Pleuritic Pain, No Sputum, No Other Gastrointestinal: Nausea, Vomiting, Abdominal Pain, Diarrhea; No Constipation, No Melena, No Hematochezia, No Other Genitourinary: No Dysuria, No Frequency, No Incontinence, No Hematuria, No Retention; Other (On hemodialysis) Musculoskeletal: other (AV graft left upper extremity with positive bruit and thrill); No neck pain, No shoulder pain, No arm pain, No back pain, No hand pain, No leg pain, No foot pain Skin: No Rash, No Lesions, No Jaundice, No Bruising; Other (Left AV graft) Objective Vitals Vital Signs Date Time Temp Pulse Resp B/P (MAP) Pulse Ox O2 Delivery O2 Flow Rate FiO2 06/22/24 16:39 98.3 68 18 142/50 (80) 99 98.3 06/22/24 08:15 Room Air* 0 21 Intake/Output Intake and Output 06/22/24 07:00 Intake Total 1550 ml Output Total 625 ml Balance 925 ml Intake Oral 1200 ml IV Total 350 ml Output Urine Total 625 ml General Appearance: Alert, Oriented X3, Cooperative, No acute distress Lungs: Other Extremities: Other (1+ edema bilaterally) Medications Current Medications Medications Dose Ordered Sig/Samuel Route Start Time Stop Time Status Last Admin Dose Admin Metronidazole 100 ml @ 100 mls/hr Q8HR IV 06/19/24 22:00 06/22/24 15:14 100 MLS/HR Ceftriaxone Sodium 50 ml @ 100 mls/hr DAILY@09 IV 06/20/24 09:00 06/22/24 09:13 100 MLS/HR Atorvastatin Calcium 20 mg HS PO 06/19/24 22:00 06/21/24 21:45 20 MG Aspirin 81 mg DAILY PO 06/20/24 10:00 06/21/24 08:38 81 MG Diagnostic Test (Pha) 1 strip ACHS 06/19/24 17:00 06/22/24 17:00 1 STRIP Insulin Human Regular ACHS SC 06/19/24 17:00 06/22/24 17:33 2 UNITS Dextrose 50 ml UD PRN IV 06/19/24 17:00 Sodium Chloride 10 ml Q8HR IV 06/19/24 22:00 06/22/24 14:00 10 ML Acetaminophen/ Hydrocodone Bitart 1 tab Q4HP PRN PO 06/19/24 17:00 06/22/24 10:23 1 TAB Ondansetron HCl 4 mg Q4HP PRN IV 06/19/24 17:00 Docusate Sodium 100 mg BIDPRN PRN PO 06/19/24 17:00 Acetaminophen 650 mg Q6HP PRN PO 06/19/24 17:00 06/21/24 13:07 650 MG Amlodipine Besylate 5 mg DAILY PO 06/20/24 10:00 06/22/24 09:12 5 MG Hydralazine HCl 10 mg Q6HP PRN IV 06/19/24 17:00 06/20/24 20:50 10 MG Nitroglycerin 0.4 mg Q5MINP PRN SL 06/19/24 18:00 Morphine Sulfate 2 mg Q30M PRN IV 06/19/24 18:00 Pantoprazole Sodium 40 mg DAILY@0600 PO 06/21/24 06:00 06/22/24 06:02 40 MG Insulin Glargine 10 units BID@0700,2200 IA 06/20/24 22:00 06/21/24 21:47 10 UNITS Amiodarone HCl 200 mg DAILY PO 06/21/24 10:00 06/22/24 09:13 200 MG Apixaban 2.5 mg BID PO 06/20/24 22:00 06/22/24 09:13 2.5 MG Zolpidem Tartrate 5 mg HSPRN PRN PO 06/20/24 18:15 06/21/24 21:45 5 MG Diphenhydramine HCl 25 mg Q6HP PRN IV 06/21/24 12:30 06/21/24 16:01 25 MG Laboratory Results Laboratory Tests 06/20/24 06:26 06/22/24 07:07 Chemistry Test 06/22/24 07:07 Albumin 3.7 g/dL (3.2-4.8) Calcium Level 9.3 mg/dL (8.7-10.4) Magnesium Level 1.8 mg/dL (1.6-2.6) Total Protein 6.6 g/dL (5.7-8.2) LFT Test 06/22/24 07:07 Alanine Aminotransferase (ALT) < 9 U/L (7-40) Alkaline Phosphatase 85 U/L (46-116) Aspartate Amino Transferase (AST) 14 U/L (13-40) Total Bilirubin 0.4 mg/dL (0.2-1.0) Urinalysis Test 06/19/24 14:18 Urine Color Light-yellow (Yellow) Urine Clarity Clear (Clear) Urine pH 8.0 (5.0-9.0) Urine Specific [place] 1.004 (1.001-1.035) Urine Protein 1+ (Negative) H Urine Ketones Negative (Negative) Urine Blood Trace /uL (Negative) H Urine Nitrite Negative (Negative) Urine Bilirubin Negative (Negative) Urine Urobilinogen Normal mg/dL (Negative) Urine Leukocyte Esterase Negative /uL (Negative) Urine RBC 3 /hpf (0 - 3) Urine Microscopic WBC 1 /HPF (0-3) Urine Squamous Epithelial Cells Few /hpf (<5) Urine Bacteria None seen /hpf (None Seen) Urine Glucose Normal mg/dL (Normal) Microbiology Microbiology Date/Time Source Procedure Growth Status 06/21/24 00:40 Nose MRSA Screen - Final Complete Assessment/Plan Assessment/Plan Abdominal pain most likely due to acute colitis End-stage renal disease on hemodialysis Type 2 diabetes Hypertension Mixed hyperlipidemia Morbid obesity History of atrial fibrillation on amiodarone and Eliquis Plan IV antibiotics ceftriaxone and metronidazole Hemodialysis per nephrology Resume the home medications Monitor his diabetes with a sliding scale regular insulin Restart the home medications amiodarone 200 mg daily and Eliquis 2.5 mg twice a day Lantus 10 units twice a day Monitor closely Full code Advance directives discussed for 18 minute 06/21/2024: Change diet to clear liquids Consult GI Continue IV antibiotics Consult Nephrology for hemodialysis Monitor the patient closely 06/22/24: HD today IV antibiotics Plan discussed with: Patient Date of Service: June 22, 2024 Billing Provider: NAEEM QUESADA MD Common Visit Codes: [id number] INP/OBS CARE(HIGH) NAEEM QUESADA MD June 22, 2024 20:09
[2024-06-23 01:00] VITALS: BP 136/64; PULSE 73; RESP 17; TEMP 98.1; O2SAT 97
[2024-06-23 08:10] VITALS: PULSE 65
[2024-06-23 09:00] VITALS: BP 143/55; PULSE 67; RESP 16; TEMP 98; O2SAT 94
[2024-06-23 13:00] VITALS: BP 145/57; PULSE 70; RESP 15; TEMP 97.9; O2SAT 97
[2024-06-23] MEDS ORDERED: GABA-339 PO (14:57)
[2024-06-23] MEDS ORDERED: METR-344 PO (14:59)
[2024-06-23] MEDS ORDERED: CIPR-273 PO (14:59)
--- NOTE | 2024-06-23 15:01 | DVHDS2 ---
Discharge Summary Date of Admission June 19, 2024 at 17:49 Date of Discharge: June 23, 2024 Labs/Diagnostic Data: Laboratory Results Test 06/23/24 11:07 06/23/24 06:56 06/22/24 07:07 06/21/24 07:07 POC Glucose 141 mg/dl (70-106) Lipase 39 U/L (12-53) Sodium Level 140 mmol/L (136-145) Potassium Level 3.7 mmol/L (3.5-5.1) Chloride Level 102 mmol/L (98-107) Carbon Dioxide Level 28 mmol/L (20-31) Anion Gap 10 (5-15) Blood Urea Nitrogen 22 mg/dL (9-23) Creatinine 4.35 mg/dL (0.700-1.30) Glomerular Filtration Rate Calc 15 mL/min (>90) BUN/Creatinine Ratio 5.1 (10.0-20.0) Serum Glucose 81 mg/dL (74-106) Calcium Level 9.3 mg/dL (8.7-10.4) Magnesium Level 1.8 mg/dL (1.6-2.6) Total Bilirubin 0.4 mg/dL (0.2-1.0) Aspartate Amino Transferase (AST) 14 U/L (13-40) Alanine Aminotransferase (ALT) < 9 U/L (7-40) Alkaline Phosphatase 85 U/L (46-116) Total Protein 6.6 g/dL (5.7-8.2) Albumin 3.7 g/dL (3.2-4.8) Hepatitis B Surface Antigen Negative (Negative) Hepatitis C Antibody Negative (Negative) Test 06/20/24 06:26 06/20/24 00:24 06/19/24 14:18 White Blood Count 5.6 10^3/uL (4.4-10.8) Red Blood Count 3.19 10^6/uL (4.5-5.90) Hemoglobin 9.7 g/dL (13.5-17.5) Hematocrit 29.3 % (41.0-53.0) Mean Corpuscular Volume 91.7 fL (80.0-100.0) Mean Corpuscular Hemoglobin 30.5 pg (28.0-32.0) Mean Corpuscular Hemoglobin Concent 33.3 g/dL (32.0-36.0) Red Cell Distribution Width 17.0 % (11.8-14.3) Platelet Count 344 10^3/uL (140-450) Mean Platelet Volume 7.4 fL (6.9-10.8) Neutrophils (%) (Auto) 72.8 % (37.0-80.0) Lymphocytes (%) (Auto) 15.8 % (10.0-50.0) Monocytes (%) (Auto) 9.3 % (0.0-12.0) Eosinophils (%) (Auto) 1.6 % (0.0-7.0) Basophils (%) (Auto) 0.5 % (0.0-2.0) Neutrophils # (Auto) 4.1 10 ^3/uL (1.6-8.6) Lymphocytes # (Auto) 0.9 10 ^3/uL (0.4-5.4) Monocytes # (Auto) 0.5 10 ^3/uL (0-1.3) Eosinophils # (Auto) 0.1 10 ^3/uL (0-0.8) Basophils # (Auto) 0 10 ^3/uL (0-0.2) Nucleated Red Blood Cells 0.0 % Troponin I High Sensitivity 19 ng/L (</=54) Urine Color Light-yellow (Yellow) Urine Clarity Clear (Clear) Urine pH 8.0 (5.0-9.0) Urine Specific [place] 1.004 (1.001-1.035) Urine Protein 1+ (Negative) Urine Ketones Negative (Negative) Urine Blood Trace /uL (Negative) Urine Nitrite Negative (Negative) Urine Bilirubin Negative (Negative) Urine Urobilinogen Normal mg/dL (Negative) Urine Leukocyte Esterase Negative /uL (Negative) Urine RBC 3 /hpf (0 - 3) Urine Microscopic WBC 1 /HPF (0-3) Urine Squamous Epithelial Cells Few /hpf (<5) Urine Bacteria None seen /hpf (None Seen) Urine Glucose Normal mg/dL (Normal) Other Laboratory Tests 06/22/24 07:07 06/20/24 06:26 Brief Hx & Hospital Course: Final diagnoses: Abdominal pain most likely due to acute colitis End-stage renal disease on hemodialysis Type 2 diabetes Hypertension Mixed hyperlipidemia Morbid obesity History of atrial fibrillation on amiodarone and Eliquis 58-year-old male with a history of end-stage renal disease and hypertension diabetes comes with chief complaint of abdominal pain for 5 days He describes the pain in the epigastric and periumbilical area and the left flank He also describes some nausea and vomiting associated with the pain He was treated with IV antibiotics and was kept on clear liquid diet and overnight he improved Today he is asymptomatic, he said the abdominal pain has resolved and he is hungry again Advance his diet to soft mechanical diet today Discharged home after dinner on Cipro and Flagyl for 7 days Resume the home medications Follow up with dialysis as scheduled Follow up with his primary care physician as soon as possible Condition at Discharge: Stable Final Diagnosis/Problems List Abdominal pain most likely due to acute colitis End-stage renal disease on hemodialysis Type 2 diabetes Hypertension Mixed hyperlipidemia Morbid obesity History of atrial fibrillation on amiodarone and Eliquis Discharge Disposition: Home SNF Discharge Will this Physician continue t: No Discharge Instruct/Medications Diet: Consistent carbohydrate, Cardiac 2g Na,low cholest, Renal Activity: No Restrictions, As Tolerated Follow Up/Referral: PCP as soon as possible Hemodialysis as scheduled Medications: Same home medications Add Flagyl 500 mg t.i.d. Cipro 250 mg twice a day Discharge Statement: "Patient was advised to return to the ER or call 911 if any headaches, dizziness, shortness of breath, chest pain, abdominal pain, bleeding, fevers, or worsening of medical condition. Patient was counseled about treatment plan, medications, possible side effects, patientverbalized understanding. All questions were answered to the best of my ability. This discharge took greater then 30 minutes in planning, reviewing documentation, counseling the patient, and discussing with other team members." ASSESSMENT ASSESSMENT Assessment Abdominal pain most likely due to acute colitis End-stage renal disease on hemodialysis Type 2 diabetes Hypertension Mixed hyperlipidemia Morbid obesity History of atrial fibrillation on amiodarone and Eliquis Date of Service: June 23, 2024 Billing Provider: NAEEM QUESADA MD Common Visit Codes: [id number] DISCH DAY >30min NAEEM QUESADA MD June 23, 2024 15:01
--- NOTE | 2024-06-23 19:04 | DVHPN2 ---
Progress Note - Dictate Date Seen: June 23, 2024 Has the PT tested + for MRSA If YES, has PT been informed?: No Medical Necessity Reason Pt with a Central, PICC or Fol: No Subjective Patient is seen and evaluated in follow up. No acute events overnight. Patient reports feeling better. States abdominal pain has resolved. Diet has been advanced. vital signs Vital Sign Date Time Temp Pulse Resp B/P (MAP) Pulse Ox O2 Delivery O2 Flow Rate FiO2 06/23/24 13:00 97.9 70 15 145/57 (86) 97 97.9 06/23/24 08:10 Room Air* 0 21 Total Intake and Output 06/22/24 06/22/24 06/23/24 15:00 23:00 07:00 Intake Total 50 ml 200 ml 525 ml Output Total 200 ml 200 ml Balance 50 ml 0 ml 325 ml objective Vitals and nursing notes reviewed. General Appearance: In no acute distress HEENT: Atraumatic, PERRLA, EOMI, Mucous membr. moist/pink Respiratory: Clear to auscultation, Normal air movement Cardiovascular: Regular rate, Normal S1, Normal S2, No murmurs Abdominal: Normal bowel sounds, Soft, No hepatospenomegaly, No masses Extremities: No clubbing, No cyanosis, No edema, Normal pulses, No tenderness/swelling, Other Skin: No rashes, No breakdown, No significant lesion Neuro: A&Ox4. Normal speech, Strength at 5/5 X4 ext. Psych/Mental Status: Mental status NL, Mood NL laboratory and microbiology Laboratory Tests 06/22/24 07:07 06/20/24 06:26 Test 06/22/24 07:07 Range/Units Serum Glucose 81 74-106 mg/dL Problem List Acute abdominal pain Non-specific colitis Anemia, unspecified End stage renal disease on hemodialysis Assessment/Plan DC planning in progress. To continue Cipro and Flagyl for 7 days. Cleared for discharge from Nephrology standpoint. Resume outpatient dialysis with [facility] per previous schedule MWF. Dietary Evaluation Review Comments: 1. Advance diet to CCHO 60 + renal standard as medically feasible 2. Josafat 1 pk daily & Nephro-july 1 tab daily 3. Continue current in POC Expected Outcomes/Goals: To meet >75% estimated needs Fu 2-3 days Plan discussed with: Patient, Other (RN) OLEGARIO SNELL DO June 23, 2024 19:04
== END 2024-06-23 16:10 | disposition home or self-care (01) | DRG 391 ==
LOC: ER 14:01 → OVERFLOW 17:49 → TELE-WESTW 06-20 21:20 → WEST WING 06-22 10:37 → TELE-WESTW 06-22 10:40
PROVIDERS: ADMIT Internal Medicine Geriatric Medicine; ATTEND Internal Medicine Geriatric Medicine
PROC: 5A1D70Z Performance of Urinary Filtration, Intermittent, Less than 6 Hours Per Day (ICD-10-PCS; principal; 2024-06-22)
DX: A09 Infectious gastroenteritis and colitis, unspecified (principal); N18.6 End stage renal disease; I12.0 Hypertensive chronic kidney disease with stage 5 chronic kidney disease or end stage renal disease; D64.9 Anemia, unspecified; E11.22 Type 2 diabetes mellitus with diabetic chronic kidney disease; K59.00 Constipation, unspecified; E66.01 Morbid (severe) obesity due to excess calories; E78.2 Mixed hyperlipidemia; I48.91 Unspecified atrial fibrillation; Z99.2 Dependence on renal dialysis; Z79.01 Long term (current) use of anticoagulants; Z79.2 Long term (current) use of antibiotics; Z79.4 Long term (current) use of insulin; Z79.84 Long term (current) use of oral hypoglycemic drugs; Z83.3 Family history of diabetes mellitus; Z68.37 Body mass index [BMI] 37.0-37.9, adult
CPT/HCPCS: 36415; 74176; 80053; 81001; 82962; 83690; 83735; 84484; 85025; 86803; 87081; 87340; 90935; G0378; J1815; J2543; J3490

== ENCOUNTER 2024-06-30 18:37 | Inpatient (IN) | payer MEDICARE, MEDICAID ==
[~2024-06-30] VITALS: Ht 167.6 cm; Wt 87.1 kg
[~2024-06-30 18:37] MED LIST changes: -ATOR40TA52; +ATOR40TA52 PO; -CEPH500T PO; +CIPR-273 PO; +METR-344 PO; +TRAZ-227 PO; +ZOLP5TAB5 PO
[2024-06-30 19:30] LABS: Basophils # (auto) 0 10 ^3/uL (0-0.2); Basophils % (auto) 0.6 % (0.0-2.0); Eosinophils # (auto) 0 10 ^3/uL (0-0.8); Eosinophils % (auto) 0.3 % (0.0-7.0); Hematocrit 35.3 % (41.0-53.0); Hemoglobin 11.4 g/dL (13.5-17.5); Lymphocytes # (auto) 0.6 10 ^3/uL (0.4-5.4); Mean Corpuscular Hemoglobin 30.1 pg (28.0-32.0); Mean Corpuscular Hgb Conc. 32.4 g/dL (32.0-36.0); Monocytes # (auto) 0.2 10 ^3/uL (0-1.3); Monocytes % (auto) 2.5 % (0.0-12.0); Neutrophils % (auto) 87.6 % (37.0-80.0); Nucleated Red Blood Cells % 0.2 %; Platelet Count (auto) 207 10^3/uL (140-450); Red Blood Cells 3.79 10^6/uL (4.5-5.90); Red Cell Distribution Width 17.6 % (11.8-14.3); White Blood Cell 6.9 10^3/uL (4.4-10.8)
[2024-06-30 19:44] LABS: Alanine Aminotransferase 12 U/L (7-40); Albumin 3.9 g/dL (3.2-4.8); Alkaline Phosphatase 87 U/L (46-116); Anion Gap 8 (5-15); Aspartate Aminotransferase 22 U/L (13-40); BUN/Creatinine Ratio 4.8 (10.0-20.0); Bilirubin, Total 0.4 mg/dL (0.2-1.0); Blood Urea Nitrogen 20 mg/dL (9-23); Carbon Dioxide 31 mmol/L (20-31); Lipase 32 U/L (12-53); Potassium 4.2 mmol/L (3.5-5.1); Total Protein 6.8 g/dL (5.7-8.2)
[2024-06-30 19:46] LABS: Calcium 8.5 mg/dL (8.7-10.4); Chloride 95 mmol/L (98-107); Glucose 296 mg/dL (74-106); Sodium 134 mmol/L (136-145)
[2024-06-30 19:47] LABS: Lactic Acid w/Reflex 2.2 mmol/L (0.4-2.0)
--- NOTE | 2024-06-30 20:22 | DVH ---
CT HEAD WITHOUT CONTRAST INDICATION: Altered mental status COMPARISON: None TECHNIQUE: CT of the head without intravenous contrast. RADIATION DOSE: CTDIvol: mGy, DLP: mGy*cm FINDINGS: There is no evidence of intracranial hemorrhage, infarct, extra-axial collection, mass effect, midli ne shift, herniation or hydrocephalus. Minimal chronic white matter microvascular ischemic change. Th e ventricles, sulci and cisterns are age appropriate. Vascular calcifications noted predominantly in ECA branches presumably related to DM/CKD. Visualized paranasal sinuses are clear. Mild nonspecific fluid in left mastoid tip. Soft tissues and osseous structures are unremarkable. IMPRESSION: No acute intracranial abnormality identified.
--- NOTE | 2024-07-01 00:09 | ED.PDOC ---
History of Present Illness HPI Comments This patient is a 58-year-old Ukrainian-speaking only male who is an end-stage renal disease patient on dialysis Wednesdays and Fridays who arrives to the ED today with his due to complaints of generalized weakness and confusion for the past few days. Per , patient has been lethargic, anorexic and has had confusion due to those concerns. Patient appears to be in poor overall health. Patient denies any fever nausea or vomiting. Patient was mildly hypotensive at arrival. Chief Complaint: General Weakness Time Seen by MD: 18:41 Primary Care Provider: STEPHEN Reviewed Notes: Nurses Notes Allergies: Coded Allergies: NO KNOWN ALLERGIES (Unverified , 04/15/24) Home Meds Active Scripts Metronidazole (Flagyl) 500 Mg Tab, 500 MG PO TID for 7 Days, #21 TAB Prov:NAEEM QUESADA MD 06/23/24 Ciprofloxacin Hcl (Cipro) 250 Mg Tab, 250 MG PO BID for 7 Days, #14 TAB Prov:NAEEM QUESADA MD 06/23/24 Gabapentin (Gabapentin) 600 Mg Tab, 600 MG PO TID for 30 Days, #90 TAB Prov:NAEEM QUESADA MD 06/23/24 Lactulose (Lactulose) 10 Gm/15 Ml [place], 10 GM PO BIDPRN PRN for 30 Days, #120 ML 1 Refill Prov:ZURI PRESLEY MD 05/24/24 Pantoprazole Sodium Sesquihydr (Protonix) 40 Mg Tab, 40 MG PO DAILY for 30 Days, #30 TAB 2 Refills Prov:ZURI PRESLEY MD 05/24/24 Apixaban Base (ELIQUIS) 2.5 Mg Tab, 2.5 MG PO BID for 14 Days, #28 TAB 0 Refills Prov:MANAS CRAFT 04/24/24 Nutritional Supplements (Josafat) [place] Pow, 1 PACK OR BID for 30 Days, #60 POW 0 Refills Prov:MANAS CRAFT 04/24/24 Amiodarone HCl (Amiodarone HCl) 200 Mg Tab, 200 MG PO Q12HR for 30 Days, #60 TAB Prov:MANAS CRAFT 04/24/24 Reported Medications Sodium Zirconium Cyclosilicate (Lokelma) 5 Gm Curly, 5 GM PO TIDWM, PACK 04/17/24 Insulin Glargine (Lantus) 100 Unit/Ml Inj, 20 UNIT SC BID, INJ 04/17/24 Allopurinol (Allopurinol) 100 Mg Tab, 100 MG PO DAILY, TAB 04/17/24 Glipizide (Glipizide) 10 Mg Tab, 10 MG PO DAILY for 30 Days, MG 04/17/24 Furosemide (Furosemide) 40 Mg Tab, 80 MG PO DAILY for 30 Days 04/17/24 Ferric Citrate (Auryxia) 210 Mg Tab, 210 MG PO DAILY, TAB 04/17/24 Ferrous Sulfate (Ferosul) 325 Mg Tab, 325 MG PO DAILY, TAB 04/17/24 Amlodipine Besylate (Amlodipine Besylate) 5 Mg Tab, 5 MG PO DAILY for 30 Days, MG 04/17/24 Metformin Hydrochloride (Metformin Hcl) 1,000 Mg Tab, 1 TAB PO BID, #180 TAB 3 Refills 04/17/24 Atorvastatin Calcium (ATORVASTATIN CALCIUM) 40 Mg Tab, 1 DAILY 04/16/24 Discontinued Scripts Cephalexin Monohydrate (Cephalexin) 500 Mg Tab, 1 TAB PO TID for 10 Days, #30 TAB Prov:ZURI PRESLEY MD 05/24/24 Information Source: Patient, Spouse Mode of Arrival: Ambulatory Severity: Moderate Timing: Days Duration: Since onset Prehospital treatment: None Past Medical History PAST MEDICAL HISTORY: DM, ESRD, High Lipids, HTN Past Medical History (Other): On dialysis Surgical History: Denies all surgeries Family History Family History: Reviewed,noncontributory to illness, No family hx of Cancer, No family hx of DM, No family hx of Heart nelda, No family hx of HTN, No family hx ofKidney nelda, No family hx of Liver nelda, No family hx of Lung nelda, No family hx of Stroke Social History Smoker: Non-Smoker Alcohol: Denies ETOH Use Drugs: Denies Drug Use Lives In: Home Constitutional: reports: fatigue, weakness; denies: chills, diaphoresis, fever, malaise, sweats, others EENTM: denies: blurred vision, double vision, ear bleeding, ear discharge, ear drainage, ear pain, ear ringing, eye pain, eye redness, hearing loss, mouth pain, mouth swelling, nasal discharge, nose bleeding, nose congestion, nose pain, photophobia, tearing, throat pain, throat swelling, voice changes, others Respiratory: denies: cough, hemoptysis, orthopnea, SOB at rest, shortness of breath, SOB with excertion, stridor, wheezing, others Cardiovascular: denies: chest pain, dizzy spells, diaphoresis, Dyspnea on exertion, edema, irregular heart beat, left arm pain, lightheadedness, palpitations, PND, syncope, others Gastrointestinal: denies: abdomen distended, abdominal pain, blood streaked bowels, constipated, diarrhea, dysphagia, difficulty swallowing, hematemesis, melena, nausea, poor appetite, poor fluid intake, rectal bleeding, rectal pain, vomiting, others Genitourinary: denies: burning, dysuria, flank pain, frequency, hematuria, incontinence, penile discharge, penile sore, pain, testicle pain, testicle swelling, urgency, others Neurological: denies: dizziness, fainting, headache, left sided numbness, left sided weakness, numbness, paresthesia, pre-existing deficit, right sided numbness, right sided weakness, seizure, speech problems, tingling, tremors, weakness, others Musculoskeletal: denies: back pain, gout, joint pain, joint swelling, muscle pain, muscle stiffness, neck pain, others Integumetry: denies: bruises, change in color, change in hair/nails, dryness, laceration, lesions, lumps, rash, wounds, others Allergic/Immunocompromised: denies: Difficulty Healing, Frequent Infections, Hives, Itching, others Hematologic/Lymphatic: denies: anemia, blood clots, easy bleeding, easy bruising, swollen glands, others Endocrine: denies: excessive hunger, excessive sweating, excessive thirst, excessive urination, flushing, intolerance to cold, intolerance to heat, unexplained weight gain, unexplained weight loss, others Psychiatric: denies: anxiety, bipolar disorder, depression, hopeless, panic disorder, schizophrenia, sleepless, suicidal, others Unable to Obtain due to: Altered Mental Status Physical Exam General Appearance: Moderate Distress (Patient appears to be in moderate distress and additionally, appears to be in poor overall health.), Obese HEENT: Head (No signs of acute head trauma. No skull depressions or deformities.), Normal ENT Inspection, Pharynx Normal, TMs Normal Neck: Full Range of Motion, Non-Tender, Normal, Normal Inspection Respiratory: Chest Non-Tender, Lungs Clear, No Accessory Muscle Use, No Respiratory Distress, Normal Breath Sounds Cardiovascular: No Edema, No JVD, No Murmur, No Gallop, Normal Peripheral Pulses, Regular Rate/Rhythm Breast Exam: Deferred Gastrointestinal: No Organomegaly, Non Tender, No Pulsatile Mass, Normal Bowel Sounds, Soft Genitalia: Deferred Pelvic: Deferred Rectal: Deferred Extremities: Other (Patient was slumped over in his wheelchair at time of evaluation. Patient seems weak and metabolically compromise.) Neurologic: Depressed Affect Cerebellar Function: NOT DONE Reflexes: NOT DONE Skin: Dry, Normal Color, Warm Lymphatic: No Adenopathy Was a procedure done? Was a procedure done?: No Differential Dx Considerations may include: Sepsis, electrolyte abnormality, acute intracranial process, intracranial mass, acute coronary syndrome X-Ray, Labs, Meds, VS Vital Signs Date Time Temp Pulse Resp B/P (MAP) Pulse Ox O2 Delivery O2 Flow Rate FiO2 06/30/24 18:55 75 06/30/24 18:50 99.7 75 20 106/45 (65) 95 99.7 Lab Test 06/30/24 21:08 06/30/24 20:00 06/30/24 19:10 06/30/24 18:48 Range/Units Lactic Acid Level 2.0 2.2 *H 0.4-2.0 mmol/L Troponin I High Sensitivity 42 42 </=54 ng/L White Blood Count 6.9 4.4-10.8 10^3/uL Red Blood Count 3.79 L 4.5-5.90 10^6/uL Hemoglobin 11.4 L 13.5-17.5 g/dL Hematocrit 35.3 L 41.0-53.0 % Mean Corpuscular Volume 93.0 80.0-100.0 fL Mean Corpuscular Hemoglobin 30.1 28.0-32.0 pg Mean Corpuscular Hemoglobin Concent 32.4 32.0-36.0 g/dL Red Cell Distribution Width 17.6 H 11.8-14.3 % Platelet Count 207 140-450 10^3/uL Mean Platelet Volume 7.8 6.9-10.8 fL Neutrophils (%) (Auto) 87.6 H 37.0-80.0 % Lymphocytes (%) (Auto) 9.0 L 10.0-50.0 % Monocytes (%) (Auto) 2.5 0.0-12.0 % Eosinophils (%) (Auto) 0.3 0.0-7.0 % Basophils (%) (Auto) 0.6 0.0-2.0 % Neutrophils # (Auto) 6.0 1.6-8.6 10 ^3/uL Lymphocytes # (Auto) 0.6 0.4-5.4 10 ^3/uL Monocytes # (Auto) 0.2 0-1.3 10 ^3/uL Eosinophils # (Auto) 0 0-0.8 10 ^3/uL Basophils # (Auto) 0 0-0.2 10 ^3/uL Nucleated Red Blood Cells 0.2 % Sodium Level 134 L 136-145 mmol/L Potassium Level 4.2 3.5-5.1 mmol/L Chloride Level 95 L 98-107 mmol/L Carbon Dioxide Level 31 20-31 mmol/L Anion Gap 8 5-15 Blood Urea Nitrogen 20 9-23 mg/dL Creatinine 4.21 H 0.700-1.30 mg/dL Glomerular Filtration Rate Calc 16 >90 mL/min BUN/Creatinine Ratio 4.8 L 10.0-20.0 Serum Glucose 296 H 74-106 mg/dL Calcium Level 8.5 L 8.7-10.4 mg/dL Total Bilirubin 0.4 0.2-1.0 mg/dL Aspartate Amino Transferase (AST) 22 13-40 U/L Alanine Aminotransferase (ALT) 12 7-40 U/L Alkaline Phosphatase 87 46-116 U/L B-Type Natriuretic Peptide 544.21 0-100 pg/mL Total Protein 6.8 5.7-8.2 g/dL Albumin 3.9 3.2-4.8 g/dL Lipase 32 12-53 U/L POC Glucose 272 H 70-106 mg/dl X-Ray, Labs, Meds, VS Comment All studies performed of the ED today were evaluated by me personally. EKG revealed a sinus rhythm with a rate of 75. Borderline prolonged NC interval and left bundle-branch block. NC interval of 207 and QT interval of 426. Serum studies revealed an anemia, hyperglycemia and elevated lactic acid as well as an acute CHF exacerbation due to elevated BNP. Patient continued to display weakness and confusion throughout his stay in the ED.. CT of the head was unremarkable for any intracranial hemorrhage infarct or mass effect. Due to the patient's left bundle-branch block which the patient is not aware of, patient was admitted for cardiac evaluation as well as management of his acute CHF exacerbation. If patient stays through Tuesday, he will require a dialysis treatment. Time of 1ST Reevaluation: 00:05 Reevaluation 1ST: Unchanged Consultation: PCP, Cardiology Patient Education/Counseling: Diagnosis, Treatment Family Education/Counseling: Diagnosis, Treatment Sepsis Sepsis Reasesment Focused Exam Orders: Laboratory Tests 06/30/24 19:10: Lactic Acid Level 2.2 06/30/24 21:08: Lactic Acid Level 2.0 Departure 1 Departure Time of Disposition: 00:08 Impression: Primary Impression: Hyperglycemia Additional Impressions: Acute exacerbation of CHF (congestive heart failure) End stage renal disease on dialysis Disposition: ADMITTED INPATIENT Condition: Fair Discharged With: Self, Spouse Critical Care Note Critical Care Time?: No Stability Stability form required: No Heart Score Heart Score: Heart Score Response (Comments) Value History Slightly Suspicious 0 EKG Repolarization Disturb 1 Age 45-64 1 Risk Factors 1 or 2 risk factors 1 Troponin Normal limit 0 Total 3 SHARRI YOUNG PAC July 01, 2024 00:09
[2024-07-01] MEDS ORDERED: DOCUSATE SOD 100 MG CAP PO PRN (00:30)
[2024-07-01] MEDS ORDERED: ONDANSETRON HCL 4 MG/2 ML VIAL IV PRN (00:30)
[2024-07-01] MEDS ORDERED: ACETAMINOPHEN 325 MG TAB PO PRN (00:30)
[2024-07-01] MEDS ORDERED: HYDROcodone-ACET 5/325MG TAB PO PRN (00:30)
[2024-07-01] MEDS ORDERED: DEXTROSE (50%) 50ML SYRG IV PRN (00:30)
[2024-07-01] MEDS ORDERED: MORPHINE SULFATE INJ 2 MG/ml SYRG IV PRN (02:00)
[2024-07-01] MEDS ORDERED: NITROGLYCERIN 0.4 MG SL TAB SL PRN (02:00)
--- NOTE | 2024-07-01 02:01 | DVHHP2 ---
History of Present Illness Reason for Visit: Generalized weakness History of Present Illness The patient is a 58 years old male with past medical history of end-stage renal disease on hemodialysis, DM, hyperlipidemia, and hypertension who presented to [facility] ED with complaint of generalized weakness. reports symptoms progressively get worse with confusion state, lethargic, anorexic, getting worse that prompted this visit. Patient was seen and evaluated in the ED, laboratory data shows WBC 6.9, hemoglobin 11.4, hematocrit 35.3, platelets 207, sodium 134, potassium 4.2, BUN 20, creatinine 4.21, glucose 296, troponin 42, lipase 32, BNP 544.21, blood pressure 109/51, heart rate 65, temperature 99.7 F, O2 saturation 95% on room air. Head CT showed no acute intracranial abnormality. Please see medication orders section in the computer. On my assessment, at bedside, no diaphoresis, no dizziness, no shortness of breaths, no nausea, no vomiting, no fever, no chills. Patient was admitted for further evaluation and medical management. Past Medical History DM, ESRD, High Lipids, HTN Past Surgical History Left AV graft for dialysis Family History Reviewed, noncontributory to the management of this case. Past Social History The patient lives at home, denies smoking, alcohol or illicit drugs abuse. Review of Systems Constitutional: Yes: Weakness, Other (Fatigue); No: Fever, Chills, Sweats, Malaise Eyes: No: Pain, Vision change, Conjunctivae inflammation, Eyelid inflammation, Other, Redness ENT: No: Ear pain, Ear discharge, Nose pain, Nose discharge, Nose congestion, Mouth pain, Mouth swelling, Throat pain, Throat swelling, Other Respiratory: No: Cough, Dry, Shortness of breath, SOB with excertion, Wheezing, Hemoptysis, Pleuritic Pain, Sputum, Wheezing, Other Cardiovascular: No: Chest Pain, Palpitations, Orthopnea, Paroxysmal Noc. Dyspnea, Edema, Lt Headedness, Other Gastrointestinal: No: Nausea, Vomiting, Abdominal Pain, Diarrhea, Constipation, Melena, Hematochezia, Other Genitourinary: No Dysuria, No Frequency, No Incontinence, No Hematuria, No Retention, No Other Musculoskeletal: No: other, neck pain, shoulder pain, arm pain, back pain, hand pain, leg pain, foot pain Skin: No: Rash, Lesions, Jaundice, Bruising, Other Neurological: No: Weakness, Numbness, Incoordination, Change in speech, Confusion, Seizures, Other Allergies: Coded Allergies: NO KNOWN ALLERGIES (Unverified , 04/15/24) Medications Current Medications Medications Dose Ordered Sig/Samuel Route Start Time Stop Time Status Last Admin Dose Admin Sevelamer HCl 800 mg TIDWM PO 07/01/24 08:00 Multivit/Ca Carb/ B Cmplx/FA/Prenat 1 tab DAILY PO 07/01/24 10:00 Atorvastatin Calcium 10 mg HS PO 07/01/24 22:00 Famotidine 20 mg DAILY IV 07/01/24 10:00 Diagnostic Test (Pha) 1 strip ACHS 07/01/24 07:00 Insulin Human Regular HS SC 07/01/24 22:00 Insulin Human Regular AC SC 07/01/24 07:00 Dextrose 50 ml UD PRN IV 07/01/24 00:30 Sodium Chloride 10 ml Q8HR IV 07/01/24 06:00 Acetaminophen/ Hydrocodone Bitart 1 tab Q4HP PRN PO 07/01/24 00:30 Ondansetron HCl 4 mg Q4HP PRN IV 07/01/24 00:30 Docusate Sodium 100 mg BIDPRN PRN PO 07/01/24 00:30 Acetaminophen 650 mg Q6HP PRN PO 07/01/24 00:30 Apixaban 2.5 mg BID PO 07/01/24 10:00 Exam Vital Signs Vital Signs Date Time Temp Pulse Resp B/P (MAP) Pulse Ox O2 Delivery O2 Flow Rate FiO2 07/01/24 01:37 98.7 65 18 109/51 (70) 97 98.7 General Appearance: Alert, Oriented X3, Cooperative, No acute distress HEENT: Atraumatic, PERRLA, EOMI, Mucous membr. moist/pink Respiratory: Normal air movement, Other Cardiovascular: Regular rate, Normal S1, Normal S2, No murmurs Abdominal: Normal bowel sounds, Soft, No tenderness, No hepatospenomegaly, No masses Extremities: No clubbing, No cyanosis, No edema, Normal pulses, No tenderness/swelling Skin: No rashes, No breakdown, No significant lesion Neuro: Normal speech, Normal tone, Sensation intact, Cranial nerves 3-12 NL, Reflexes 2+, Other (Generalized weakness) Psych/Mental Status: Mental status NL, Mood NL Labs/Xrays Labs Test 06/30/24 21:08 06/30/24 20:00 06/30/24 19:10 06/30/24 18:48 Range/Units Lactic Acid Level 2.0 0.4-2.0 mmol/L Troponin I High Sensitivity 42 </=54 ng/L White Blood Count 6.9 4.4-10.8 10^3/uL Red Blood Count 3.79 L 4.5-5.90 10^6/uL Hemoglobin 11.4 L 13.5-17.5 g/dL Hematocrit 35.3 L 41.0-53.0 % Mean Corpuscular Volume 93.0 80.0-100.0 fL Mean Corpuscular Hemoglobin 30.1 28.0-32.0 pg Mean Corpuscular Hemoglobin Concent 32.4 32.0-36.0 g/dL Red Cell Distribution Width 17.6 H 11.8-14.3 % Platelet Count 207 140-450 10^3/uL Mean Platelet Volume 7.8 6.9-10.8 fL Neutrophils (%) (Auto) 87.6 H 37.0-80.0 % Lymphocytes (%) (Auto) 9.0 L 10.0-50.0 % Monocytes (%) (Auto) 2.5 0.0-12.0 % Eosinophils (%) (Auto) 0.3 0.0-7.0 % Basophils (%) (Auto) 0.6 0.0-2.0 % Neutrophils # (Auto) 6.0 1.6-8.6 10 ^3/uL Lymphocytes # (Auto) 0.6 0.4-5.4 10 ^3/uL Monocytes # (Auto) 0.2 0-1.3 10 ^3/uL Eosinophils # (Auto) 0 0-0.8 10 ^3/uL Basophils # (Auto) 0 0-0.2 10 ^3/uL Nucleated Red Blood Cells 0.2 % Sodium Level 134 L 136-145 mmol/L Potassium Level 4.2 3.5-5.1 mmol/L Chloride Level 95 L 98-107 mmol/L Carbon Dioxide Level 31 20-31 mmol/L Anion Gap 8 5-15 Blood Urea Nitrogen 20 9-23 mg/dL Creatinine 4.21 H 0.700-1.30 mg/dL Glomerular Filtration Rate Calc 16 >90 mL/min BUN/Creatinine Ratio 4.8 L 10.0-20.0 Serum Glucose 296 H 74-106 mg/dL Calcium Level 8.5 L 8.7-10.4 mg/dL Total Bilirubin 0.4 0.2-1.0 mg/dL Aspartate Amino Transferase (AST) 22 13-40 U/L Alanine Aminotransferase (ALT) 12 7-40 U/L Alkaline Phosphatase 87 46-116 U/L B-Type Natriuretic Peptide 544.21 0-100 pg/mL Total Protein 6.8 5.7-8.2 g/dL Albumin 3.9 3.2-4.8 g/dL Lipase 32 12-53 U/L POC Glucose 272 H 70-106 mg/dl PATIENT: PEGGY CHAVEZ ACCT: [id number] UNIT: [id number] : 1965 LOC: ER ROOM / BED: / AGE / SEX: 58 / M ADM STATUS: REG ER SERVICE 48 ORDERING PHYSICIAN: SHARRI YOUNG PAC PROCEDURE(s): HWOCT - HEAD WITHOUT CONTRAST REASON: Altered mental status ORDER NUMBER(s): [id number], ACCESSION NUMBER(s): [id number] CT HEAD WITHOUT CONTRAST INDICATION: Altered mental status COMPARISON: None TECHNIQUE: CT of the head without intravenous contrast. RADIATION DOSE: CTDIvol: mGy, DLP: mGy*cm FINDINGS: There is no evidence of intracranial hemorrhage, infarct, extra-axial collection , mass effect, midline shift, herniation or hydrocephalus. Minimal chronic white matter microvascular ischemic change. The ventricles, sulci and cisterns are age appropriate. Vascular calcifications noted predominantly in ECA branches presumably related to DM/CKD. Visualized paranasal sinuses are clear. Mild nonspecific fluid in left mastoid tip. Soft tissues and osseous structures are unremarkable. IMPRESSION: No acute intracranial abnormality identified. Assessment/Plan Assessment/Plan Generalized weakness Diabetes mellitus with hyperglycemia Acute exacerbation of CHF (congestive heart failure) End stage renal disease on dialysis Plan 1. Admit to telemetry unit 2. Breathing treatment 3. Pain control management 4. Management of fluids and electrolytes 5. Consultation for Nephrology 6. Diagnostic tests head CT 7. DVT prophylaxis-on Eliquis 8. Repeat labs CBC, CMP in a.m. 9. Continue with current medical management 10. Treatment plan discussed with patient and RN. Patient verbalized understanding. Plan discussed with: Patient, Other (RN) My Orders Orders - VENANCIO RAJAN DNP Procedure Category Date Status Time Complete Blood Count LAB 07/01/24 Logged 04:00 Comprehensive LAB 07/01/24 Logged Metabolic Panel 04:00 Sevelamer (Renagel) PHA 07/01/24 In Process 08:00 B-Complex W/ C & PHA 07/01/24 In Process Folic Tablet 10:00 Consistent DIET 07/01/24 Transmitted Carb(Ccho)Diabetes Breakfast Atorvastatin (Lipitor) PHA 07/01/24 In Process 22:00 Famotidine Injection PHA 07/01/24 In Process (Pepcid Injection) 10:00 Glucose Blood PHA 07/01/24 In Process (Accu-Chek Comfort 07:00 Insulin R (Human) PHA 07/01/24 In Process (Insulin R) 22:00 Insulin R (Human) PHA 07/01/24 In Process (Insulin R) 07:00 Dextrose 50% Syringe PHA 07/01/24 In Process 00:30 Allergies FABRICIO 07/01/24 In Process 00:24 Code Status CODE 07/01/24 Transmitted 00:24 Renal DIET 07/01/24 Transmitted Standard(2gna,3gk,Lopho) Breakfast Sodium Chloride Lock PHA 07/01/24 In Process (Saline Lock Ns) 06:00 Oxygen Per Hour RT 07/01/24 Transmitted 00:24 Hydrocodone-Acet PHA 07/01/24 In Process 5/325mg Tab ([place] 00:30 Ondansetron Hcl PHA 07/01/24 In Process (Zofran) 00:30 Docusate Sodium PHA 07/01/24 In Process Capsule (Colace 00:30 Complete Blood Count LAB 07/02/24 Verified 04:00 Comprehensive LAB 07/02/24 Verified Metabolic Panel 04:00 Condition: Serious FABRICIO 07/01/24 In Process 00:24 Acetaminophen Tablet PHA 07/01/24 In Process (Tylenol Tablet) 00:30 Bedrest With Bathroom FABRICIO 07/01/24 In Process Privileg 00:24 Sequential FABRICIO 07/01/24 In Process Compression Device Apixaban (Eliquis) PHA 07/01/24 In Process 10:00 Admit ADMIT 07/01/24 Verified 02:00 Nitroglycerin PHA 07/01/24 Verified Sublingual (Ntrostat 02:00 Morphine Sulfate PHA 07/01/24 Verified Injection 02:00 Stat Ekg For Chest [facility] 07/01/24 Verified Pain 02:00 Notify Of Changes [facility] 07/01/24 Verified From Base 02:00 Table Machine Operator For [facility] 07/01/24 Verified 24 Hours 02:00 Emergency Dysrhythmia [facility] 07/01/24 Verified Protocol 02:00 Rhythm Strips Once [facility] 07/01/24 Verified Every Shift 02:00 Oxygen By Nasal RT 07/01/24 Verified Cannula 02:00 Problem List: (1) Generalized weakness (2) Diabetes mellitus with hyperglycemia (3) Acute exacerbation of CHF (congestive heart failure) (4) End stage renal disease on dialysis Date of Service: July 01, 2024 Billing Provider: VENANCIO RAJAN DNP Common Visit Codes: [id number] INP/OBS CARE (HIGH) VENANCIO RAJAN DNP July 01, 2024 02:01
[2024-07-01 06:23] LABS: Basophils # (auto) 0 10 ^3/uL (0-0.2); Basophils % (auto) 0.6 % (0.0-2.0); Eosinophils # (auto) 0 10 ^3/uL (0-0.8); Eosinophils % (auto) 0.3 % (0.0-7.0); Hematocrit 35.9 % (41.0-53.0); Hemoglobin 11.5 g/dL (13.5-17.5); Lymphocytes # (auto) 0.6 10 ^3/uL (0.4-5.4); Lymphocytes % (auto) 10.6 % (10.0-50.0); Mean Corpuscular Hemoglobin 29.9 pg (28.0-32.0); Mean Corpuscular Volume 93.7 fL (80.0-100.0); Monocytes # (auto) 0.1 10 ^3/uL (0-1.3); Monocytes % (auto) 2.4 % (0.0-12.0); Neutrophils # (auto) 4.8 10 ^3/uL (1.6-8.6); Neutrophils % (auto) 86.1 % (37.0-80.0); Nucleated Red Blood Cells % 0.1 %; Platelet Count (auto) 205 10^3/uL (140-450); Red Blood Cells 3.84 10^6/uL (4.5-5.90); Red Cell Distribution Width 17.6 % (11.8-14.3); White Blood Cell 5.5 10^3/uL (4.4-10.8)
[2024-07-01 06:38] LABS: Alanine Aminotransferase 10 U/L (7-40); Albumin 4.2 g/dL (3.2-4.8); Alkaline Phosphatase 87 U/L (46-116); Anion Gap 12 (5-15); Aspartate Aminotransferase 19 U/L (13-40); BUN/Creatinine Ratio 4.9 (10.0-20.0); Calcium 9.7 mg/dL (8.7-10.4); Carbon Dioxide 29 mmol/L (20-31); Total Protein 7.4 g/dL (5.7-8.2)
[2024-07-01 06:39] LABS: Bilirubin, Total 0.4 mg/dL (0.2-1.0); Blood Urea Nitrogen 24 mg/dL (9-23); Chloride 94 mmol/L (98-107); Glucose 266 mg/dL (74-106); Potassium 3.5 mmol/L (3.5-5.1); Sodium 135 mmol/L (136-145)
[2024-07-01] MEDS: ACCU-CHEK COMFORT CURVE STRIP VI SCH (07:40)
[2024-07-01] MEDS: InsuLIN REG 1unit/0.01ml Soln (100units/ml) SC SCH ×2 (07:44→21:48)
[2024-07-01 07:52] VITALS: PULSE 62; RESP 16; O2SAT 99
--- NOTE | 2024-07-01 07:53 | ECG ---
[facility] Test Date: 2024-06-30 Test Time: 18:51:20 Pat Name: PEGGY CHAVEZ Department: ER Room: 0237T Gender: M Miller Helper: RICHARD : 1965 Requested By: SHARRI YOUNG Order Number: [id number] Reading MD: Cecilio Mendoza Measurements Intervals [place] Rate: 75 P: -41 IN: 205 QRS: -30 QRSD: 140 T: 154 QT: 426 QTc: 476 Interpretive Statements Sinus rhythm Borderline prolonged IN interval Left bundle branch block Electronically Signed On 07-02-2024 12:11:05 PDT by Cecilio Mendoza Please click the below link to view image of tracing.
[2024-07-01] MEDS: SEVELAMER 800 MG TAB PO SCH (08:37)
[2024-07-01] MEDS: SODIUM CHLOR 0.9% PF (SALINE LOCK) 10ML VIAL/SYR IV SCH (08:38)
[2024-07-01] MEDS: APIXABAN 2.5 MG TAB PO SCH (10:53)
[2024-07-01] MEDS: SODIUM CHLORIDE 0.9% 1,000 ML IV ONE (10:53)
[2024-07-01] MEDS: B-COMPLEX W/ C & FOLIC ACID(NEPHROVITE TAB) PO SCH (10:53)
[2024-07-01] MEDS: FAMOTIDINE (10MG/ML) 2ML VL IV SCH (10:53)
[2024-07-01 15:31] VITALS: BP 125/88; PULSE 59; RESP 18; TEMP 96.9; O2SAT 98
[2024-07-01 17:00] VITALS: BP 128/85; PULSE 60; RESP 18; TEMP 97.2; O2SAT 98
[2024-07-01 17:10] LABS: Urine Bacteria None Seen /hpf (None Seen)
[2024-07-01 17:21] LABS: Urine Blood 1+ /uL (Negative); Urine Clarity Clear (Clear); Urine Color Dark-Yellow (Yellow); Urine Hyaline Cast FEW /lpf (0 - 2); Urine Protein, UAD 2+ (Negative); Urine Specific Gravity 1.022 (1.001-1.035); Urine Squamous Epithelial Cell FEW /hpf (<5); Urine Urobilinogen Normal (Negative); Urine WBC 2 /HPF (0-3)
[2024-07-01 18:17] VITALS: PULSE 62
[2024-07-01 20:00] VITALS: PULSE 62; PULSE 65; RESP 17; O2SAT 96
[2024-07-01 21:00] VITALS: BP 126/51; PULSE 62; RESP 17; TEMP 98.1; O2SAT 96
[2024-07-01] MEDS: ATORVASTATIN 20 MG TAB PO SCH (21:39)
[2024-07-02] VITALS (10 sets, daily range): BP systolic 115–143; BP diastolic 49–81; PULSE 58–105; RESP 16–19; TEMP 96.3–99.6; O2SAT 90–98
[2024-07-02 05:55] LABS: Basophils # (auto) 0 10 ^3/uL (0-0.2); Basophils % (auto) 0.5 % (0.0-2.0); Eosinophils # (auto) 0.1 10 ^3/uL (0-0.8); Eosinophils % (auto) 2.7 % (0.0-7.0); Hematocrit 28.6 % (41.0-53.0); Hemoglobin 9.2 g/dL (13.5-17.5); Lymphocytes # (auto) 0.8 10 ^3/uL (0.4-5.4); Lymphocytes % (auto) 16.4 % (10.0-50.0); Mean Corpuscular Hemoglobin 29.8 pg (28.0-32.0); Mean Corpuscular Hgb Conc. 32.1 g/dL (32.0-36.0); Mean Corpuscular Volume 92.6 fL (80.0-100.0); Monocytes # (auto) 0.4 10 ^3/uL (0-1.3); Monocytes % (auto) 9.6 % (0.0-12.0); Neutrophils # (auto) 3.3 10 ^3/uL (1.6-8.6); Neutrophils % (auto) 70.8 % (37.0-80.0); Platelet Count (auto) 168 10^3/uL (140-450); Red Blood Cells 3.09 10^6/uL (4.5-5.90); Red Cell Distribution Width 17.2 % (11.8-14.3); White Blood Cell 4.6 10^3/uL (4.4-10.8)
[2024-07-02 06:10] LABS: Albumin 3.4 g/dL (3.2-4.8); Alkaline Phosphatase 68 U/L (46-116); Anion Gap 10 (5-15); BUN/Creatinine Ratio 5.6 (10.0-20.0); Calcium 8.9 mg/dL (8.7-10.4); Carbon Dioxide 28 mmol/L (20-31)
[2024-07-02 06:17] LABS: Alanine Aminotransferase < 9 U/L (7-40); Aspartate Aminotransferase 13 U/L (13-40); Bilirubin, Total 0.2 mg/dL (0.2-1.0); Blood Urea Nitrogen 33 mg/dL (9-23); Chloride 95 mmol/L (98-107); Glucose 224 mg/dL (74-106); Potassium 3.5 mmol/L (3.5-5.1); Sodium 133 mmol/L (136-145)
--- NOTE | 2024-07-02 08:15 | DVHINCON2 ---
Date of service: July 02, 2024 Referring Physician Fredis Miller Reason for Consultation ESRD on HD History of Present Illness The patient is a 58 years old male with past medical history of end-stage renal disease on hemodialysis, DM, hyperlipidemia, and hypertension who presented to [facility] ED with complaint of generalized weakness. reports symptoms progressively get worse with confusion state, lethargic, anorexic, getting worse that prompted this visit. Head CT showed no acute intracranial abnormality. No diaphoresis, no dizziness, no shortness of breaths, no nausea, no vomiting, no fever, no chills. Patient was admitted for further evaluation and medical management. Nephrology consulted for dialysis . As per patient his last HD was on Tuesday Past Medical History Past Medical History DM, ESRD, High Lipids, HTN Past Surgical History Past Surgical History Left AV graft Family History: Diabetes mellitus G8 MOTHER, FH: thyroid disease G8 FATHER, Social History The patient lives at home, denies smoking, alcohol or illicit drugs abuse. Allergies: Coded Allergies: NO KNOWN ALLERGIES (Unverified , 04/15/24) Home Meds Active Scripts Metronidazole (Flagyl) 500 Mg Tab, 500 MG PO TID for 7 Days, #21 TAB Prov:NAEEM QUESADA MD 06/23/24 Ciprofloxacin Hcl (Cipro) 250 Mg Tab, 250 MG PO BID for 7 Days, #14 TAB Prov:NAEEM QUESADA MD 06/23/24 Gabapentin (Gabapentin) 600 Mg Tab, 600 MG PO TID for 30 Days, #90 TAB Prov:NAEEM QUESADA MD 06/23/24 Lactulose (Lactulose) 10 Gm/15 Ml Yamileth, 10 GM PO BIDPRN PRN for 30 Days, #120 ML 1 Refill Prov:ZURI PRESLEY MD 05/24/24 Pantoprazole Sodium Sesquihydr (Protonix) 40 Mg Tab, 40 MG PO DAILY for 30 Days, #30 TAB 2 Refills Prov:ZURI PRESLEY MD 05/24/24 Apixaban Base (ELIQUIS) 2.5 Mg Tab, 2.5 MG PO BID for 14 Days, #28 TAB 0 Refills Prov:MANAS CRAFT 04/24/24 Nutritional Supplements (Josafat) [place] Pow, 1 PACK OR BID for 30 Days, #60 POW 0 Refills Prov:MANAS CRAFT RESIDENT 04/24/24 Amiodarone HCl (Amiodarone HCl) 200 Mg Tab, 200 MG PO Q12HR for 30 Days, #60 TAB Prov:MANAS CRAFT RESIDENT 04/24/24 Reported Medications Sodium Zirconium Cyclosilicate (Lokelma) 5 Gm Curly, 5 GM PO TIDWM, PACK 04/17/24 Insulin Glargine (Lantus) 100 Unit/Ml Inj, 20 UNIT SC BID, INJ 04/17/24 Allopurinol (Allopurinol) 100 Mg Tab, 100 MG PO DAILY, TAB 04/17/24 Glipizide (Glipizide) 10 Mg Tab, 10 MG PO DAILY for 30 Days, MG 04/17/24 Furosemide (Furosemide) 40 Mg Tab, 80 MG PO DAILY for 30 Days 04/17/24 Ferric Citrate (Auryxia) 210 Mg Tab, 210 MG PO DAILY, TAB 04/17/24 Ferrous Sulfate (Ferosul) 325 Mg Tab, 325 MG PO DAILY, TAB 04/17/24 Amlodipine Besylate (Amlodipine Besylate) 5 Mg Tab, 5 MG PO DAILY for 30 Days, MG 04/17/24 Metformin Hydrochloride (Metformin Hcl) 1,000 Mg Tab, 1 TAB PO BID, #180 TAB 3 Refills 04/17/24 Atorvastatin Calcium (ATORVASTATIN CALCIUM) 40 Mg Tab, 1 DAILY 04/16/24 Current Medications Current Medications Medications (Trade) Dose Ordered Sig/Samuel Route PRN Reason Start Time Stop Time Status Last Admin Multivit/Ca Carb/ B Cmplx/FA/Prenat (Nephro-Beverly Tablet) 1 tab DAILY PO 07/01/24 10:00 07/01/24 10:53 Atorvastatin Calcium (Lipitor) 10 mg HS PO 07/01/24 22:00 07/01/24 21:39 Famotidine (Pepcid Injection) 20 mg DAILY IV 07/01/24 10:00 07/01/24 10:53 Insulin Human Regular (InsuLIN R) HS SC 07/01/24 22:00 07/01/24 21:48 Apixaban (Eliquis) 2.5 mg BID PO 07/01/24 10:00 07/01/24 21:39 Review of Systems Denies shortness of breath . Rest ROS negative Vital Signs Vital Signs Date Time Temp Pulse Resp B/P (MAP) Pulse Ox O2 Delivery O2 Flow Rate FiO2 07/02/24 05:00 99.1 60 17 115/49 (71) 90 99.1 07/01/24 20:00 Room Air* 0 21 Physical Exam General Appearance: Alert, Oriented X3, No acute distress HEENT: Atraumatic, PERRLA, EOMI, Mucous membr. moist/pink Respiratory: Normal air movement, Other Cardiovascular: Regular rate, Normal S1, Normal S2, No murmurs Abdominal: Normal bowel sounds, Soft, No tenderness, No hepatospenomegaly, No masses Extremities: No clubbing, No cyanosis, No edema, Normal pulses, No tenderness/swelling Skin: No rashes, No breakdown, No significant lesion Neuro: No focal deficits Other (Generalized weakness) Labs/Diagnostic Data Labs Test 07/02/24 06:07 07/02/24 05:30 07/01/24 06:13 06/30/24 21:08 Range/Units POC Glucose 233 H 70-106 mg/dl White Blood Count 4.6 4.4-10.8 10^3/uL Red Blood Count 3.09 L 4.5-5.90 10^6/uL Hemoglobin 9.2 #L 13.5-17.5 g/dL Hematocrit 28.6 #L 41.0-53.0 % Mean Corpuscular Volume 92.6 80.0-100.0 fL Mean Corpuscular Hemoglobin 29.8 28.0-32.0 pg Mean Corpuscular Hemoglobin Concent 32.1 32.0-36.0 g/dL Red Cell Distribution Width 17.2 H 11.8-14.3 % Platelet Count 168 140-450 10^3/uL Mean Platelet Volume 7.8 6.9-10.8 fL Neutrophils (%) (Auto) 70.8 37.0-80.0 % Lymphocytes (%) (Auto) 16.4 10.0-50.0 % Monocytes (%) (Auto) 9.6 0.0-12.0 % Eosinophils (%) (Auto) 2.7 0.0-7.0 % Basophils (%) (Auto) 0.5 0.0-2.0 % Neutrophils # (Auto) 3.3 1.6-8.6 10 ^3/uL Lymphocytes # (Auto) 0.8 0.4-5.4 10 ^3/uL Monocytes # (Auto) 0.4 0-1.3 10 ^3/uL Eosinophils # (Auto) 0.1 0-0.8 10 ^3/uL Basophils # (Auto) 0 0-0.2 10 ^3/uL Nucleated Red Blood Cells 0.0 % Sodium Level 133 L 136-145 mmol/L Potassium Level 3.5 3.5-5.1 mmol/L Chloride Level 95 L 98-107 mmol/L Carbon Dioxide Level 28 20-31 mmol/L Anion Gap 10 5-15 Blood Urea Nitrogen 33 H 9-23 mg/dL Creatinine 5.91 H 0.700-1.30 mg/dL Glomerular Filtration Rate Calc 10 >90 mL/min BUN/Creatinine Ratio 5.6 L 10.0-20.0 Serum Glucose 224 H 74-106 mg/dL Calcium Level 8.9 8.7-10.4 mg/dL Total Bilirubin 0.2 0.2-1.0 mg/dL Aspartate Amino Transferase (AST) 13 13-40 U/L Alanine Aminotransferase (ALT) < 9 7-40 U/L Alkaline Phosphatase 68 46-116 U/L Total Protein 6.0 5.7-8.2 g/dL Albumin 3.4 3.2-4.8 g/dL Lactic Acid Level 2.0 0.4-2.0 mmol/L Test 06/30/24 20:00 06/30/24 19:10 06/30/24 18:49 Range/Units Troponin I High Sensitivity 42 </=54 ng/L B-Type Natriuretic Peptide 544.21 0-100 pg/mL Lipase 32 12-53 U/L Urine Color Dark-yellow Yellow Urine Clarity Clear Clear Urine pH 5.0 5.0-9.0 Urine Specific [place] 1.022 1.001-1.035 Urine Protein 2+ H Negative Urine Ketones Trace Negative Urine Blood 1+ H Negative /uL Urine Nitrite Negative Negative Urine Bilirubin Negative Negative Urine Urobilinogen Normal Negative mg/dL Urine Leukocyte Esterase 1+ Negative /uL Urine RBC 4 0 - 3 /hpf Urine Microscopic WBC 2 0-3 /HPF Urine Squamous Epithelial Cells Few <5 /hpf Urine Bacteria None seen None Seen /hpf Urine Hyaline Casts Few 0 - 2 /lpf Urine Glucose 1+ H Normal mg/dL Assessment ESRD on HD Generalized weakness HTN DM Plan/Recommendation Patient s electrolytes acceptable . No respiratory distress . Will schedule patient for dialysis today or tomorrow based on staffing . Plan discussed with: Patient SARBJIT OLIVER MD July 02, 2024 08:15
[2024-07-02 10:07] LABS: Hepatitis B Surface Antigen Negative (Negative)
[2024-07-02 10:29] LABS: Hepatitis C Antibody Negative (Negative)
--- NOTE | 2024-07-02 13:58 | DVHPN2 ---
Subjective The patient is seen and examined at bedside. No complaint today. Reviewed: Care Plan, H&P, Labs, Medications, Previous Orders, Radiology Changes from previous H/P or p: No Changes Eyes: No Pain, No Vision change, No Conjunctivae inflammation, No Eyelid inflammation, No Other, No Redness ENT: No Ear pain, No Ear discharge, No Nose pain, No Nose discharge, No Nose congestion, No Mouth pain, No Mouth swelling, No Throat pain, No Throat swelling, No Other Cardiovascular: No Chest Pain, No Palpitations, No Orthopnea, No Paroxysmal Noc. Dyspnea, No Edema, No Lt Headedness, No Other Respiratory: No Cough, No Dry, No Shortness of breath, No SOB with excertion, No Wheezing, No Hemoptysis, No Pleuritic Pain, No Sputum, No Other Gastrointestinal: No Nausea, No Vomiting, No Abdominal Pain, No Diarrhea, No Constipation, No Melena, No Hematochezia, No Other Genitourinary: No Dysuria, No Frequency, No Incontinence, No Hematuria, No Retention, No Other Musculoskeletal: No other, No neck pain, No shoulder pain, No arm pain, No back pain, No hand pain, No leg pain, No foot pain Skin: No Rash, No Lesions, No Jaundice, No Bruising, No Other Objective Vitals Vital Signs Date Time Temp Pulse Resp B/P (MAP) Pulse Ox O2 Delivery O2 Flow Rate FiO2 07/02/24 13:00 96.3 58 17 143/81 (101) 97 96.3 07/02/24 08:00 Room Air* 0 21 Intake/Output Intake and Output 07/02/24 07:00 Intake Total 705 ml Output Total 0 ml Balance 705 ml Intake Oral 705 ml Output Urine Total 0 ml General Appearance: Alert, Cooperative HEENT: Atraumatic, PERRLA, EOMI, Mucous membr. moist/pink Neck: Supple Lungs: Clear to auscultation, Normal air movement Cardiovascular: Regular rate, Normal S1, Normal S2, No murmurs, Gallops, Rubs Abdomen: Normal bowel sounds, Soft, No tenderness Neuro: Cranial nerves 3-12 NL Psych/Mental Status: Mental status NL Medications Current Medications Medications Dose Ordered Sig/Samuel Route Start Time Stop Time Status Last Admin Dose Admin Sevelamer HCl 800 mg TIDWM PO 07/01/24 08:00 07/02/24 12:09 800 MG Multivit/Ca Carb/ B Cmplx/FA/Prenat 1 tab DAILY PO 07/01/24 10:00 07/02/24 08:54 1 TAB Atorvastatin Calcium 10 mg HS PO 07/01/24 22:00 07/01/24 21:39 10 MG Famotidine 20 mg DAILY IV 07/01/24 10:00 07/02/24 08:54 20 MG Diagnostic Test (Pha) 1 strip ACHS 07/01/24 07:00 07/02/24 12:09 1 STRIP Insulin Human Regular HS SC 07/01/24 22:00 07/01/24 21:48 3 UNITS Insulin Human Regular AC SC 07/01/24 07:00 07/02/24 12:12 12 UNITS Dextrose 50 ml UD PRN IV 07/01/24 00:30 Sodium Chloride 10 ml Q8HR IV 07/01/24 06:00 07/02/24 06:05 10 ML Acetaminophen/ Hydrocodone Bitart 1 tab Q4HP PRN PO 07/01/24 00:30 Ondansetron HCl 4 mg Q4HP PRN IV 07/01/24 00:30 Docusate Sodium 100 mg BIDPRN PRN PO 07/01/24 00:30 Acetaminophen 650 mg Q6HP PRN PO 07/01/24 00:30 Apixaban 2.5 mg BID PO 07/01/24 10:00 07/02/24 08:54 2.5 MG Nitroglycerin 0.4 mg Q5MINP PRN SL 07/01/24 02:00 Morphine Sulfate 2 mg Q30M PRN IV 07/01/24 02:00 Laboratory Results Laboratory Tests 07/02/24 05:30 Chemistry Test 07/02/24 05:30 Albumin 3.4 g/dL (3.2-4.8) Calcium Level 8.9 mg/dL (8.7-10.4) Total Protein 6.0 g/dL (5.7-8.2) LFT Test 07/02/24 05:30 Alanine Aminotransferase (ALT) < 9 U/L (7-40) Alkaline Phosphatase 68 U/L (46-116) Aspartate Amino Transferase (AST) 13 U/L (13-40) Total Bilirubin 0.2 mg/dL (0.2-1.0) Urinalysis Test 06/30/24 18:49 Urine Color Dark-yellow (Yellow) Urine Clarity Clear (Clear) Urine pH 5.0 (5.0-9.0) Urine Specific [place] 1.022 (1.001-1.035) Urine Protein 2+ (Negative) H Urine Ketones Trace (Negative) Urine Blood 1+ /uL (Negative) H Urine Nitrite Negative (Negative) Urine Bilirubin Negative (Negative) Urine Urobilinogen Normal mg/dL (Negative) Urine Leukocyte Esterase 1+ /uL (Negative) Urine RBC 4 /hpf (0 - 3) Urine Microscopic WBC 2 /HPF (0-3) Urine Squamous Epithelial Cells Few /hpf (<5) Urine Bacteria None seen /hpf (None Seen) Urine Hyaline Casts Few /lpf (0 - 2) Urine Glucose 1+ mg/dL (Normal) H Labs and/or images reviewed: Labs reviewed by me Assessment/Plan Assessment/Plan Generalized weakness Diabetes mellitus with hyperglycemia Acute exacerbation of CHF (congestive heart failure) End stage renal disease on dialysis Plan Continuing current management. Continuing with hemodialysis. We will get Physical therapy to get the patient out of bed and ambulate Continuing sliding scale insulin. This medical document was created using an electronic medical record system with [employer] computerized dictation system. Although this document has been carefully reviewed, there may still be some phonetic and typographical errors. These areas are purely typographical due to imperfections of the software programs, and do not reflect any compromise in the patient's medical care. Plan discussed with: Patient Date of Service: July 02, 2024 Billing Provider: DARNELL ABREU MD Common Visit Codes: [id number] INP/OBS CARE(HIGH) DARNELL ABREU MD July 02, 2024 13:58
[2024-07-03] VITALS (7 sets, daily range): BP systolic 109–141; BP diastolic 53–75; PULSE 56–70; RESP 12–20; TEMP 96.7–98; O2SAT 92–96
[2024-07-03] MEDS: SODIUM CHL 0.9% 1000 ML BAG XX ONE (07:00)
--- NOTE | 2024-07-03 08:18 | DVHPN2 ---
Progress Note - Dictate Date Seen: July 03, 2024 Medical Necessity Reason Pt with a Central, PICC or Fol: No Subjective no acute issues overnight vital signs Vital Sign Date Time Temp Pulse Resp B/P (MAP) Pulse Ox O2 Delivery O2 Flow Rate FiO2 07/03/24 01:07 97.6 56 16 122/53 (76) 92 97.6 07/02/24 20:00 Room Air* 0 21 Total Intake and Output 07/02/24 07/02/24 07/03/24 15:00 23:00 07:00 Intake Total 1200 ml 350 ml Balance 1200 ml 350 ml medications Current Medications Medications Dose Ordered Sig/Samuel Route Start Time Stop Time Status Last Admin Dose Admin Sevelamer HCl 800 mg TIDWM PO 07/01/24 08:00 07/03/24 08:04 800 MG Multivit/Ca Carb/ B Cmplx/FA/Prenat 1 tab DAILY PO 07/01/24 10:00 07/03/24 08:04 1 TAB Atorvastatin Calcium 10 mg HS PO 07/01/24 22:00 07/02/24 22:24 10 MG Famotidine 20 mg DAILY IV 07/01/24 10:00 07/03/24 08:04 20 MG Diagnostic Test (Pha) 1 strip ACHS 07/01/24 07:00 07/02/24 22:27 1 STRIP Insulin Human Regular HS SC 07/01/24 22:00 07/01/24 21:48 3 UNITS Insulin Human Regular AC SC 07/01/24 07:00 07/02/24 17:33 9 UNITS Dextrose 50 ml UD PRN IV 07/01/24 00:30 Sodium Chloride 10 ml Q8HR IV 07/01/24 06:00 07/03/24 06:01 10 ML Acetaminophen/ Hydrocodone Bitart 1 tab Q4HP PRN PO 07/01/24 00:30 Ondansetron HCl 4 mg Q4HP PRN IV 07/01/24 00:30 Docusate Sodium 100 mg BIDPRN PRN PO 07/01/24 00:30 Acetaminophen 650 mg Q6HP PRN PO 07/01/24 00:30 Apixaban 2.5 mg BID PO 07/01/24 10:00 07/03/24 08:04 2.5 MG Nitroglycerin 0.4 mg Q5MINP PRN SL 07/01/24 02:00 Morphine Sulfate 2 mg Q30M PRN IV 07/01/24 02:00 objective General Appearance: arousable HEENT: Atraumatic, PERRLA, EOMI, Mucous membr. moist/pink Respiratory: Normal air movement, Other Cardiovascular: Regular rate, Normal S1, Normal S2, No murmurs Abdominal: Normal bowel sounds, Soft, No tenderness, No hepatospenomegaly, No masses Extremities: No clubbing, No cyanosis, No edema, Normal pulses, No tenderness/swelling Skin: No rashes, No breakdown, No significant lesion Neuro: No focal deficits laboratory and microbiology Laboratory Tests 07/02/24 05:30 Test 07/02/24 05:30 Range/Units Serum Glucose 224 H 74-106 mg/dL Problem List ESRD on HD Generalized weakness HTN DM with the episodes of hypoglycemia at home. Assessment/Plan HD today . Stable for dc from renal standpoint We will need adjustments of his home insulin regimen. Plan discussed with: Patient, Other SARBJIT OLIVER MD July 03, 2024 08:18
--- NOTE | 2024-07-03 11:59 | DVHPN2 ---
Subjective The patient is seen and examined at bedside. No complaint today. Reviewed: Care Plan, H&P, Labs, Medications, Previous Orders, Radiology Changes from previous H/P or p: No Changes Eyes: No Pain, No Vision change, No Conjunctivae inflammation, No Eyelid inflammation, No Other, No Redness ENT: No Ear pain, No Ear discharge, No Nose pain, No Nose discharge, No Nose congestion, No Mouth pain, No Mouth swelling, No Throat pain, No Throat swelling, No Other Cardiovascular: No Chest Pain, No Palpitations, No Orthopnea, No Paroxysmal Noc. Dyspnea, No Edema, No Lt Headedness, No Other Respiratory: No Cough, No Dry, No Shortness of breath, No SOB with excertion, No Wheezing, No Hemoptysis, No Pleuritic Pain, No Sputum, No Other Gastrointestinal: No Nausea, No Vomiting, No Abdominal Pain, No Diarrhea, No Constipation, No Melena, No Hematochezia, No Other Genitourinary: No Dysuria, No Frequency, No Incontinence, No Hematuria, No Retention, No Other Musculoskeletal: No other, No neck pain, No shoulder pain, No arm pain, No back pain, No hand pain, No leg pain, No foot pain Skin: No Rash, No Lesions, No Jaundice, No Bruising, No Other Objective Vitals Vital Signs Date Time Temp Pulse Resp B/P (MAP) Pulse Ox O2 Delivery O2 Flow Rate FiO2 07/03/24 08:30 96.7 62 14 141/65 (90) 93 96.7 07/03/24 08:00 Room Air* 0 21 Intake/Output Intake and Output 07/03/24 07:00 Intake Total 1550 ml Balance 1550 ml Intake Oral 1550 ml # Voids 1 # Bowel Movements 1 General Appearance: Alert, Cooperative HEENT: Atraumatic, PERRLA, EOMI, Mucous membr. moist/pink Neck: Supple Lungs: Clear to auscultation, Normal air movement Cardiovascular: Regular rate, Normal S1, Normal S2, No murmurs, Gallops, Rubs Abdomen: Normal bowel sounds, Soft, No tenderness Neuro: Cranial nerves 3-12 NL Psych/Mental Status: Mental status NL Medications Current Medications Medications Dose Ordered Sig/Samuel Route Start Time Stop Time Status Last Admin Dose Admin Sevelamer HCl 800 mg TIDWM PO 07/01/24 08:00 07/03/24 08:04 800 MG Multivit/Ca Carb/ B Cmplx/FA/Prenat 1 tab DAILY PO 07/01/24 10:00 07/03/24 08:04 1 TAB Atorvastatin Calcium 10 mg HS PO 07/01/24 22:00 07/02/24 22:24 10 MG Famotidine 20 mg DAILY IV 07/01/24 10:00 07/03/24 08:04 20 MG Diagnostic Test (Pha) 1 strip ACHS 07/01/24 07:00 07/02/24 22:27 1 STRIP Insulin Human Regular HS SC 07/01/24 22:00 07/01/24 21:48 3 UNITS Insulin Human Regular AC SC 07/01/24 07:00 07/02/24 17:33 9 UNITS Dextrose 50 ml UD PRN IV 07/01/24 00:30 Sodium Chloride 10 ml Q8HR IV 07/01/24 06:00 07/03/24 06:01 10 ML Acetaminophen/ Hydrocodone Bitart 1 tab Q4HP PRN PO 07/01/24 00:30 Ondansetron HCl 4 mg Q4HP PRN IV 07/01/24 00:30 Docusate Sodium 100 mg BIDPRN PRN PO 07/01/24 00:30 Acetaminophen 650 mg Q6HP PRN PO 07/01/24 00:30 Apixaban 2.5 mg BID PO 07/01/24 10:00 07/03/24 08:04 2.5 MG Nitroglycerin 0.4 mg Q5MINP PRN SL 07/01/24 02:00 Morphine Sulfate 2 mg Q30M PRN IV 07/01/24 02:00 Laboratory Results Laboratory Tests 07/02/24 05:30 Urinalysis Test 06/30/24 18:49 Urine Color Dark-yellow (Yellow) Urine Clarity Clear (Clear) Urine pH 5.0 (5.0-9.0) Urine Specific [place] 1.022 (1.001-1.035) Urine Protein 2+ (Negative) H Urine Ketones Trace (Negative) Urine Blood 1+ /uL (Negative) H Urine Nitrite Negative (Negative) Urine Bilirubin Negative (Negative) Urine Urobilinogen Normal mg/dL (Negative) Urine Leukocyte Esterase 1+ /uL (Negative) Urine RBC 4 /hpf (0 - 3) Urine Microscopic WBC 2 /HPF (0-3) Urine Squamous Epithelial Cells Few /hpf (<5) Urine Bacteria None seen /hpf (None Seen) Urine Hyaline Casts Few /lpf (0 - 2) Urine Glucose 1+ mg/dL (Normal) H Assessment/Plan Assessment/Plan Generalized weakness Diabetes mellitus with hyperglycemia Acute exacerbation of CHF (congestive heart failure) End stage renal disease on dialysis Plan Continuing current management. Continuing with hemodialysis. We will get Physical therapy to get the patient out of bed and ambulate Continuing sliding scale insulin. This medical document was created using an electronic medical record system with [employer] computerized dictation system. Although this document has been carefully reviewed, there may still be some phonetic and typographical errors. These areas are purely typographical due to imperfections of the software programs, and do not reflect any compromise in the patient's medical care. Plan discussed with: Patient Date of Service: July 03, 2024 Billing Provider: DARNELL ABREU MD Common Visit Codes: [id number] INP/OBS CARE(HIGH) DARNELL ABREU MD July 03, 2024 11:59
[2024-07-03] MEDS: EPOETIN ALFA-EPBX 4,000 UNIT/ML VIAL SC ONE (22:34)
[2024-07-04 01:00] VITALS: BP 121/64; PULSE 61; RESP 18; TEMP 98.2; O2SAT 100
[2024-07-04 05:00] VITALS: BP 137/70; PULSE 65; RESP 18; TEMP 98.7; O2SAT 97
[2024-07-04 08:00] VITALS: PULSE 60; PULSE 62; RESP 18; O2SAT 94
[2024-07-04 09:00] VITALS: BP 141/55; PULSE 62; RESP 18; TEMP 97.3; O2SAT 94
--- NOTE | 2024-07-04 11:30 | DVHDS2 ---
Discharge Summary Date of Admission July 01, 2024 at 02:00 Date of Discharge: July 04, 2024 Admitting Diagnosis Generalized weakness Diabetes mellitus with hyperglycemia Acute exacerbation of CHF (congestive heart failure) End stage renal disease on dialysis Labs/Diagnostic Data: Laboratory Results Test 07/04/24 06:13 07/02/24 05:30 07/01/24 06:13 06/30/24 21:08 POC Glucose 182 mg/dl (70-106) White Blood Count 4.6 10^3/uL (4.4-10.8) Red Blood Count 3.09 10^6/uL (4.5-5.90) Hemoglobin 9.2 g/dL (13.5-17.5) Hematocrit 28.6 % (41.0-53.0) Mean Corpuscular Volume 92.6 fL (80.0-100.0) Mean Corpuscular Hemoglobin 29.8 pg (28.0-32.0) Mean Corpuscular Hemoglobin Concent 32.1 g/dL (32.0-36.0) Red Cell Distribution Width 17.2 % (11.8-14.3) Platelet Count 168 10^3/uL (140-450) Mean Platelet Volume 7.8 fL (6.9-10.8) Neutrophils (%) (Auto) 70.8 % (37.0-80.0) Lymphocytes (%) (Auto) 16.4 % (10.0-50.0) Monocytes (%) (Auto) 9.6 % (0.0-12.0) Eosinophils (%) (Auto) 2.7 % (0.0-7.0) Basophils (%) (Auto) 0.5 % (0.0-2.0) Neutrophils # (Auto) 3.3 10 ^3/uL (1.6-8.6) Lymphocytes # (Auto) 0.8 10 ^3/uL (0.4-5.4) Monocytes # (Auto) 0.4 10 ^3/uL (0-1.3) Eosinophils # (Auto) 0.1 10 ^3/uL (0-0.8) Basophils # (Auto) 0 10 ^3/uL (0-0.2) Nucleated Red Blood Cells 0.0 % Sodium Level 133 mmol/L (136-145) Potassium Level 3.5 mmol/L (3.5-5.1) Chloride Level 95 mmol/L (98-107) Carbon Dioxide Level 28 mmol/L (20-31) Anion Gap 10 (5-15) Blood Urea Nitrogen 33 mg/dL (9-23) Creatinine 5.91 mg/dL (0.700-1.30) Glomerular Filtration Rate Calc 10 mL/min (>90) BUN/Creatinine Ratio 5.6 (10.0-20.0) Serum Glucose 224 mg/dL (74-106) Calcium Level 8.9 mg/dL (8.7-10.4) Total Bilirubin 0.2 mg/dL (0.2-1.0) Aspartate Amino Transferase (AST) 13 U/L (13-40) Alanine Aminotransferase (ALT) < 9 U/L (7-40) Alkaline Phosphatase 68 U/L (46-116) Total Protein 6.0 g/dL (5.7-8.2) Albumin 3.4 g/dL (3.2-4.8) Hepatitis B Surface Antigen Negative (Negative) Hepatitis C Antibody Negative (Negative) Lactic Acid Level 2.0 mmol/L (0.4-2.0) Test 06/30/24 20:00 06/30/24 19:10 06/30/24 18:49 Troponin I High Sensitivity 42 ng/L (</=54) B-Type Natriuretic Peptide 544.21 pg/mL (0-100) Lipase 32 U/L (12-53) Urine Color Dark-yellow (Yellow) Urine Clarity Clear (Clear) Urine pH 5.0 (5.0-9.0) Urine Specific [place] 1.022 (1.001-1.035) Urine Protein 2+ (Negative) Urine Ketones Trace (Negative) Urine Blood 1+ /uL (Negative) Urine Nitrite Negative (Negative) Urine Bilirubin Negative (Negative) Urine Urobilinogen Normal mg/dL (Negative) Urine Leukocyte Esterase 1+ /uL (Negative) Urine RBC 4 /hpf (0 - 3) Urine Microscopic WBC 2 /HPF (0-3) Urine Squamous Epithelial Cells Few /hpf (<5) Urine Bacteria None seen /hpf (None Seen) Urine Hyaline Casts Few /lpf (0 - 2) Urine Glucose 1+ mg/dL (Normal) Other Laboratory Tests 07/02/24 05:30 Brief Hx & Hospital Course: This is a 58 years old male with past medical history of end-stage renal disease on hemodialysis, diabetes, hyperlipidemia, hypertension came to [facility] because of generalized weakness. The patient also had confusion it is lethargic and shortness for breath. The patient had low-grade temperature of 99.7 The patient was admitted. CT head showed no acute process. Patient had no evidence of infection. However because of the low-grade fever the patient was put on Rocephin 1 g IV q.day to empiric treat for infection. Patient was found to have fluid overload and was dialyzed. Today the patient doing better. Alert oriented x3. Not confused or lethargic. So I am going to discharge him home. Advised him to follow up with primary care physician 1-2 weeks. Activity as tolerated. Diet renal diet also carb controlled diabetes diet. Physical exam: HEENT: Normocephalic atraumatic pupils equal react to light and accommodation. Extraocular muscles intact, conjunctiva pink, oropharynx moist, no thrush, no exudate. Lymphatic: No lymphadenopathy Cardiovascular exam: S1, S2 was heard. No murmurs, rubs, gallops Lung: Clear on auscultation bilaterally, no wheeze, rale, rhonchi. GI: Abdominal soft, nondistended, nontenderness, positive bowel sounds. Extremity: No crepitus, cyanosis, edema. Pedal pulses present bilateral. Full range of motion. Skin: Normal turgor, no rash. Psych: Alert, oriented x3. Neurology: No focal deficits, cranial nerve II to XII grossly intact. This medical document was created using an electronic medical record system with M[employer] flu[employer] direct computerized dictation system. Although this document has been carefully reviewed, there may still be some phonetic and typographical errors. These areas are purely typographical due to imperfections of the software programs, and do not reflect any compromise in the patient's medical care. Condition at Discharge: Stable Final Diagnosis/Problems List Generalized weakness Diabetes mellitus with hyperglycemia Acute exacerbation of CHF (congestive heart failure) End stage renal disease on dialysis Fluid overload. Discharge Disposition: Home Discharge Instruct/Medications Diet: Renal Activity: No Restrictions, As Tolerated Follow Up/Referral: pcp 1-2 weeks Medications: Resume home meds Discharge Statement: "Patient was advised to return to the ER or call 911 if any headaches, dizziness, shortness of breath, chest pain, abdominal pain, bleeding, fevers, or worsening of medical condition. Patient was counseled about treatment plan, medications, possible side effects, patientverbalized understanding. All questions were answered to the best of my ability. This discharge took greater then 30 minutes in planning, reviewing documentation, counseling the patient, and discussing with other team members." ASSESSMENT ASSESSMENT Assessment Fluid overload. ESRD on HD Date of Service: July 04, 2024 Billing Provider: DARNELL ABREU MD Common Visit Codes: 57432-SAJ/OBS DISCH DAY >30min DARNELL ABREU MD July 04, 2024 11:30
[2024-07-04] MEDS ORDERED: LANC-347 XX (11:50)
[2024-07-04] MEDS ORDERED: BLOO-200 XX (11:50)
[2024-07-04] MEDS ORDERED: GLUC1TES63 VI (11:50)
[2024-07-04 13:00] VITALS: BP 144/77; PULSE 64; RESP 18; TEMP 97.5; O2SAT 95
== END 2024-07-04 15:30 | disposition home or self-care (01) | DRG 291 ==
LOC: ER 18:37 → OVERFLOW 07-01 02:00 → TELE-EAST 07-01 15:31
PROVIDERS: ADMIT Internal Medicine; ATTEND Internal Medicine
PROC: 5A1D70Z Performance of Urinary Filtration, Intermittent, Less than 6 Hours Per Day (ICD-10-PCS; principal; 2024-07-03)
DX: I13.2 Hypertensive heart and chronic kidney disease with heart failure and with stage 5 chronic kidney disease, or end stage renal disease (principal); I50.31 Acute diastolic (congestive) heart failure; N18.6 End stage renal disease; E11.65 Type 2 diabetes mellitus with hyperglycemia; E78.5 Hyperlipidemia, unspecified; E11.22 Type 2 diabetes mellitus with diabetic chronic kidney disease; I95.9 Hypotension, unspecified; Z99.2 Dependence on renal dialysis; Z79.2 Long term (current) use of antibiotics; Z79.899 Other long term (current) drug therapy; Z79.01 Long term (current) use of anticoagulants; Z79.4 Long term (current) use of insulin; Z79.84 Long term (current) use of oral hypoglycemic drugs; Z83.3 Family history of diabetes mellitus
CPT/HCPCS: 36415; 70450; 80053; 81001; 82962; 83605; 83690; 83880; 84484; 85025; 86803; 87340; 90935; 96361; 96374; G0378; J1815; J3490

== ENCOUNTER 2024-07-24 21:02 | Emergency (ER) | payer MEDICARE, MEDICAID ==
[~2024-07-24] VITALS: Ht 172.7 cm; Wt 94.0 kg
[~2024-07-24 21:02] MED LIST changes: +BLOO-200 XX; -CIPR-273 PO; +GLUC1TES63 VI; +LANC-347 XX
[2024-07-24 22:30] LABS: Basophils # (auto) 0 10 ^3/uL (0-0.2); Basophils % (auto) 0.7 % (0.0-2.0); Eosinophils # (auto) 0.1 10 ^3/uL (0-0.8); Eosinophils % (auto) 2.5 % (0.0-7.0); Hematocrit 29.6 % (41.0-53.0); Hemoglobin 9.8 g/dL (13.5-17.5); Lymphocytes # (auto) 1.2 10 ^3/uL (0.4-5.4); Lymphocytes % (auto) 22.9 % (10.0-50.0); Mean Corpuscular Volume 90.8 fL (80.0-100.0); Monocytes # (auto) 0.3 10 ^3/uL (0-1.3); Monocytes % (auto) 6.2 % (0.0-12.0); Neutrophils # (auto) 3.7 10 ^3/uL (1.6-8.6); Neutrophils % (auto) 67.7 % (37.0-80.0); Nucleated Red Blood Cells % 0.1 %; Platelet Count (auto) 239 10^3/uL (140-450); Red Blood Cells 3.26 10^6/uL (4.5-5.90); Red Cell Distribution Width 16.5 % (11.8-14.3); White Blood Cell 5.4 10^3/uL (4.4-10.8)
--- NOTE | 2024-07-24 22:34 | DVH ---
CHEST RADIOGRAPH Indication: SOB Technique: Single frontal view of the chest was obtained COMPARISON: XY CHEST PORTABLE on DOS: 05/22/24, XY CHEST XRAY 1 VIEW on DOS: 04/16/24 FINDINGS: Lines and Tubes: None Lungs: Clear Pleura: No effusion. No pneumothorax. Cardiomediastinal contours: Unremarkable Bones: Unremarkable IMPRESSION: 1. No acute disease.
[2024-07-24 22:43] LABS: Albumin 3.9 g/dL (3.2-4.8); Alkaline Phosphatase 95 U/L (46-116); Anion Gap 12 (5-15); Aspartate Aminotransferase 13 U/L (<34); BUN/Creatinine Ratio 7.1 (10.0-20.0); Carbon Dioxide 27 mmol/L (20-31); Potassium 3.7 mmol/L (3.5-5.1); Total Protein 7.3 g/dL (5.7-8.2)
[2024-07-24 22:45] LABS: INR 1.02 (0.9-1.15); Partial Thromboplastin Time 30.8 SEC (24.5-34.5); Prothrombin Time 10.8 sec (9.3-11.8)
[2024-07-24 22:55] LABS: Alanine Aminotransferase < 9 U/L (7-40); Bilirubin, Total 0.2 mg/dL (0.2-1.0); Blood Urea Nitrogen 36 mg/dL (9-23); Calcium 8.2 mg/dL (8.7-10.4); Chloride 94 mmol/L (98-107); Glucose 261 mg/dL (74-106); Sodium 133 mmol/L (136-145)
--- NOTE | 2024-07-24 23:15 | ED.PDOC ---
History of Present Illness HPI Comments 58 y/o Turkish speaking, obese M presents with spouse for c/o abnormal labs. Patient has a history of DM, ESRD w/HD M/W/F, HLD, and HTN. He endorses on being informed on his hemoglobin being low at a value of '4,' yesterday, during dialysis and needing to be evaluated at a ED facility. Otherwise, patient rep orts being asymptomatic. Chief Complaint: Abnormal LAB's Time Seen by MD: 21:50 Primary Care Provider: STEPHEN Reviewed Notes: Nurses Notes, Medications, Allergies Allergies: Coded Allergies: NO KNOWN ALLERGIES (Unverified , 04/15/24) Home Meds Active Scripts Lancets (Freestyle Lancets) Lancets Mis, STRIP XX DAILY, #100 9 Refills Prov:DARNELL ABREU MD 07/04/24 Blood Glucose Monitoring Suppl (Blood Glucose Monitoring W/Device) 1 Kit Kit, KIT XX DAILY, #1 Prov:DARNELL ABREU MD 07/04/24 Glucose Blood (Glucose Meter Test Strips) 1 Valeriy Valeriy, 1 VALERIY DAILY, #100 MISC 9 Refills Prov:DARNELL ABREU MD 07/04/24 Metronidazole (Flagyl) 500 Mg Tab, 500 MG PO TID for 7 Days, #21 TAB Prov:NAEEM QUESADA MD 06/23/24 Gabapentin (Gabapentin) 600 Mg Tab, 600 MG PO TID for 30 Days, #90 TAB Prov:NAEEM QUESADA MD 06/23/24 Lactulose (Lactulose) 10 Gm/15 Ml Yamileth, 10 GM PO BIDPRN PRN for 30 Days, #120 ML 1 Refill Prov:ZURI PRESLEY MD 05/24/24 Pantoprazole Sodium Sesquihydr (Protonix) 40 Mg Tab, 40 MG PO DAILY for 30 Days, #30 TAB 2 Refills Prov:ZURI PRESLEY MD 05/24/24 Apixaban Base (ELIQUIS) 2.5 Mg Tab, 2.5 MG PO BID for 14 Days, #28 TAB 0 Refills Prov:MANAS CARFT RESIDENT 04/24/24 Nutritional Supplements (Josafat) [place] Pow, 1 PACK OR BID for 30 Days, #60 POW 0 Refills Prov:MANAS CRAFT RESIDENT 04/24/24 Amiodarone HCl (Amiodarone HCl) 200 Mg Tab, 200 MG PO Q12HR for 30 Days, #60 TAB Prov:MANAS CRAFT RESIDENT 04/24/24 Reported Medications Furosemide (Furosemide) 40 Mg Tab, 1 TAB PO DAILY for 90 Days, #90 07/02/24 Zolpidem Tartrate (Zolpidem Tartrate) 5 Mg Tab, 1 TAB PO QHSP for 30 Days, #30 07/02/24 Trazodone Hcl (Trazodone Hcl) 50 Mg Tab, 1 TAB PO DAILY for 30 Days, #30 07/02/24 Sodium Zirconium Cyclosilicate (Lokelma) 5 Gm Curly, 1 PACK PO TIDWM for 19 Days, #11 04/17/24 Insulin Glargine (Lantus) 100 Unit/Ml Inj, 20 UNIT SC BID, INJ 04/17/24 Allopurinol (Allopurinol) 100 Mg Tab, 100 MG PO DAILY, TAB 04/17/24 Glipizide (Glipizide) 10 Mg Tab, 10 MG PO DAILY for 30 Days, MG 04/17/24 Ferric Citrate (Auryxia) 210 Mg Tab, 210 MG PO DAILY, TAB 04/17/24 Ferrous Sulfate (Ferosul) 325 Mg Tab, 325 MG PO DAILY, TAB 04/17/24 Amlodipine Besylate (Amlodipine Besylate) 5 Mg Tab, 5 MG PO DAILY for 30 Days, MG 04/17/24 Metformin Hydrochloride (Metformin Hcl) 1,000 Mg Tab, 1 TAB PO BID, #180 TAB 3 Refills 04/17/24 Atorvastatin Calcium (ATORVASTATIN CALCIUM) 40 Mg Tab, 1 TAB PO DAILY for 90 Days, #90 04/16/24 Information Source: Patient, Spouse Mode of Arrival: Wheelchair Severity: Moderate Timing: Hours Duration: Since onset Prehospital treatment: None Past Medical History PAST MEDICAL HISTORY: DM, ESRD, High Lipids, HTN Past Medical History (Other): Right ankle fracture Surgical History (Other): AV dialysis shunt placement to LUE Family History Family History: Reviewed,noncontributory to illness, No family hx of Cancer, No family hx of DM, No family hx of Heart nelda, No family hx of HTN, No family hx ofKidney nelda, No family hx of Liver nelda, No family hx of Lung nelda, No family hx of Stroke Social History Smoker: Non-Smoker Alcohol: Denies ETOH Use Drugs: Denies Drug Use Lives In: Home All Other Systems: Reviewed and Negative (Comprehensive systems review obtained and negative except for what is stated in the HPI.) Physical Exam General Appearance: No Apparent Distress, Obese HEENT: Normal ENT Inspection, Pharynx Normal, TMs Normal Neck: Full Range of Motion, Non-Tender, Normal, Normal Inspection Respiratory: Chest Non-Tender, Lungs Clear, No Accessory Muscle Use, No Respiratory Distress, Normal Breath Sounds Cardiovascular: No Edema, No JVD, No Murmur, No Gallop, Normal Peripheral Pulses, Regular Rate/Rhythm Breast Exam: Deferred Gastrointestinal: No Organomegaly, Non Tender, No Pulsatile Mass, Normal Bowel Sounds, Soft Genitalia: Deferred Pelvic: Deferred Rectal: Deferred Extremities: No calf tenderness, Normal capillary refill, Normal inspection, Normal range of motion, Non-tender, No pedal edema, Other (AV shunt to left upper extremity, otherwise normal inspection ) Musculoskeletal : Apperance: Normal Neurologic: Alert, ice skating instructor II-XII nml as Tested, No Motor Deficits, Normal Affect, Normal Mood, No Sensory Deficits Cerebellar Function: Normal Reflexes: Normal Skin: Dry, Pallor (mildly pallor ), Warm Lymphatic: No Adenopathy Was a procedure done? Was a procedure done?: No Differential Dx Considerations may include: anemia X-Ray, Labs, Meds, VS Vital Signs Date Time Temp Pulse Resp B/P (MAP) Pulse Ox O2 Delivery O2 Flow Rate FiO2 07/25/24 00:02 97.8 58 20 124/60 (81) 95 97.8 07/25/24 00:02 58 20 95 Room Air 07/24/24 21:58 97.8 58 20 127/60 (82) 95 97.8 Lab Test 07/24/24 22:11 Range/Units White Blood Count 5.4 4.4-10.8 10^3/uL Red Blood Count 3.26 L 4.5-5.90 10^6/uL Hemoglobin 9.8 L 13.5-17.5 g/dL Hematocrit 29.6 L 41.0-53.0 % Mean Corpuscular Volume 90.8 80.0-100.0 fL Mean Corpuscular Hemoglobin 30.0 28.0-32.0 pg Mean Corpuscular Hemoglobin Concent 33.0 32.0-36.0 g/dL Red Cell Distribution Width 16.5 H 11.8-14.3 % Platelet Count 239 140-450 10^3/uL Mean Platelet Volume 7.6 6.9-10.8 fL Neutrophils (%) (Auto) 67.7 37.0-80.0 % Lymphocytes (%) (Auto) 22.9 10.0-50.0 % Monocytes (%) (Auto) 6.2 0.0-12.0 % Eosinophils (%) (Auto) 2.5 0.0-7.0 % Basophils (%) (Auto) 0.7 0.0-2.0 % Neutrophils # (Auto) 3.7 1.6-8.6 10 ^3/uL Lymphocytes # (Auto) 1.2 0.4-5.4 10 ^3/uL Monocytes # (Auto) 0.3 0-1.3 10 ^3/uL Eosinophils # (Auto) 0.1 0-0.8 10 ^3/uL Basophils # (Auto) 0 0-0.2 10 ^3/uL Nucleated Red Blood Cells 0.1 % Prothrombin Time 10.8 9.3-11.8 sec Prothrombin Time INR 1.02 0.9-1.15 Activated Partial Thromboplast Time 30.8 24.5-34.5 SEC Sodium Level 133 L 136-145 mmol/L Potassium Level 3.7 3.5-5.1 mmol/L Chloride Level 94 L 98-107 mmol/L Carbon Dioxide Level 27 20-31 mmol/L Anion Gap 12 5-15 Blood Urea Nitrogen 36 H 9-23 mg/dL Creatinine 5.05 H 0.700-1.30 mg/dL Glomerular Filtration Rate Calc 13 >90 mL/min BUN/Creatinine Ratio 7.1 L 10.0-20.0 Serum Glucose 261 H 74-106 mg/dL Calcium Level 8.2 L 8.7-10.4 mg/dL Total Bilirubin 0.2 0.2-1.0 mg/dL Aspartate Amino Transferase (AST) 13 <34 U/L Alanine Aminotransferase (ALT) < 9 7-40 U/L Alkaline Phosphatase 95 46-116 U/L Total Protein 7.3 5.7-8.2 g/dL Albumin 3.9 3.2-4.8 g/dL Time of 1ST Reevaluation: 22:20 Reevaluation 1ST: Unchanged Patient Education/Counseling: Diagnosis, Treatment, Need For Follow Up Family Education/Counseling: Diagnosis, Treatment, Need For Follow Up SEPSIS Sepsis Screen Date sepsis recognized/suspect: Jul 24, 2024 Time Sepsis recognized/suspect: 2154 Recent Procedure: No On Antibiotic Therapy: No Respiratory Rate >20: No Heart Rate >90: No Temp<36 C (96.8 F) or >38.3 C: No SBP <90 or MAP <65 mmHG: No New Acute Mental Status Change: No Is the patient on CPAP, BIPAP,: No Orders/Vitals/Labs Physician Orders Heplock Iv (07/24/24 21:47) Electrocardigram (07/24/24 21:47) Chest Xray 1 View (07/24/24 21:47) Vital Signs Date Time Temp Pulse Resp B/P (MAP) Pulse Ox O2 Delivery O2 Flow Rate FiO2 07/25/24 00:02 97.8 58 20 124/60 (81) 95 97.8 07/25/24 00:02 58 20 95 Room Air 07/24/24 21:58 97.8 58 20 127/60 (82) 95 97.8 Laboratory Tests Test 07/24/24 22:11 White Blood Count 5.4 10^3/uL (4.4-10.8) Departure 1 Departure Time of Disposition: 00:00 Impression: Primary Impression: End stage renal disease on dialysis Disposition: 01 HOME / SELF CARE / HOMELESS Condition: Stable Discharged With: Self, Spouse Critical Care Note Critical Care Time?: No Stability Stability form required: No Heart Score Heart Score: Heart Score Response (Comments) Value History N/A 0 EKG N/A 0 Age N/A 0 Risk Factors N/A 0 Troponin N/A 0 Total 0 I personally scribed for HOLLY ESPINOZA MD ([email or web address]) on 07/24/24 at 23:15. Electronically submitted by Cecilio Castrejon [email or web address]). HOLLY ESPINOZA MD Jul 24, 2024 23:15
[2024-07-24] MEDS: PANTOPRAZOLE 40 MG/10 ML VIAL INJ IV ONE (23:40)
[2024-07-25 00:02] VITALS: BP 124/60; PULSE 58; RESP 20; TEMP 97.8; O2SAT 95
== END 2024-07-25 00:04 | disposition home or self-care (01) ==
LOC: ER 21:02
DX: E11.22 Type 2 diabetes mellitus with diabetic chronic kidney disease (principal); I12.0 Hypertensive chronic kidney disease with stage 5 chronic kidney disease or end stage renal disease; N18.6 End stage renal disease; E66.9 Obesity, unspecified; Z99.2 Dependence on renal dialysis; E78.5 Hyperlipidemia, unspecified; Z79.899 Other long term (current) drug therapy; Z79.84 Long term (current) use of oral hypoglycemic drugs; Z79.4 Long term (current) use of insulin; Z79.01 Long term (current) use of anticoagulants; Z98.890 Other specified postprocedural states; Z68.31 Body mass index [BMI] 31.0-31.9, adult
CPT/HCPCS: 36415; 71045; 80053; 85025; 85610; 85730; 86850; 86900; 86901

== ENCOUNTER 2024-09-11 08:04 | Inpatient (IN) | payer MEDICARE, MEDICAID ==
[~2024-09-11] VITALS: Ht 157.5 cm; Wt 96.4 kg
[2024-09-11 09:25] LABS: Hematocrit 28.7 % (41.0-53.0); Hemoglobin 9.3 g/dL (13.5-17.5); Mean Corpuscular Hemoglobin 29.9 pg (28.0-32.0); Mean Corpuscular Volume 92.4 fL (80.0-100.0); Nucleated Red Blood Cells % 0.0 %
[2024-09-11 09:33] LABS: Potassium 3.6 mmol/L (3.5-5.1)
[2024-09-11 09:34] LABS: Anion Gap 9 (5-15)
[2024-09-11 09:39] LABS: BUN/Creatinine Ratio 4.1 (10.0-20.0); Blood Urea Nitrogen 17 mg/dL (9-23)
[2024-09-11 09:40] LABS: Calcium 8.0 mg/dL (8.7-10.4); Carbon Dioxide 33 mmol/L (20-31); Chloride 93 mmol/L (98-107); Glucose 142 mg/dL (74-106); Sodium 135 mmol/L (136-145)
--- NOTE | 2024-09-11 09:49 | DVH ---
XY CHEST PORTABLE, HISTORY: sob COMPARISON: XY CHEST XRAY 1 VIEW on DOS: 07/24/24, XY CHEST PORTABLE on DOS: 05/22/24, XY CHEST XRAY 1 VIEW on DOS: 04/16/24 XY CHEST XRAY 1 VIEW on DOS: 07/24/24, XY CHEST PORTABLE on DOS: 05/22/24, XY CHEST XRAY 1 VIEW on DOS: 04/16/24 TECHNICAL DATA: 1 view of the chest was obtained. FINDINGS: Lines and tubes: None Cardiomediastinal silhouette: normal Pulmonary vasculature: prominent Lung expansion: normal Lung airspace: normal Lung interstitium: normal Pleura: normal Pneumothorax: no Bones: Unremarkable Other: no IMPRESSION: Pulmonary vascular congestion.
--- NOTE | 2024-09-11 10:32 | ED.PDOC ---
General HPI Comments 58-year-old male came to the ER stating that he is having hard time urinating. He does not normally urinate much. He does have a history of diabetes hypertension CHF chronic kidney disease on dialysis on Tuesday. He also has a vena boot out bilateral lower extremity. He does not ambulate. 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 Denies chest pain. Denies any other symptoms. Chief Complaint: Urinary Time Seen by MD: 08:07 Primary Care Provider: STEPHEN Grier notes: Nurses Notes, Medications, Allergies Allergies: Coded Allergies: NO KNOWN ALLERGIES (Unverified , 04/15/24) Home Meds Active Scripts Lancets (Freestyle Lancets) Lancets Mis, STRIP XX DAILY, #100 9 Refills Prov:DARNELL ABREU MD 07/04/24 Blood Glucose Monitoring Suppl (Blood Glucose Monitoring W/Device) 1 Kit Kit, KIT XX DAILY, #1 Prov:DARNELL ABREU MD 07/04/24 Glucose Blood (Glucose Meter Test Strips) 1 Valeriy Valeriy, 1 VALERIY DAILY, #100 MISC 9 Refills Prov:DARNELL ABREU MD 07/04/24 Metronidazole (Flagyl) 500 Mg Tab, 500 MG PO TID for 7 Days, #21 TAB Prov:NAEEM QUESADA MD 06/23/24 Gabapentin (Gabapentin) 600 Mg Tab, 600 MG PO TID for 30 Days, #90 TAB Prov:NAEEM QUESADA MD 06/23/24 Lactulose (Lactulose) 10 Gm/15 Ml Yamileth, 10 GM PO BIDPRN PRN for 30 Days, #120 ML 1 Refill Prov:ZURI PRESLEY MD 05/24/24 Pantoprazole Sodium Sesquihydr (Protonix) 40 Mg Tab, 40 MG PO DAILY for 30 Days, #30 TAB 2 Refills Prov:ZURI PRESLEY MD 05/24/24 Apixaban Base (ELIQUIS) 2.5 Mg Tab, 2.5 MG PO BID for 14 Days, #28 TAB 0 Refills Prov:MANAS CRAFT RESIDENT 04/24/24 Nutritional Supplements (Josafat) Jones Pow, 1 PACK OR BID for 30 Days, #60 POW 0 Refills Prov:MANAS CRAFT RESIDENT 04/24/24 Amiodarone HCl (Amiodarone HCl) 200 Mg Tab, 200 MG PO Q12HR for 30 Days, #60 TAB Prov:PAULO CRAFTNIRU RESIDENT 04/24/24 Reported Medications Furosemide (Furosemide) 40 Mg Tab, 1 TAB PO DAILY for 90 Days, #90 07/02/24 Zolpidem Tartrate (Zolpidem Tartrate) 5 Mg Tab, 1 TAB PO QHSP for 30 Days, #30 07/02/24 Trazodone Hcl (Trazodone Hcl) 50 Mg Tab, 1 TAB PO DAILY for 30 Days, #30 07/02/24 Sodium Zirconium Cyclosilicate (Lokelma) 5 Gm Curly, 1 PACK PO TIDWM for 19 Days, #11 04/17/24 Insulin Glargine (Lantus) 100 Unit/Ml Inj, 20 UNIT SC BID, INJ 04/17/24 Allopurinol (Allopurinol) 100 Mg Tab, 100 MG PO DAILY, TAB 04/17/24 Glipizide (Glipizide) 10 Mg Tab, 10 MG PO DAILY for 30 Days, MG 04/17/24 Ferric Citrate (Auryxia) 210 Mg Tab, 210 MG PO DAILY, TAB 04/17/24 Ferrous Sulfate (Ferosul) 325 Mg Tab, 325 MG PO DAILY, TAB 04/17/24 Amlodipine Besylate (Amlodipine Besylate) 5 Mg Tab, 5 MG PO DAILY for 30 Days, MG 04/17/24 Metformin Hydrochloride (Metformin Hcl) 1,000 Mg Tab, 1 TAB PO BID, #180 TAB 3 R efills 04/17/24 Atorvastatin Calcium (ATORVASTATIN CALCIUM) 40 Mg Tab, 1 TAB PO DAILY for 90 Days, #90 04/16/24 Information Source: Patient Mode of Arrival: Wheelchair Severity: Moderate Timing: Hours Duration: Since onset Onset: Spontaneous Location: Suprapubic associated signs and symptoms: None Past Medical History PAST MEDICAL HISTORY: DM, ESRD, High Lipids, HTN Surgical History: Denies all surgeries Family History Family History: Reviewed,noncontributory to illness, No family hx of Cancer, No family hx of DM, No family hx of Heart nelda, No family hx of HTN, No family hx ofKidney nelda, No family hx of Liver nelda, No family hx of Lung nelda, No family hx of Stroke Social History Smoker: Non-Smoker Alcohol: Denies ETOH Use Drugs: Denies Drug Use Lives In: Home Constitutional: denies: chills, diaphoresis, fatigue, fever, malaise, sweats, weakness, others EENTM: denies: blurred vision, double vision, ear bleeding, ear discharge, ear drainage, ear pain, ear ringing, eye pain, eye redness, hearing loss, mouth pain, mouth swelling, nasal discharge, nose bleeding, nose congestion, nose pain, photophobia, tearing, throat pain, throat swelling, voice changes, others Respiratory: denies: cough, hemoptysis, orthopnea, SOB at rest, shortness of breath, SOB with excertion, stridor, wheezing, others Cardiovascular: denies: chest pain, dizzy spells, diaphoresis, Dyspnea on exertion, edema, irregular heart beat, left arm pain, lightheadedness, palpitations, PND, syncope, others Gastrointestinal: denies: abdomen distended, abdominal pain, blood streaked bowels, constipated, diarrhea, dysphagia, difficulty swallowing, hematemesis, melena, nausea, poor appetite, poor fluid intake, rectal bleeding, rectal pain, vomiting, others Genitourinary: reports: others (Retention); denies: burning, dysuria, flank pain, frequency, hematuria, incontinence, penile discharge, penile sore, pain, testicle pain, testicle swelling, urgency Neurological: denies: dizziness, fainting, headache, left sided numbness, left sided weakness, numbness, paresthesia, pre-existing deficit, right sided numbness, right sided weakness, seizure, speech problems, tingling, tremors, weakness, others Musculoskeletal: denies: back pain, gout, joint pain, joint swelling, muscle pain, muscle stiffness, neck pain, others Integumetry: denies: bruises, change in color, change in hair/nails, dryness, laceration, lesions, lumps, rash, wounds, others Allergic/Immunocompromised: denies: Difficulty Healing, Frequent Infections, Hives, Itching, others Hematologic/Lymphatic: denies: anemia, blood clots, easy bleeding, easy bruising, swollen glands, others Endocrine: denies: excessive hunger, excessive sweating, excessive thirst, excessive urination, flushing, intolerance to cold, intolerance to heat, unexp lained weight gain, unexplained weight loss, others Psychiatric: denies: anxiety, bipolar disorder, depression, hopeless, panic disorder, schizophrenia, sleepless, suicidal, others Physical Exam General Appearance: Moderate Distress HEENT: Normal ENT Inspection, Pharynx Normal, TMs Normal Neck: Full Range of Motion, Non-Tender, Normal, Normal Inspection Respiratory: Chest Non-Tender, Lungs Clear, No Accessory Muscle Use, No Respiratory Distress, Normal Breath Sounds Cardiovascular: No Edema, No JVD, No Murmur, No Gallop, Normal Peripheral Pulses, Regular Rate/Rhythm Breast Exam: Deferred Gastrointestinal: No Organomegaly, Non Tender, No Pulsatile Mass, Normal Bowel Sounds, Soft Genitalia: Deferred Pelvic: Deferred Rectal: Deferred Extremities: Swelling (Vena boot) Musculoskeletal : Apperance: Normal Neurologic: Alert, No Motor Deficits, No Sensory Deficits Cerebellar Function: NOT DONE Reflexes: None Skin: Wounds (Bilateral lower extremity) Peripheral Pulses: 3+ Radial (R), 3+ Radial (L) Lymphatic: No Adenopathy Was a procedure done? Was a procedure done?: No Differential Diagnosis Kidney stone (Female): Musculoskeletal pain, Urinary obstruction, Urolithiasis X-Ray, Labs, Meds, VS Vital Signs Date Time Temp Pulse Resp B/P (MAP) Pulse Ox O2 Delivery O2 Flow Rate FiO2 09/11/24 08:04 98.7 57 20 108/45 94 98.7 Lab Test 09/11/24 09:14 Range/Units White Blood Count 4.6 4.4-10.8 10^3/uL Red Blood Count 3.10 L 4.5-5.90 10^6/uL Hemoglobin 9.3 L 13.5-17.5 g/dL Hematocrit 28.7 L 41.0-53.0 % Mean Corpuscular Volume 92.4 80.0-100.0 fL Mean Corpuscular Hemoglobin 29.9 28.0-32.0 pg Mean Corpuscular Hemoglobin Concent 32.4 32.0-36.0 g/dL Red Cell Distribution Width 15.9 H 11.8-14.3 % Platelet Count 159 140-450 10^3/uL Mean Platelet Volume 7.8 6.9-10.8 fL Neutrophils (%) (Auto) 79.8 37.0-80.0 % Lymphocytes (%) (Auto) 10.7 10.0-50.0 % Monocytes (%) (Auto) 7.0 0.0-12.0 % Eosinophils (%) (Auto) 1.4 0.0-7.0 % Basophils (%) (Auto) 1.1 0.0-2.0 % Neutrophils # (Auto) 3.7 1.6-8.6 10 ^3/uL Lymphocytes # (Auto) 0.5 0.4-5.4 10 ^3/uL Monocytes # (Auto) 0.3 0-1.3 10 ^3/uL Eosinophils # (Auto) 0.1 0-0.8 10 ^3/uL Basophils # (Auto) 0.1 0-0.2 10 ^3/uL Nucleated Red Blood Cells 0.0 % Sodium Level 135 L 136-145 mmol/L Potassium Level 3.6 3.5-5.1 mmol/L Chloride Level 93 L 98-107 mmol/L Carbon Dioxide Level 33 H 20-31 mmol/L Anion Gap 9 5-15 Blood Urea Nitrogen 17 9-23 mg/dL Creatinine 4.10 H 0.700-1.30 mg/dL Glomerular Filtration Rate Calc 16 >90 mL/min BUN/Creatinine Ratio 4.1 L 10.0-20.0 Serum Glucose 142 H 74-106 mg/dL Calcium Level 8.0 L 8.7-10.4 mg/dL Troponin I High Sensitivity 21 </=54 ng/L [place] [id number] Ph: [phone] DIAGNOSTIC IMAGING Diagnostic Imaging Report : [id number] Signed PATIENT: PEGGY OMERACCT: [id number] UNIT: [id number] : 1965 LOC: ER ROOM / BED: / AGE / SEX: 58 / M ADM STATUS: REG ER SERVICE 0900 ORDERING PHYSICIAN: CARMEN GARCIA MD PROCEDURE(s): CXRP - CHEST PORTABLE REASON: sob ORDER NUMBER(s): [id number], ACCESSION NUMBER(s): [id number] XY CHEST PORTABLE, HISTORY: sob COMPARISON: XY CHEST XRAY 1 VIEW on DOS: 07/24/24, XY CHEST PORTABLE on DOS: 05/22/24, XY CHEST XRAY 1 VIEW on DOS: 04/16/24 XY CHEST XRAY 1 VIEW on DOS: 07/24/24, XY CHEST PORTABLE on DOS: 05/22/24, XY CHEST XRAY 1 VIEW on DOS: 04/16/24 TECHNICAL DATA: 1 view of the chest was obtained. FINDINGS: Lines and tubes: None Cardiomediastinal silhouette: normal Pulmonary vasculature: prominent Lung expansion: normal Lung airspace: normal Lung interstitium: normal Pleura: normal Pneumothorax: no Bones: Unremarkable Other: no IMPRESSION: Pulmonary vascular congestion. ATED BY: MARK PEÑA MD DICTATED DATE/TIME: 09/11/24946 SIGNED BY: MARK PEÑA MD SIGNED DATE/TIME: 09/11/24946 CC: Patient alert. History of kidney disease. Chest x-ray does show congestion. He is on dialysis. Was given Lasix. Has wounds on bilateral lower extremity. Blood sugar elevated pain Cardiac marker within normal limits. Nephrology consultation. Severe anemia. Reviewed his history. Explained to the patient. Continue monitoring. Time of 1ST Reevaluation: 11:11 Reevaluation 1ST: Unchanged Patient Education/Counseling: Diagnosis, Treatment, Prognosis Family Education/Counseling: No Family Present SEPSIS Sepsis Screen Date sepsis recognized/suspect: Sep 11, 2024 Time Sepsis recognized/suspect: 808 Recent Procedure: No On Antibiotic Therapy: No Respiratory Rate >20: No Heart Rate >90: No Temp<36 C (96.8 F) or >38.3 C: No SBP <90 or MAP <65 mmHG: No New Acute Mental Status Change: No Is the patient on CPAP, BIPAP,: No Physician Orders Chest Portable (09/11/24 09:00) Urinalysis (09/11/24 09:00) Vital Signs Date Time Temp Pulse Resp B/P (MAP) Pulse Ox O2 Delivery O2 Flow Rate FiO2 09/11/24 08:04 98.7 57 20 108/45 94 98.7 Laboratory Tests Test 09/11/24 09:14 White Blood Count 4.6 10^3/uL (4.4-10.8) Departure 1 Departure Time of Disposition: 11:12 Impression: Primary Impression: Chronic kidney disease with end stage renal failure on dialysis Additional Impressions: Severe anemia Acute exacerbation of CHF (congestive heart failure) Qualified Codes: I50.43 - Acute on chronic combined systolic (congestive) and diastolic (congestive) heart failure Disposition: ADMITTED INPATIENT Admit to: Med Surg Condition: Guarded Critical Care Note Critical Care Time?: Yes (90 min-critical care time only) Stability Stability form required: No Heart Score Heart Score: Heart Score Response (Comments) Value History N/A 0 EKG N/A 0 Age N/A 0 Risk Factors N/A 0 Troponin Normal limit 0 Total 0 I personally scribed for CARMEN GARCIA MD ([email or web address]) on 09/11/24 at 10:32. Electronically submitted by Elke Dallas ([email or web address]). CARMEN GARCIA MD Sep 11, 2024 10:32
[2024-09-11] MEDS ORDERED: DEXTROSE (50%) 50ML SYRG IV PRN (17:15)
[2024-09-11] MEDS ORDERED: ACETAMINOPHEN 325 MG TAB PO PRN (17:15)
[2024-09-11] MEDS ORDERED: ONDANSETRON HCL 4 MG/2 ML VIAL IV PRN (17:15)
[2024-09-11] MEDS ORDERED: DOCUSATE SOD 100 MG CAP PO PRN (17:15)
[2024-09-11] MEDS ORDERED: MORPHINE SULFATE INJ 2 MG/ml SYRG IV PRN (17:45)
[2024-09-11] MEDS ORDERED: NITROGLYCERIN 0.4 MG SL TAB SL PRN (17:45)
--- NOTE | 2024-09-11 17:47 | DVHHP2 ---
History of Present Illness Reason for Visit: End-stage renal disease on hemodialysis History of Present Illness The patient is a 58-year-old male wheelchair-bound with past medical history of diabetes mellitus, hypertension, end-stage renal disease on hemodialysis, and hyperlipidemia who presented to [facility] ED with complaint of urinary retention. Patient is on hemodialysis - but still making urine with Esteban catheter in place, difficulty urinating. Patient has a vena boot out bilateral lower extremity, toes amputation. Patient was seen and evaluated in the ED, laboratory data shows WBC 4.6, hemoglobin 9.3, hematocrit 28.7, platelets 159, sodium 139, potassium 3.6, BUN 17, creatinine 4.10, glucose 142, calcium 8.0, troponin 21, BNP 706.36, blood pressure 105/77, heart rate 57, temperature 98.7 F, O2 saturation 94% on oxygen. Chest x-ray revealing pulmonary vascular congestion. Please see medication orders section in the com puter. On my assessment, patient denied chest pain, no headache, no dizziness, no diaphoresis, currently on oxygen, no abdominal pain, no diarrhea, no nausea, no vomiting, no fever, no chills. Patient was admitted for further evaluation and medical management. Past Medical History DM, ESRD, High Lipids, HTN Past Surgical History Denies all surgeries Family History Reviewed, noncontributory to the management of this case. Past Social History The patient lives at home, denies smoking, alcohol or illicit drugs abuse. Review of Systems Constitutional: Yes: Weakness; No: Fever, Chills, Sweats, Malaise, Other Eyes: No: Pain, Vision change, Conjunctivae inflammation, Eyelid inflammation, Other, Redness ENT: No: Ear pain, Ear discharge, Nose pain, Nose discharge, Nose congestion, Mouth pain, Mouth swelling, Throat pain, Throat swelling, Other Respiratory: No: Cough, Dry, Shortness of breath, SOB with excertion, Wheezing, Hemoptysis, Pleuritic Pain, Sputum, Wheezing, Other Cardiovascular: No: Chest Pain, Palpitations, Orthopnea, Paroxysmal Noc. Dyspnea, Edema, Lt Headedness, Other Gastrointestinal: No: Nausea, Vomiting, Abdominal Pain, Diarrhea, Constipation, Melena, Hematochezia, Other Genitourinary: No Dysuria, No Frequency, No Incontinence, No Hematuria; Retention, Other (Esteban catheter in place) Musculoskeletal: other (Toes amputation.); No: neck pain, shoulder pain, arm pain, back pain, hand pain, leg pain, foot pain Skin: No: Rash, Lesions, Jaundice, Bruising, Other Neurological: No: Weakness, Numbness, Incoordination, Change in speech, Confusion, Seizures, Other Allergies: Coded Allergies: NO KNOWN ALLERGIES (Unverified , 04/15/24) Medications Current Medications Medications Dose Ordered Sig/Samuel Route Start Time Stop Time Status Last Admin Dose Admin Amlodipine Besylate 5 mg DAILY PO 09/12/24 10:00 Atorvastatin Calcium 20 mg HS PO 09/11/24 22:00 Multivit/Ca Carb/ B Cmplx/FA/Prenat 1 tab DAILY PO 09/12/24 10:00 Sevelamer HCl 800 mg TIDWM PO 09/11/24 18:00 Aspirin 81 mg DAILY PO 09/12/24 10:00 Famotidine 20 mg Q48H IV 09/11/24 18:00 Diagnostic Test (Pha) 1 strip ACHS 09/11/24 22:00 Insulin Human Regular HS SC 09/11/24 22:00 Insulin Human Regular AC SC 09/12/24 07:00 Dextrose 50 ml UD PRN IV 09/11/24 17:15 Sodium Chloride 10 ml Q8HR IV 09/11/24 22:00 Acetaminophen/ Hydrocodone Bitart 1 tab Q4HP PRN PO 09/11/24 17:15 Ondansetron HCl 4 mg Q4HP PRN IV 09/11/24 17:15 Docusate Sodium 100 mg BIDPRN PRN PO 09/11/24 17:15 Acetaminophen 650 mg Q6HP PRN PO 09/11/24 17:15 Exam Vital Signs Vital Signs Date Time Temp Pulse Resp B/P (MAP) Pulse Ox O2 Delivery O2 Flow Rate FiO2 09/11/24 08:04 98.7 57 20 108/45 94 98.7 General Appearance: Alert, Oriented X3, Cooperative, No acute distress HEENT: Atraumatic, PERRLA, EOMI, Mucous membr. moist/pink Respiratory: Normal air movement Cardiovascular: Regular rate, Normal S1, Normal S2, No murmurs Abdominal: Normal bowel sounds, Soft, No tenderness, No hepatospenomegaly, No masses Extremities: No clubbing, No cyanosis, No edema, Normal pulses, No tenderness/swelling Skin: No rashes, No breakdown, No significant lesion Neuro: Normal speech, Normal tone, Sensation intact, Cranial nerves 3-12 NL, Reflexes 2+, Other (Generalized weakness) Psych/Mental Status: Mental status NL, Mood NL Labs/Xrays Labs Test 09/11/24 09:14 Range/Units White Blood Count 4.6 4.4-10.8 10^3/uL Red Blood Count 3.10 L 4.5-5.90 10^6/uL Hemoglobin 9.3 L 13.5-17.5 g/dL Hematocrit 28.7 L 41.0-53.0 % Mean Corpuscular Volume 92.4 80.0-100.0 fL Mean Corpuscular Hemoglobin 29.9 28.0-32.0 pg Mean Corpuscular Hemoglobin Concent 32.4 32.0-36.0 g/dL Red Cell Distribution Width 15.9 H 11.8-14.3 % Platelet Count 159 140-450 10^3/uL Mean Platelet Volume 7.8 6.9-10.8 fL Neutrophils (%) (Auto) 79.8 37.0-80.0 % Lymphocytes (%) (Auto) 10.7 10.0-50.0 % Monocytes (%) (Auto) 7.0 0.0-12.0 % Eosinophils (%) (Auto) 1.4 0.0-7.0 % Basophils (%) (Auto) 1.1 0.0-2.0 % Neutrophils # (Auto) 3.7 1.6-8.6 10 ^3/uL Lymphocytes # (Auto) 0.5 0.4-5.4 10 ^3/uL Monocytes # (Auto) 0.3 0-1.3 10 ^3/uL Eosinophils # (Auto) 0.1 0-0.8 10 ^3/uL Basophils # (Auto) 0.1 0-0.2 10 ^3/uL Nucleated Red Blood Cells 0.0 % Sodium Level 135 L 136-145 mmol/L Potassium Level 3.6 3.5-5.1 mmol/L Chloride Level 93 L 98-107 mmol/L Carbon Dioxide Level 33 H 20-31 mmol/L Anion Gap 9 5-15 Blood Urea Nitrogen 17 9-23 mg/dL Creatinine 4.10 H 0.700-1.30 mg/dL Glomerular Filtration Rate Calc 16 >90 mL/min BUN/Creatinine Ratio 4.1 L 10.0-20.0 Serum Glucose 142 H 74-106 mg/dL Calcium Level 8.0 L 8.7-10.4 mg/dL Troponin I High Sensitivity 21 </=54 ng/L PATIENT: PEGGY OMERACCT: [id number] UNIT: [id number] : 1965 LOC: ER ROOM / BED: / AGE / SEX: 58 / M ADM STATUS: REG ER SERVICE 0900 ORDERING PHYSICIAN: CARMEN GARCIA MD PROCEDURE(s): CXRP - CHEST PORTABLE REASON: sob ORDER NUMBER(s): [id number], ACCESSION NUMBER(s): [id number] XY CHEST PORTABLE, HISTORY: sob COMPARISON: XY CHEST XRAY 1 VIEW on DOS: 07/24/24, XY CHEST PORTABLE on DOS: 05/22/24, XY CHEST XRAY 1 VIEW on DOS: 04/16/24 XY CHEST XRAY 1 VIEW on DOS: 07/24/24, XY CHEST PORTABLE on DOS: 05/22/24, XY CHEST XRAY 1 VIEW on DOS: 04/16/24 TECHNICAL DATA: 1 view of the chest was obtained. FINDINGS: Lines and tubes: None Cardiomediastinal silhouette: normal Pulmonary vasculature: prominent Lung expansion: normal Lung airspace: normal Lung interstitium: normal Pleura: normal Pneumothorax: no Bones: Unremarkable Other: no IMPRESSION: Pulmonary vascular congestion. SEPSIS Sepsis Screen Date sepsis recognized/suspect: Sep 11, 2024 Time Sepsis recognized/suspect: 0809 Recent Procedure: No On Antibiotic Therapy: No Respiratory Rate >20: No Heart Rate >90: No Temp<36 C (96.8 F) or >38.3 C: No SBP <90 or MAP <65 mmHG: No New Acute Mental Status Change: No Is the patient on CPAP, BIPAP,: No Physician Orders Insert/Manage Urinary Catheter QSHIFT (09/11/24 17:20) Amlodipine Tablet (Norvasc Tablet) (09/12/24 10:00) Atorvastatin (Lipitor) (09/11/24 22:00) B-Complex W/ C & Folic Tablet (Nephro-Vi (09/12/24 10:00) Sevelamer (Renagel) (09/11/24 18:00) B-Type Natriuretic Peptide (09/11/24 17:06) Aspirin Tablet (09/12/24 10:00) Glucose Blood (Accu-Chek Comfort Curve T (09/11/24 22:00) Insulin R (Human) (Insulin R) (09/11/24 22:00) Insulin R (Human) (Insulin R) (09/12/24 07:00) Dextrose 50% Syringe (09/11/24 17:15) Allergies (09/11/24 17:06) Code Status (09/11/24 17:06) Renal Standard(2gna,3gk,Lopho) (09/11/24 Dinner) Sodium Chloride Lock (Saline Lock Ns) (09/11/24 22:00) Oxygen Per Hour (09/11/24 17:06) Hydrocodone-Acet 5/325mg Tab ([place] (09/11/24 17:15) Ondansetron Hcl (Zofran) (09/11/24 17:15) Docusate Sodium Capsule (Colace Capsule) (09/11/24 17:15) Complete Blood Count (09/12/24 04:00) Comprehensive Metabolic Panel (09/12/24 04:00) Condition: Serious (09/11/24 17:06) Acetaminophen Tablet (Tylenol Tablet) (09/11/24 17:15) Bedrest With Bathroom Privileg (09/11/24 17:06) Sequential Compression Device (09/11/24 ) *[facility] (09/11/24 17:23) Famotidine Injection (Pepcid Injection) (09/11/24 18:00) Admit (09/11/24 17:45) Nitroglycerin Sublingual (Ntrostat Subli (09/11/24 17:45) Morphine Sulfate Injection (09/11/24 17:45) Stat Ekg For Chest Pain (09/11/24 17:45) Notify Of Changes From Base (09/11/24 17:45) Rn Diabetes For 24 Hours (09/11/24 17:45) Emergency Dysrhythmia Protocol (09/11/24 17:45) Rhythm Strips Once Every Shift (09/11/24 17:45) Oxygen By Nasal Cannula (09/11/24 17:45) Laboratory Tests Test 09/11/24 09:14 White Blood Count 4.6 10^3/uL (4.4-10.8) Assessment/Plan Assessment/Plan Generalized weakness Pulmonary vascular congestion Anemia of chronic disease End-stage renal disease on hemodialysis Acute exacerbation of congestive heart failure Plan 1. Admit to telemetry unit 2. Breathing treatment 3. Pain control management 4. Management of fluids and electrolytes 5. Consultation for Nephrology 6. Diagnostic tests chest x-ray 7. DVT prophylaxis-on Eliquis 8. Repeat labs CBC, CMP in a.m. 9. Continue with current medical management 10. Treatment plan discussed with patient and RN. Patient verbalized understanding. Plan discussed with: Patient, Other (RN) My Orders Orders - VENANCIO RAJAN DNP Procedure Category Date Status Time Amlodipine Tablet PHA 09/12/24 In Process (Norvasc Tablet) 10:00 Atorvastatin (Lipitor) PHA 09/11/24 In Process 22:00 B-Complex W/ C & PHA 09/12/24 In Process Folic Tablet 10:00 Sevelamer (Renagel) PHA 09/11/24 In Process 18:00 B-Type Natriuretic LAB 09/11/24 Logged Peptide 17:06 Aspirin Tablet PHA 09/12/24 In Process 10:00 Glucose Blood PHA 09/11/24 In Process (Accu-Chek Comfort 22:00 Insulin R (Human) PHA 09/11/24 In Process (Insulin R) 22:00 Insulin R (Human) PHA 09/12/24 In Process (Insulin R) 07:00 Dextrose 50% Syringe PHA 09/11/24 In Process 17:15 Allergies FABRICIO 09/11/24 In Process 17:06 Code Status CODE 09/11/24 Transmitted 17:06 Renal DIET 09/11/24 Transmitted Standard(2gna,3gk,Lopho) Dinner Sodium Chloride Lock PHA 09/11/24 In Process (Saline Lock Ns) 22:00 Oxygen Per Hour RT 09/11/24 Transmitted 17:06 Hydrocodone-Acet PHA 09/11/24 In Process 5/325mg Tab ([place] 17:15 Ondansetron Hcl PHA 09/11/24 In Process (Zofran) 17:15 Docusate Sodium PHA 09/11/24 In Process Capsule (Colace 17:15 Complete Blood Count LAB 09/12/24 Verified 04:00 Comprehensive LAB 09/12/24 Verified Metabolic Panel 04:00 Condition: Serious FABRICIO 09/11/24 In Process 17:06 Acetaminophen Tablet [facility] 09/11/24 In Process (Tylenol Tablet) 17:15 Bedrest With Bathroom FABRICIO 09/11/24 In Process Privileg 17:06 Sequential [facility] 09/11/24 In Process Compression Device *[facility] CONS 09/11/24 Transmitted -[place] 17:23 Famotidine Injection [facility] 09/11/24 In Process (Pepcid Injection) 18:00 Admit ADMIT 09/11/24 Verified 17:45 Nitroglycerin [facility] 09/11/24 Verified Sublingual (Ntrostat 17:45 Morphine Sulfate [facility] 09/11/24 Verified Injection 17:45 Stat Ekg For Chest [facility] 09/11/24 Verified Pain 17:45 Notify Md Of Changes [facility] 09/11/24 Verified From Base 17:45 Rn Diabetes For [facility] 09/11/24 Verified 24 Hours 17:45 Emergency Dysrhythmia [facility] 09/11/24 Verified Protocol 17:45 Rhythm Strips Once [facility] 09/11/24 Verified Every Shift 17:45 Oxygen By Nasal 09/11/24 Verified Cannula 17:45 Problem List: (1) Generalized weakness (2) Pulmonary vascular congestion (3) Anemia of chronic disease (4) End stage renal disease on dialysis (5) Acute exacerbation of congestive heart failure Date of Service: Sep 11, 2024 Billing Provider: VENANCIO RAJAN DNP Common Visit Codes: 78710-[id number] INP/OBS CARE (HIGH) VENANCIO RAJAN DNP Sep 11, 2024 17:47
[2024-09-11] MEDS: SEVELAMER 800 MG TAB PO SCH (18:18)
[2024-09-11] MEDS: FAMOTIDINE (10MG/ML) 2ML VL IV SCH (18:19)
[2024-09-11] MEDS: SODIUM CHLOR 0.9% PF (SALINE LOCK) 10ML VIAL/SYR IV SCH (22:04)
[2024-09-12] MEDS: ATORVASTATIN 20 MG TAB PO SCH (02:46)
[2024-09-12] MEDS: InsuLIN REG 1unit/0.01ml Soln (100units/ml) SC SCH ×2 (03:00→08:56)
[2024-09-12] MEDS: ACCU-CHEK COMFORT CURVE STRIP VI SCH (03:01)
[2024-09-12] MEDS: CALCIUM ACETATE 667 MG CAP PO SCH (09:07)
[2024-09-12 09:43] LABS: Hematocrit 29.0 % (41.0-53.0); Hemoglobin 9.4 g/dL (13.5-17.5); Mean Corpuscular Hemoglobin 30.4 pg (28.0-32.0); Mean Corpuscular Volume 93.7 fL (80.0-100.0); Nucleated Red Blood Cells % 0.1 %
[2024-09-12 10:03] LABS: Alanine Aminotransferase 16 U/L (7-40); Albumin 4.3 g/dL (3.2-4.8); Alkaline Phosphatase 105 U/L (46-116); Anion Gap 12 (5-15); BUN/Creatinine Ratio 4.5 (10.0-20.0); Carbon Dioxide 29 mmol/L (20-31); Potassium 3.6 mmol/L (3.5-5.1); Total Protein 7.4 g/dL (5.7-8.2)
[2024-09-12 10:04] LABS: Bilirubin, Total 0.4 mg/dL (0.2-1.0)
[2024-09-12 10:06] LABS: Blood Urea Nitrogen 25 mg/dL (9-23); Calcium 8.1 mg/dL (8.7-10.4); Chloride 92 mmol/L (98-107); Glucose 129 mg/dL (74-106); Sodium 133 mmol/L (136-145)
[2024-09-12] MEDS: B-COMPLEX W/ C & FOLIC ACID(NEPHROVITE TAB) PO SCH (10:14)
[2024-09-12] MEDS: HYDROcodone-ACET 5/325MG TAB PO PRN (14:04)
--- NOTE | 2024-09-12 16:28 | DVHPN2 ---
Subjective Patient continues to report having suprapubic pain Reviewed: Care Plan, H&P, Labs, Medications, Previous Orders Changes from previous H/P or p: No Changes General: Per HPI Eyes: No Pain, No Vision change, No Conjunctivae inflammation, No Eyelid inflammation, No Other, No Redness ENT: No Ear pain, No Ear discharge, No Nose pain, No Nose discharge, No Nose congestion, No Mouth pain, No Mouth swelling, No Throat pain, No Throat swelling, No Other Cardiovascular: No Chest Pain, No Palpitations, No Orthopnea, No Paroxysmal Noc. Dyspnea, No Edema, No Lt Headedness, No Other Respiratory: No Cough, No Dry, No Shortness of breath, No SOB with excertion, No Wheezing, No Hemoptysis, No Pleuritic Pain, No Sputum, No Other Gastrointestinal: No Nausea, No Vomiting, No Abdominal Pain, No Diarrhea, No Constipation, No Melena, No Hematochezia, No Other Genitourinary: No Dysuria, No Frequency, No Incontinence, No Hematuria; R etention, Other (Esteban catheter in place) Musculoskeletal: other (Toes amputation.); No neck pain, No shoulder pain, No arm pain, No back pain, No hand pain, No leg pain, No foot pain Skin: No Rash, No Lesions, No Jaundice, No Bruising, No Other Objective Vitals Vital Signs Date Time Temp Pulse Resp B/P (MAP) Pulse Ox O2 Delivery O2 Flow Rate FiO2 09/12/24 14:21 53 20 99/43 (61) 97 09/12/24 09:17 98.6 98.6 09/11/24 18:27 Room Air Intake/Output Intake and Output 09/12/24 06:59 Intake Total 240 ml Output Total 175 ml Balance 65 ml Intake Oral 240 ml Output Urine Total 175 ml General Appearance: Alert, Oriented X3, Cooperative, mild distress HEENT: Atraumatic, PERRLA Lungs: Clear to auscultation, Normal air movement Cardiovascular: Normal S1, Normal S2 Musculoskeletal: Normal sensory function, Normal motor function Neuro: Normal gait, Normal speech Skin: Dry, Intact Psych/Mental Status: Mental status NL, Mood NL Medications Current Medications Medications Dose Ordered Sig/Samuel Route Start Time Stop Time Status Last Admin Dose Admin Amlodipine Besylate 5 mg DAILY PO 09/12/24 10:00 Atorvastatin Calcium 20 mg HS PO 09/11/24 22:00 09/12/24 02:46 20 MG Multivit/Ca Carb/ B Cmplx/FA/Prenat 1 tab DAILY PO 09/12/24 10:00 09/12/24 10:14 1 TAB Sevelamer HCl 800 mg TIDWM PO 09/11/24 18:00 09/12/24 12:11 800 MG Aspirin 81 mg DAILY PO 09/12/24 10:00 09/12/24 10:14 81 MG Famotidine 20 mg Q48H IV 09/11/24 18:00 09/11/24 18:19 20 MG Diagnostic Test (Pha) 1 strip ACHS 09/11/24 22:00 09/12/24 11:30 1 STRIP Insulin Human Regular HS SC 09/11/24 22:00 09/12/24 03:00 2 UNITS Insulin Human Regular AC SC 09/12/24 07:00 09/12/24 11:30 15 UNITS Dextrose 50 ml UD PRN IV 09/11/24 17:15 Sodium Chloride 10 ml Q8HR IV 09/11/24 22:00 09/12/24 14:01 10 ML Acetaminophen/ Hydrocodone Bitart 1 tab Q4HP PRN PO 09/11/24 17:15 09/12/24 14:04 1 TAB Ondansetron HCl 4 mg Q4HP PRN IV 09/11/24 17:15 Docusate Sodium 100 mg BIDPRN PRN PO 09/11/24 17:15 Acetaminophen 650 mg Q6HP PRN PO 09/11/24 17:15 Nitroglycerin 0.4 mg Q5MINP PRN SL 09/11/24 17:45 Morphine Sulfate 2 mg Q30M PRN IV 09/11/24 17:45 Tamsulosin HCl 0.4 mg QPM PO 09/12/24 18:00 Calcium Acetate 667 mg TIDWMEALS PO 09/12/24 08:00 09/12/24 12:11 667 MG Laboratory Results Laboratory Tests 09/12/24 08:54 Chemistry Test 09/12/24 08:54 Albumin 4.3 g/dL (3.2-4.8) Calcium Level 8.1 mg/dL (8.7-10.4) L Total Protein 7.4 g/dL (5.7-8.2) LFT Test 09/12/24 08:54 Alanine Aminotransferase (ALT) 16 U/L (7-40) Alkaline Phosphatase 105 U/L (46-116) Aspartate Amino Transferase (AST) 17 U/L (13-40) Total Bilirubin 0.4 mg/dL (0.2-1.0) Labs and/or images reviewed: Labs reviewed by me, Image(s) reviewed by me Assessment/Plan Assessment/Plan Impression: -rule out UTI -? Urinary retention -ESRD with hemodialysis -diabetes mellitus -obesity -primary hypertension -anemia of chronic disease Plan: -nephrology consultation. Patient receives HD on Tuesday/Tuesday/Tuesday -regular insulin sliding scale -continue antihypertensives -check urinalysis -bladder scan -DC planning if patient is negative for complicated cystitis and after receiving hemodialysis. Total time spent with patient discussing and formulating plan of care: 35 minutes. This medical document was created using an electronic medical record system with [employer] dictation system. Although this document has been carefully reviewed, there may still be some phonetic and typographical errors. These areas are purely typographical due to imperfections of the software programs, and do not reflect any compromise in the patient's medical care. Plan discussed with: Patient, Other (RN) My Orders Orders - TORITO KING NP Procedure Category Date Status Time Urinalysis LAB 09/12/24 Transmitted 16:24 Bladder Scan ORDERS 09/12/24 Transmitted 16:24 Renal DIET 09/12/24 Transmitted Standard(2gna,3gk,Lopho) Dinner Date of Service: Sep 12, 2024 Billing Provider: TORITO KING NP Common Visit Codes: [id number] INP/OBS CARE(HIGH) TORITO KING NP Sep 12, 2024 16:28
[2024-09-12 17:48] VITALS: BP 98/42; PULSE 56; PULSE 78; RESP 16; RESP 18; TEMP 98.6; O2SAT 98
[2024-09-12] MEDS: TAMSULOSIN HYDROCHLORIDE 0.4 MG CAP PO SCH (19:02)
[2024-09-12 20:00] VITALS: PULSE 56; PULSE 60; RESP 18; O2SAT 99
[2024-09-12 21:00] VITALS: BP 123/59; PULSE 56; RESP 18; TEMP 98.1; O2SAT 98
[2024-09-13] VITALS (8 sets, daily range): BP systolic 105–123; BP diastolic 40–61; PULSE 49–98; RESP 16–18; TEMP 97.3–98.6; O2SAT 92–96
[2024-09-13 06:38] LABS: Urine Budding Yeast MODERATE /hpf (None Seen); Urine Protein, UAD 2+ (Negative)
--- NOTE | 2024-09-13 10:49 | DVHPN2 ---
Subjective Patient continues to report having suprapubic pain Reviewed: Care Plan, H&P, Labs, Medications, Previous Orders Changes from previous H/P or p: No Changes General: Per HPI Eyes: No Pain, No Vision change, No Conjunctivae inflammation, No Eyelid inflammation, No Other, No Redness ENT: No Ear pain, No Ear discharge, No Nose pain, No Nose discharge, No Nose congestion, No Mouth pain, No Mouth swelling, No Throat pain, No Throat swelling, No Other Cardiovascular: No Chest Pain, No Palpitations, No Orthopnea, No Paroxysmal Noc. Dyspnea, No Edema, No Lt Headedness, No Other Respiratory: No Cough, No Dry, No Shortness of breath, No SOB with excertion, No Wheezing, No Hemoptysis, No Pleuritic Pain, No Sputum, No Other Gastrointestinal: No Nausea, No Vomiting, No Abdominal Pain, No Diarrhea, No Constipation, No Melena, No Hematochezia, No Other Genitourinary: No Dysuria, No Frequency, No Incontinence, No Hematuria; R etention, Other (Esteban catheter in place) Musculoskeletal: other (Toes amputation.); No neck pain, No shoulder pain, No arm pain, No back pain, No hand pain, No leg pain, No foot pain Skin: No Rash, No Lesions, No Jaundice, No Bruising, No Other Objective Vitals Vital Signs Date Time Temp Pulse Resp B/P (MAP) Pulse Ox O2 Delivery O2 Flow Rate FiO2 09/13/24 09:51 105/54 09/13/24 09:00 97.9 60 18 92 97.9 09/13/24 07:45 Room Air* 0 21 Intake/Output Intake and Output 09/13/24 07:00 Intake Total 450 ml Output Total 100 ml Balance 350 ml Intake Oral 450 ml Output Urine Total 100 ml General Appearance: Alert, Oriented X3, Cooperative, mild distress HEENT: Atraumatic, PERRLA Lungs: Clear to auscultation, Normal air movement Cardiovascular: Normal S1, Normal S2 Musculoskeletal: Normal sensory function, Normal motor function Neuro: Normal gait, Normal speech Skin: Dry, Intact Psych/Mental Status: Mental status NL, Mood NL Medications Current Medications Medications Dose Ordered Sig/Samuel Route Start Time Stop Time Status Last Admin Dose Admin Amlodipine Besylate 5 mg DAILY PO 09/12/24 10:00 Atorvastatin Calcium 20 mg HS PO 09/11/24 22:00 09/12/24 22:09 20 MG Multivit/Ca Carb/ B Cmplx/FA/Prenat 1 tab DAILY PO 09/12/24 10:00 09/12/24 10:14 1 TAB Sevelamer HCl 800 mg TIDWM PO 09/11/24 18:00 09/12/24 19:02 800 MG Aspirin 81 mg DAILY PO 09/12/24 10:00 09/12/24 10:14 81 MG Famotidine 20 mg Q48H IV 09/11/24 18:00 09/11/24 18:19 20 MG Diagnostic Test (Pha) 1 strip ACHS 09/11/24 22:00 09/13/24 07:19 1 STRIP Insulin Human Regular HS SC 09/11/24 22:00 09/12/24 22:10 2 UNITS Insulin Human Regular AC SC 09/12/24 07:00 09/12/24 11:30 15 UNITS Dextrose 50 ml UD PRN IV 09/11/24 17:15 Sodium Chloride 10 ml Q8HR IV 09/11/24 22:00 09/13/24 07:18 10 ML Acetaminophen/ Hydrocodone Bitart 1 tab Q4HP PRN PO 09/11/24 17:15 09/13/24 05:16 1 TAB Ondansetron HCl 4 mg Q4HP PRN IV 09/11/24 17:15 Docusate Sodium 100 mg BIDPRN PRN PO 09/11/24 17:15 Acetaminophen 650 mg Q6HP PRN PO 09/11/24 17:15 Nitroglycerin 0.4 mg Q5MINP PRN SL 09/11/24 17:45 Morphine Sulfate 2 mg Q30M PRN IV 09/11/24 17:45 Tamsulosin HCl 0.4 mg QPM PO 09/12/24 18:00 09/12/24 19:02 0.4 MG Calcium Acetate 667 mg TIDWMEALS PO 09/12/24 08:00 09/12/24 19:03 667 MG Ceftriaxone Sodium 50 ml @ 100 mls/hr DAILY@09 IV 09/13/24 09:30 Laboratory Results Laboratory Tests 09/12/24 08:54 Urinalysis Test 09/13/24 05:30 Urine Color Light-orange (Yellow) Urine Clarity Turbid (Clear) H Urine pH 5.5 (5.0-9.0) Urine Specific [place] 1.024 (1.001-1.035) Urine Protein 2+ (Negative) H Urine Ketones Negative (Negative) Urine Blood 3+ /uL (Negative) H Urine Nitrite Negative (Negative) Urine Bilirubin Negative (Negative) Urine Urobilinogen Normal mg/dL (Negative) Urine Leukocyte Esterase 3+ /uL (Negative) Urine RBC 93 /hpf (0 - 3) Urine Microscopic WBC 72 /HPF (0-3) H Urine Squamous Epithelial Cells Few /hpf (<5) Urine Bacteria Few /hpf (None Seen) H Urine Mucus Few (None Seen) Urine Yeast (Budding) Moderate /hpf (None Seen) Urine Glucose Normal mg/dL (Normal) Labs and/or images reviewed: Labs reviewed by me, Image(s) reviewed by me Assessment/Plan Assessment/Plan Impression: -complicated cystitis -urinary retention ruled out -ESRD with hemodialysis -diabetes mellitus -obesity -primary hypertension -anemia of chronic disease Plan: Events: Bladder scan negative for any urinary retention. Urinalysis positive for UTI -discussed case with Dr. Sarah Taylor, Nephrology. Plans for HD today. -regular insulin sliding scale -continue antihypertensives -IV Rocephin -DC planning for tomorrow Total time spent with patient discussing and formulating plan of care: 35 minutes. This medical document was created using an electronic medical record system with [employer] dictation system. Although this document has been carefully reviewed, there may still be some phonetic and typographical errors. These areas are purely typographical due to imperfections of the software programs, and do not reflect any compromise in the patient's medical care. Plan discussed with: Patient, Other (RN) My Orders Orders - TORITO KING [employer] Procedure Category Date Status Time Bladder Scan ORDERS 09/12/24 Transmitted 16:24 Renal DIET 09/12/24 Transmitted Standard(2gna,3gk,Lopho) Dinner Initiate Vte FABRICIO 09/13/24 In Process Prophylaxis 02:01 Mrsa Screen TOM 09/13/24 In Process 09:22 *Dr. Sarah Taylor CONS 09/13/24 Transmitted 08:51 Ceftriaxone 1gm/50ml PHA 09/13/24 In Process D5w (Rocephin) 09:30 Urine Bacterial TOM 09/13/24 In Process Culture 09:25 Date of Service: Sep 13, 2024 Billing Provider: TORITO KING NP Common Visit Codes: [id number] INP/OBS CARE(HIGH) TORITO KING NP Sep 13, 2024 10:49
[2024-09-13] MEDS: cefTRIAXone 1GM/50ML D5W 50 ML IV SCH (11:43)
[2024-09-13] MEDS: EPOETIN ALFA-EPBX 10,000 UNIT/1ML VIAL SC ONE (14:35)
--- NOTE | 2024-09-13 20:19 | DVHINCON2 ---
Date of service: Sep 13, [address] Saucedo Reason for Consultation ESRD and dialysis management History of Present Illness Hai Gomez is a 58-year-old male wheelchair-bound with PMH pertinent for Hypertension, Hyperlipidemia, DM and End-stage renal disease on hemodialysis who presented to the hospital with complaint of urinary retention. Patient is on hemodialysis -- but was still making urine with yancey catheter in place, difficulty urinating. Patient also has a vena boot out bilateral lower extremity, toes amputation. Bladder scan was negative for any urinary retention. Urinalysis positive for UTI. Receiving IV Rocephin. Patient continues to complain of suprapubic pain. Allergies: Coded Allergies: NO KNOWN ALLERGIES (Unverified , 04/15/24) Home Meds Active Scripts Lancets (Freestyle Lancets) Lancets Mis, STRIP XX DAILY, #100 9 Refills Prov:DARNELL ABREU MD 07/04/24 Blood Glucose Monitoring Suppl (Blood Glucose Monitoring W/Device) 1 Kit Kit, KIT XX DAILY, #1 Prov:DARNELL ABREU MD 07/04/24 Glucose Blood (Glucose Meter Test Strips) 1 Valeriy Valeriy, 1 VALERIY DAILY, #100 MISC 9 Refills Prov:DARNELL ABREU MD 07/04/24 Metronidazole (Flagyl) 500 Mg Tab, 500 MG PO TID for 7 Days, #21 TAB Prov:NAEEM QUESADA MD 06/23/24 Gabapentin (Gabapentin) 600 Mg Tab, 600 MG PO TID for 30 Days, #90 TAB Prov:NAEEM QUESADA MD 06/23/24 Lactulose (Lactulose) 10 Gm/15 Ml Yamileth, 10 GM PO BIDPRN PRN for 30 Days, #120 ML 1 Refill Prov:ZURI PRESLEY MD 05/24/24 Pantoprazole Sodium Sesquihydr (Protonix) 40 Mg Tab, 40 MG PO DAILY for 30 Days, #30 TAB 2 Refills Prov:ZURI PRESLEY MD 05/24/24 Apixaban Base (ELIQUIS) 2.5 Mg Tab, 2.5 MG PO BID for 14 Days, #28 TAB 0 Refills Prov:MANAS CRAFT 04/24/24 Nutritional Supplements (Josafat) [place] Pow, 1 PACK OR BID for 30 Days, #60 POW 0 Refills Prov:ASIM CRAFTMAYUR RESIDENT 04/24/24 Amiodarone HCl (Amiodarone HCl) 200 Mg Tab, 200 MG PO Q12HR for 30 Days, #60 TAB Prov:AVA CRAFTMILAD RESIDENT 04/24/24 Reported Medications Furosemide (Furosemide) 40 Mg Tab, 1 TAB PO DAILY for 90 Days, #90 07/02/24 Zolpidem Tartrate (Zolpidem Tartrate) 5 Mg Tab, 1 TAB PO QHSP for 30 Days, #30 07/02/24 Trazodone Hcl (Trazodone Hcl) 50 Mg Tab, 1 TAB PO DAILY for 30 Days, #30 07/02/24 Sodium Zirconium Cyclosilicate (Lokelma) 5 Gm Curly, 1 PACK PO TIDWM for 19 Days, #11 04/17/24 Insulin Glargine (Lantus) 100 Unit/Ml Inj, 20 UNIT SC BID, INJ 04/17/24 Allopurinol (Allopurinol) 100 Mg Tab, 100 MG PO DAILY, TAB 04/17/24 Glipizide (Glipizide) 10 Mg Tab, 10 MG PO DAILY for 30 Days, MG 04/17/24 Ferric Citrate (Auryxia) 210 Mg Tab, 210 MG PO DAILY, TAB 04/17/24 Ferrous Sulfate (Ferosul) 325 Mg Tab, 325 MG PO DAILY, TAB 04/17/24 Amlodipine Besylate (Amlodipine Besylate) 5 Mg Tab, 5 MG PO DAILY for 30 Days, MG 04/17/24 Metformin Hydrochloride (Metformin Hcl) 1,000 Mg Tab, 1 TAB PO BID, #180 TAB 3 Refills 04/17/24 Atorvastatin Calcium (ATORVASTATIN CALCIUM) 40 Mg Tab, 1 TAB PO DAILY for 90 Days, #90 04/16/24 Current Medications Current Medications Medications (Trade) Dose Ordered Sig/Samuel Route PRN Reason Start Time Stop Time Status Last Admin Ceftriaxone Sodium 50 ml @ 100 mls/hr DAILY@09 IV 09/13/24 09:30 09/13/24 11:43 Family History: Diabetes mellitus G8 MOTHER, , Onset:30's - 40 FH: thyroid disease G8 FATHER, , Onset:40's - 50 Hypercholesterolemia G8 FATHER, , Onset:40's - 50 Hypertension G8 MOTHER, , Onset:30's - 40 Review of Systems Constitutional: Yes: Weakness; No: Fever, Chills, Sweats, Malaise, Other Respiratory: No: Cough, Dry, Shortness of breath, SOB with excertion, Wheezing, Hemoptysis, Pleuritic Pain, Sputum, Wheezing, Other Cardiovascular: No: Chest Pain, Palpitations, Orthopnea, Paroxysmal Noc. Dyspnea, Edema, Lt Headedness, Other Gastrointestinal: No: Nausea, Vomiting, Abdominal Pain, Diarrhea, Constipation, Melena, Hematochezia, Other Genitourinary: No Dysuria, No Frequency, No Incontinence, No Hematuria; Retenti on, Other (Yancey catheter in place) Musculoskeletal: other (Toes amputation.); No: neck pain, shoulder pain, arm pain, back pain, hand pain, leg pain, foot pain Neurological: No: Weakness, Numbness, Incoordination, Change in speech, Confusion, Seizures, Other Other systems reviewed and negative unless otherwise noted in HPI. H&P Exam Vital Signs/I&O Vital Sign Date Time Temp Pulse Resp B/P (MAP) Pulse Ox O2 Delivery O2 Flow Rate FiO2 09/13/24 17:00 97.9 98 18 123/58 (79) 96 97.9 09/13/24 07:45 Room Air* 0 21 Intake and Output 09/12/24 09/13/24 19:00 07:00 Intake Total 450 ml Output Total 100 ml Balance 350 ml Intake Oral 450 ml Output Urine Total 100 ml Physical Exam Vitals and nursing notes reviewed. General Appearance: Alert, Oriented X3, Cooperative, No acute distress HEENT: Atraumatic, PERRLA, EOMI, Mucous membr. moist/pink Respiratory: Normal air movement Cardiovascular: Regular rate, Normal S1, Normal S2, No murmurs Abdominal: Normal bowel sounds, Soft, No tenderness, No hepatospenomegaly, No masses Extremities: No clubbing, No cyanosis, No edema, Normal pulses, No tenderness/swelling Skin: No rashes, No breakdown, No significant lesion Neuro: Normal speech, Normal tone, Sensation intact, Cranial nerves 3-12 NL, Reflexes 2+, Other (Generalized weakness) Psych/Mental Status: Mental status NL, Mood NL Labs/Diagnostic Data Labs/Diagnostic Data Laboratory Tests Test 09/13/24 13:27 09/13/24 11:26 09/13/24 05:30 09/13/24 05:21 Range/Units POC Glucose 152 H 119 H 70-106 mg/dl Urine Color Light-orange Yellow Urine Clarity Turbid H Clear Urine pH 5.5 5.0-9.0 Urine Specific [place] 1.024 1.001-1.035 Urine Protein 2+ H Negative Urine Ketones Negative Negative Urine Blood 3+ H Negative /uL Urine Nitrite Negative Negative Urine Bilirubin Negative Negative Urine Urobilinogen Normal Negative mg/dL Urine Leukocyte Esterase 3+ Negative /uL Urine RBC 93 0 - 3 /hpf Urine Microscopic WBC 72 H 0-3 /HPF Urine Squamous Epithelial Cells Few <5 /hpf Urine Bacteria Few H None Seen /hpf Urine Mucus Few None Seen Urine Yeast (Budding) Moderate None Seen /hpf Urine Glucose Normal Normal mg/dL Test 09/12/24 22:01 09/12/24 12:02 09/12/24 08:54 09/12/24 02:52 Range/Units POC Glucose 157 H 352 H 148 H 70-106 mg/dl White Blood Count 5.2 4.4-10.8 10^3/uL Red Blood Count 3.09 L 4.5-5.90 10^6/uL Hemoglobin 9.4 L 13.5-17.5 g/dL Hematocrit 29.0 L 41.0-53.0 % Mean Corpuscular Volume 93.7 80.0-100.0 fL Mean Corpuscular Hemoglobin 30.4 28.0-32.0 pg Mean Corpuscular Hemoglobin Concent 32.5 32.0-36.0 g/dL Red Cell Distribution Width 15.7 H 11.8-14.3 % Platelet Count 182 140-450 10^3/uL Mean Platelet Volume 8.0 6.9-10.8 fL Neutrophils (%) (Auto) 79.5 37.0-80.0 % Lymphocytes (%) (Auto) 11.3 10.0-50.0 % Monocytes (%) (Auto) 7.0 0.0-12.0 % Eosinophils (%) (Auto) 1.7 0.0-7.0 % Basophils (%) (Auto) 0.5 0.0-2.0 % Neutrophils # (Auto) 4.1 1.6-8.6 10 ^3/uL Lymphocytes # (Auto) 0.6 0.4-5.4 10 ^3/uL Monocytes # (Auto) 0.4 0-1.3 10 ^3/uL Eosinophils # (Auto) 0.1 0-0.8 10 ^3/uL Basophils # (Auto) 0 0-0.2 10 ^3/uL Nucleated Red Blood Cells 0.1 % Sodium Level 133 L 136-145 mmol/L Potassium Level 3.6 3.5-5.1 mmol/L Chloride Level 92 L 98-107 mmol/L Carbon Dioxide Level 29 20-31 mmol/L Anion Gap 12 5-15 Blood Urea Nitrogen 25 H 9-23 mg/dL Creatinine 5.50 H 0.700-1.30 mg/dL Glomerular Filtration Rate Calc 11 >90 mL/min BUN/Creatinine Ratio 4.5 L 10.0-20.0 Serum Glucose 129 H 74-106 mg/dL Calcium Level 8.1 L 8.7-10.4 mg/dL Total Bilirubin 0.4 0.2-1.0 mg/dL Aspartate Amino Transferase (AST) 17 13-40 U/L Alanine Aminotransferase (ALT) 16 7-40 U/L Alkaline Phosphatase 105 46-116 U/L Total Protein 7.4 5.7-8.2 g/dL Albumin 4.3 3.2-4.8 g/dL Test 09/11/24 09:14 Range/Units White Blood Count 4.6 4.4-10.8 10^3/uL Red Blood Count 3.10 L 4.5-5.90 10^6/uL Hemoglobin 9.3 L 13.5-17.5 g/dL Hematocrit 28.7 L 41.0-53.0 % Mean Corpuscular Volume 92.4 80.0-100.0 fL Mean Corpuscular Hemoglobin 29.9 28.0-32.0 pg Mean Corpuscular Hemoglobin Concent 32.4 32.0-36.0 g/dL Red Cell Distribution Width 15.9 H 11.8-14.3 % Platelet Count 159 140-450 10^3/uL Mean Platelet Volume 7.8 6.9-10.8 fL Neutrophils (%) (Auto) 79.8 37.0-80.0 % Lymphocytes (%) (Auto) 10.7 10.0-50.0 % Monocytes (%) (Auto) 7.0 0.0-12.0 % Eosinophils (%) (Auto) 1.4 0.0-7.0 % Basophils (%) (Auto) 1.1 0.0-2.0 % Neutrophils # (Auto) 3.7 1.6-8.6 10 ^3/uL Lymphocytes # (Auto) 0.5 0.4-5.4 10 ^3/uL Monocytes # (Auto) 0.3 0-1.3 10 ^3/uL Eosinophils # (Auto) 0.1 0-0.8 10 ^3/uL Basophils # (Auto) 0.1 0-0.2 10 ^3/uL Nucleated Red Blood Cells 0.0 % Sodium Level 135 L 136-145 mmol/L Potassium Level 3.6 3.5-5.1 mmol/L Chloride Level 93 L 98-107 mmol/L Carbon Dioxide Level 33 H 20-31 mmol/L Anion Gap 9 5-15 Blood Urea Nitrogen 17 9-23 mg/dL Creatinine 4.10 H 0.700-1.30 mg/dL Glomerular Filtration Rate Calc 16 >90 mL/min BUN/Creatinine Ratio 4.1 L 10.0-20.0 Serum Glucose 142 H 74-106 mg/dL Calcium Level 8.0 L 8.7-10.4 mg/dL Troponin I High Sensitivity 21 </=54 ng/L B-Type Natriuretic Peptide 706.38 0-100 pg/mL Assessment Complicated cystitis ESRD with hemodialysis Diabetes mellitus Obesity Primary hypertension Anemia of chronic disease Plan/Recommendation Agreement with your ongoing assessment and plan of care. HD- 09/13- UF 1-2L as tolerated. Continue antihypertensives. IV antibiotics with Rocephin. Regular insulin sliding scale. Accu-checks. Additional plan as per the hospital course. Plan discussed with: Patient, Other (RN) OLEGARIO SNELL DO Sep 13, 2024 20:19
[2024-09-14] VITALS (8 sets, daily range): BP systolic 101–123; BP diastolic 54–64; PULSE 50–66; RESP 16–18; TEMP 97.5–98.1; O2SAT 93–97
[2024-09-14] MEDS: HEPARIN 1,000 UNITS/ml 1ML VIAL IV ONE (07:22)
[2024-09-14 10:18] LABS: Hepatitis B Surface Antigen Negative (Negative)
--- NOTE | 2024-09-14 15:42 | DVHPN2 ---
Subjective Patient continues to report having suprapubic pain Reviewed: Care Plan, H&P, Labs, Medications, Previous Orders Changes from previous H/P or p: No Changes General: Per HPI Eyes: No Pain, No Vision change, No Conjunctivae inflammation, No Eyelid inflammation, No Other, No Redness ENT: No Ear pain, No Ear discharge, No Nose pain, No Nose discharge, No Nose congestion, No Mouth pain, No Mouth swelling, No Throat pain, No Throat swelling, No Other Cardiovascular: No Chest Pain, No Palpitations, No Orthopnea, No Paroxysmal Noc. Dyspnea, No Edema, No Lt Headedness, No Other Respiratory: No Cough, No Dry, No Shortness of breath, No SOB with excertion, No Wheezing, No Hemoptysis, No Pleuritic Pain, No Sputum, No Other Gastrointestinal: No Nausea, No Vomiting, No Abdominal Pain, No Diarrhea, No Constipation, No Melena, No Hematochezia, No Other Genitourinary: No Dysuria, No Frequency, No Incontinence, No Hematuria; R etention, Other (Esteban catheter in place) Musculoskeletal: other (Toes amputation.); No neck pain, No shoulder pain, No arm pain, No back pain, No hand pain, No leg pain, No foot pain Skin: No Rash, No Lesions, No Jaundice, No Bruising, No Other Objective Vitals Vital Signs Date Time Temp Pulse Resp B/P (MAP) Pulse Ox O2 Delivery O2 Flow Rate FiO2 09/14/24 12:43 97.8 55 17 114/54 (74) 97 97.8 09/14/24 07:30 Room Air* 0 21 Intake/Output Intake and Output 09/14/24 07:00 Intake Total 1460 ml Output Total 100 ml Balance 1360 ml Intake Oral 1410 ml IV Total 50 ml Output Urine Total 100 ml General Appearance: Alert, Oriented X3, Cooperative, mild distress HEENT: Atraumatic, PERRLA Lungs: Clear to auscultation, Normal air movement Cardiovascular: Normal S1, Normal S2 Musculoskeletal: Normal sensory function, Normal motor function Neuro: Normal gait, Normal speech Skin: Dry, Intact Psych/Mental Status: Mental status NL, Mood NL Medications Current Medications Medications Dose Ordered Sig/Samuel Route Start Time Stop Time Status Last Admin Dose Admin Amlodipine Besylate 5 mg DAILY PO 09/12/24 10:00 09/14/24 09:06 5 MG Atorvastatin Calcium 20 mg HS PO 09/11/24 22:00 09/12/24 22:09 20 MG Multivit/Ca Carb/ B Cmplx/FA/Prenat 1 tab DAILY PO 09/12/24 10:00 09/14/24 09:05 1 TAB Sevelamer HCl 800 mg TIDWM PO 09/11/24 18:00 09/14/24 12:39 800 MG Aspirin 81 mg DAILY PO 09/12/24 10:00 09/14/24 09:06 81 MG Famotidine 20 mg Q48H IV 09/11/24 18:00 09/13/24 17:46 20 MG Diagnostic Test (Pha) 1 strip ACHS 09/11/24 22:00 09/14/24 11:30 1 STRIP Insulin Human Regular HS SC 09/11/24 22:00 09/12/24 22:10 2 UNITS Insulin Human Regular AC SC 09/12/24 07:00 09/14/24 12:39 6 UNITS Dextrose 50 ml UD PRN IV 09/11/24 17:15 Sodium Chloride 10 ml Q8HR IV 09/11/24 22:00 09/14/24 14:15 10 ML Acetaminophen/ Hydrocodone Bitart 1 tab Q4HP PRN PO 09/11/24 17:15 09/14/24 09:06 1 TAB Ondansetron HCl 4 mg Q4HP PRN IV 09/11/24 17:15 Docusate Sodium 100 mg BIDPRN PRN PO 09/11/24 17:15 Acetaminophen 650 mg Q6HP PRN PO 09/11/24 17:15 Nitroglycerin 0.4 mg Q5MINP PRN SL 09/11/24 17:45 Morphine Sulfate 2 mg Q30M PRN IV 09/11/24 17:45 Tamsulosin HCl 0.4 mg QPM PO 09/12/24 18:00 09/13/24 17:46 0.4 MG Calcium Acetate 667 mg TIDWMEALS PO 09/12/24 08:00 09/14/24 12:39 667 MG Ceftriaxone Sodium 50 ml @ 100 mls/hr DAILY@09 IV 09/13/24 09:30 09/14/24 09:05 100 MLS/HR Laboratory Results Laboratory Tests 09/12/24 08:54 Urinalysis Test 09/13/24 05:30 Urine Color Light-orange (Yellow) Urine Clarity Turbid (Clear) H Urine pH 5.5 (5.0-9.0) Urine Specific [place] 1.024 (1.001-1.035) Urine Protein 2+ (Negative) H Urine Ketones Negative (Negative) Urine Blood 3+ /uL (Negative) H Urine Nitrite Negative (Negative) Urine Bilirubin Negative (Negative) Urine Urobilinogen Normal mg/dL (Negative) Urine Leukocyte Esterase 3+ /uL (Negative) Urine RBC 93 /hpf (0 - 3) Urine Microscopic WBC 72 /HPF (0-3) H Urine Squamous Epithelial Cells Few /hpf (<5) Urine Bacteria Few /hpf (None Seen) H Urine Mucus Few (None Seen) Urine Yeast (Budding) Moderate /hpf (None Seen) Urine Glucose Normal mg/dL (Normal) Microbiology Microbiology Date/Time Source Procedure Growth Status 09/13/24 05:30 Nose MRSA Screen - Final Complete 09/13/24 05:30 Urine - [place] Urine Culture - Preliminary Resulted Labs and/or images reviewed: Labs reviewed by me, Image(s) reviewed by me Assessment/Plan Assessment/Plan Impression: -complicated cystitis -urinary retention ruled out -ESRD with hemodialysis -diabetes mellitus -obesity -primary hypertension -anemia of chronic disease Plan: Events: Patient had HD yesterday. Now scheduled again outpatient until Tuesday. DC Esteban catheter -patient may require HD inpatient prior to outpatient chair time on Tuesday. -regular insulin sliding scale -continue antihypertensives -IV Rocephin -DC planning for tomorrow Total time spent with patient discussing and formulating plan of care: 35 minutes. This medical document was created using an electronic medical record system with [employer] dictation system. Although this document has been carefully reviewed, there may still be some phonetic and typographical errors. These areas are purely typographical due to imperfections of the software programs, and do not reflect any compromise in the patient's medical care. Plan discussed with: Patient, Other (RN) Date of Service: Sep 14, 2024 Billing Provider: TORITO KING NP Common Visit Codes: [id number] INP/OBS CARE(HIGH) TORITO KING NP Sep 14, 2024 15:42
--- NOTE | 2024-09-14 20:06 | DVHPN2 ---
Progress Note - Dictate Date Seen: Sep 14, 2024 Has the PT tested + for MRSA If YES, has PT been informed?: No Medical Necessity Reason Pt with a Central, PICC or Fol: No Subjective Patient was seen and evaluated in follow up. No acute events overnight. Patient continues to complain of suprapubic pain. Urine cultures in progress. vital signs Vital Sign Date Time Temp Pulse Resp B/P (MAP) Pulse Ox O2 Delivery O2 Flow Rate FiO2 09/14/24 17:02 97.7 59 17 107/58 (74) 96 97.7 09/14/24 07:30 Room Air* 0 21 Total Intake and Output 09/13/24 09/13/24 09/14/24 15:00 23:00 07:00 Intake Total 50 ml 1050 ml 360 ml Output Total 0 ml 100 ml Balance 50 ml 1050 ml 260 ml medications Current Medications Medications Dose Ordered Sig/Samuel Route Start Time Stop Time Status Last Admin Dose Admin Amlodipine Besylate 5 mg DAILY PO 09/12/24 10:00 09/14/24 09:06 5 MG Atorvastatin Calcium 20 mg HS PO 09/11/24 22:00 09/12/24 22:09 20 MG Multivit/Ca Carb/ B Cmplx/FA/Prenat 1 tab DAILY PO 09/12/24 10:00 09/14/24 09:05 1 TAB Sevelamer HCl 800 mg TIDWM PO 09/11/24 18:00 09/14/24 18:20 800 MG Aspirin 81 mg DAILY PO 09/12/24 10:00 09/14/24 09:06 81 MG Famotidine 20 mg Q48H IV 09/11/24 18:00 09/13/24 17:46 20 MG Diagnostic Test (Pha) 1 strip ACHS 09/11/24 22:00 09/14/24 17:15 1 STRIP Insulin Human Regular HS SC 09/11/24 22:00 09/12/24 22:10 2 UNITS Insulin Human Regular AC SC 09/12/24 07:00 09/14/24 12:39 6 UNITS Dextrose 50 ml UD PRN IV 09/11/24 17:15 Sodium Chloride 10 ml Q8HR IV 09/11/24 22:00 09/14/24 14:15 10 ML Acetaminophen/ Hydrocodone Bitart 1 tab Q4HP PRN PO 09/11/24 17:15 8/8/25 16:25 1 TAB Ondansetron HCl 4 mg Q4HP PRN IV 09/11/24 17:15 Docusate Sodium 100 mg BIDPRN PRN PO 09/11/24 17:15 Acetaminophen 650 mg Q6HP PRN PO 09/11/24 17:15 Nitroglycerin 0.4 mg Q5MINP PRN SL 09/11/24 17:45 Morphine Sulfate 2 mg Q30M PRN IV 09/11/24 17:45 Tamsulosin HCl 0.4 mg QPM PO 09/12/24 18:00 09/14/24 18:20 0.4 MG Calcium Acetate 667 mg TIDWMEALS PO 09/12/24 08:00 09/14/24 18:20 667 MG Ceftriaxone Sodium 50 ml @ 100 mls/hr DAILY@09 IV 09/13/24 09:30 09/14/24 09:05 100 MLS/HR objective Vitals and nursing notes reviewed. General Appearance: Alert, Oriented X3, Cooperative, No acute distress HEENT: Atraumatic, PERRLA, EOMI, Mucous membr. moist/pink Respiratory: Normal air movement Cardiovascular: Regular rate, Normal S1, Normal S2, No murmurs Abdominal: Normal bowel sounds, Soft, No tenderness, No hepatospenomegaly, No masses Extremities: No clubbing, No cyanosis, No edema, Normal pulses, No tenderness/swelling Skin: No rashes, No breakdown, No significant lesion Neuro: Normal speech, Normal tone, Sensation intact, Cranial nerves 3-12 NL, Reflexes 2+, Other (Generalized weakness) Psych/Mental Status: Mental status NL, Mood NL laboratory and microbiology Laboratory Tests 09/12/24 08:54 Test 09/12/24 08:54 Range/Units Serum Glucose 129 H 74-106 mg/dL Problem List Complicated cystitis ESRD with hemodialysis Diabetes mellitus Obesity Primary hypertension Anemia of chronic disease Assessment/Plan Agree with current supportive medical care. Dialyzed yesterday. Outpatient chair time is M//. HD scheduled 09/15. Continue antihypertensives. IV antibiotics with Rocephin. Regular insulin sliding scale. Accu-checks. Additional plan as per the hospital course. Plan discussed with: Patient, Other (RN) OLEGARIO SNELL DO Sep 14, 2024 20:06
[2024-09-15] VITALS (7 sets, daily range): BP systolic 111–139; BP diastolic 57–71; PULSE 54–65; RESP 18–20; TEMP 96.4–98; O2SAT 91–98
[2024-09-15 10:55] LABS: Potassium 4.1 mmol/L (3.5-5.1)
[2024-09-15 10:56] LABS: Chloride 92 mmol/L (98-107); Sodium 131 mmol/L (136-145)
[2024-09-15 11:01] LABS: BUN/Creatinine Ratio 4.2 (10.0-20.0); Blood Urea Nitrogen 23 mg/dL (9-23); Calcium 8.2 mg/dL (8.7-10.4); Glucose 199 mg/dL (74-106)
[2024-09-15 11:02] LABS: Anion Gap 10 (5-15); Carbon Dioxide 29 mmol/L (20-31)
[2024-09-15] MEDS ORDERED: LEVO500T91 PO (15:05)
--- NOTE | 2024-09-15 15:09 | DVHDS2 ---
Discharge Summary Date of Admission Sep 11, 2024 at 17:45 Date of Discharge: Sep 15, 2024 Admitting Diagnosis Generalized weakness and pulmonary vascular congestion Labs/Diagnostic Data: Laboratory Results Test 09/15/24 10:25 09/14/24 21:17 09/13/24 13:27 09/13/24 05:30 Sodium Level 131 mmol/L (136-145) Potassium Level 4.1 mmol/L (3.5-5.1) Chloride Level 92 mmol/L (98-107) Carbon Dioxide Level 29 mmol/L (20-31) Anion Gap 10 (5-15) Blood Urea Nitrogen 23 mg/dL (9-23) Creatinine 5.42 mg/dL (0.700-1.30) Glomerular Filtration Rate Calc 11 mL/min (>90) BUN/Creatinine Ratio 4.2 (10.0-20.0) Serum Glucose 199 mg/dL (74-106) Calcium Level 8.2 mg/dL (8.7-10.4) POC Glucose 137 mg/dl (70-106) Hepatitis B Surface Antigen Negative (Negative) Hepatitis B Surface Antibody Positive (Negative) Urine Color Light-orange (Yellow) Urine Clarity Turbid (Clear) Urine pH 5.5 (5.0-9.0) Urine Specific [place] 1.024 (1.001-1.035) Urine Protein 2+ (Negative) Urine Ketones Negative (Negative) Urine Blood 3+ /uL (Negative) Urine Nitrite Negative (Negative) Urine Bilirubin Negative (Negative) Urine Urobilinogen Normal mg/dL (Negative) Urine Leukocyte Esterase 3+ /uL (Negative) Urine RBC 93 /hpf (0 - 3) Urine Microscopic WBC 72 /HPF (0-3) Urine Squamous Epithelial Cells Few /hpf (<5) Urine Bacteria Few /hpf (None Seen) Urine Mucus Few (None Seen) Urine Yeast (Budding) Moderate /hpf (None Seen) Urine Glucose Normal mg/dL (Normal) Test 09/12/24 08:54 09/11/24 09:14 White Blood Count 5.2 10^3/uL (4.4-10.8) Red Blood Count 3.09 10^6/uL (4.5-5.90) Hemoglobin 9.4 g/dL (13.5-17.5) Hematocrit 29.0 % (41.0-53.0) Mean Corpuscular Volume 93.7 fL (80.0-100.0) Mean Corpuscular Hemoglobin 30.4 pg (28.0-32.0) Mean Corpuscular Hemoglobin Concent 32.5 g/dL (32.0-36.0) Red Cell Distribution Width 15.7 % (11.8-14.3) Platelet Count 182 10^3/uL (140-450) Mean Platelet Volume 8.0 fL (6.9-10.8) Neutrophils (%) (Auto) 79.5 % (37.0-80.0) Lymphocytes (%) (Auto) 11.3 % (10.0-50.0) Monocytes (%) (Auto) 7.0 % (0.0-12.0) Eosinophils (%) (Auto) 1.7 % (0.0-7.0) Basophils (%) (Auto) 0.5 % (0.0-2.0) Neutrophils # (Auto) 4.1 10 ^3/uL (1.6-8.6) Lymphocytes # (Auto) 0.6 10 ^3/uL (0.4-5.4) Monocytes # (Auto) 0.4 10 ^3/uL (0-1.3) Eosinophils # (Auto) 0.1 10 ^3/uL (0-0.8) Basophils # (Auto) 0 10 ^3/uL (0-0.2) Nucleated Red Blood Cells 0.1 % Total Bilirubin 0.4 mg/dL (0.2-1.0) Aspartate Amino Transferase (AST) 17 U/L (13-40) Alanine Aminotransferase (ALT) 16 U/L (7-40) Alkaline Phosphatase 105 U/L (46-116) Total Protein 7.4 g/dL (5.7-8.2) Albumin 4.3 g/dL (3.2-4.8) Troponin I High Sensitivity 21 ng/L (</=54) B-Type Natriuretic Peptide 706.38 pg/mL (0-100) Other Laboratory Tests 09/15/24 10:25 09/12/24 08:54 Brief Hx & Hospital Course: History of Present Illness The patient is a 58-year-old male wheelchair-bound with past medical history of diabetes mellitus, hypertension, end-stage renal disease on hemodialysis, and hyperlipidemia who presented to [facility] ED with complaint of urinary retention. Patient is on hemodialysis but still making urine with Esteban catheter in place, difficulty urinating. Patient has a vena boot out bilateral lower extremity, toes amputation. Patient was seen and evaluated in the ED, laboratory data shows WBC 4.6, hemoglobin 9.3, hematocrit 28.7, platelets 159, sodium 139, potassium 3.6, BUN 17, creatinine 4.10, glucose 142, calcium 8.0, troponin 21, BNP 706.36, blood pressure 105/77, heart rate 57, temperature 98.7 F, O2 saturation 94% on oxygen. Chest x-ray revealing pulmonary vascular congestion. Please see medication orders section in the computer. On my assessment, patient denied chest pain, no headache, no dizziness, no diaphoresis, currently on oxygen, no abdominal pain, no diarrhea, no nausea, no vomiting, no fever, no chills. Patient was admitted for further evaluation and medical management. Course of hospitalization: Patient had Esteban catheter placed given complaints of urinary retention. Patient had minimal urine output. UA/UC was performed. Patient noted to have positive UTI for which Rocephin was started. Patient has dysuria has resolved. Patient has received hemodialysis, last treatment today. Patient states that he has able to be discharged home today. He will be continued on antibiotic therapy with Levaquin 250 mg p.o. every other day starting this coming Tuesday for one week. He is instructed to continue with his establish HD chair time on Tuesday, and follow up with his PCP in 1-2 weeks. Physical examination General: Alert and Oriented x3. No acute distress. Well-nourished. Eyes: EOMI. Anicteric. HENT: Moist mucous membranes. Lungs: Clear to auscultation bilaterally. No accessory muscle use. Cardiovascular: Regular rate and rhythm. No murmur. No JVD. Abdomen: Soft, non-tender and non-distended. No palpable masses. Extremities: No edema. Non-tender. Skin: No rashes or lesions. Warm. Neurologic: No focal neurological deficits. CN II-XII grossly intact, but not individually tested. Psychiatric: Cooperative. Appropriate mood and affect. Total time spent with patient discussing and formulating plan of care: 35 minutes. This medical document was created using an electronic medical record system with Dragon computerized dictation system. Although this document has been carefully reviewed, there may still be some phonetic and typographical errors. These areas are purely typographical due to imperfections of the software programs, and do not reflect any compromise in the patient's medical care. Consults/Reason for consult Nephrology: Hemodialysis Condition at Discharge: Fair Final Diagnosis/Problems List Complicated cystitis Secondary diagnosis: -urinary retention ruled out -ESRD with hemodialysis -diabetes mellitus -obesity -primary hypertension -anemia of chronic disease Discharge Disposition: Home Discharge Instruct/Medications Diet: Consistent carbohydrate, Renal Activity: No Restrictions, As Tolerated Follow Up/Referral: Continue with hemodialysis chair time a Tuesday/Tuesday/Tuesday Follow up with the PCP in 1-2 weeks Medications: Levaquin 250 mg p.o. every other day for one week Continue all previous home medications Scheduled Allopurinol (Allopurinol), 100 MG PO DAILY, (Reported) Amiodarone HCl (Amiodarone HCl), 200 MG PO Q12HR Amlodipine Besylate (Amlodipine Besylate), 5 MG PO DAILY, (Reported) Apixaban Base (Eliquis), 2.5 MG PO BID Atorvastatin Calcium (Atorvastatin Calcium), 1 TAB PO DAILY, (Reported) Ferric Citrate (Auryxia), 210 MG PO DAILY, (Reported) Ferrous Sulfate (Ferosul), 325 MG PO DAILY, (Reported) Furosemide (Furosemide), 1 TAB PO DAILY, (Reported) Gabapentin (Gabapentin), 600 MG PO TID Glipizide (Glipizide), 10 MG PO DAILY, (Reported) Glucose Blood (Glucose Meter Test Strips), 1 VALERIY DAILY Insulin Glargine (Lantus), 20 UNIT SC BID, (Reported) Levofloxacin Hemihydrate (Levaquin 500 Mg), 0.5 TAB PO EOD Metformin Hydrochloride (Metformin Hcl), 1 TAB PO BID, (Reported) Metronidazole (Flagyl), 500 MG PO TID Nutritional Supplements (Josafat), 1 PACK OR BID Pantoprazole Sodium Sesquihydr (Protonix), 40 MG PO DAILY Sodium Zirconium Cyclosilicate (Lokelma), 1 PACK PO TIDWM, (Reported) Trazodone Hcl (Trazodone Hcl), 1 TAB PO DAILY, (Reported) Zolpidem Tartrate (Zolpidem Tartrate), 1 TAB PO QHSP, (Reported) Scheduled PRN Lactulose (Lactulose), 10 GM PO BIDPRN PRN Durable Medical Equipment Blood Glucose Monitoring Suppl (Blood Glucose Monitoring W/Device), KIT XX DAILY, (DME) Lancets (Freestyle Lancets), STRIP XX DAILY, (DME) 36 Discharge Statement: "Patient was advised to return to the ER or call 911 if any headaches, dizziness, shortness of breath, chest pain, abdominal pain, bleeding, fevers, or worsening of medical condition. Patient was counseled about treatment plan, medications, possible side effects, patientverbalized understanding. All questions were answered to the best of my ability. This discharge took greater then 30 minutes in planning, reviewing documentation, counseling the patient, and discussing with other team members." ASSESSMENT ASSESSMENT Assessment Complicated cystitis Date of Service: Sep 15, 2024 Billing Provider: TORITO KING NP Common Visit Codes: 27529-LTU/OBS DISCH DAY >30min TORITO KING NP Sep 15, 2024 15:09
--- NOTE | 2024-09-15 20:05 | DVHPN2 ---
Progress Note - Dictate Date Seen: Sep 15, 2024 Has the PT tested + for MRSA If YES, has PT been informed?: No Medical Necessity Reason Pt with a Central, PICC or Fol: No Subjective Patient was seen and evaluated in follow up. Patient reports feeling better. No new complaints. Received dialysis again today. vital signs Vital Sign Date Time Temp Pulse Resp B/P (MAP) Pulse Ox O2 Delivery O2 Flow Rate FiO2 09/15/24 17:00 96.6 54 20 139/57 (84) 92 96.6 09/15/24 08:00 Room Air* 0 21 Total Intake and Output 09/14/24 09/14/24 09/15/24 15:00 23:00 07:00 Intake Total 50 ml 425 ml 600 ml Output Total 220 ml 0 ml Balance 50 ml 205 ml 600 ml objective Vitals and nursing notes reviewed. General Appearance: Alert, Oriented X3, Cooperative, No acute distress HEENT: Atraumatic, PERRLA, EOMI, Mucous membr. moist/pink Respiratory: Normal air movement Cardiovascular: Regular rate, Normal S1, Normal S2, No murmurs Abdominal: Normal bowel sounds, Soft, No tenderness, No hepatospenomegaly, No masses Extremities: No clubbing, No cyanosis, No edema, Normal pulses, No tenderness/swelling Skin: No rashes, No breakdown, No significant lesion Neuro: Normal speech, Normal tone, Sensation intact, Cranial nerves 3-12 NL, Reflexes 2+ Psych/Mental Status: Mental status NL, Mood NL laboratory and microbiology Laboratory Tests 09/15/24 10:25 09/12/24 08:54 Test 09/15/24 10:25 Range/Units Serum Glucose 199 H 74-106 mg/dL Problem List Complicated cystitis ESRD with hemodialysis Diabetes mellitus Obesity Primary hypertension Anemia of chronic disease Assessment/Plan DC planning in progress. Resume outpatient HD on MWF with [facility]. Cleared for discharge from Nephrology standpoint. Plan discussed with: Patient, Other (RN) OLEGARIO SNELL DO Sep 15, 2024 20:05
== END 2024-09-15 17:30 | disposition home or self-care (01) | DRG 689 ==
LOC: ER 08:04 → OVERFLOW 17:45 → TELE-WESTW 09-12 17:08
PROVIDERS: ADMIT Nurse Practitioner Acute Care; ATTEND Nurse Practitioner Acute Care
PROC: 5A1D70Z Performance of Urinary Filtration, Intermittent, Less than 6 Hours Per Day (ICD-10-PCS; principal; 2024-09-13)
PROC: 5A1D70Z Performance of Urinary Filtration, Intermittent, Less than 6 Hours Per Day (ICD-10-PCS; 2024-09-15)
DX: N30.90 Cystitis, unspecified without hematuria (principal); N18.6 End stage renal disease; I13.2 Hypertensive heart and chronic kidney disease with heart failure and with stage 5 chronic kidney disease, or end stage renal disease; D63.1 Anemia in chronic kidney disease; E11.22 Type 2 diabetes mellitus with diabetic chronic kidney disease; E66.9 Obesity, unspecified; I50.9 Heart failure, unspecified; E78.5 Hyperlipidemia, unspecified; Z79.01 Long term (current) use of anticoagulants; Z79.4 Long term (current) use of insulin; Z79.84 Long term (current) use of oral hypoglycemic drugs; Z79.899 Other long term (current) drug therapy; Z83.3 Family history of diabetes mellitus; Z82.49 Family history of ischemic heart disease and other diseases of the circulatory system; Z99.2 Dependence on renal dialysis; Z99.3 Dependence on wheelchair; Z68.37 Body mass index [BMI] 37.0-37.9, adult
CPT/HCPCS: 36415; 71045; 80048; 80053; 81001; 82962; 83880; 84484; 85025; 86706; 87081; 87086; 87088; 87186; 87340; 90935; 96374; 99291; 99292; G0378; J1815; J3490

== ENCOUNTER 2024-10-26 08:18 | Emergency (ER) | payer MEDICARE, MEDICAID ==
[~2024-10-26] VITALS: Ht 167.6 cm; Wt 95.5 kg
[~2024-10-26 08:18] MED LIST changes: +LEVO500T91 PO
[2024-10-26 08:20] VITALS: BP 120/36; PULSE 64; RESP 18; TEMP 96.8; O2SAT 95
--- NOTE | 2024-10-26 08:48 | ED.PDOC ---
Musculoskeletal HPI Comments A 59 YEAR OLD MALE PRESENTS TO THE ED WITH COMPLAINT OF RIGHT FOOT PAIN. PATIENT STATES THAT HE HAS A HISTORY OF A RIGHT ANKLE FRACTURE 4 MONTHS AGO AND HAS BEEN EXPERIENCING RIGHT FOOT PAIN THAT IS WORSE THAN USUAL AND THAT EXTENDS TO HIS RIGHT LOWER LEG FOR THE PAST 3 DAYS. PATIENT NOTES THAT HE FOLLOWED UP WITH HIS [facility] 2 WEEKS AGO, BUT WAS NOT PRESCRIBED ANY PAIN MEDICATION AND DOES NOT HAVE AN APPOINTMENT UNTIL 10/30/2024. PATIENT IS REQUESTING PAIN MANAGEMENT HERE IN THE ED. PATIENT DENIES FEVER, CHILLS, SHORTNESS OF BREATH, CHEST PAIN, ABDOMINAL PAIN, NAUSEA, VOMITING, HEADACHE, OR OTHER COMPLAINTS. NO OTHER SYMPTOMS OR MODIFYING FACTORS AT THIS TIME. PATIENT IS ALERT, ORIENTED X 4, AND HAS STEADY GAIT. Chief Complaint: Lower Extremity Time Seen by MD: 08:29 Primary Care Provider: STEPHEN Grier Notes: Nurses Notes, Medications, Allergies Allergies: Coded Allergies: NO KNOWN ALLERGIES (Unverified , 04/15/24) Home Meds Active Scripts Tramadol HCl (Tramadol HCl) 50 Mg Tab, 50 MG PO BID, #20 TAB Prov:ZENOBIA ARGUETA 10/26/24 Levofloxacin Hemihydrate (LEVAQUIN 500 MG) 500 Mg Tab, 0.5 TAB PO EOD for 7 Days, #4 TAB M/W/F Prov:TORITO KING NP 09/15/24 Lancets (Freestyle Lancets) Lancets Mis, STRIP XX DAILY, #100 9 Refills Prov:DARNELL ABREU MD 07/04/24 Blood Glucose Monitoring Suppl (Blood Glucose Monitoring W/Device) 1 Kit Kit, KIT XX DAILY, #1 Prov:DARNELL ABREU MD 07/04/24 Glucose Blood (Glucose Meter Test Strips) 1 Valeriy Valeriy, 1 VALERIY DAILY, #100 MISC 9 Refills Prov:DARNELL ABREU MD 07/04/24 Metronidazole (Flagyl) 500 Mg Tab, 500 MG PO TID for 7 Days, #21 TAB Prov:NAEEM QUESADA MD 06/23/24 Gabapentin (Gabapentin) 600 Mg Tab, 600 MG PO TID for 30 Days, #90 TAB Prov:NAEEM QUESADA MD 06/23/24 Lactulose (Lactulose) 10 Gm/15 Ml Yamileth, 10 GM PO BIDPRN PRN for 30 Days, #120 ML 1 Refill Prov:ZURI PRESLEY MD 05/24/24 Pantoprazole Sodium Sesquihydr (Protonix) 40 Mg Tab, 40 MG PO DAILY for 30 Days, #30 TAB 2 Refills Prov:ZURI PRESLEY MD 05/24/24 Apixaban Base (ELIQUIS) 2.5 Mg Tab, 2.5 MG PO BID for 14 Days, #28 TAB 0 Refills Prov:MANAS VELEZ [facility] 04/24/24 Nutritional Supplements (Josafat) Terral Pow, 1 PACK OR BID for 30 Days, #60 POW 0 Refills Prov:MANAS VELEZ [facility] 04/24/24 Amiodarone HCl (Amiodarone HCl) 200 Mg Tab, 200 MG PO Q12HR for 30 Days, #60 TAB Prov:MANAS VELEZ [facility] 04/24/24 Reported Medications Furosemide (Furosemide) 40 Mg Tab, 1 TAB PO DAILY for 90 Days, #90 07/02/24 Zolpidem Tartrate (Zolpidem Tartrate) 5 Mg Tab, 1 TAB PO QHSP for 30 Days, #30 07/02/24 Trazodone Hcl (Trazodone Hcl) 50 Mg Tab, 1 TAB PO DAILY for 30 Days, #30 07/02/24 Sodium Zirconium Cyclosilicate (Lokelma) 5 Gm Curly, 1 PACK PO TIDWM for 19 Days, #11 04/17/24 Insulin Glargine (Lantus) 100 Unit/Ml Inj, 20 UNIT SC BID, INJ 04/17/24 Allopurinol (Allopurinol) 100 Mg Tab, 100 MG PO DAILY, TAB 04/17/24 Glipizide (Glipizide) 10 Mg Tab, 10 MG PO DAILY for 30 Days, MG 04/17/24 Ferric Citrate (Auryxia) 210 Mg Tab, 210 MG PO DAILY, TAB 04/17/24 Ferrous Sulfate (Ferosul) 325 Mg Tab, 325 MG PO DAILY, TAB 04/17/24 Amlodipine Besylate (Amlodipine Besylate) 5 Mg Tab, 5 MG PO DAILY for 30 Days, MG 04/17/24 Metformin Hydrochloride (Metformin Hcl) 1,000 Mg Tab, 1 TAB PO BID, #180 TAB 3 Refills 04/17/24 Atorvastatin Calcium (ATORVASTATIN CALCIUM) 40 Mg Tab, 1 TAB PO DAILY for 90 Days, #90 04/16/24 Information Source: Patient Mode of Arrival: Wheelchair Location: Right Extremity Location: Ankle Timing: Days Prehospital treatment: None Severity: Moderate Able to Move Extremity: Yes Bear Weight: Fully Pain: Moderate Mechanism: No Trauma, Spontaneous Circumstances: Spontaneous Onset of Symptoms: Spontaneous Symptoms: Swelling DVT Risk Factors: NONE Last Tetanus: Unknown Associated signs and symptoms: None Past Medical History PAST MEDICAL HISTORY: DM, ESRD, High Lipids, HTN Surgical History: Denies all surgeries Family History Family History: Reviewed,noncontributory to illness, No family hx of Cancer, No family hx of DM, No family hx of Heart nelda, No family hx of HTN, No family hx ofKidney nelda, No family hx of Liver nelda, No family hx of Lung nelda, No family hx of Stroke Social History Smoker: Non-Smoker Alcohol: Denies ETOH Use Drugs: Denies Drug Use Lives In: Home Constitutional: denies: chills, diaphoresis, fatigue, fever, malaise, sweats, weakness, others EENTM: denies: blurred vision, double vision, ear bleeding, ear discharge, ear drainage, ear pain, ear ringing, eye pain, eye redness, hearing loss, mouth pain, mouth swelling, nasal discharge, nose bleeding, nose congestion, nose pain, photophobia, tearing, throat pain, throat swelling, voice changes, others Respiratory: denies: cough, hemoptysis, orthopnea, SOB at rest, shortness of breath, SOB with excertion, stridor, wheezing, others Cardiovascular: denies: chest pain, dizzy spells, diaphoresis, Dyspnea on exertion, edema, irregular heart beat, left arm pain, lightheadedness, palpitations, PND, syncope, others Gastrointestinal: denies: abdomen distended, abdominal pain, blood streaked bowels, constipated, diarrhea, dysphagia, difficulty swallowing, hematemesis, melena, nausea, poor appetite, poor fluid intake, rectal bleeding, rectal pain, vomiting, others Genitourinary: denies: burning, dysuria, flank pain, frequency, hematuria, incontinence, penile discharge, penile sore, pain, testicle pain, testicle swelling, urgency, others Neurological: denies: dizziness, fainting, headache, left sided numbness, left sided weakness, numbness, paresthesia, pre-existing deficit, right sided numbness, right sided weakness, seizure, speech problems, tingling, tremors, weakness, others Musculoskeletal: reports: joint pain, joint swelling, others (RIGHT FOOT PAIN); denies: back pain, gout, muscle pain, muscle stiffness, neck pain Integumetry: denies: bruises, change in color, change in hair/nails, dryness, laceration, lesions, lumps, rash, wounds, others Allergic/Immunocompromised: denies: Difficulty Healing, Frequent Infections, Hives, Itching, others Hematologic/Lymphatic: denies: anemia, blood clots, easy bleeding, easy bruising, swollen glands, others Endocrine: denies: excessive hunger, excessive sweating, excessive thirst, excessive urination, flushing, intolerance to cold, intolerance to heat, unexplained weight gain, unexplained weight loss, others Psychiatric: denies: anxiety, bipolar disorder, depression, hopeless, panic disorder, schizophrenia, sleepless, suicidal, others All Other Systems: Reviewed and Negative Physical Exam General Appearance: No Apparent Distress, Obese HEENT: Normal ENT Inspection, PERRL/EOMI, Pharynx Normal, TMs Normal Neck: Full Range of Motion, Non-Tender, Normal, Normal Inspection Respiratory: Chest Non-Tender, Lungs Clear, No Accessory Muscle Use, No Respiratory Distress, Normal Breath Sounds Cardiovascular: No Edema, No JVD, No Murmur, No Gallop, Normal Peripheral Pulses, Regular Rate/Rhythm Breast Exam: Deferred Gastrointestinal: No Organomegaly, Non Tender, No Pulsatile Mass, Normal Bowel Sounds, Soft Genitalia: Deferred Pelvic: Deferred Rectal: Deferred Extremities: No calf tenderness, Normal capillary refill, Normal range of motion, Pedal edema (2+ RIGHT ANKLE. ), Tender (VENOUS STASIS DERMATITIS, MILD R EDNESS NOTED TO RIGHT ANTERIOR LOWER LEG, CHRONIC MILD ANKLE SWELLING, NO SIGN OF INFECTION OR DVT) Musculoskeletal : Apperance: Normal Neurologic: Alert, assurance auditor II-XII nml as Tested, No Motor Deficits, Normal Affect, Normal Mood, No Sensory Deficits Cerebellar Function: Normal Reflexes: Normal Skin: Dry, Normal Color, Warm Peripheral Pulses: 2+ carotid (R), 2+ carotid (L), 2+ Radial (R), 2+ Radial (L) Lymphatic: No Adenopathy Was a procedure done? Was a procedure done?: No Differential Diagnosis EXT Differential Diagnosis: Arthritis Other Differential Diagnosis CHRONIC RIGHT FOOT PAIN, PAIN MANAGEMENT X-Ray, Labs, Meds, VS Vital Signs Date Time Temp Pulse Resp B/P (MAP) Pulse Ox O2 Delivery O2 Flow Rate FiO2 10/26/24 08:20 96.8 64 18 120/36 95 96.8 Current Medications Medications (Trade) Dose Ordered Sig/Samuel Route Start Time Stop Time Status Last Admin Acetaminophen/ Hydrocodone Bitart ([place] 10/325MG Tab) 1 tab ONCE ONCE PO 10/26/24 09:00 10/26/24 09:01 DC 10/26/24 08:52 Right lower extremity venous duplex Clinical History: PAIN RIGHT LOWER LEG Comparison: None Technique: Duplex Doppler evaluation of the deep venous system of the right lower extremity from the common femoral vein to the popliteal vein including color Doppler and spectral/pulsed waveform analysis was performed. Findings: The common femoral vein demonstrates appropriate compressibility and waveform variability. There is compressibility/patency of the great saphenous vein at the proximal thigh. The femoral vein demonstrates appropriate compressibility and waveform variability. The deep femoral vein demonstrates appropriate compressibility and waveform variability. The popliteal vein demonstrates appropriate compressibility and waveform variability. There is normal compressibility at the tibioperoneal trunk. Impression: No right femoropopliteal venous thrombosis. ATED BY: BRUCE KRAFT MD DICTATED DATE/TIME: 10/26/24945 SIGNED BY: BRUCE KRAFT MD SIGNED DATE/TIME: 10/26/24945 CC: X-Ray, Labs, Meds, VS Comment EXTERNAL MEDICAL RECORDS REVIEWED: [NONE] INDEPENDENT HISTORIANS: [NONE] SOCIAL DETERMINANTS OF HEALTH: [NONE] LABS ORDERED: NONE REVIEWED AND INTERPRETED RESULTS: NONE IMAGING ORDERED: CV VENOUS DOPPLER LOW EXT RT TREATMENTS ORDERED: [place] 10/325MG PO PROCEDURES PERFORMED: NONE CRITICAL CARE TIME: NONE I HAVE DISCUSSED THE PATIENT WITH THE ATTENDING PHYSICIAN DR. JULIEN AND SHE AGREES WITH THE PATIENT'S PLAN OF CARE AND DISPOSITION. BASED ON HISTORY OF PRESENT ILLNESS, AND PHYSICAL EXAM, PATIENT WILL BE DISCHARGED HOME. DISCUSSED PLAN FOR DISCHARGE HOME WITH RX [[id number]]. MEDICATION WARNINGS GIVEN. SHARED DECISION MAKING: DISCUSSED WITH PATIENT THAT THEIR WORKUP WAS NORMAL. PATIENT INSTRUCTED TO FOLLOW UP WITH PRIMARY CARE PROVIDER IN 1-2 DAYS FOR RE- EVALUATION OF SYMPTOMS. PATIENT VERBALIZES UNDERSTANDING TO RETURN TO ED FOR NEW OR WORSENING SYMPTOMS OR IF FOLLOW UP WITH PCP CANNOT BE OBTAINED. PATIENT FEELS COMFORTABLE GOING HOME AT THIS TIME. ALL QUESTIONS ADDRESSED AT TIME OF DISCHARGE. Images Reviewed?: Images reviewed and evaluated by me Time of 1ST Reevaluation: 10:41 Reevaluation 1ST: Improved Patient Education/Counseling: Diagnosis, Treatment, Need For Follow Up Family Education/Counseling: Diagnosis, Treatment, Need For Follow Up Medical Screening: No EMC Exist At This Time Departure 1 Departure Time of Disposition: 10:41 Impression: Primary Impression: Chronic pain in right foot Additional Impression: Pain management Disposition: HOME / SELF CARE / HOMELESS Condition: Stable Additional Instructions: FOLLOW-UP WITH PCP IN 1 TO 2 DAYS. TAKE MEDICATIONS PRESCRIBED. RETURN TO ED FOR ANY NEW OR WORSENING SYMPTOMS. e-Prescriptions Tramadol HCl (Tramadol HCl) 50 Mg Tab 50 MG PO BID, #20 TAB Prov: ZENOBIA ARGUETA 10/26/24 Discharged With: Self, Relative Critical Care Note Critical Care Time?: No Stability Stability form required: No I personally scribed for ZENOBIA ARGUETA ([email or web address]) on 10/26/24 at 08:48. Electronically submitted by Saqib John ([employer]). I personally scribed for ZENOBIA ARGUETA ([email or web address]) on 10/26/24 at 08:49. Electronically submitted by Saqib John ([email or web address]). I personally scribed for ZENOBIA ARGUETA ([email or web address]) on 10/26/24 at 10:18. Electronically submitted by Saqib John ([employer]). ZENOBIA ARGUETA Oct 26, 2024 08:48
[2024-10-26] MEDS: HYDROcodone-ACET 10/325MG TAB PO ONE (08:52)
--- NOTE | 2024-10-26 09:48 | DVH ---
Right lower extremity venous duplex Clinical History: PAIN RIGHT LOWER LEG Comparison: None Technique: Duplex Doppler evaluation of the deep venous system of the right lower extremity from the common femo ral vein to the popliteal vein including color Doppler and spectral/pulsed waveform analysis was perf ormed. Findings: The common femoral vein demonstrates appropriate compressibility and waveform variability. There is compressibility/patency of the great saphenous vein at the proximal thigh. The femoral vein demonstrates appropriate compressibility and waveform variability. The deep femoral vein demonstrates appropriate compressibility and waveform variability. The popliteal vein demonstrates appropriate compressibility and waveform variability. There is normal compressibility at the tibioperoneal trunk. Impression: No right femoropopliteal venous thrombosis.
[2024-10-26] MEDS ORDERED: TRAM-626 PO (10:36)
== END 2024-10-26 10:17 | disposition home or self-care (01) ==
LOC: ER 08:18
DX: G89.29 Other chronic pain (principal); M79.671 Pain in right foot; I12.0 Hypertensive chronic kidney disease with stage 5 chronic kidney disease or end stage renal disease; E11.22 Type 2 diabetes mellitus with diabetic chronic kidney disease; N18.6 End stage renal disease; Z79.84 Long term (current) use of oral hypoglycemic drugs; Z79.899 Other long term (current) drug therapy; Z87.81 Personal history of (healed) traumatic fracture
CPT/HCPCS: 93971

== ENCOUNTER 2024-12-31 15:21 | Inpatient (IN) | payer MEDICARE, MEDICAID ==
[~2024-12-31] VITALS: Ht 165.1 cm; Wt 95.9 kg
[~2024-12-31 15:21] MED LIST changes: +TRAM-626 PO
--- NOTE | 2024-12-31 16:12 | ED.PDOC ---
Musculoskeletal HPI Comments This is a 59 year old male presenting to the ED with chief complaint of right foot pain. Patient reports that he has been experiencing worsening right foot pain for the past few days with no recent trauma or injury. Patient relays that he had a previous fracture and hardware placed in his right lower leg/foot a year ago. Patient states he has an appointment with [employer] Dr. Henriquez tomorrow. Patient denies any numbness, weakness, tingling, fever, chills, or leg pain. Chief Complaint: Lower Extremity Time Seen by MD: 16:01 Primary Care Provider: STEPHEN Reviewed Notes: Nurses Notes, Medications, Allergies Allergies: Coded Allergies: NO KNOWN ALLERGIES (Unverified , 04/15/24) Home Meds Active Scripts Tramadol HCl (Tramadol HCl) 50 Mg Tab, 50 MG PO BID, #20 TAB Prov:ZENOBIA ARGUETA 10/26/24 Levofloxacin Hemihydrate (LEVAQUIN 500 MG) 500 Mg Tab, 0.5 TAB PO EOD for 7 Days, #4 TAB M/W/F Prov:TORITO KING NP 09/15/24 Lancets (Freestyle Lancets) Lancets Mis, STRIP XX DAILY, #100 9 Refills Prov:DARNELL ABREU MD 07/04/24 Blood Glucose Monitoring Suppl (Blood Glucose Monitoring W/Device) 1 Kit Kit, KIT XX DAILY, #1 Prov:DARNELL ABREU MD 07/04/24 Glucose Blood (Glucose Meter Test Strips) 1 Valeriy Valeriy, 1 VALERIY DAILY, #100 MISC 9 Refills Prov:DARNELL ABREU MD 07/04/24 Metronidazole (Flagyl) 500 Mg Tab, 500 MG PO TID for 7 Days, #21 TAB Prov:NAEEM QUESADA MD 06/23/24 Gabapentin (Gabapentin) 600 Mg Tab, 600 MG PO TID for 30 Days, #90 TAB Prov:NAEEM QUESADA MD 06/23/24 Lactulose (Lactulose) 10 Gm/15 Ml Yamileth, 10 GM PO BIDPRN PRN for 30 Days, #120 ML 1 Refill Prov:ZURI PRESLEY MD 05/24/24 Pantoprazole Sodium Sesquihydr (Protonix) 40 Mg Tab, 40 MG PO DAILY for 30 Days, #30 TAB 2 Refills Prov:ZURI PRESLEY MD 05/24/24 Apixaban Base (ELIQUIS) 2.5 Mg Tab, 2.5 MG PO BID for 14 Days, #28 TAB 0 Refills Prov:MANAS CRAFT 04/24/24 Nutritional Supplements (Josafat) [place] Pow, 1 PACK OR BID for 30 Days, #60 POW 0 Refills Prov:MANAS CRAFT 04/24/24 Amiodarone HCl (Amiodarone HCl) 200 Mg Tab, 200 MG PO Q12HR for 30 Days, #60 TAB Prov:MANAS CRAFT 04/24/24 Reported Medications Furosemide (Furosemide) 40 Mg Tab, 1 TAB PO DAILY for 90 Days, #90 07/02/24 Zolpidem Tartrate (Zolpidem Tartrate) 5 Mg Tab, 1 TAB PO QHSP for 30 Days, #30 07/02/24 Trazodone Hcl (Trazodone Hcl) 50 Mg Tab, 1 TAB PO DAILY for 30 Days, #30 07/02/24 Sodium Zirconium Cyclosilicate (Lokelma) 5 Gm Curly, 1 PACK PO TIDWM for 19 Days, #11 04/17/24 Insulin Glargine (Lantus) 100 Unit/Ml Inj, 20 UNIT SC BID, INJ 04/17/24 Allopurinol (Allopurinol) 100 Mg Tab, 100 MG PO DAILY, TAB 04/17/24 Glipizide (Glipizide) 10 Mg Tab, 10 MG PO DAILY for 30 Days, MG 04/17/24 Ferric Citrate (Auryxia) 210 Mg Tab, 210 MG PO DAILY, TAB 04/17/24 Ferrous Sulfate (Ferosul) 325 Mg Tab, 325 MG PO DAILY, TAB 04/17/24 Amlodipine Besylate (Amlodipine Besylate) 5 Mg Tab, 5 MG PO DAILY for 30 Days, MG 04/17/24 Metformin Hydrochloride (Metformin Hcl) 1,000 Mg Tab, 1 TAB PO BID, #180 TAB 3 Refills 04/17/24 Atorvastatin Calcium (ATORVASTATIN CALCIUM) 40 Mg Tab, 1 TAB PO DAILY for 90 Days, #90 04/16/24 Information Source: Patient Mode of Arrival: Wheelchair Location: Right Extremity Location: Foot Timing: Days Prehospital treatment: None Severity: Moderate Able to Move Extremity: Yes Bear Weight: No Pain: Moderate Mechanism: Spontaneous Circumstances: Spontaneous Onset of Symptoms: Spontaneous Symptoms: Pain Associated signs and symptoms: Foot pain Past Medical History PAST MEDICAL HISTORY: DM, ESRD, High Lipids, HTN Surgical History: Denies all surgeries Family History Family History: Reviewed,noncontributory to illness, No family hx of Cancer, No family hx of DM, No family hx of Heart nelda, No family hx of HTN, No family hx ofKidney nelda, No family hx of Liver nelda, No family hx of Lung nelda, No family hx of Stroke Social History Smoker: Non-Smoker Alcohol: Denies ETOH Use Drugs: Denies Drug Use Lives In: Home Constitutional: denies: chills, diaphoresis, fatigue, fever, malaise, sweats, weakness, others EENTM: denies: blurred vision, double vision, ear bleeding, ear discharge, ear drainage, ear pain, ear ringing, eye pain, eye redness, hearing loss, mouth pain, mouth swelling, nasal discharge, nose bleeding, nose congestion, nose pa in, photophobia, tearing, throat pain, throat swelling, voice changes, others Respiratory: denies: cough, hemoptysis, orthopnea, SOB at rest, shortness of breath, SOB with excertion, stridor, wheezing, others Cardiovascular: denies: chest pain, dizzy spells, diaphoresis, Dyspnea on exertion, edema, irregular heart beat, left arm pain, lightheadedness, palpitations, PND, syncope, others Gastrointestinal: denies: abdomen distended, abdominal pain, blood streaked bowels, constipated, diarrhea, dysphagia, difficulty swallowing, hematemesis, melena, nausea, poor appetite, poor fluid intake, rectal bleeding, rectal pain, vomiting, others Genitourinary: denies: burning, dysuria, flank pain, frequency, hematuria, incontinence, penile discharge, penile sore, pain, testicle pain, testicle swelling, urgency, others Neurological: denies: dizziness, fainting, headache, left sided numbness, left sided weakness, numbness, paresthesia, pre-existing deficit, right sided numbness, right sided weakness, seizure, speech problems, tingling, tremors, weakness, others Musculoskeletal: reports: others (Rt Foot pain); denies: back pain, gout, joint pain, joint swelling, muscle pain, muscle stiffness, neck pain Integumetry: denies: bruises, change in color, change in hair/nails, dryness, laceration, lesions, lumps, rash, wounds, others Allergic/Immunocompromised: denies: Difficulty Healing, Frequent Infections, Hives, Itching, others Hematologic/Lymphatic: denies: anemia, blood clots, easy bleeding, easy bruising, swollen glands, others Endocrine: denies: excessive hunger, excessive sweating, excessive thirst, excessive urination, flushing, intolerance to cold, intolerance to heat, unexplained weight gain, unexplained weight loss, others Psychiatric: denies: anxiety, bipolar disorder, depression, hopeless, panic disorder, schizophrenia, sleepless, suicidal, others All Other Systems: Reviewed and Negative Physical Exam General Appearance: No Apparent Distress, Normal HEENT: Normal ENT Inspection, Pharynx Normal, TMs Normal Neck: Full Range of Motion, Non-Tender, Normal, Normal Inspection Respiratory: Chest Non-Tender, Lungs Clear, No Accessory Muscle Use, No Respi ratory Distress, Normal Breath Sounds Cardiovascular: No Edema, No JVD, No Murmur, No Gallop, Normal Peripheral Pulses, Regular Rate/Rhythm Breast Exam: Deferred Gastrointestinal: No Organomegaly, Non Tender, No Pulsatile Mass, Normal Bowel Sounds, Soft Genitalia: Deferred Pelvic: Deferred Rectal: Deferred Extremities: No calf tenderness, Normal capillary refill, Normal inspection, Normal range of motion, Non-tender, No pedal edema Musculoskeletal : Location: Right Extremity Location: Foot Apperance: Tenderness (Unable to flex or extend ankle due to pain. Noticeable step-off to distal tibia, no open wounds, neurovascularly intact) Neurologic: Alert, beef breaker II-XII nml as Tested, No Motor Deficits, Normal Affect, Normal Mood, No Sensory Deficits Cerebellar Function: Normal Reflexes: Normal Skin: Dry, Normal Color, Warm Lymphatic: No Adenopathy Was a procedure done? Was a procedure done?: No Differential Diagnosis EXT Differential Diagnosis: Cellulitis, Fracture, Sprain, Strain X-Ray, Labs, Meds, VS Vital Signs Date Time Temp Pulse Resp B/P (MAP) Pulse Ox O2 Delivery O2 Flow Rate FiO2 12/31/24 20:32 46 18 139/64 12/31/24 19:44 97.4 46 16 118/32 (60) 97 97.4 12/31/24 15:24 98.6 65 18 123/76 98 98.6 Lab Test 12/31/24 17:03 Range/Units White Blood Count 4.6 4.4-10.8 10^3/uL Red Blood Count 3.40 L 4.5-5.90 10^6/uL Hemoglobin 10.0 L 13.5-17.5 g/dL Hematocrit 32.1 L 41.0-53.0 % Mean Corpuscular Volume 94.4 80.0-100.0 fL Mean Corpuscular Hemoglobin 29.6 28.0-32.0 pg Mean Corpuscular Hemoglobin Concent 31.3 L 32.0-36.0 g/dL Red Cell Distribution Width 20.0 H 11.8-14.3 % Platelet Count 150 140-450 10^3/uL Mean Platelet Volume 8.4 6.9-10.8 fL Neutrophils (%) (Auto) 64.2 37.0-80.0 % Lymphocytes (%) (Auto) 24.5 10.0-50.0 % Monocytes (%) (Auto) 7.1 0.0-12.0 % Eosinophils (%) (Auto) 3.3 0.0-7.0 % Basophils (%) (Auto) 0.9 0.0-2.0 % Neutrophils # (Auto) 2.9 1.6-8.6 10 ^3/uL Lymphocytes # (Auto) 1.1 0.4-5.4 10 ^3/uL Monocytes # (Auto) 0.3 0-1.3 10 ^3/uL Eosinophils # (Auto) 0.2 0-0.8 10 ^3/uL Basophils # (Auto) 0 0-0.2 10 ^3/uL Nucleated Red Blood Cells 0.2 % Sodium Level 142 136-145 mmol/L Potassium Level 4.1 3.5-5.1 mmol/L Chloride Level 103 98-107 mmol/L Carbon Dioxide Level 31 20-31 mmol/L Anion Gap 8 5-15 Blood Urea Nitrogen 17 9-23 mg/dL Creatinine 2.81 H 0.700-1.30 mg/dL Glomerular Filtration Rate Calc 25 >90 mL/min BUN/Creatinine Ratio 6.0 L 10.0-20.0 Serum Glucose 83 74-106 mg/dL Uric Acid 2.9 L 3.7-9.2 mg/dL Calcium Level 8.9 8.7-10.4 mg/dL C-Reactive Protein High Sensitivity 0.16 <1.0 mg/dL Current Medications Medications (Trade) Dose Ordered Sig/Samuel Route Start Time Stop Time Status Last Admin Morphine Sulfate 4 mg ONCE ONCE IV 12/31/24 16:45 12/31/24 16:48 DC 12/31/24 20:32 X-Ray, Labs, Meds, VS Comment This is a 59 year old male presenting to the ED with chief complaint of right foot pain. Patient arrives alert and oriented, ABC's intact, afebrile, vital signs stable, saturating well in room air Diagnostic imaging ordered by me and results interpreted by radiology : Rt Foot XR Patients work up was remarkable for acute intra-articular fracture of right tibia and worsening pain. No signs of arterial nerve damage at this time. Neurovascular sensation is intact however the patient's workup reveals that the patient needs further evaluation and/or treatment for the above medical conditions. Patient verbalized understanding of the above and is awaiting further evaluation by the admitting service. Discussion with the Radiology: No Tests considered but not performed: None Prescription medication considered but not given: None Time of 1ST Reevaluation: 16:30 Reevaluation 1ST: Unchanged Patient Education/Counseling: Diagnosis, Treatment Family Education/Counseling: Diagnosis, Treatment Departure 1 Departure Time of Disposition: 17:02 Impression: Primary Impression: Closed intra-articular fracture of distal end of right tibia Qualified Codes: S82.391A - Other fracture of lower end of right tibia, initial encounter for closed fracture Disposition: ADMITTED INPATIENT Condition: Stable Critical Care Note Critical Care Time?: No Stability Stability form required: No Heart Score Heart Score: Heart Score Response (Comments) Value History N/A 0 EKG N/A 0 Age N/A 0 Risk Factors N/A 0 Troponin N/A 0 Total 0 I personally scribed for NATHALIE PEREZ NP ([employer]) on 12/31/24 at 16:12. Electronically submitted by Pérez Panda ([email or web address]). I personally scribed for NATHALIE PEREZ NP ([employer]) on 12/31/24 at 17:10. Electronically submitted by Pérez Panda ([email or web address]). NATHALIE PEREZ NP Dec 31, 2024 16:12
--- NOTE | 2024-12-31 16:23 | DVH ---
CLINICAL INDICATION: R/o fracture TECHNIQUE: Right ankle radiographic views of the right ankle were obtained. Comparison: XR ANKLE COMP RT on DOS: 02/04/24 FINDINGS/IMPRESSION: Compression plate along the distal fibula is noted. There are no prior studies for comparison. There appears to be an intra-articular fracture of the distal tibia. Recommend comparison with prior studies.
[2024-12-31 17:27] LABS: Chloride 103 mmol/L (98-107); Potassium 4.1 mmol/L (3.5-5.1); Sodium 142 mmol/L (136-145)
[2024-12-31 17:28] LABS: Anion Gap 8 (5-15); Carbon Dioxide 31 mmol/L (20-31)
[2024-12-31 17:29] LABS: Calcium 8.9 mg/dL (8.7-10.4)
[2024-12-31 17:33] LABS: BUN/Creatinine Ratio 6.0 (10.0-20.0); Blood Urea Nitrogen 17 mg/dL (9-23); Glucose 83 mg/dL (74-106)
[2024-12-31 17:36] LABS: Hematocrit 32.1 % (41.0-53.0); Hemoglobin 10.0 g/dL (13.5-17.5); Mean Corpuscular Hemoglobin 29.6 pg (28.0-32.0); Mean Corpuscular Volume 94.4 fL (80.0-100.0); Nucleated Red Blood Cells % 0.2 %
[2024-12-31] MEDS: MORPHINE SULFATE 4 MG/ML SYR/VIAL IV ONE (20:32)
[2024-12-31] MEDS: SODIUM CHLORIDE 0.9% 1,000 ML IV SCH (21:15)
[2024-12-31 21:59] VITALS: PULSE 43; RESP 18; O2SAT 97
--- NOTE | 2024-12-31 22:02 | DVH ---
CHEST RADIOGRAPH Indication: Rule out cardiopulmonary disease Technique: Single frontal view of the chest was obtained Comparison: XY CHEST PORTABLE on DOS: 09/11/24, XY CHEST XRAY 1 VIEW on DOS: 07/24/24, XY CHEST PORTABLE on DOS: 05/22/24 FINDINGS: Lines and Tubes: None Lungs: No focal consolidation. Mild interstitial prominence. Pleura: No effusion. No pneumothorax. Cardiomediastinal contours: Moderate cardiomegaly Bones: No acute osseous abnormality. IMPRESSION: Cardiomegaly with pulmonary vascular congestion.
[2024-12-31] MEDS: HEPARIN SODIUM (PORCINE) 5000 UNITS/ML 1ML VIAL SC SCH (22:04)
--- NOTE | 2024-12-31 22:18 | DVHHPRES ---
History of Present Illness Resident Creating Document: TEX MONSALVE RESIDENT History of Present Illness This is a 59 year male with past medical history of ESRD on HD(M, W, F), hypertension, A-Fib, HLD, anemia, peripheral neuropathy, insulin-dependent diabetes mellitus, GERD, hyperkalemia, depression, insomnia came to ER with a complaint of right lower leg/foot pain. Patient had history of hardware placed right ankle year ago. Patient denies any recent fall or trauma. Patient feeling intractable pain right ankle which is 8-9/10 intensity, aggravated on weight-bearing, no relieving factor. Patient having appointment with podiatry on 01/02/2025(with Dr. Henriquez). Patient recently discharged September 15, 2024 due to complicated cystitis. Patient currently denies any fever, headache, SOB, chest pain, abdominal pain or any focal weakness. Patient ambulating on wheelchair. Past medical history: As above Past surgical history: Left 4th and 5th toe amputation Family history: Brother-DM 2, mother-dm 2, father CAD Personal history: Denies any smoking, illicit drug or EtOH Allergy: No known allergy PCP: Unable to recall Home medication: allopurinol, amiodarone, amlodipine, apixaban atorvastatin, iron furosemide, gabapentin, glipizide, insulin glargine, metformin, pantoprazole, Lokelma, tramadol, trazodone, zolpidem. Review of Systems Constitutional: Yes: Weakness, Malaise; No: Fever, Chills, Sweats, Other Eyes: No: Pain, Vision change, Conjunctivae inflammation, Eyelid inflammation, Other, Redness ENT: No: Ear pain, Ear discharge, Nose pain, Nose discharge, Nose congestion, Mouth pain, Mouth swelling, Throat pain, Throat swelling, Other Respiratory: No: Cough, Dry, Shortness of breath, SOB with excertion, Wheezing, Hemoptysis, Pleuritic Pain, Sputum, Wheezing, Other Cardiovascular: No: Chest Pain, Palpitations, Orthopnea, Paroxysmal Noc. Dyspnea, Edema, Lt Headedness, Other Gastrointestinal: No: Nausea, Vomiting, Abdominal Pain, Diarrhea, Constipation, Melena, Hematochezia, Other Genitourinary: No Dysuria, No Frequency, No Incontinence, No Hematuria, No Retention, No Other Musculoskeletal: leg pain, foot pain (Right ankle pain); No: other, neck pain, shoulder pain, arm pain, back pain, hand pain Skin: Other (Both food chronic skin discoloration); No: Rash, Lesions, Jaundice, Bruising Neurological: No: Weakness, Numbness, Incoordination, Change in speech, Confusion, Seizures, Other Allergies: Coded Allergies: NO KNOWN ALLERGIES (Unverified , 04/15/24) Medications Current Medications Medications Dose Ordered Sig/Samuel Route Start Time Stop Time Status Last Admin Dose Admin Sodium Chloride 1,000 ml @ 60 mls/hr [id number] IV 12/31/24 21:15 Acetaminophen/ Hydrocodone Bitart 1 tab Q4HP PRN PO 12/31/24 21:15 Heparin Sodium (Porcine) 5,000 units Q12HR SC 12/31/24 22:00 12/31/24 22:04 5,000 UNITS Pantoprazole Sodium 40 mg DAILY@0600 PO 01/01/25 06:00 Insulin Human Lispro AC SC 01/01/25 07:00 Exam Vital Signs Vital Signs Date Time Temp Pulse Resp B/P (MAP) Pulse Ox O2 Delivery O2 Flow Rate FiO2 12/31/24 21:59 97.3 43 18 119/63 (81) 97 97.3 12/31/24 21:59 Room Air* 0 21 General Appearance: Alert, Oriented X3, Cooperative, mild distress HEENT: Atraumatic, PERRLA, EOMI Respiratory: Clear to auscultation, Normal air movement Cardiovascular: Regular rate, Normal S1, Normal S2, No murmurs Abdominal: Normal bowel sounds, Soft, No tenderness Extremities: No clubbing, No cyanosis, No edema, Normal pulses Skin: No rashes Neuro: Normal speech, Strength at 5/5 X4 ext, Other (Gait instability, overall sensation decreases bilateral foot likely chronic) Labs/Xrays Labs Test 12/31/24 22:06 12/31/24 17:03 Range/Units White Blood Count 4.6 4.4-10.8 10^3/uL Red Blood Count 3.40 L 4.5-5.90 10^6/uL Hemoglobin 10.0 L 13.5-17.5 g/dL Hematocrit 32.1 L 41.0-53.0 % Mean Corpuscular Volume 94.4 80.0-100.0 fL Mean Corpuscular Hemoglobin 29.6 28.0-32.0 pg Mean Corpuscular Hemoglobin Concent 31.3 L 32.0-36.0 g/dL Red Cell Distribution Width 20.0 H 11.8-14.3 % Platelet Count 150 140-450 10^3/uL Mean Platelet Volume 8.4 6.9-10.8 fL Neutrophils (%) (Auto) 64.2 37.0-80.0 % Lymphocytes (%) (Auto) 24.5 10.0-50.0 % Monocytes (%) (Auto) 7.1 0.0-12.0 % Eosinophils (%) (Auto) 3.3 0.0-7.0 % Basophils (%) (Auto) 0.9 0.0-2.0 % Neutrophils # (Auto) 2.9 1.6-8.6 10 ^3/uL Lymphocytes # (Auto) 1.1 0.4-5.4 10 ^3/uL Monocytes # (Auto) 0.3 0-1.3 10 ^3/uL Eosinophils # (Auto) 0.2 0-0.8 10 ^3/uL Basophils # (Auto) 0 0-0.2 10 ^3/uL Nucleated Red Blood Cells 0.2 % Sodium Level 142 136-145 mmol/L Potassium Level 4.1 3.5-5.1 mmol/L Chloride Level 103 98-107 mmol/L Carbon Dioxide Level 31 20-31 mmol/L Anion Gap 8 5-15 Blood Urea Nitrogen 17 9-23 mg/dL Creatinine 2.81 H 0.700-1.30 mg/dL Glomerular Filtration Rate Calc 25 >90 mL/min BUN/Creatinine Ratio 6.0 L 10.0-20.0 Serum Glucose 83 74-106 mg/dL Calcium Level 8.9 8.7-10.4 mg/dL SEPSIS Sepsis Screen Date sepsis recognized/suspect: Dec 31, 2024 Time Sepsis recognized/suspect: 1527 Recent Procedure: No On Antibiotic Therapy: No Respiratory Rate >20: No Heart Rate >90: No Temp<36 C (96.8 F) or >38.3 C: No SBP <90 or MAP <65 mmHG: No New Acute Mental Status Change: No Is the patient on CPAP, BIPAP,: No Physician Orders R Ankle 3 View (12/31/24 15:38) Admit (12/31/24 21:09) Code Status (12/31/24 21:09) Sodium Chloride 0.9% (12/31/24 21:15) Hydrocodone-Acet 5/325mg Tab (Holiday (12/31/24 21:15) Notify Of Changes From Base (12/31/24 21:09) Heparin Sodium (Porcine) (12/31/24 22:00) Pantoprazole Tablet (Protonix Tablet) (01/01/25 06:00) Consistent Carb(Ccho)Diabetes (01/01/25 Breakfast) C-Reactive Protein (12/31/24 21:09) Urinalysis (12/31/24 21:09) Drug Screen (12/31/24 21:09) PTPTT (12/31/24 21:09) Chest Xray 1 View (12/31/24 21:09) *Podiatry Consult [facility]) (12/31/24 21:09) Uric Acid (12/31/24 21:09) Insulin Lispro (Human) (Humalog) (01/01/25 07:00) *Dr. Sethi [facility] (12/31/24 22:16) Vital Signs Date Time Temp Pulse Resp B/P (MAP) Pulse Ox O2 Delivery O2 Flow Rate FiO2 12/31/24 21:59 97.3 43 18 119/63 (81) 97 97.3 12/31/24 21:59 43 18 97 Room Air* 0 21 12/31/24 20:32 46 18 139/64 12/31/24 19:44 97.4 46 16 118/32 (60) 97 97.4 12/31/24 15:24 98.6 65 18 123/76 98 98.6 Laboratory Tests Test 12/31/24 17:03 White Blood Count 4.6 10^3/uL (4.4-10.8) Medications Medications Dose Ordered Sig/Samuel Route Start Time Stop Time Status Last Admin Dose Admin Heparin Sodium (Porcine) 5,000 units Q12HR SC 12/31/24 22:00 12/31/24 22:04 5,000 UNITS Morphine Sulfate 4 mg ONCE ONCE IV 12/31/24 16:45 12/31/24 16:48 DC 12/31/24 20:32 4 MG Assessment/Plan Assessment/Plan Intractable right lower leg pain due to intra-articular fracture of the distal tibia History of right tibia ORIF patient received morphine in ER History of gout x-ray right ankle; There appears to be an intra-articular fracture of the distal tibia. Compression plate along the distal fibula. 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 More than 27 minute spent with patient. Full code status Case discussed with Dr. Castillo Plan discussed with: Patient, Other (Nurse) My Orders Orders - TEX MONSALVE RESIDENT Procedure Category Date Status Time Admit ADMIT 12/31/24 Transmitted 21:09 Code Status CODE 12/31/24 Transmitted 21:09 Sodium Chloride 0.9% PHA 12/31/24 In Process 21:15 Hydrocodone-Acet PHA 12/31/24 In Process 5/325mg Tab (Holiday 21:15 Notify Of Changes FABRICIO 12/31/24 In Process From Base 21:09 Heparin Sodium PHA 12/31/24 In Process (Porcine) 22:00 Pantoprazole Tablet PHA 01/01/25 In Process (Protonix Tablet) 06:00 Consistent DIET 01/01/25 Transmitted Carb(Ccho)Diabetes Breakfast C-Reactive Protein LAB 12/31/24 In Process 21:09 Urinalysis LAB 12/31/24 Logged 21:09 Drug Screen LAB 12/31/24 Logged 21:09 PTPTT LAB 12/31/24 In Process 21:09 Chest Xray 1 View XY 12/31/24 Resulted 21:09 *Podiatry Consult CONS 12/31/24 Transmitted Musson(Dvmg) 21:09 Uric Acid LAB 12/31/24 In Process 21:09 Insulin Lispro PHA 01/01/25 In Process (Human) (Humalog) 07:00 *Dr. Sethi [facility] CONS 12/31/24 Verified -[place] 22:16 Date of Service: Dec 31, 2024 Billing Provider: VALERIE CASTILLO MD Common Visit Codes: 17431-MNIFCMT INP/OBS CARE (HIGH) Secondary Visit Codes: 61069-WHDXCIVV CARE PLAN 30 MINUTES TEX MONSALVE RESIDENT Dec 31, 2024 22:18
[2024-12-31 22:30] LABS: INR 1.19 (0.9-1.15); Partial Thromboplastin Time 30.9 SEC (24.5-34.5); Prothrombin Time 12.4 sec (9.3-11.8)
[2024-12-31 22:38] LABS: Uric Acid 2.9 mg/dL (3.7-9.2)
[2024-12-31 23:51] VITALS: BP 126/91; PULSE 45; RESP 16; RESP 18; TEMP 98; O2SAT 98
[2025-01-01] VITALS (7 sets, daily range): BP systolic 126–168; BP diastolic 50–91; PULSE 41–58; RESP 18–19; TEMP 96–98; O2SAT 94–98
[2025-01-01] MEDS: HYDROcodone-ACET 5/325MG TAB PO PRN (00:30)
[2025-01-01] MEDS: ZOLPIDEM TARTRATE 5 MG TAB PO ONE (01:25)
[2025-01-01] MEDS: INSULIN LANTUS (GLARGINE) 1 /0.01ml (100units/ml) SC SCH (03:45)
[2025-01-01] MEDS ORDERED: DEXTROSE (50%) 50ML SYRG IV PRN (03:45)
[2025-01-01] MEDS: InsuLIN REG 1unit/0.01ml Soln (100units/ml) SC SCH (06:06)
[2025-01-01] MEDS: ACCU-CHEK COMFORT CURVE STRIP VI SCH (06:06)
[2025-01-01] MEDS: PANTOPRAZOLE 40 MG TAB PO SCH (06:12)
[2025-01-01] MEDS ORDERED: INSULIN LISPRO (HUMAN) 100 UNITS/ML ML SC SCH (07:00)
[2025-01-01 07:40] LABS: Hematocrit 31.5 % (41.0-53.0); Hemoglobin 10.1 g/dL (13.5-17.5); Mean Corpuscular Hemoglobin 29.8 pg (28.0-32.0); Mean Corpuscular Volume 92.7 fL (80.0-100.0); Nucleated Red Blood Cells % 0.0 %
[2025-01-01 08:06] LABS: Albumin 3.8 g/dL (3.2-4.8); Anion Gap 9 (5-15); BUN/Creatinine Ratio 5.7 (10.0-20.0); Blood Urea Nitrogen 19 mg/dL (9-23); Calcium 9.1 mg/dL (8.7-10.4); Carbon Dioxide 30 mmol/L (20-31); Chloride 103 mmol/L (98-107); Magnesium 2.2 mg/dL (1.6-2.6); Potassium 4.1 mmol/L (3.5-5.1); Sodium 142 mmol/L (136-145); Total Protein 7.2 g/dL (5.7-8.2)
[2025-01-01 08:07] LABS: Bilirubin, Total 0.5 mg/dL (0.2-1.0)
[2025-01-01 08:08] LABS: Alanine Aminotransferase < 9 U/L (7-40); Alkaline Phosphatase 124 U/L (46-116); Glucose 67 mg/dL (74-106)
[2025-01-01] MEDS: AMIODARONE HCL 200 MG TAB PO SCH (08:51)
[2025-01-01] MEDS: ALLOPURINOL 100 MG TAB PO SCH (08:51)
[2025-01-01] MEDS: FUROSEMIDE 40 MG TAB PO SCH (08:51)
[2025-01-01 09:32] LABS: Amphetamine Screen, Urine Neg (NEGATIVE); Barbiturate Scree,Urine Neg (NEGATIVE); Benzodiazephine Screen, Urine Neg (NEGATIVE); Cannabinoid Screen, Urine Neg (NEGATIVE); Cocaine Screen, Urine Neg (NEGATIVE); Opiate Scree,Urine Pos (NEGATIVE); Phencyclidine Screen, Urine Neg (NEGATIVE)
[2025-01-01 09:36] LABS: Urine Protein, UAD 2+ (Negative)
[2025-01-01] MEDS ORDERED: APIXABAN 2.5 MG TAB PO SCH (10:00)
--- NOTE | 2025-01-01 14:34 | DVHPN2 ---
Reviewed: Care Plan, H&P, Labs, Medications, Previous Orders, Radiology Changes from previous H/P or p: No Changes Eyes: No Pain, No Vision change, No Conjunctivae inflammation, No Eyelid inflammation, No Other, No Redness ENT: No Ear pain, No Ear discharge, No Nose pain, No Nose discharge, No Nose congestion, No Mouth pain, No Mouth swelling, No Throat pain, No Throat swelling, No Other Cardiovascular: No Chest Pain, No Palpitations, No Orthopnea, No Paroxysmal Noc. Dyspnea, No Edema, No Lt Headedness, No Other Respiratory: No Cough, No Dry, No Shortness of breath, No SOB with excertion, No Wheezing, No Hemoptysis, No Pleuritic Pain, No Sputum, No Other Gastrointestinal: No Nausea, No Vomiting, No Abdominal Pain, No Diarrhea, No Constipation, No Melena, No Hematochezia, No Other Genitourinary: No Dysuria, No Frequency, No Incontinence, No Hematuria, No Retention, No Other Musculoskeletal: No other, No neck pain, No shoulder pain, No arm pain, No back pain, No hand pain; leg pain, foot pain (Right ankle pain) Skin: No Rash, No Lesions, No Jaundice, No Bruising; Other (Both food chronic skin discoloration) Objective Vitals Vital Signs Date Time Temp Pulse Resp B/P (MAP) Pulse Ox O2 Delivery O2 Flow Rate FiO2 01/01/25 09:00 96.0 52 18 163/50 (87) 96 96.0 01/01/25 07:30 Room Air* 0 21 Intake/Output Intake and Output 01/01/25 07:00 Intake Total 0 ml Balance 0 ml Intake Oral 0 ml Medications Current Medications Medications Dose Ordered Sig/Samuel Route Start Time Stop Time Status Last Admin Dose Admin Sodium Chloride 1,000 ml @ 60 mls/hr [id number] IV 12/31/24 21:15 12/31/24 21:15 60 MLS/HR Acetaminophen/ Hydrocodone Bitart 1 tab Q4HP PRN PO 12/31/24 21:15 01/01/25 00:30 1 TAB Heparin Sodium (Porcine) 5,000 units Q12HR SC 12/31/24 22:00 01/01/25 09:06 5,000 UNITS Pantoprazole Sodium 40 mg DAILY@0600 PO 01/01/25 06:00 01/01/25 06:12 40 MG Allopurinol 100 mg DAILY PO 01/01/25 10:00 01/01/25 08:51 100 MG Amiodarone HCl 200 mg Q12HR PO 01/01/25 10:00 01/01/25 08:51 200 MG Amlodipine Besylate 5 mg DAILY PO 01/01/25 10:00 01/01/25 08:51 5 MG Apixaban 2.5 mg BID PO 01/01/25 10:00 Hold Furosemide 40 mg DAILY PO 01/01/25 10:00 01/01/25 08:51 40 MG Insulin Glargine 10 units HS SC 01/01/25 03:45 Diagnostic Test (Pha) 1 strip ACHS 01/01/25 07:00 01/01/25 11:12 1 STRIP Insulin Human Regular ACHS SC 01/01/25 07:00 Dextrose 50 ml UD PRN IV 01/01/25 03:45 Laboratory Results Laboratory Tests 01/01/25 07:26 Chemistry Test 12/31/24 17:03 01/01/25 07:26 Calcium Level 8.9 mg/dL (8.7-10.4) 9.1 mg/dL (8.7-10.4) Albumin 3.8 g/dL (3.2-4.8) Magnesium Level 2.2 mg/dL (1.6-2.6) Phosphorus Level 3.7 mg/dL (2.4-5.1) Total Protein 7.2 g/dL (5.7-8.2) Coagulation Test 12/31/24 22:06 Prothrombin Time 12.4 sec (9.3-11.8) H Prothrombin Time INR 1.19 (0.9-1.15) H Activated Partial Thromboplast Time 30.9 SEC (24.5-34.5) LFT Test 01/01/25 07:26 Alanine Aminotransferase (ALT) < 9 U/L (7-40) Alkaline Phosphatase 124 U/L (46-116) H Aspartate Amino Transferase (AST) 12 U/L (13-40) L Total Bilirubin 0.5 mg/dL (0.2-1.0) HgA1c, TSH Test 01/01/25 07:26 Hemoglobin A1c 6.8 % A1C (<5.7) H Urinalysis Test 01/01/25 09:00 Urine Color Yellow (Yellow) Urine Clarity Turbid (Clear) H Urine pH 5.5 (5.0-9.0) Urine Specific [place] 1.023 (1.001-1.035) Urine Protein 2+ (Negative) H Urine Ketones Trace (Negative) Urine Blood 1+ /uL (Negative) H Urine Nitrite Negative (Negative) Urine Bilirubin 1+ (Negative) Urine Urobilinogen 2 mg/dL (Negative) H Urine Leukocyte Esterase 2+ /uL (Negative) Urine RBC 13 /hpf (0 - 3) Urine Microscopic WBC 17 /HPF (0-3) H Urine Squamous Epithelial Cells Few /hpf (<5) Urine Bacteria None seen /hpf (None Seen) Urine Hyaline Casts Mod /lpf (0 - 2) Urine Glucose Normal mg/dL (Normal) Labs and/or images reviewed: Labs reviewed by me, Image(s) reviewed by me Assessment/Plan Assessment/Plan Acute right ankle pain possible right distal tibia intra-articular fracture: Consult by Orthopedic appreciated, awaiting CT right ankle History of right ankle surgery one year ago ESRD on hemodialysis Hypertension Hypercholesterolemia AFib Insulin-dependent diabetes GERD Depression Insomnia Time spent 70 minutes Advanced care planning time 20 minutes Patient is full code Patient lives in [place] Plan discussed with: Patient Date of Service: Jan 01, 2025 Billing Provider: ZOIE ESCOBEDO MD Common Visit Codes: [id number] CARE 30-74 MIN ZOIE ESCOBEDO MD Jan 01, 2025 14:34
--- NOTE | 2025-01-01 18:05 | DVH ---
EXAM: CT CT R TIB FIB WO CONTRAST HISTORY: right tib fib fracture COMPARISON: XY R ANKLE 3 VIEW on DOS: 12/31/24, TECHNIQUE: Noncontrast axial CT images of the right tibia and fibula were performed. Sagittal and coronal reformatted images were obtained. This CT exam was performed using one or more of the following dose reduction techniques: Automated exposure control, adjustment of the mA and/or kV according to patient size, or use of iterative reconstruction technique. Radiation Dose Information: CT Dose: CTDI volume is 7.75 mGy. Dose-length product is 391.11 mGy*cm FINDINGS: There is bony demineralization limiting evaluation for acute osseous abnormality. There is a lateral plate and multiple screw fixation of the distal fibula with a nonunited fracture deformity of the distal fibula. There is an additional screw traversing into the subtalar joint. There is lucency and ero diane in the dome of the talus as well as the tibial plafond. There is lateral subluxation of the talus relative to the tibial plafond. There is a chronic appearing fracture deformity of the posterior malleolus. No definite acute appearing fracture. There is [id number] diffuse subcutaneous edema in the right lower extremity. There is Calcified athero sclerosis. No fluid collection or soft tissue gas. IMPRESSION: 1. Bony demineralization limits evaluation for acute osseous abnormality or osteomyelitis. 2. Lateral plate and multiple screw fixation of the distal fibula traversing a nonunited fracture deformity of the distal fibula. 3. Additional screw traverses into the subtalar joint. 4. Lucency and erosion of the dome of the talus as well as the tibial plafond which could be resorption related to prior trauma, inflammation, or osteomyelitis. 5. No fluid collection or soft tissue gas. 6. Chronic fracture deformity of the posterior malleolus. 7. Mild lateral subluxation of the talus relative to the tibial plafond.
--- NOTE | 2025-01-01 19:48 | DVHINCON2 ---
Consult Note Consult Consult Note Patient: 59-year-old male History: Poor historian, CKD 4 Dialysis pt w/ Type 2 diabetes , diabetic neuropathy, A FIb and HTN w/ chronic inability to bear weight for ~2 years, and fracture to right ankle approx 1 year ago treated with ORIF R ankle with plate distal fibula, today complains of new worsening right ankle pain without trauma for last few days, pain especially with ankle ROM. Pain can be 3-4/10 with ROM ankle. On my interview resting in bed with no distress . Exam:RIGHT FOOT AND ANKLE Well-healed incision from previous ORIF, no erythema, no drainage Minimal ankle/foot edema Marked tenderness medial malleolus Pain with ankle ROM NWB baseline No open wounds CT FINDINGS Chronic bony demineralization limiting evaluation Chronic deformity distal fibula with prior ORIF hardware Chronic malunion of distal fibula Chronic fracture deformity posterior malleolus Bony resorption and erosion of talus dome and tibial plafond Lateral subluxation of talus relative to tibial plafond No acute fracture No fluid collection or soft-tissue gas Mildmoderate diffuse subcutaneous edema IMPRESSION : Findings consistent with advanced chronic post-traumatic ankle arthritis, possible prior infection vs neuropathic changes, chronic deformity, and early Charcot pattern cannot be excluded. ASSESSMENT 1. Severe post-traumatic ankle arthritis with hardware/plate fibula and subtalar screw Secondary to chronic distal fibula malunion + posterior malleolus deformity + plafond erosion. 2. Possible chronic neuropathic arthropathy (Charcot Stage 23) Talus resorption + subluxation + diabetic neuropathy + inability to bear weight x 2 yrs. 3. Chronic ankle instability & deformity Lateral subluxation of talus, chronic malalignment. 4. Chronic pain with functional disability Unable to bear weight, progressive deformity. No current signs of acute infection. PLAN /RECOMMENDATION FOR HOSPITALIST/MEDICINE TEAM 1. Immediate Management Strict Non-Weight Bearing right lower extremity Immobilization with CAM boot Pain control: Per medicine/Hospitalist team 2. Workup Labs: CBC, ESR, CRP (to rule out low-grade infection) Consult Orthopedics if concern for elevated labs Nephro consult for Dialysis management 3. Once discharged patient to followup with Orthopedic outpatient in 2 weeks or return earlier if develop redness, warmth, increased edema, or issues with CAM boot or other concerns. Plan discussed with: Patient, Other (bedside nurse) Visit Coding Surgery Date of Service if different f: Jan 01, 2025 Billing Provider: ISACC MITCHELL Surgery Visit Codes: 97413 - INP CONSULT <55 MIN ISACC MITCHELL Jan 01, 2025 19:48
--- NOTE | 2025-01-01 20:30 | DVHINCON2 ---
Date of service: Jan 01, [address] House Reason for Consultation ESRD and dialysis management History of Present Illness Hai Arredondo is a 59 year M with a Past Medical History pertinent for ESRD on HD (M/W/F), Hypertension, A-Fib, Hyperlipidemia, Anemia, Peripheral neuro derik, insulin-dependent diabetes mellitus, GERD, Depression and Insomnia who presented to the hospital with complaint of right lower leg/foot pain. Patient complains of intractable pain right ankle which is 8-9/10 intensity, aggravated on weight-bearing, no relieving factor. Denies any recent fall or trauma. No fever, headache, SOB, chest pain, abdominal pain or any focal weakness. CT R Tib/Fib without contrast performed today reported bony demineralization limits evaluation for acute osseous abnormality or osteomyelitis; lateral plate and multiple screw fixation of the distal fibula traversing a nonunited fracture deformity of the distal fibula; additional screw traverses into the subtalar joint; lucency and erosion of the dome of the talus as well as the tibial plafond which could be resorption related to prior trauma, inflammation, or osteomyelitis; no fluid collection or soft tissue gas; chronic fracture deformity of the posterior malleolus; mild lateral subluxation of the talus relative to the tibial plafond. Allergies: Coded Allergies: NO KNOWN ALLERGIES (Unverified , 04/15/24) Home Meds Active Scripts Tramadol HCl (Tramadol HCl) 50 Mg Tab, 50 MG PO BID, #20 TAB Prov:ZENOBIA ARGUETA PA 10/26/24 Levofloxacin Hemihydrate (LEVAQUIN 500 MG) 500 Mg Tab, 0.5 TAB PO EOD for 7 Days, #4 TAB M/W/F Prov:TORITO KING [employer] OPERATOR 09/15/24 Lancets (Freestyle Lancets) Lancets Mis, STRIP XX DAILY, #100 9 Refills Prov:DARNELL ABREU MD 07/04/24 Blood Glucose Monitoring Suppl (Blood Glucose Monitoring W/Device) 1 Kit Kit, KIT XX DAILY, #1 Prov:DARNELL ABREU MD 07/04/24 Glucose Blood (Glucose Meter Test Strips) 1 Valeriy Valeriy, 1 VALERIY DAILY, #100 MISC 9 Refills Prov:DARNELL ABREU MD 07/04/24 Metronidazole (Flagyl) 500 Mg Tab, 500 MG PO TID for 7 Days, #21 TAB Prov:NAEEM QUESADA MD 06/23/24 Gabapentin (Gabapentin) 600 Mg Tab, 600 MG PO TID for 30 Days, #90 TAB Prov:NAEEM QUESADA MD 06/23/24 Lactulose (Lactulose) 10 Gm/15 Ml Yamileth, 10 GM PO BIDPRN PRN for 30 Days, #120 ML 1 Refill Prov:ZURI PRESLEY MD 05/24/24 Pantoprazole Sodium Sesquihydr (Protonix) 40 Mg Tab, 40 MG PO DAILY for 30 Days, #30 TAB 2 Refills Prov:ZURI PRESLEY MD 05/24/24 Apixaban Base (ELIQUIS) 2.5 Mg Tab, 2.5 MG PO BID for 14 Days, #28 TAB 0 Refills Prov:MANAS CRAFT 04/24/24 Nutritional Supplements (Josafat) Garrett Pow, 1 PACK OR BID for 30 Days, #60 POW 0 Refills Prov:MANAS CRAFT 04/24/24 Amiodarone HCl (Amiodarone HCl) 200 Mg Tab, 200 MG PO Q12HR for 30 Days, #60 TAB Prov:MANAS CRAFT 04/24/24 Reported Medications Furosemide (Furosemide) 40 Mg Tab, 1 TAB PO DAILY for 90 Days, #90 07/02/24 Zolpidem Tartrate (Zolpidem Tartrate) 5 Mg Tab, 1 TAB PO QHSP for 30 Days, #30 07/02/24 Trazodone Hcl (Trazodone Hcl) 50 Mg Tab, 1 TAB PO DAILY for 30 Days, #30 07/02/24 Sodium Zirconium Cyclosilicate (Lokelma) 5 Gm Curly, 1 PACK PO TIDWM for 19 Days, #11 04/17/24 Insulin Glargine (Lantus) 100 Unit/Ml Inj, 20 UNIT SC BID, INJ 04/17/24 Allopurinol (Allopurinol) 100 Mg Tab, 100 MG PO DAILY, TAB 04/17/24 Glipizide (Glipizide) 10 Mg Tab, 10 MG PO DAILY for 30 Days, MG 04/17/24 Ferric Citrate (Auryxia) 210 Mg Tab, 210 MG PO DAILY, TAB 04/17/24 Ferrous Sulfate (Ferosul) 325 Mg Tab, 325 MG PO DAILY, TAB 04/17/24 Amlodipine Besylate (Amlodipine Besylate) 5 Mg Tab, 5 MG PO DAILY for 30 Days, MG 04/17/24 Metformin Hydrochloride (Metformin Hcl) 1,000 Mg Tab, 1 TAB PO BID, #180 TAB 3 Refills 04/17/24 Atorvastatin Calcium (ATORVASTATIN CALCIUM) 40 Mg Tab, 1 TAB PO DAILY for 90 Days, #90 04/16/24 Current Medications Current Medications Medications (Trade) Dose Ordered Sig/Samuel Route PRN Reason Start Time Stop Time Status Last Admin Sodium Chloride 1,000 ml @ 60 mls/hr [id number] IV 12/31/24 21:15 01/01/25 14:57 DC 12/31/24 21:15 Acetaminophen/ Hydrocodone Bitart ([place] 5/325MG Tab) 1 tab Q4HP PRN PO MODERATE PAIN (4-6 PAIN SCALE) 12/31/24 21:15 01/01/25 00:30 Heparin Sodium (Porcine) 5,000 units Q12HR SC 12/31/24 22:00 01/01/25 09:06 Pantoprazole Sodium (Protonix Tablet) 40 mg DAILY@0600 PO 01/01/25 06:00 01/01/25 06:12 Insulin Human Lispro (HumaLOG) AC SC 01/01/25 07:00 01/01/25 03:35 DC Allopurinol (Zyloprim Tablet) 100 mg DAILY PO 01/01/25 10:00 01/01/25 08:51 Amiodarone HCl (Cordarone Tablet) 200 mg Q12HR PO 01/01/25 10:00 01/01/25 08:51 Amlodipine Besylate (Norvasc Tablet) 5 mg DAILY PO 01/01/25 10:00 01/01/25 08:51 Apixaban (Eliquis) 2.5 mg BID PO 01/01/25 10:00 Hold Furosemide (Lasix Tablet) 40 mg DAILY PO 01/01/25 10:00 01/01/25 08:51 Insulin Glargine (Lantus) 20 units HS SC 01/01/25 22:00 01/01/25 03:35 DC Insulin Glargine (Lantus) 10 units HS SC 01/01/25 03:45 Diagnostic Test (Pha) (Accu-Chek Comfort Curve T) 1 strip ACHS 01/01/25 07:00 01/01/25 17:15 Insulin Human Regular (InsuLIN R) ACHS SC 01/01/25 07:00 01/01/25 17:15 Dextrose 50 ml UD PRN IV Blood Sugar LESS THAN 60 01/01/25 03:45 Family History: Diabetes mellitus G8 MOTHER, , Onset:s - FH: thyroid disease G8 FATHER, , Onset: - Hypercholesterolemia G8 FATHER, , Onset: Hypertension G8 MOTHER, , Onset: Review of Systems Review of Systems Constitutional: Yes: Weakness, Malaise; No: Fever, Chills, Sweats, Other Eyes: No: Pain, Vision change, Conjunctivae inflammation, Eyelid inflammation, Other, Redness ENT: No: Ear pain, Ear discharge, Nose pain, Nose discharge, Nose congestion, Mouth pain, Mouth swelling, Throat pain, Throat swelling, Other Respiratory: No: Cough, Dry, Shortness of breath, SOB with excertion, Wheezing, Hemoptysis, Pleuritic Pain, Sputum, Wheezing, Other Cardiovascular: No: Chest Pain, Palpitations, Orthopnea, Paroxysmal Noc. Dyspnea, Edema, Lt Headedness, Other Gastrointestinal: No: Nausea, Vomiting, Abdominal Pain, Diarrhea, Constipation, Melena, Hematochezia, Other Genitourinary: No Dysuria, No Frequency, No Incontinence, No Hematuria, No Retention, No Other Musculoskeletal: leg pain, foot pain (Right ankle pain); No: other, neck pain, shoulder pain, arm pain, back pain, hand pain Skin: Other (Both food chronic skin discoloration); No: Rash, Lesions, Jaundice, Bruising Neurological: No: Weakness, Numbness, Incoordination, Change in speech, Confusion, Seizures, Other H&P Exam Vital Signs/I&O Vital Sign Date Time Temp Pulse Resp B/P (MAP) Pulse Ox O2 Delivery O2 Flow Rate FiO2 01/01/25 17:00 97.8 58 18 146/86 (106) 94 97.8 01/01/25 07:30 Room Air* 0 21 Intake and Output 12/31/24 01/01/25 19:00 07:00 Intake Total 0 ml Balance 0 ml Intake Oral 0 ml Physical Exam Vitals and nursing notes reviewed. General Appearance: Alert, Oriented X3, Cooperative, In no acute distress. HEENT: Atraumatic, PERRLA, EOMI Respiratory: Clear to auscultation, Normal air movement Cardiovascular: Regular rate, Normal S1, Normal S2, No murmurs Abdominal: Normal bowel sounds, Soft, No tenderness Extremities: No clubbing, No cyanosis, No edema, Normal pulses Skin: No rashes Neuro: Normal speech, Strength at 5/5 X4 ext, Other (Gait instability, overall sensation decreases bilateral foot likely chronic) Labs/Diagnostic Data Labs/Diagnostic Data Laboratory Tests Test 01/01/25 16:43 01/01/25 11:08 01/01/25 09:00 01/01/25 07:26 Range/Units POC Glucose 145 H 122 H 70-106 mg/dl Urine Color Yellow Yellow Urine Clarity Turbid H Clear Urine pH 5.5 5.0-9.0 Urine Specific [place] 1.023 1.001-1.035 Urine Protein 2+ H Negative Urine Ketones Trace Negative Urine Blood 1+ H Negative /uL Urine Nitrite Negative Negative Urine Bilirubin 1+ Negative Urine Urobilinogen 2 H Negative mg/dL Urine Leukocyte Esterase 2+ Negative /uL Urine RBC 13 0 - 3 /hpf Urine Microscopic WBC 17 H 0-3 /HPF Urine Squamous Epithelial Cells Few <5 /hpf Urine Bacteria None seen None Seen /hpf Urine Hyaline Casts Mod 0 - 2 /lpf Urine Glucose Normal Normal mg/dL Urine Opiates Screen Pos NEGATIVE Urine Fentanyl Screen Neg NEGATIVE Urine Barbiturates Screen Neg NEGATIVE Urine Phencyclidine Screen Neg NEGATIVE Urine Amphetamines Screen Neg NEGATIVE Urine Benzodiazepines Screen Neg NEGATIVE Urine Cocaine Screen Neg NEGATIVE Urine Cannabinoids Screen Neg NEGATIVE White Blood Count 3.5 L 4.4-10.8 10^3/uL Red Blood Count 3.40 L 4.5-5.90 10^6/uL Hemoglobin 10.1 L 13.5-17.5 g/dL Hematocrit 31.5 L 41.0-53.0 % Mean Corpuscular Volume 92.7 80.0-100.0 fL Mean Corpuscular Hemoglobin 29.8 28.0-32.0 pg Mean Corpuscular Hemoglobin Concent 32.2 32.0-36.0 g/dL Red Cell Distribution Width 19.2 H 11.8-14.3 % Platelet Count 153 140-450 10^3/uL Mean Platelet Volume 8.2 6.9-10.8 fL Neutrophils (%) (Auto) 64.1 37.0-80.0 % Lymphocytes (%) (Auto) 24.0 10.0-50.0 % Monocytes (%) (Auto) 7.0 0.0-12.0 % Eosinophils (%) (Auto) 3.9 0.0-7.0 % Basophils (%) (Auto) 1.0 0.0-2.0 % Neutrophils # (Auto) 2.2 1.6-8.6 10 ^3/uL Lymphocytes # (Auto) 0.8 0.4-5.4 10 ^3/uL Monocytes # (Auto) 0.2 0-1.3 10 ^3/uL Eosinophils # (Auto) 0.1 0-0.8 10 ^3/uL Basophils # (Auto) 0 0-0.2 10 ^3/uL Nucleated Red Blood Cells 0.0 % Sodium Level 142 136-145 mmol/L Potassium Level 4.1 3.5-5.1 mmol/L Chloride Level 103 98-107 mmol/L Carbon Dioxide Level 30 20-31 mmol/L Anion Gap 9 5-15 Blood Urea Nitrogen 19 9-23 mg/dL Creatinine 3.32 H 0.700-1.30 mg/dL Glomerular Filtration Rate Calc 21 >90 mL/min BUN/Creatinine Ratio 5.7 L 10.0-20.0 Serum Glucose 67 L 74-106 mg/dL Hemoglobin A1c 6.8 H <5.7 % A1C Calcium Level 9.1 8.7-10.4 mg/dL Phosphorus Level 3.7 2.4-5.1 mg/dL Magnesium Level 2.2 1.6-2.6 mg/dL Total Bilirubin 0.5 0.2-1.0 mg/dL Aspartate Amino Transferase (AST) 12 L 13-40 U/L Alanine Aminotransferase (ALT) < 9 7-40 U/L Alkaline Phosphatase 124 H 46-116 U/L Total Protein 7.2 5.7-8.2 g/dL Albumin 3.8 3.2-4.8 g/dL Vitamin B12 Level 24345 H 211-911 pg/mL Test 01/01/25 04:12 12/31/24 22:06 12/31/24 17:03 Range/Units POC Glucose 65 L 70-106 mg/dl Prothrombin Time 12.4 H 9.3-11.8 sec Prothrombin Time INR 1.19 H 0.9-1.15 Activated Partial Thromboplast Time 30.9 24.5-34.5 SEC White Blood Count 4.6 4.4-10.8 10^3/uL Red Blood Count 3.40 L 4.5-5.90 10^6/uL Hemoglobin 10.0 L 13.5-17.5 g/dL Hematocrit 32.1 L 41.0-53.0 % Mean Corpuscular Volume 94.4 80.0-100.0 fL Mean Corpuscular Hemoglobin 29.6 28.0-32.0 pg Mean Corpuscular Hemoglobin Concent 31.3 L 32.0-36.0 g/dL Red Cell Distribution Width 20.0 H 11.8-14.3 % Platelet Count 150 140-450 10^3/uL Mean Platelet Volume 8.4 6.9-10.8 fL Neutrophils (%) (Auto) 64.2 37.0-80.0 % Lymphocytes (%) (Auto) 24.5 10.0-50.0 % Monocytes (%) (Auto) 7.1 0.0-12.0 % Eosinophils (%) (Auto) 3.3 0.0-7.0 % Basophils (%) (Auto) 0.9 0.0-2.0 % Neutrophils # (Auto) 2.9 1.6-8.6 10 ^3/uL Lymphocytes # (Auto) 1.1 0.4-5.4 10 ^3/uL Monocytes # (Auto) 0.3 0-1.3 10 ^3/uL Eosinophils # (Auto) 0.2 0-0.8 10 ^3/uL Basophils # (Auto) 0 0-0.2 10 ^3/uL Nucleated Red Blood Cells 0.2 % Sodium Level 142 136-145 mmol/L Potassium Level 4.1 3.5-5.1 mmol/L Chloride Level 103 98-107 mmol/L Carbon Dioxide Level 31 20-31 mmol/L Anion Gap 8 5-15 Blood Urea Nitrogen 17 9-23 mg/dL Creatinine 2.81 H 0.700-1.30 mg/dL Glomerular Filtration Rate Calc 25 >90 mL/min BUN/Creatinine Ratio 6.0 L 10.0-20.0 Serum Glucose 83 74-106 mg/dL Uric Acid 2.9 L 3.7-9.2 mg/dL Calcium Level 8.9 8.7-10.4 mg/dL C-Reactive Protein High Sensitivity 0.16 <1.0 mg/dL Assessment Intractable right lower leg pain due to intra-articular fracture of the distal tibia History of right tibia ORIF ESRD on HD Secondary hyperparathyroidism due to renal Anemia of chronic disease due to ESRD Atrial fibrillation Hypertensive kidney disease Mixed hyperlipidemia Insulin-dependent diabetes mellitus with peripheral neuropathy Vitamin-D deficiency Insomnia Depression Plan/Recommendation Agreement with your ongoing assessment and plan of care. Schedule dialysis 01/02. Continue HD on //. Podiatry consult as recommended. Home medications resumed as ordered. Renal/diabetic diet. Pain management prn. DVT/GI prophylaxis. Additional plan as per the hospital course. Plan discussed with: Patient, Other OLEGARIO SNELL DO Jan 01, 2025 20:30
[2025-01-01] MEDS ORDERED: INSULIN LANTUS (GLARGINE) 1 /0.01ml (100units/ml) SC SCH (22:00)
[2025-01-02 05:00] VITALS: BP 130/62; PULSE 55; RESP 17; TEMP 97.5; O2SAT 95
[2025-01-02] MEDS: SODIUM CHL 0.9% 1000 ML BAG XX ONE (08:30)
[2025-01-02 08:54] VITALS: BP 118/79; PULSE 87; RESP 19; TEMP 97.7; O2SAT 95
--- NOTE | 2025-01-02 10:35 | DVHPN2 ---
Reviewed: Care Plan, H&P, Labs, Medications, Previous Orders, Radiology Changes from previous H/P or p: No Changes Eyes: No Pain, No Vision change, No Conjunctivae inflammation, No Eyelid inflammation, No Other, No Redness ENT: No Ear pain, No Ear discharge, No Nose pain, No Nose discharge, No Nose congestion, No Mouth pain, No Mouth swelling, No Throat pain, No Throat swelling, No Other Cardiovascular: No Chest Pain, No Palpitations, No Orthopnea, No Paroxysmal Noc. Dyspnea, No Edema, No Lt Headedness, No Other Respiratory: No Cough, No Dry, No Shortness of breath, No SOB with excertion, No Wheezing, No Hemoptysis, No Pleuritic Pain, No Sputum, No Other Gastrointestinal: No Nausea, No Vomiting, No Abdominal Pain, No Diarrhea, No Constipation, No Melena, No Hematochezia, No Other Genitourinary: No Dysuria, No Frequency, No Incontinence, No Hematuria, No Retention, No Other Musculoskeletal: No other, No neck pain, No shoulder pain, No arm pain, No back pain, No hand pain; leg pain, foot pain (Right ankle pain) Skin: No Rash, No Lesions, No Jaundice, No Bruising; Other (Both food chronic skin discoloration) Objective Vitals Vital Signs Date Time Temp Pulse Resp B/P (MAP) Pulse Ox O2 Delivery O2 Flow Rate FiO2 01/02/25 08:54 97.7 87 19 118/79 (92) 95 97.7 01/01/25 20:00 Room Air* 0 21 Intake/Output Intake and Output 01/02/25 07:00 Intake Total 500 ml Output Total 50 ml Balance 450 ml Intake Oral 500 ml Output Urine Total 50 ml # Voids 3 Medications Current Medications Medications Dose Ordered Sig/Samuel Route Start Time Stop Time Status Last Admin Dose Admin Acetaminophen/ Hydrocodone Bitart 1 tab Q4HP PRN PO 12/31/24 21:15 01/01/25 22:21 1 TAB Heparin Sodium (Porcine) 5,000 units Q12HR SC 12/31/24 22:00 01/01/25 22:12 5,000 UNITS Pantoprazole Sodium 40 mg DAILY@0600 PO 01/01/25 06:00 01/02/25 05:01 40 MG Allopurinol 100 mg DAILY PO 01/01/25 10:00 01/01/25 08:51 100 MG Amiodarone HCl 200 mg Q12HR PO 01/01/25 10:00 01/01/25 22:11 200 MG Amlodipine Besylate 5 mg DAILY PO 01/01/25 10:00 01/01/25 08:51 5 MG Apixaban 2.5 mg BID PO 01/01/25 10:00 Hold Furosemide 40 mg DAILY PO 01/01/25 10:00 01/01/25 08:51 40 MG Insulin Glargine 10 units HS SC 01/01/25 03:45 01/01/25 22:12 10 UNITS Diagnostic Test (Pha) 1 strip ACHS 01/01/25 07:00 01/02/25 06:18 1 STRIP Insulin Human Regular ACHS SC 01/01/25 07:00 01/01/25 17:15 2 UNITS Dextrose 50 ml UD PRN IV 01/01/25 03:45 Laboratory Results Laboratory Tests 01/01/25 07:26 Urinalysis Test 01/01/25 09:00 Urine Color Yellow (Yellow) Urine Clarity Turbid (Clear) H Urine pH 5.5 (5.0-9.0) Urine Specific [place] 1.023 (1.001-1.035) Urine Protein 2+ (Negative) H Urine Ketones Trace (Negative) Urine Blood 1+ /uL (Negative) H Urine Nitrite Negative (Negative) Urine Bilirubin 1+ (Negative) Urine Urobilinogen 2 mg/dL (Negative) H Urine Leukocyte Esterase 2+ /uL (Negative) Urine RBC 13 /hpf (0 - 3) Urine Microscopic WBC 17 /HPF (0-3) H Urine Squamous Epithelial Cells Few /hpf (<5) Urine Bacteria None seen /hpf (None Seen) Urine Hyaline Casts Mod /lpf (0 - 2) Urine Glucose Normal mg/dL (Normal) Labs and/or images reviewed: Labs reviewed by me, Image(s) reviewed by me Assessment/Plan Assessment/Plan Severe post-traumatic ankle arthritis with hardware/plate fibula and subtalar screw Secondary to chronic distal fibula malunion + posterior malleolus deformity + plafond erosion. Possible chronic neuropathic arthropathy (Charcot Stage 23) Talus resorption + subluxation + diabetic neuropathy + inability to bear weight x 2 yrs. Chronic ankle instability & deformity Lateral subluxation of talus, chronic malalignment. Chronic pain with functional disability Unable to bear weight, progressive deformity. Orthopedic consult appreciated advised nonweightbearing right lower extremity immobilization with CAM boot ESRD on hemodialysis Dr. Daniel Taylor following Hypertension Hypercholesterolemia AFib Insulin-dependent diabetes GERD Depression Insomnia Time spent 60 minutes Advanced care planning time 20 minutes Patient is full code Patient lives in [place] Plan discussed with: Patient Date of Service: Jan 02, 2025 Billing Provider: ZOIE ESCOBEDO MD Common Visit Codes: [id number] INP/OBS CARE(HIGH) ZOIE ESCOBEDO MD Jan 02, 2025 10:35
[2025-01-02 12:57] VITALS: BP 157/58; PULSE 51; RESP 17; TEMP 96.2; O2SAT 98
--- NOTE | 2025-01-02 14:17 | CONS ---
Pharmacy Clinical Information: From Heart Failure Fallout Report on CQM Application, Hai Arredondo is a 59 year old male with PMH of ESRD, HTN, A-Fib, HLD, anemia, peripheral neuropathy, insulin-dependent diabetes mellitus, GERD, hyperkalemia, depression, insomnia His home medications include atorvastatin 40mg Per 2024 ADA guidelines, in adults with diabetes aged 40-75 with ASCVD risk factor (HTN), it is recommended to initiate high-intensity statin. Please add atorvastatin 40mg if clinically appropriate [facility] Jan 02, 2025 14:17
[2025-01-02 16:29] VITALS: BP 140/94; PULSE 59; RESP 19; TEMP 97.8; O2SAT 95
[2025-01-02] MEDS: ZOLPIDEM TARTRATE 5 MG TAB PO ONE (20:36)
[2025-01-02 21:00] VITALS: BP 151/68; PULSE 62; RESP 17; TEMP 97.9; O2SAT 91
[2025-01-02] MEDS: EPOETIN ALFA-EPBX 10,000 UNIT/1ML VIAL SC ONE (21:11)
[2025-01-03 01:00] VITALS: BP 128/52; PULSE 58; RESP 18; TEMP 97.8; O2SAT 94
[2025-01-03 05:00] VITALS: BP 131/81; PULSE 56; RESP 18; TEMP 98; O2SAT 99
[2025-01-03 08:00] VITALS: PULSE 58; RESP 18
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
[2025-01-03 13:00] VITALS: BP 147/46; PULSE 57; RESP 17; TEMP 97; O2SAT 96
[2025-01-03 17:00] VITALS: BP 140/68; PULSE 60; RESP 17; TEMP 98.6; O2SAT 94
[2025-01-03 21:00] VITALS: BP_SYST 141; BP_SYST 147; BP_DIAS 65; BP_DIAS 72; PULSE 57; PULSE 96; RESP 17; TEMP 97.2; TEMP 99.2; O2SAT 90
--- NOTE | 2025-01-03 21:34 | DVHPN2 ---
Progress Note - Dictate Date Seen: Jan 03, 2025 Has the PT tested + for MRSA If YES, has PT been informed?: No Medical Necessity Reason Pt with a Central, PICC or Fol: No Subjective Patient was seen and evaluated in follow up. No acute events overnight. No new complaints. Endorses not sleeping well at night. Takes sleeping aid at home. vital signs Vital Sign Date Time Temp Pulse Resp B/P (MAP) Pulse Ox O2 Delivery O2 Flow Rate FiO2 01/03/25 17:00 98.6 60 17 140/68 (92) 94 98.6 01/03/25 08:00 Room Air* 0 21 Total Intake and Output 01/02/25 01/02/25 01/03/25 15:00 23:00 07:00 Intake Total 400 ml 400 ml Output Total 700 ml 100 ml Balance -300 ml 300 ml medications Current Medications Medications Dose Ordered Sig/Samuel Route Start Time Stop Time Status Last Admin Dose Admin Acetaminophen/ Hydrocodone Bitart 1 tab Q4HP PRN PO 12/31/24 21:15 01/03/25 10:03 1 TAB Heparin Sodium (Porcine) 5,000 units Q12HR SC 12/31/24 22:00 01/03/25 09:54 5,000 UNITS Pantoprazole Sodium 40 mg DAILY@0600 PO 01/01/25 06:00 01/03/25 06:11 40 MG Allopurinol 100 mg DAILY PO 01/01/25 10:00 01/03/25 09:56 100 MG Amiodarone HCl 200 mg Q12HR PO 01/01/25 10:00 01/03/25 09:56 200 MG Amlodipine Besylate 5 mg DAILY PO 01/01/25 10:00 01/02/25 12:55 5 MG Apixaban 2.5 mg BID PO 01/01/25 10:00 Hold Furosemide 40 mg DAILY PO 01/01/25 10:00 01/03/25 09:57 40 MG Insulin Glargine 10 units HS SC 01/01/25 03:45 01/02/25 21:06 10 UNITS Diagnostic Test (Pha) 1 strip ACHS 01/01/25 07:00 01/03/25 21:30 1 STRIP Insulin Human Regular ACHS SC 01/01/25 07:00 01/03/25 17:10 2 UNITS Dextrose 50 ml UD PRN IV 01/01/25 03:45 objective Vitals and nursing notes reviewed. General Appearance: Cooperative, In no acute distress. HEENT: Atraumatic, PERRLA, EOMI Respiratory: Clear to auscultation, Normal air movement Cardiovascular: Regular rate, Normal S1, Normal S2, No murmurs Abdominal: Normal bowel sounds, Soft, No tenderness Extremities: No clubbing, No cyanosis, No edema, Normal pulses Skin: No rashes Neuro: Alert, Oriented X3, Normal speech laboratory and microbiology Laboratory Tests 01/01/25 07:26 Test 01/01/25 07:26 Range/Units Serum Glucose 67 L 74-106 mg/dL Problem List Intractable right lower leg pain due to intra-articular fracture of the distal tibia History of right tibia ORIF ESRD on HD Secondary hyperparathyroidism due to renal Anemia of chronic disease due to ESRD Atrial fibrillation Hypertensive kidney disease Mixed hyperlipidemia Insulin-dependent diabetes mellitus with peripheral neuropathy Vitamin-D deficiency Insomnia Depression Assessment/Plan Agree with current supportive medical care. If still admitted, next HD due 01/04. Orthopedic surgery consulted and advised nonweightbearing right lower extremity immobilization with CAM boot. Renal/diabetic diet. Pain management prn. Home medications resumed as ordered. Melatonin. DVT/GI prophylaxis. Additional plan as per the hospital course. Plan discussed with: Patient, Other (RN) OLEGARIO SNELL DO Jan 03, 2025 21:34
--- NOTE | 2025-01-03 21:34 | DVHPN2 ---
Progress Note - Dictate Date Seen: Jan 02, 2025 Has the PT tested + for MRSA If YES, has PT been informed?: No Medical Necessity Reason Pt with a Central, PICC or Fol: No Subjective Patient was seen and evaluated in follow up. No acute events overnight. No new complaints. Pain is controlled. Received dialysis earlier today. vital signs Vital Sign Date Time Temp Pulse Resp B/P (MAP) Pulse Ox O2 Delivery O2 Flow Rate FiO2 01/03/25 17:00 98.6 60 17 140/68 (92) 94 98.6 01/03/25 08:00 Room Air* 0 21 Total Intake and Output 01/02/25 01/02/25 01/03/25 15:00 23:00 07:00 Intake Total 400 ml 400 ml Output Total 700 ml 100 ml Balance -300 ml 300 ml medications Current Medications Medications Dose Ordered Sig/Samuel Route Start Time Stop Time Status Last Admin Dose Admin Acetaminophen/ Hydrocodone Bitart 1 tab Q4HP PRN PO 12/31/24 21:15 01/03/25 10:03 1 TAB Heparin Sodium (Porcine) 5,000 units Q12HR SC 12/31/24 22:00 01/03/25 09:54 5,000 UNITS Pantoprazole Sodium 40 mg DAILY@0600 PO 01/01/25 06:00 01/03/25 06:11 40 MG Allopurinol 100 mg DAILY PO 01/01/25 10:00 01/03/25 09:56 100 MG Amiodarone HCl 200 mg Q12HR PO 01/01/25 10:00 01/03/25 09:56 200 MG Amlodipine Besylate 5 mg DAILY PO 01/01/25 10:00 01/02/25 12:55 5 MG Apixaban 2.5 mg BID PO 01/01/25 10:00 Hold Furosemide 40 mg DAILY PO 01/01/25 10:00 01/03/25 09:57 40 MG Insulin Glargine 10 units HS SC 01/01/25 03:45 01/02/25 21:06 10 UNITS Diagnostic Test (Pha) 1 strip ACHS 01/01/25 07:00 01/03/25 21:30 1 STRIP Insulin Human Regular ACHS SC 01/01/25 07:00 01/03/25 17:10 2 UNITS Dextrose 50 ml UD PRN IV 01/01/25 03:45 objective Vitals and nursing notes reviewed. General Appearance: Alert, Oriented X3, Cooperative, In no acute distress. HEENT: Atraumatic, PERRLA, EOMI Respiratory: Clear to auscultation, Normal air movement Cardiovascular: Regular rate, Normal S1, Normal S2, No murmurs Abdominal: Normal bowel sounds, Soft, No tenderness Extremities: No clubbing, No cyanosis, No edema, Normal pulses Skin: No rashes Neuro: Normal speech, Strength at 5/5 X4 ext, Other (Gait instability, overall sensation decreases bilateral foot likely chronic) laboratory and microbiology Laboratory Tests 01/01/25 07:26 Test 01/01/25 07:26 Range/Units Serum Glucose 67 L 74-106 mg/dL Problem List Intractable right lower leg pain due to intra-articular fracture of the distal tibia History of right tibia ORIF ESRD on HD Secondary hyperparathyroidism due to renal Anemia of chronic disease due to ESRD Atrial fibrillation Hypertensive kidney disease Mixed hyperlipidemia Insulin-dependent diabetes mellitus with peripheral neuropathy Vitamin-D deficiency Insomnia Depression Assessment/Plan Agree with current supportive medical care. HD- 01/02. UF 2L. Orthopedic surgery consulted and advised nonweightbearing right lower extremity immobilization with CAM boot. Home medications resumed as ordered. Renal/diabetic diet. Pain management prn. DVT/GI prophylaxis. Additional plan as per the hospital course. Plan discussed with: Patient, Other (RN) OLEGARIO SNELL DO Jan 03, 2025 21:34
[2025-01-03] MEDS: MELATONIN 5 MG TAB PO ONE (21:49)
[2025-01-04] VITALS (7 sets, daily range): BP systolic 115–176; BP diastolic 49–87; PULSE 51–82; RESP 16–18; TEMP 97–98.2; O2SAT 95–100
--- NOTE | 2025-01-04 10:18 | DVHPN2 ---
Reviewed: Care Plan, H&P, Labs, Medications, Previous Orders, Radiology Changes from previous H/P or p: No Changes Eyes: No Pain, No Vision change, No Conjunctivae inflammation, No Eyelid inflammation, No Other, No Redness ENT: No Ear pain, No Ear discharge, No Nose pain, No Nose discharge, No Nose congestion, No Mouth pain, No Mouth swelling, No Throat pain, No Throat swelling, No Other Cardiovascular: No Chest Pain, No Palpitations, No Orthopnea, No Paroxysmal Noc. Dyspnea, No Edema, No Lt Headedness, No Other Respiratory: No Cough, No Dry, No Shortness of breath, No SOB with excertion, No Wheezing, No Hemoptysis, No Pleuritic Pain, No Sputum, No Other Gastrointestinal: No Nausea, No Vomiting, No Abdominal Pain, No Diarrhea, No Constipation, No Melena, No Hematochezia, No Other Genitourinary: No Dysuria, No Frequency, No Incontinence, No Hematuria, No Retention, No Other Musculoskeletal: No other, No neck pain, No shoulder pain, No arm pain, No back pain, No hand pain; leg pain, foot pain (Right ankle pain) Skin: No Rash, No Lesions, No Jaundice, No Bruising; Other (Both food chronic skin discoloration) Objective Vitals Vital Signs Date Time Temp Pulse Resp B/P (MAP) Pulse Ox O2 Delivery O2 Flow Rate FiO2 01/04/25 09:00 97.0 61 17 176/71 (106) 95 97.0 01/04/25 08:00 Room Air* 0 21 Intake/Output Intake and Output 01/04/25 07:00 Intake Total 1770 ml Output Total 800 ml Balance 970 ml Intake Oral 1770 ml Output Urine Total 800 ml Medications Current Medications Medications Dose Ordered Sig/Samuel Route Start Time Stop Time Status Last Admin Dose Admin Acetaminophen/ Hydrocodone Bitart 1 tab Q4HP PRN PO 12/31/24 21:15 01/04/25 00:50 1 TAB Heparin Sodium (Porcine) 5,000 units Q12HR SC 12/31/24 22:00 01/03/25 21:52 5,000 UNITS Pantoprazole Sodium 40 mg DAILY@0600 PO 01/01/25 06:00 01/04/25 05:48 40 MG Allopurinol 100 mg DAILY PO 01/01/25 10:00 01/03/25 09:56 100 MG Amiodarone HCl 200 mg Q12HR PO 01/01/25 10:00 01/03/25 21:49 200 MG Amlodipine Besylate 5 mg DAILY PO 01/01/25 10:00 01/02/25 12:55 5 MG Apixaban 2.5 mg BID PO 01/01/25 10:00 Hold Furosemide 40 mg DAILY PO 01/01/25 10:00 01/03/25 09:57 40 MG Insulin Glargine 10 units HS SC 01/01/25 03:45 01/03/25 21:54 10 UNITS Diagnostic Test (Pha) 1 strip ACHS 01/01/25 07:00 01/04/25 06:01 1 STRIP Insulin Human Regular ACHS SC 01/01/25 07:00 01/03/25 17:10 2 UNITS Dextrose 50 ml UD PRN IV 01/01/25 03:45 Laboratory Results Laboratory Tests 01/01/25 07:26 Urinalysis Test 01/01/25 09:00 Urine Color Yellow (Yellow) Urine Clarity Turbid (Clear) H Urine pH 5.5 (5.0-9.0) Urine Specific [place] 1.023 (1.001-1.035) Urine Protein 2+ (Negative) H Urine Ketones Trace (Negative) Urine Blood 1+ /uL (Negative) H Urine Nitrite Negative (Negative) Urine Bilirubin 1+ (Negative) Urine Urobilinogen 2 mg/dL (Negative) H Urine Leukocyte Esterase 2+ /uL (Negative) Urine RBC 13 /hpf (0 - 3) Urine Microscopic WBC 17 /HPF (0-3) H Urine Squamous Epithelial Cells Few /hpf (<5) Urine Bacteria None seen /hpf (None Seen) Urine Hyaline Casts Mod /lpf (0 - 2) Urine Glucose Normal mg/dL (Normal) Labs and/or images reviewed: Labs reviewed by me, Image(s) reviewed by me Assessment/Plan Assessment/Plan Severe post-traumatic ankle arthritis with hardware/plate fibula and subtalar screw Secondary to chronic distal fibula malunion + posterior malleolus deformity Possible chronic neuropathic arthropathy (Charcot Stage 23) Talus resorption + subluxation + diabetic neuropathy + inability to bear weight x 2 yrs. Chronic ankle instability & deformity Lateral subluxation of talus, chronic malalignment. Chronic pain with functional disability Unable to bear weight, progressive deformity. Orthopedic consult appreciated advised nonweightbearing right lower extremity immobilization with CAM boot ESRD on hemodialysis , it infrastructure manager Dr. Daniel Taylor following Hypertension Hypercholesterolemia AFib Insulin-dependent diabetes GERD Depression Insomnia: Melatonin Time spent 50 minutes Advanced care planning time 20 minutes Patient is full code Patient lives in [place] Plan discussed with: Patient Date of Service: Jan 04, 2025 Billing Provider: ZOIE ESCOBEDO MD Common Visit Codes: [id number] INP/OBS CARE(HIGH) ZOIE ESCOBEDO MD Jan 04, 2025 10:18
[2025-01-04] MEDS ORDERED: HYDR-4902 PO (10:36)
[2025-01-04] MEDS ORDERED: MELA3TAB27 PO (10:36)
--- NOTE | 2025-01-04 10:42 | DVHDS2 ---
Discharge Summary Date of Admission Dec 31, 2024 at 21:09 Date of Discharge: Jan 04, 2025 Admitting Diagnosis Right ankle pain Wounds: Chronic right ankle pain Labs/Diagnostic Data: Laboratory Results Test 01/04/25 05:51 01/01/25 09:00 01/01/25 07:26 12/31/24 22:06 POC Glucose 67 mg/dl (70-106) Urine Color Yellow (Yellow) Urine Clarity Turbid (Clear) Urine pH 5.5 (5.0-9.0) Urine Specific [place] 1.023 (1.001-1.035) Urine Protein 2+ (Negative) Urine Ketones Trace (Negative) Urine Blood 1+ /uL (Negative) Urine Nitrite Negative (Negative) Urine Bilirubin 1+ (Negative) Urine Urobilinogen 2 mg/dL (Negative) Urine Leukocyte Esterase 2+ /uL (Negative) Urine RBC 13 /hpf (0 - 3) Urine Microscopic WBC 17 /HPF (0-3) Urine Squamous Epithelial Cells Few /hpf (<5) Urine Bacteria None seen /hpf (None Seen) Urine Hyaline Casts Mod /lpf (0 - 2) Urine Glucose Normal mg/dL (Normal) Urine Opiates Screen Pos (NEGATIVE) Urine Fentanyl Screen Neg (NEGATIVE) Urine Barbiturates Screen Neg (NEGATIVE) Urine Phencyclidine Screen Neg (NEGATIVE) Urine Amphetamines Screen Neg (NEGATIVE) Urine Benzodiazepines Screen Neg (NEGATIVE) Urine Cocaine Screen Neg (NEGATIVE) Urine Cannabinoids Screen Neg (NEGATIVE) White Blood Count 3.5 10^3/uL (4.4-10.8) Red Blood Count 3.40 10^6/uL (4.5-5.90) Hemoglobin 10.1 g/dL (13.5-17.5) Hematocrit 31.5 % (41.0-53.0) Mean Corpuscular Volume 92.7 fL (80.0-100.0) Mean Corpuscular Hemoglobin 29.8 pg (28.0-32.0) Mean Corpuscular Hemoglobin Concent 32.2 g/dL (32.0-36.0) Red Cell Distribution Width 19.2 % (11.8-14.3) Platelet Count 153 10^3/uL (140-450) Mean Platelet Volume 8.2 fL (6.9-10.8) Neutrophils (%) (Auto) 64.1 % (37.0-80.0) Lymphocytes (%) (Auto) 24.0 % (10.0-50.0) Monocytes (%) (Auto) 7.0 % (0.0-12.0) Eosinophils (%) (Auto) 3.9 % (0.0-7.0) Basophils (%) (Auto) 1.0 % (0.0-2.0) Neutrophils # (Auto) 2.2 10 ^3/uL (1.6-8.6) Lymphocytes # (Auto) 0.8 10 ^3/uL (0.4-5.4) Monocytes # (Auto) 0.2 10 ^3/uL (0-1.3) Eosinophils # (Auto) 0.1 10 ^3/uL (0-0.8) Basophils # (Auto) 0 10 ^3/uL (0-0.2) Nucleated Red Blood Cells 0.0 % Sodium Level 142 mmol/L (136-145) Potassium Level 4.1 mmol/L (3.5-5.1) Chloride Level 103 mmol/L (98-107) Carbon Dioxide Level 30 mmol/L (20-31) Anion Gap 9 (5-15) Blood Urea Nitrogen 19 mg/dL (9-23) Creatinine 3.32 mg/dL (0.700-1.30) Glomerular Filtration Rate Calc 21 mL/min (>90) BUN/Creatinine Ratio 5.7 (10.0-20.0) Serum Glucose 67 mg/dL (74-106) Hemoglobin A1c 6.8 % A1C (<5.7) Calcium Level 9.1 mg/dL (8.7-10.4) Phosphorus Level 3.7 mg/dL (2.4-5.1) Magnesium Level 2.2 mg/dL (1.6-2.6) Total Bilirubin 0.5 mg/dL (0.2-1.0) Aspartate Amino Transferase (AST) 12 U/L (13-40) Alanine Aminotransferase (ALT) < 9 U/L (7-40) Alkaline Phosphatase 124 U/L (46-116) Total Protein 7.2 g/dL (5.7-8.2) Albumin 3.8 g/dL (3.2-4.8) Vitamin B12 Level 32378 pg/mL (211-911) Prothrombin Time 12.4 sec (9.3-11.8) Prothrombin Time INR 1.19 (0.9-1.15) Activated Partial Thromboplast Time 30.9 SEC (24.5-34.5) Test 12/31/24 17:03 Uric Acid 2.9 mg/dL (3.7-9.2) C-Reactive Protein High Sensitivity 0.16 mg/dL (<1.0) Other Laboratory Tests 01/01/25 07:26 Brief Hx & Hospital Course: 59-year-old male hypertension hypercholesterolemia AFib diabetes depression insomnia ESRD on hemodialysis by Dr. Daniel Taylor history of chronic ankle pain came in for exacerbation of the pain. Patient received hemodialysis while in the hospital. He was seen by the orthopedic was right ankle pain patient has severe posttraumatic ankle arthritis with the hardware and plate fibula and subtalar screw. Pain secondary to chronic distal fibula malunion and posterior malleolus deformity patient also has a chronic neuropathy possibly Charcot stage II with the dialysis substance subluxation diabetic nephropathy neuropathy and inability to bear weight for two years. Orthopedic advised conservative management with the pain medication physical therapy. The patient being discharged home on home health for physical therapy and medication management he will continue to receive hemodialysis by his pipe fitter ammonia Dr. Mesfin Taylor Consults/Reason for consult Orthopedic Nephrology Operations or Procedures CT right ankle Hemodialysis Condition at Discharge: Poor Final Diagnosis/Problems List Severe post-traumatic ankle arthritis with hardware/plate fibula and subtalar screw Secondary to chronic distal fibula malunion + posterior malleolus deformity Possible chronic neuropathic arthropathy (Charcot Stage 23) Talus resorption + subluxation + diabetic neuropathy + inability to bear weight x 2 yrs. Chronic ankle instability & deformity Lateral subluxation of talus, chronic malalignment. Chronic pain with functional disability Unable to bear weight, progressive deformity. Orthopedic consult appreciated advised nonweightbearing right lower extremity immobilization with CAM boot ESRD on hemodialysis , pipe fitter ammonia Dr. Daniel Taylor following Hypertension Hypercholesterolemia AFib Insulin-dependent diabetes GERD Depression Insomnia: Melatonin Discharge Disposition: Home with Health Services Discharge Instruct/Medications Diet: Renal Activity: Light activity Follow Up/Referral: Follow up with the your [facility] Dr. Mesfin Taylor for regular dialysis Resume all previous home meds Medications: [place] Melatonin Transmitted to pharmacy Scheduled Allopurinol (Allopurinol), 100 MG PO DAILY, (Reported) Amiodarone HCl (Amiodarone HCl), 200 MG PO Q12HR Amlodipine Besylate (Amlodipine Besylate), 5 MG PO DAILY, (Reported) Apixaban Base (Eliquis), 2.5 MG PO BID Atorvastatin Calcium (Atorvastatin Calcium), 1 TAB PO DAILY, (Reported) Ferric Citrate (Auryxia), 210 MG PO DAILY, (Reported) Ferrous Sulfate (Ferosul), 325 MG PO DAILY, (Reported) Furosemide (Furosemide), 1 TAB PO DAILY, (Reported) Gabapentin (Gabapentin), 600 MG PO TID Glipizide (Glipizide), 10 MG PO DAILY, (Reported) Glucose Blood (Glucose Meter Test Strips), 1 VALERIY DAILY Insulin Glargine (Lantus), 20 UNIT SC BID, (Reported) Levofloxacin Hemihydrate (Levaquin 500 Mg), 0.5 TAB PO EOD Metformin Hydrochloride (Metformin Hcl), 1 TAB PO BID, (Reported) Metronidazole (Flagyl), 500 MG PO TID Nutritional Supplements (Josafat), 1 PACK OR BID Pantoprazole Sodium Sesquihydr (Protonix), 40 MG PO DAILY Sodium Zirconium Cyclosilicate (Lokelma), 1 PACK PO TIDWM, (Reported) Tramadol HCl (Tramadol HCl), 50 MG PO BID Trazodone Hcl (Trazodone Hcl), 1 TAB PO DAILY, (Reported) Zolpidem Tartrate (Zolpidem Tartrate), 1 TAB PO QHSP, (Reported) Scheduled PRN Hydrocodone-Acetaminophen (Hydrocodone Bitartrate/AC 5-325 mg), 1 TAB PO QID PRN Lactulose (Lactulose), 10 GM PO BIDPRN PRN Melatonin (Kp Melatonin), 1 TAB PO QPM PRN Durable Medical Equipment Blood Glucose Monitoring Suppl (Blood Glucose Monitoring W/Device), KIT XX DAILY, (DME) Lancets (Freestyle Lancets), STRIP XX DAILY, (DME) 39 (Time taken For discharge summary 39 minutes) Discharge Statement: "Patient was advised to return to the ER or call 911 if any headaches, dizziness, shortness of breath, chest pain, abdominal pain, bleeding, fevers, or worsening of medical condition. Patient was counseled about treatment plan, medications, possible side effects, patientverbalized understanding. All questions were answered to the best of my ability. This discharge took greater then 30 minutes in planning, reviewing documentation, counseling the patient, and discussing with other team members." ASSESSMENT ASSESSMENT Hospital Course Marginally improved Assessment Severe post-traumatic ankle arthritis with hardware/plate fibula and subtalar screw Secondary to chronic distal fibula malunion + posterior malleolus deformity Possible chronic neuropathic arthropathy (Charcot Stage 23) Talus resorption + subluxation + diabetic neuropathy + inability to bear weight x 2 yrs. Chronic ankle instability & deformity Lateral subluxation of talus, chronic malalignment. Chronic pain with functional disability Unable to bear weight, progressive deformity. Orthopedic consult appreciated advised nonweightbearing right lower extremity immobilization with CAM boot ESRD on hemodialysis , pipe fitter ammonia Dr. Daniel Taylor following Hypertension Hypercholesterolemia AFib Insulin-dependent diabetes GERD Depression Insomnia: Melatonin Date of Service: Jan 04, 2025 Billing Provider: ZOIE ESCOBEDO MD Common Visit Codes: [id number] DISCH DAY >30min ZOIE ESCOBEDO MD Jan 04, 2025 10:42
[2025-01-04] MEDS ORDERED: EPOETIN ALFA-EPBX 10,000 UNIT/1ML VIAL SC ONE (21:00)
--- NOTE | 2025-01-05 15:26 | DVHPN2 ---
Progress Note - Dictate Date Seen: Jan 04, 2025 Has the PT tested + for MRSA If YES, has PT been informed?: No Medical Necessity Reason Pt with a Central, PICC or Fol: No Subjective Patient was seen and evaluated in follow up earlier today. No acute events overnight. Patient denies any new complaints. Dialysis is scheduled. vital signs Vital Sign Date Time Temp Pulse Resp B/P (MAP) Pulse Ox O2 Delivery O2 Flow Rate FiO2 01/04/25 17:53 97.9 82 18 100 01/04/25 17:00 156/64 (94) 01/04/25 08:00 Room Air* 0 21 Total Intake and Output 01/04/25 01/04/25 01/05/25 15:00 23:00 07:00 Intake Total 1080 ml Output Total 350 ml Balance 730 ml objective Vitals and nursing notes reviewed. General Appearance: Cooperative, In no acute distress. HEENT: Atraumatic, PERRLA, EOMI Respiratory: Clear to auscultation, Normal air movement Cardiovascular: Regular rate, Normal S1, Normal S2, No murmurs Abdominal: Normal bowel sounds, Soft, No tenderness Extremities: No clubbing, No cyanosis, No edema, Normal pulses Skin: No rashes Neuro: Alert, Oriented X3, Normal speech laboratory and microbiology Laboratory Tests 01/01/25 07:26 Test 01/01/25 07:26 Range/Units Serum Glucose 67 L 74-106 mg/dL Problem List Intractable right lower leg pain due to intra-articular fracture of the distal tibia History of right tibia ORIF ESRD on HD Secondary hyperparathyroidism due to renal Anemia of chronic disease due to ESRD Atrial fibrillation Hypertensive kidney disease Mixed hyperlipidemia Insulin-dependent diabetes mellitus with peripheral neuropathy Vitamin-D deficiency Insomnia Depression Assessment/Plan HD- 01/04. Orthopedic surgery consulted and advised nonweightbearing right lower extremity immobilization with CAM boot. Renal/diabetic diet. Resume outpatient dialysis with [facility]. Cleared for discharge from Nephrology standpoint. Plan discussed with: Patient, Other (RN) OLEGARIO SNELL DO Jan 05, 2025 15:26
== END 2025-01-04 18:50 | disposition home health service (06) | DRG 553 ==
LOC: ER 15:21 → OVERFLOW 21:09 → WEST WING 23:21
PROVIDERS: ADMIT Family Medicine; ATTEND Family Medicine
PROC: 5A1D70Z Performance of Urinary Filtration, Intermittent, Less than 6 Hours Per Day (ICD-10-PCS; principal; 2025-01-02)
PROC: 5A1D70Z Performance of Urinary Filtration, Intermittent, Less than 6 Hours Per Day (ICD-10-PCS; 2025-01-04)
DX: M19.171 Post-traumatic osteoarthritis, right ankle and foot (principal); N18.6 End stage renal disease; I13.2 Hypertensive heart and chronic kidney disease with heart failure and with stage 5 chronic kidney disease, or end stage renal disease; N25.81 Secondary hyperparathyroidism of renal origin; D63.1 Anemia in chronic kidney disease; S82.891A Other fracture of right lower leg, initial encounter for closed fracture; Z99.2 Dependence on renal dialysis; S82.391A Other fracture of lower end of right tibia, initial encounter for closed fracture; F32.A Depression, unspecified; E11.22 Type 2 diabetes mellitus with diabetic chronic kidney disease; I50.42 Chronic combined systolic (congestive) and diastolic (congestive) heart failure; I48.91 Unspecified atrial fibrillation; G47.00 Insomnia, unspecified; G89.29 Other chronic pain; E11.42 Type 2 diabetes mellitus with diabetic polyneuropathy; M25.371 Other instability, right ankle; K21.9 Gastro-esophageal reflux disease without esophagitis; E78.2 Mixed hyperlipidemia; E55.9 Vitamin D deficiency, unspecified; S82.891S Other fracture of right lower leg, sequela; M21.961 Unspecified acquired deformity of right lower leg; E11.610 Type 2 diabetes mellitus with diabetic neuropathic arthropathy; Z83.3 Family history of diabetes mellitus; Z82.49 Family history of ischemic heart disease and other diseases of the circulatory system; Z79.4 Long term (current) use of insulin; Z79.84 Long term (current) use of oral hypoglycemic drugs; Z79.899 Other long term (current) drug therapy; X58.XXXA Exposure to other specified factors, initial encounter; Y93.89 Activity, other specified; Y92.89 Other specified places as the place of occurrence of the external cause; Y99.8 Other external cause status
CPT/HCPCS: 36415; 71045; 73610; 73700; 80048; 80053; 80307; 81001; 82607; 82962; 83036; 83735; 84100; 84550; 85025; 85610; 85730; 86141; 90935; 96374; 97163; G0378; J1815